=== PATIENT | female | born 1955 | race Caucasian/White ===

== ENCOUNTER 2016-03-24 21:27 | Emergency (ER) | payer MEDICAID ==
[2016-03-24] MEDS ORDERED: LORazepam 2 MG/ML INJ IVP ONE (21:30)
--- NOTE | 2016-03-24 21:32 | EDPHY ---
H & P Time Seen by Provider: 03/24/16 21:27 HPI/ROS: CHIEF COMPLAINT: Tremors, hypertension, alcohol withdrawal HISTORY OF PRESENT ILLNESS: The patient is a 60-year-old alcoholic female who is withdrawing from alcohol. She was seen at [facility] this morning and sent to the alcohol recovery Center with a Librium prescription. She states that they have not been giving it to her there. She has not had any for the last 12 hours. She has become tremulous and hypertensive. Paramedics state that the recovery Center told them her blood pressure was 200 systolic. There measurement is 174/108. She has no other complaints. She denies recent illness. REVIEW OF SYSTEMS: Constitutional: denies: chills, fever, recent illness, recent injury EENTM: denies: blurred vision, double vision, nose congestion Respiratory: denies: cough, shortness of breath Cardiac: denies: chest pain, irregular heart rate, lightheadedness, palpitations Gastrointestinal/Abdominal: denies: abdominal pain, diarrhea, nausea, vomiting, blood streaked stools Genitourinary: denies: dysuria, frequency, hematuria, pain Musculoskeletal: denies: joint pain, muscle pain Skin: denies: lesions, rash, jaundice, bruising Neurological: Tremulous, anxious Hematologic/Lymphatic: denies: blood clots, easy bleeding, easy bruising Immunologic/allergic: denies: HIV/AIDS, transplant EXAM: GENERAL: Tremulous HEAD: Atraumatic, normocephalic. EYES: Pupils equal round and reactive to light, extraocular movements intact, sclera anicteric, conjunctiva are normal. ENT: TMs normal, nares patent, oropharynx clear without exudates. Moist mucous membranes. NECK: Normal range of motion, supple without lymphadenopathy or JVD. LUNGS: Breath sounds clear to auscultation bilaterally and equal. No wheezes rales or rhonchi. HEART: Regular rate and rhythm without murmurs, rubs or gallops. ABDOMEN: Soft, nontender, normoactive bowel sounds. No guarding, no rebound. No masses appreciated. BACK: No CVA tenderness, no spinal tenderness, step-offs or deformities EXTREMITIES: Normal range of motion, no pitting or edema. No clubbing or cyanosis. NEUROLOGICAL: Cranial nerves II through XII grossly intact. Normal speech, normal gait. 5/5 strength, normal movement in all extremities, normal sensation PSYCH: Anxious SKIN: Warm, dry, normal turgor, no visible rashes or lesions. Source: Patient, EMS Exam Limitations: No limitations - Personal History Tetanus Vaccine Date: 2010 - Medical/Surgical History Hx Asthma: No Hx Chronic Respiratory Disease: No Hx Diabetes: No Hx Cardiac Disease: No Hx Renal Disease: No Hx Cirrhosis: No Hx Alcoholism: No Hx HIV/AIDS: No Hx Splenectomy or Spleen Trauma: No Other PMH: Insommia/depressiion, ETOH abouse - Family History Significant Family History: Hypertension - Social History Smoking Status: Never smoked Alcohol Use: Heavy Drug Use: None Constitutional: Initial Vital Signs Temperature (C) 37.1 C 03/24/16 21:34 Heart Rate 101 H 03/24/16 21:34 Respiratory Rate 20 03/24/16 21:34 Blood Pressure 142/102 H 03/24/16 21:34 O2 Sat (%) 95 03/24/16 21:34 O2 Delivery Mode Room Air Allergies/Adverse Reactions: No Known Allergies Allergy (Unverified 07/29/12 11:41) Home Medications: Medication Instructions Recorded Aspirin [Aspirin 81mg (OTC)] 162 mg PO DAILY 09/14/13 Cholecalciferol (Vitamin D3) 2,000 unit PO DAILY 09/14/13 [Vitamin D3] Gabapentin [Neurontin 300 MG (RX)] 1,200 mg PO HS 09/14/13 Gabapentin [Neurontin 300 MG (RX)] 600 mg PO DAILY 09/14/13 Herbals/Supplements -Info Only 1 ea PO DAILY 09/14/13 Losartan Potassium [Cozaar] 25 mg PO DAILY 09/14/13 Multivitamins [Tab-A-Brain] 1 each PO DAILY 09/14/13 Simvastatin [Zocor] 40 mg PO DAILY18 09/14/13 Tretinoin [Retin-A] 1 kendrick TP DAILY 09/14/13 buPROPion XL [Wellbutrin Xl] 300 mg PO DAILY 09/14/13 traZODone [traZODone 150MG (RX)] 300 mg PO HS 09/14/13 Medical Decision Making ED Course/Re-evaluation: 10:20 p.m. the patient is feeling completely better. She is dozing. Her blood pressure is 140/100. Heart rate is 75. We will have her return to the recovery Center with a Librium prepack. She is agreeable to this. We discussed indications for returning. Differential Diagnosis: Partial list of the Differential diagnosis considered include but were not limited to; alcohol withdrawal, hypertension, anxiety and although unlikely based on the history and physical exam, I also considered infection, acute coronary disease, arrhythmia. I discussed these differential diagnoses and the plan with the patient as well as the usual and expected course. The patient understands that the diagnosis is provisional and that in medicine we are not always correct and that further workup is often warranted. Usual and customary warnings were given. All of the patient's questions were answered. The patient was instructed to return to the emergency department should the symptoms at all worsen or return, otherwise to followup with the physician as we discussed. - Data Points Medications Given: Discontinued Medications Chlordiazepoxide (Librium 25 Mg Prepack#6) 1 btl TAKEHOME EDNOW ONE Stop: 03/24/16 22:29 Last Admin: 03/24/16 22:33 Dose: 1 btl Sodium Chloride (Ns) 1,000 mls @ 0 mls/hr IV ONCE ONE PRN Reason: Wide Open Stop: 03/24/16 22:38 Last Admin: 03/24/16 22:39 Dose: 1,000 mls Lorazepam (Ativan Injection) 2 mg IVP EDNOW ONE Stop: 03/24/16 21:31 Last Admin: 03/24/16 21:40 Dose: 2 mg Ondansetron HCl (Zofran) 4 mg IVP EDNOW ONE Stop: 03/24/16 22:38 Last Admin: 03/24/16 22:39 Dose: 4 mg Departure - Departure Disposition: Home, Routine, Self-Care Clinical Impression: Alcohol withdrawal Qualifiers: Complication of substance-induced condition: uncomplicated Qualifier Code: ( F10.230) Alcohol dependence with withdrawal, uncomplicated Hypertension Qualifiers: Hypertension type: other secondary hypertension Qualifier Code: (I15.8) Other secondary hypertension Condition: Good Instructions: Alcohol Withdrawal (ED), Antihistamine (By mouth), Chlordiazepoxide (By mouth) Referrals: NONE *PRIMARY CARE P,. [Primary Care Provider] - As per Instructions
[2016-03-24 21:35] VITALS: RESP 20; TEMP 98.8
[2016-03-24] MEDS ORDERED: LORazepam 2 MG/ML INJ ONE (21:37)
[2016-03-24 22:23] VITALS: BP 168/108; PULSE 125; O2SAT 100
[2016-03-24] MEDS ORDERED: CHLORDIAZEPOXIDE 25MG PREPK#6 BTL TAKEHOME ONE (22:28)
[2016-03-24] MEDS ORDERED: ONDANSETRON 4 MG/2 ML VIAL ONE (22:34)
[2016-03-24] MEDS ORDERED: ONDANSETRON 4 MG/2 ML VIAL IVP ONE (22:37)
[2016-03-24] MEDS ORDERED: NS 1,000 ML IV ONE (22:37)
== END 2016-03-24 22:50 | disposition home or self-care (01) ==
LOC: EDUNIT#
DX: I10 Essential (primary) hypertension (principal); F10.230 Alcohol dependence with withdrawal, uncomplicated; Z79.82 Long term (current) use of aspirin
CPT/HCPCS: 96374; J2405

== ENCOUNTER 2016-05-13 20:06 | Emergency (ER) | payer MEDICAID ==
[2016-05-13] MEDS ORDERED: ONDANSETRON 4 MG/2 ML VIAL ONE (20:17)
[2016-05-13] MEDS ORDERED: LORazepam 2 MG/ML INJ ONE (20:18)
[2016-05-13] MEDS ORDERED: NS 1,000 ML IV ONE (20:20)
[2016-05-13] MEDS ORDERED: LORazepam 2 MG/ML INJ IVP ONE (20:20)
[2016-05-13] MEDS ORDERED: ONDANSETRON 4 MG/2 ML VIAL IVP ONE ×2 (20:20→21:28)
--- NOTE | 2016-05-13 20:22 | EDPHY ---
H & P Time Seen by Provider: 05/13/16 20:15 HPI/ROS: CHIEF COMPLAINT: Alcohol withdrawal HISTORY OF PRESENT ILLNESS: The patient is a 60-year-old female who drove herself to the alcohol recovery Center earlier today. She has a history of alcoholism and drinks hard liquor. She had her last drink about 8 hours ago. She was not receiving Librium at the recovery Center. She comes here tachycardic with tremors and vomiting. She has a history of cardiovascular disease but no stents or surgeries. Also hypertension and hypercholesterolemia. She has never had withdrawal seizures. No recent illness or injuries. REVIEW OF SYSTEMS: Constitutional: See HPI EENTM: denies: blurred vision, double vision, nose congestion Respiratory: denies: cough, shortness of breath Cardiac: denies: chest pain, irregular heart rate, lightheadedness, palpitations Gastrointestinal/Abdominal: denies: abdominal pain, diarrhea, nausea, vomiting, blood streaked stools Genitourinary: denies: dysuria, frequency, hematuria, pain Musculoskeletal: denies: joint pain, muscle pain Skin: denies: lesions, rash, jaundice, bruising Neurological: denies: headache, numbness, paresthesia, tingling, dizziness, weakness Hematologic/Lymphatic: denies: blood clots, easy bleeding, easy bruising Immunologic/allergic: denies: HIV/AIDS, transplant EXAM: GENERAL: Vomiting, tremulous HEAD: Atraumatic, normocephalic. EYES: Pupils equal round and reactive to light, extraocular movements intact, sclera anicteric, conjunctiva are normal. ENT: TMs normal, nares patent, oropharynx clear without exudates. Moist mucous membranes. NECK: Normal range of motion, supple without lymphadenopathy or JVD. LUNGS: Breath sounds clear to auscultation bilaterally and equal. No wheezes rales or rhonchi. HEART: Tachycardic Regular rate and rhythm without murmurs, rubs or gallops. ABDOMEN: Soft, nontender, normoactive bowel sounds. No guarding, no rebound. No masses appreciated. BACK: No CVA tenderness, no spinal tenderness, step-offs or deformities EXTREMITIES: Normal range of motion, no pitting or edema. No clubbing or cyanosis. NEUROLOGICAL: Cranial nerves II through XII grossly intact. Normal speech, normal gait. 5/5 strength, normal movement in all extremities, normal sensation PSYCH: tearful SKIN: Warm, dry, normal turgor, no visible rashes or lesions. Source: Patient Exam Limitations: No limitations - Personal History Tetanus Vaccine Date: 2010 - Medical/Surgical History Hx Asthma: No Hx Chronic Respiratory Disease: No Hx Diabetes: No Hx Cardiac Disease: No Hx Renal Disease: No Hx Cirrhosis: No Hx Alcoholism: No Hx HIV/AIDS: No Hx Splenectomy or Spleen Trauma: No Other PMH: Insommia/depressiion, ETOH abouse - Family History Significant Family History: Hypertension - Social History Smoking Status: Never smoked Alcohol Use: Heavy Drug Use: None Constitutional: Initial Vital Signs Temperature (C) 37.1 C 05/13/16 20:10 Heart Rate 103 H 05/13/16 20:10 Respiratory Rate 22 H 05/13/16 20:10 Blood Pressure 149/113 H 05/13/16 20:10 O2 Sat (%) 95 05/13/16 20:10 O2 Delivery Mode Room Air Allergies/Adverse Reactions: No Known Allergies Allergy (Unverified 07/29/12 11:41) Home Medications: Medication Instructions Recorded Aspirin [Aspirin 81mg (OTC)] 162 mg PO DAILY 09/14/13 Cholecalciferol (Vitamin D3) 2,000 unit PO DAILY 09/14/13 [Vitamin D3] Gabapentin [Neurontin 300 MG (RX)] 1,200 mg PO HS 09/14/13 Gabapentin [Neurontin 300 MG (RX)] 600 mg PO DAILY 09/14/13 Herbals/Supplements -Info Only 1 ea PO DAILY 09/14/13 Losartan Potassium [Cozaar] 25 mg PO DAILY 09/14/13 Multivitamins [Tab-A-Brain] 1 each PO DAILY 09/14/13 Simvastatin [Zocor] 40 mg PO DAILY18 09/14/13 Tretinoin [Retin-A] 1 kendrick TP DAILY 09/14/13 buPROPion XL [Wellbutrin Xl] 300 mg PO DAILY 09/14/13 traZODone [traZODone 150MG (RX)] 300 mg PO HS 09/14/13 Medical Decision Making ED Course/Re-evaluation: 10:15 p.m. after Ativan and Zofran the patient is feeling much better. She is sleeping comfortably. No tremors. She is not tachycardic. Her heart rate is 87. We will transfer back to the alcohol recovery Center on a Librium protocol. She understands and agrees with this plan. Differential Diagnosis: Partial list of the Differential diagnosis considered include but were not limited to; alcohol withdrawal, intoxication, anxiety and although unlikely based on the history and physical exam, I also considered polysubstance abuse, infection. I discussed these differential diagnoses and the plan with the patient as well as the usual and expected course. The patient understands that the diagnosis is provisional and that in medicine we are not always correct and that further workup is often warranted. Usual and customary warnings were given. All of the patient's questions were answered. The patient was instructed to return to the emergency department should the symptoms at all worsen or return, otherwise to followup with the physician as we discussed. - Data Points Medications Given: Discontinued Medications Chlordiazepoxide (Librium 25 Mg Prepack#6) 1 btl TAKEHOME EDNOW ONE Stop: 05/13/16 22:17 Last Admin: 05/13/16 22:21 Dose: 1 btl Chlordiazepoxide HCl (Librium) 50 mg PO EDNOW ONE Stop: 05/13/16 21:31 Last Admin: 05/13/16 21:38 Dose: 50 mg Sodium Chloride (Ns) 1,000 mls @ 0 mls/hr IV ONCE ONE PRN Reason: Wide Open Stop: 05/13/16 20:21 Last Admin: 05/13/16 20:24 Dose: 1,000 mls Lorazepam (Ativan Injection) 2 mg IVP EDNOW ONE Stop: 05/13/16 20:21 Last Admin: 05/13/16 20:24 Dose: 2 mg Ondansetron HCl (Zofran) 4 mg IVP EDNOW ONE Stop: 05/13/16 20:21 Last Admin: 05/13/16 20:24 Dose: 4 mg Ondansetron HCl (Zofran) 4 mg IVP EDNOW ONE Stop: 05/13/16 21:29 Last Admin: 05/13/16 21:37 Dose: 4 mg Ondansetron HCl (Zofran Odt 4 Mg Prepack#2) 1 btl TAKEHOME EDNOW ONE Stop: 05/13/16 22:48 Last Admin: 05/13/16 22:50 Dose: 1 btl Departure - Departure Disposition: Home, Routine, Self-Care Clinical Impression: Alcohol withdrawal Qualifiers: Complication of substance-induced condition: uncomplicated Qualified Code(s): F10.230 - Alcohol dependence with withdrawal, uncomplicated Condition: Fair Instructions: Chlordiazepoxide (By mouth), Ondansetron (By mouth), Alcohol Withdrawal (ED) Referrals: Patient,NotPresent [Unknown] - As per Instructions
[2016-05-13] MEDS ORDERED: chlordiazePOXIDE 25 MG CAP PO ONE (21:30)
[2016-05-13 21:48] VITALS: RESP 16; TEMP 98.2
[2016-05-13] MEDS ORDERED: CHLORDIAZEPOXIDE 25MG PREPK#6 BTL TAKEHOME ONE (22:16)
[2016-05-13] MEDS ORDERED: ONDANSETRON 4MG PREPACK#2 BTL TAKEHOME ONE (22:47)
[2016-05-13 22:58] VITALS: BP 142/81; PULSE 93; O2SAT 95
== END 2016-05-13 22:58 | disposition home or self-care (01) ==
LOC: EDUNIT#
DX: F10.230 Alcohol dependence with withdrawal, uncomplicated (principal); Z79.82 Long term (current) use of aspirin
CPT/HCPCS: 96374; J2405

== ENCOUNTER 2016-06-22 09:45 | Emergency (ER) | payer MEDICAID ==
[2016-06-22 09:50] VITALS: TEMP 98.1
--- NOTE | 2016-06-22 10:02 | EDPHY ---
H & P Stated Complaint: WITHDRAWAL/INTRACABLE N/V Time Seen by Provider: 06/22/16 10:01 - Personal History Current Tetanus/Diphtheria Vaccine: Yes Tetanus Vaccine Date: 2010 - Medical/Surgical History Hx Asthma: No Hx Chronic Respiratory Disease: No Hx Diabetes: No Hx Cardiac Disease: No Hx Renal Disease: No Hx Cirrhosis: No Hx Alcoholism: Yes Hx HIV/AIDS: No Hx Splenectomy or Spleen Trauma: No Other PMH: Insommia/depressiion, ETOH abouse - Social History Smoking Status: Never smoked Constitutional: Initial Vital Signs Temperature (C) 36.7 C 06/22/16 09:47 Heart Rate 112 H 06/22/16 09:47 Respiratory Rate 20 06/22/16 09:47 Blood Pressure 191/120 H 06/22/16 09:47 O2 Sat (%) 97 06/22/16 09:47 O2 Delivery Mode Room Air O2 (L/minute) 2 Allergies/Adverse Reactions: No Known Allergies Allergy (Verified 06/22/16 09:46) Home Medications: Medication Instructions Recorded Aspirin [Aspirin 81mg (OTC)] 162 mg PO DAILY 09/14/13 Cholecalciferol (Vitamin D3) 2,000 unit PO DAILY 09/14/13 [Vitamin D3] Gabapentin [Neurontin 300 MG (RX)] 1,200 mg PO HS 09/14/13 Gabapentin [Neurontin 300 MG (RX)] 600 mg PO DAILY 09/14/13 Herbals/Supplements -Info Only 1 ea PO DAILY 09/14/13 Losartan Potassium [Cozaar] 25 mg PO DAILY 09/14/13 Multivitamins [Tab-A-Brain] 1 each PO DAILY 09/14/13 Simvastatin [Zocor] 40 mg PO DAILY18 09/14/13 Tretinoin [Retin-A] 1 kendrick TP DAILY 09/14/13 buPROPion XL [Wellbutrin Xl] 300 mg PO DAILY 09/14/13 traZODone [traZODone 150MG (RX)] 300 mg PO HS 09/14/13 Medical Decision Making ED Course/Re-evaluation: CHIEF COMPLAINT: "shakes" and vomiting HISTORY OF PRESENT ILLNESS: The patient is a 61 y/o female, with a history of alcoholism, complaining of alcohol withdrawal onset this morning. Her last drink was last night. She complains of tremors, nausea, and a "wobbly tongue." She denies hallucinations or other ingestions. She has been referred to an inpatient detox facility. REVIEW OF SYSTEMS: A 10 point review of systems was performed and is negative with the exception of the elements mentioned in the history of present illness. PHYSICAL EXAM: HR 112, BP 191/120, O2 Sat, RR. Temp noted General Appearance: Alert, well hydrated, appropriate, and tremulous and uncomfortable-appearing. Head: Atraumatic without scalp tenderness or obvious injury Eyes: Pupils equal, round, reactive to light and accommodation, EOMI, no trauma , no injection. Nose: Atraumatic, no rhinorrhea, clear. Throat: mucus membranes moist. Neck: Supple, nontender, no lymphadenopathy. Respiratory: No retractions, no distress, no wheezes, and no accessory muscle use. Lungs are clear to auscultation bilaterally. Cardiovascular: Tachycardic regular rate and rhythm, no murmurs, rubs, or gallops. Good capillary refill all extremities. Gastrointestinal: Abdomen is soft, nontender, non-distended, no masses, no rebound, no guarding, no peritoneal signs. Musculoskeletal: Normal active ROM of all extremities, atraumatic. Neurological: Alert, appropriate, and interactive. Diffuse tremors. Nonfocal. Tongue fasciculations. Skin: No rashes, good turgor, no nodules on palpation. Past medical history: Alcoholism Past surgical history: denies Family history: noncontributory Social history: alcohol abuse DIFFERENTIAL DIAGNOSIS: The differential diagnosis for the patient's tremors included but was not limited to alcohol withdrawal, delirium tremens, electrolyte abnormality, medication noncompliance, head injury, PHONE CIRCUIT OPERATOR structural abnormality. MEDICAL DECISION MAKING: This is a 61 y/o female with a history of alcoholism who presents in acute alcohol withdrawal with tremors. She does not have evidence of delirium tremens. - no cognitive or hallucinogenic symptoms. Plan for symptom management with 1L IV NS, 2mg IV Ativan, and 4mg IV Zofran. If patient remains stable she will be discharged to the [facility] with Librium for detox. Reassessed patient. She is feeling well and agrees to plan for discharge to the [facility]. Return precautions given. - Data Points Medications Given: Discontinued Medications Chlordiazepoxide (Librium 25 Mg Prepack#6) 1 btl TAKEHOME EDNOW ONE Stop: 06/22/16 11:10 Last Admin: 06/22/16 11:20 Dose: 1 btl Sodium Chloride (Ns) 1,000 mls @ 0 mls/hr IV ONCE ONE PRN Reason: Wide Open Stop: 06/22/16 10:27 Last Admin: 06/22/16 10:27 Dose: 1,000 mls Lorazepam (Ativan) 1 mg PO EDNOW ONE Stop: 06/22/16 10:08 Last Admin: 06/22/16 10:07 Dose: 1 mg Lorazepam (Ativan Injection) 2 mg IVP EDNOW ONE Stop: 06/22/16 10:21 Last Admin: 06/22/16 10:26 Dose: 2 mg Ondansetron HCl (Zofran) 4 mg IVP EDNOW ONE Stop: 06/22/16 10:21 Last Admin: 06/22/16 10:26 Dose: 4 mg Departure - Departure Disposition: Home, Routine, Self-Care Clinical Impression: Alcohol withdrawal Qualifiers: Complication of substance-induced condition: uncomplicated Qualified Code(s): F10.230 - Alcohol dependence with withdrawal, uncomplicated Condition: Good Instructions: Alcohol Withdrawal (ED) Additional Instructions: 1. Take Librium as prescribed for alcohol withdrawal. 2. Go directly to the [facility] for detox. 3. Return to the ED for seizure or other worsening of condition. Referrals: [facility] 24 Hours [Outside] - As per Instructions Report Scribed for: Dimitri Morse Report Scribed by: Divya Lemons Date of Report: 06/22/16 Time of Report: 11:12
[2016-06-22] MEDS ORDERED: LORazepam 1 MG TAB ONE (10:06)
[2016-06-22] MEDS ORDERED: LORazepam 1 MG TAB PO ONE (10:07)
[2016-06-22] MEDS ORDERED: ONDANSETRON 4 MG/2 ML VIAL ONE (10:18)
[2016-06-22] MEDS ORDERED: LORazepam 2 MG/ML INJ ONE (10:19)
[2016-06-22] MEDS ORDERED: ONDANSETRON 4 MG/2 ML VIAL IVP ONE (10:20)
[2016-06-22] MEDS ORDERED: LORazepam 2 MG/ML INJ IVP ONE (10:20)
[2016-06-22] MEDS ORDERED: NS 1,000 ML IV ONE (10:26)
[2016-06-22] MEDS ORDERED: CHLORDIAZEPOXIDE 25MG PREPK#6 BTL TAKEHOME ONE (11:09)
[2016-06-22 11:25] VITALS: BP 148/96; PULSE 89; RESP 16; O2SAT 97
== END 2016-06-22 11:26 | disposition home or self-care (01) ==
DX: F10.230 Alcohol dependence with withdrawal, uncomplicated (principal); Z79.82 Long term (current) use of aspirin
CPT/HCPCS: 96374; J2060; J2405

== ENCOUNTER 2016-06-26 12:40 | Emergency (ER) | payer MEDICAID ==
[2016-06-26 12:58] VITALS: RESP 18
[2016-06-26 13:11] VITALS: O2SAT 95
[2016-06-26] MEDS ORDERED: LORazepam 1 MG TAB PO ONE (13:26)
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
[2016-06-26 15:22] VITALS: BP 107/77; PULSE 80; TEMP 98.2
== END 2016-06-26 15:30 | disposition home or self-care (01) ==
LOC: EDUNIT#
DX: F41.9 Anxiety disorder, unspecified (principal); I10 Essential (primary) hypertension; Z79.82 Long term (current) use of aspirin; F10.120 Alcohol abuse with intoxication, uncomplicated

== ENCOUNTER 2016-06-26 18:03 | Emergency (ER) | payer MEDICAID ==
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
[2016-06-26 18:12] VITALS: TEMP 98.1
[2016-06-26] MEDS ORDERED: CHLORDIAZEPOXIDE 25MG PREPK#6 BTL TAKEHOME ONE (20:53)
[2016-06-26 21:09] VITALS: BP 129/85; PULSE 96; RESP 18; O2SAT 94
== END 2016-06-26 21:09 | disposition home or self-care (01) ==
LOC: EDUNIT#
DX: F10.120 Alcohol abuse with intoxication, uncomplicated (principal); I10 Essential (primary) hypertension; Z79.82 Long term (current) use of aspirin

== ENCOUNTER 2016-07-15 20:26 | Emergency (ER) | payer MEDICAID ==
[2016-07-15 20:44] VITALS: BP 113/71; PULSE 82; RESP 20; TEMP 98.6; O2SAT 95
--- NOTE | 2016-07-15 20:51 | EDPHY ---
H & P Stated Complaint: etoh, wants detox Time Seen by Provider: 07/15/16 20:51 - Personal History Tetanus Vaccine Date: 2010 - Medical/Surgical History Hx Asthma: No Hx Chronic Respiratory Disease: No Hx Diabetes: No Hx Cardiac Disease: Yes Hx Renal Disease: No Hx Cirrhosis: No Hx Alcoholism: Yes Hx HIV/AIDS: No Hx Splenectomy or Spleen Trauma: No Other PMH: HTN, Insommia/depressiion, ETOH abouse - Social History Smoking Status: Never smoked Constitutional: Initial Vital Signs Temperature (C) 37 C 07/15/16 20:42 Heart Rate 82 07/15/16 20:42 Respiratory Rate 20 07/15/16 20:42 Blood Pressure 113/71 07/15/16 20:42 O2 Sat (%) 95 07/15/16 20:42 O2 Delivery Mode Room Air Allergies/Adverse Reactions: No Known Allergies Allergy (Verified 07/15/16 20:41) Home Medications: Medication Instructions Recorded Aspirin [Aspirin 81mg (OTC)] 162 mg PO DAILY 09/14/13 Cholecalciferol (Vitamin D3) 2,000 unit PO DAILY 09/14/13 [Vitamin D3] Gabapentin [Neurontin 300 MG (RX)] 1,200 mg PO HS 09/14/13 Gabapentin [Neurontin 300 MG (RX)] 600 mg PO DAILY 09/14/13 Herbals/Supplements -Info Only 1 ea PO DAILY 09/14/13 Losartan Potassium [Cozaar] 25 mg PO DAILY 09/14/13 Multivitamins [Tab-A-Brain] 1 each PO DAILY 09/14/13 Simvastatin [Zocor] 40 mg PO DAILY18 09/14/13 Tretinoin [Retin-A] 1 kendrick TP DAILY 09/14/13 buPROPion XL [Wellbutrin Xl] 300 mg PO DAILY 09/14/13 traZODone [traZODone 150MG (RX)] 300 mg PO HS 09/14/13 Medical Decision Making ED Course/Re-evaluation: CHIEF COMPLAINT: Needs Librium. HISTORY OF PRESENT ILLNESS: The patient is a 61-year-old female who presents from the [facility] to get Librium. She took 3 shots just prior to arrival. She denies any medical complaints at this time. REVIEW OF SYSTEMS: A 10 point review of systems was performed and is negative with the exception of the elements mentioned in the history of present illness. PHYSICAL EXAM: HR, BP, O2 Sat, RR. Temp noted General Appearance: Alert, well hydrated, appropriate, and non-toxic appearing. Head: Atraumatic without scalp tenderness or obvious injury Eyes: Pupils equal, round, reactive to light and accommodation, EOMI, no trauma , no injection. Ears: Clear bilaterally, no perforation, normal landmarks Nose: Atraumatic, no rhinorrhea, clear. Throat: There is no erythema or exudates, no lesions, normal tonsils, mucus membranes moist. Neck: Supple, 2+ carotid upstroke, nontender, no lymphadenopathy. Respiratory: No retractions, no distress, no wheezes, and no accessory muscle use. Lungs are clear to auscultation bilaterally. Cardiovascular: Regular rate and rhythm, no murmurs, rubs, or gallops. Bilateral carotid, radial, dorsalis pedis, and posterior tibial pulses intact. Good capillary refill all extremities. Gastrointestinal: Abdomen is soft, nontender, non-distended, no masses, no rebound, no guarding, no peritoneal signs. Musculoskeletal: Normal active ROM of all extremities, atraumatic. Neurological: Alert, appropriate, and interactive. The patient has normal DTRs and non-focal cranial nerves, motor, sensory, and cerebellar exam. Skin: No rashes, good turgor, no nodules on palpation. Past medical history: Hypertension, insomnia, depression. Past surgical history: Denies. Family history: N/A. Social history: Alcohol abuse. MEDICAL DECISION MAKIN-year-old female presents from the [facility] for med clear and to obtain Librium. She has no medical complaints at this time. She has a normal exam. I will give her a take-home pack of Librium and she will be transferred back to the [facility]. She is comfortable with this plan. Departure - Departure Disposition: Home, Routine, Self-Care Clinical Impression: Alcohol abuse Condition: Good Instructions: Abuse of Alcohol (ED), Chlordiazepoxide/Clidinium (By mouth) Additional Instructions: Take Librium as instructed. Follow up at the [facility]. Return for any serious worsening of condition. Referrals: WINTER,UNKNOWN [Other] - As per Instructions [facility] Detox 24 Hours [Outside] - As per Instructions Report Scribed for: Dimitri Morse Report Scribed by: Leandro Peng Date of Report: 07/15/16 Time of Report: 20:53
[2016-07-15] MEDS ORDERED: CHLORDIAZEPOXIDE 25MG PREPK#6 BTL TAKEHOME ONE (20:53)
== END 2016-07-15 21:20 | disposition home or self-care (01) ==
DX: F10.10 Alcohol abuse, uncomplicated (principal); I10 Essential (primary) hypertension; Z79.82 Long term (current) use of aspirin

== ENCOUNTER 2016-08-09 09:49 | Emergency (ER) | payer MEDICAID ==
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
[2016-08-09 09:55] VITALS: TEMP 96.8
--- NOTE | 2016-08-09 09:56 | CPEKG ---
Heart Rate: 79 RR Interval: 759 P-R Interval: 124 QRSD Interval: 92 QT Interval: 392 QTC Interval: 450 P Sumner: 30 QRS Sumner: 57 T Wave Sumner: 58 EKG Severity - BORDERLINE ECG - EKG Impression: SINUS RHYTHM EKG Impression: TALL R WAVE IN V2, CONSIDER RVH OR PMI Electronically Signed By: Patrick Dang 09-Aug-2016 13:52:42
[2016-08-09] MEDS ORDERED: LORazepam 2 MG/ML INJ IVP ONE (10:08)
[2016-08-09 10:11] LABS: % IMMATURE GRANULYOCYTES 0.4 % (0.0-1.1); ABSOLUTE IMMATURE GRANULOCYTES 0.03 10^3/uL (0.00-0.10); ADD DIFF? NO; ADD MORPH? NO; ADD SCAN? NO; ATYPICAL LYMPHOCYTE FLAG 40 (0-99); FRAGMENT RBC FLAG 0 (0-99); HEMOGLOBIN 13.2 g/dL (12.6-16.3); LEFT SHIFT FLG 0 (0-99); LIPEMIA HEMOLYSIS FLAG 90 (0-99); MEAN CELL HEMOGLOBIN 32.3 pg (27.9-34.1); MEAN CELL HEMOGLOBIN CONCENTR. 34.7 g/dL (32.4-36.7); MEAN CELL VOLUME 92.9 fL (81.5-99.8); MEAN PLATELET VOLUME 9.7 fL (8.7-11.7); PLATELET CLUMPS FLAG 0 (0-99); PLATELET COUNT 330 10^3/uL (150-400); RED BLOOD CELL COUNT 4.09 10^6/uL (4.18-5.33); RED CELL DISTRIBUTION WIDTH 14.7 % (11.5-15.2)
[2016-08-09 10:28] LABS: ANION GAP 15 mEq/L (8-16); CALCIUM 8.9 mg/dL (8.5-10.4); CARBON DIOXIDE 25 mEq/l (22-31); CHLORIDE 104 mEq/L (97-110); CREATININE 0.5 mg/dL (0.6-1.0); GLOMERULAR FILTRATION RATE > 60; GLUCOSE 90 mg/dL (70-100); POTASSIUM 4.1 mEq/L (3.5-5.2); SODIUM 144 mEq/L (134-144)
[2016-08-09 10:39] LABS: TROPONIN I < 0.012 ng/mL (0-0.034)
[2016-08-09 11:16] VITALS: BP 107/74; PULSE 91; RESP 18; O2SAT 98
== END 2016-08-09 11:30 | disposition home or self-care (01) ==
DX: F41.9 Anxiety disorder, unspecified (principal); R07.89 Other chest pain; I10 Essential (primary) hypertension; I25.2 Old myocardial infarction
CPT/HCPCS: 96374; J2060

== ENCOUNTER 2016-08-14 09:40 | Emergency (ER) | payer MEDICAID ==
[2016-08-14] MEDS ORDERED: NS 1,000 ML IV ONE (10:22)
[2016-08-14] MEDS ORDERED: LORazepam 2 MG/ML INJ IVP ONE (10:22)
[2016-08-14] MEDS ORDERED: THIAMINE HCL 100 MG TAB PO ONE (10:22)
[2016-08-14] MEDS ORDERED: FOLIC ACID 1 MG TAB PO ONE (10:22)
[2016-08-14] MEDS ORDERED: MULTIVITAMINS 1 EACH TAB PO ONE (10:22)
[2016-08-14] MEDS ORDERED: ONDANSETRON 4 MG/2 ML VIAL IVP ONE (10:22)
--- NOTE | 2016-08-14 10:26 | EDPHY ---
H & P Time Seen by Provider: 08/14/16 10:19 HPI/ROS: CHIEF COMPLAINT: "I am withdrawing" HISTORY OF PRESENT ILLNESS: 61-year-old female self-described alcoholic arrives via taxi [facility] for complaints of acute alcohol withdrawal. Last drink follow-up Barr with last evening. She had a friend take her to the [facility] but is complaining now of acute anxiety, tremor, nausea. She denies: Suicidal or homicidal ideation, chest pain, dyspnea, back pain, headache, seizure, hallucination REVIEW OF SYSTEMS: A ten point review of systems was performed and is negative with the exception of the items mentioned in the HPI PAST MEDICAL & SURGICAL HISTORY: alcoholism SOCIAL HISTORY:last drink of alcohol last evening PHYSICAL EXAM (Prior to examination, patient consented to physical exam, hands were washed and my usual and customary physical exam procedures followed) 1) GENERAL: Well-developed, well-nourished, alert and oriented. Appears anxious , tremulous 2) HEAD: Normocephalic, atraumatic 3) HEENT: Pupils equal, round, reactive to light bilaterally. Sclera anicteric. 4) NECK: Full range of motion, no meningeal signs. 5) LUNGS: Clear auscultation bilaterally, no wheezes, no rhonchi, no retractions. 6) HEART: Regular rate and rhythm, no murmur, no heave, no gallop. 7) ABDOMEN: No guarding, no rebound, no focal tendernes, 8) MUSCULOSKELETAL: No peripheral edema or discoloration. 9) BACK: No CVA tenderness. 10) SKIN: No rash, no petechiae. 11) Psychiatric: Patient is oriented X 3, there is no agitation. DIFFERENTIAL DIAGNOSIS: in no particular order including but not limited to delirium tremens, acute alcohol withdrawal, alcohol withdrawal seizure Smoking Status: Never smoked Constitutional: Initial Vital Signs Temperature (C) 36.7 C 08/14/16 09:45 Heart Rate 95 08/14/16 09:45 Respiratory Rate 20 08/14/16 09:45 Blood Pressure 150/107 H 08/14/16 09:45 O2 Sat (%) 95 08/14/16 09:45 O2 Delivery Mode Room Air Allergies/Adverse Reactions: No Known Allergies Allergy (Verified 08/14/16 09:47) Home Medications: Medication Instructions Recorded Cymbalta 08/09/16 GABAPENTIN 08/09/16 Lipitor 08/09/16 Losartan Potassium 08/09/16 traZODone 08/09/16 MDM/Departure - MDM Medications Given: Discontinued Medications Chlordiazepoxide (Librium 25 Mg Prepack#6) 1 btl TAKEHOME EDNOW ONE Stop: 08/14/16 11:13 Last Admin: 08/14/16 11:28 Dose: 1 btl Folic Acid (Folic Acid) 1 mg PO EDNOW ONE Stop: 08/14/16 10:23 Last Admin: 08/14/16 11:15 Dose: 1 mg Sodium Chloride (Ns) 1,000 mls @ 0 mls/hr IV ONCE ONE PRN Reason: Wide Open Stop: 08/14/16 10:23 Last Admin: 08/14/16 10:35 Dose: 1,000 mls Lorazepam (Ativan Injection) 2 mg IVP EDNOW ONE Stop: 08/14/16 10:23 Last Admin: 08/14/16 10:35 Dose: 2 mg Multivitamins (Tab-A-Brain) 1 each PO EDNOW ONE Stop: 08/14/16 10:23 Last Admin: 08/14/16 11:16 Dose: 1 each Ondansetron HCl (Zofran) 4 mg IVP EDNOW ONE Stop: 08/14/16 10:23 Last Admin: 08/14/16 10:35 Dose: 4 mg Ondansetron HCl (Zofran Odt 4 Mg Prepack#2) 1 btl TAKEHOME EDNOW ONE Stop: 08/14/16 11:13 Last Admin: 08/14/16 11:29 Dose: 1 btl Thiamine HCl (Vitamin B-1) 100 mg PO EDNOW ONE Stop: 08/14/16 10:23 Last Admin: 08/14/16 11:16 Dose: 100 mg ED Course/Re-evaluation: 11:11 a.m.: Re-evaluation after IV Ativan 2 mg and IV Zofran IV fluids. Her tremors have resolved, she is smiling, states that she is feeling significantly improved. Objectively she it appears significantly improved. Doubt delirium tremens. Doubt withdrawal seizure. She would like to return [facility]. She will return to the [facility] with prepack of Cl and Genie. Care and management in consultation with secondary supervising physician Dr Dang . - Depart Disposition: Home, Routine, Self-Care Clinical Impression: Alcohol withdrawal Qualifiers: Complication of substance-induced condition: uncomplicated Qualified Code(s): F10.230 - Alcohol dependence with withdrawal, uncomplicated Condition: Good Instructions: Chlordiazepoxide (By mouth), Ondansetron (By mouth), Alcohol Withdrawal (ED) Referrals: [facility] 24 Hours [Outside] - 08/14/16 12:00 pm
[2016-08-14] MEDS ORDERED: CHLORDIAZEPOXIDE 25MG PREPK#6 BTL TAKEHOME ONE (11:12)
[2016-08-14] MEDS ORDERED: ONDANSETRON 4MG PREPACK#2 BTL TAKEHOME ONE (11:12)
[2016-08-14 11:36] VITALS: BP 137/98; PULSE 87; RESP 14; TEMP 97.5; O2SAT 90
== END 2016-08-14 11:49 | disposition home or self-care (01) ==
DX: F10.230 Alcohol dependence with withdrawal, uncomplicated (principal)
CPT/HCPCS: 96374; J2060; J2405

== ENCOUNTER 2016-08-15 20:53 | Emergency (ER) | payer MEDICAID ==
[2016-08-15 21:01] VITALS: RESP 16
--- NOTE | 2016-08-15 22:02 | EDPHY ---
H & P Time Seen by Provider: 08/15/16 21:57 HPI/ROS: CHIEF COMPLAINT: "Oh my god" HISTORY OF PRESENT ILLNESS: 61-year-old female history of alcoholism arrives via who over after her friend, who is also a cooker meal pickup driver, took her to the [facility] however they want her to come to the ER 1st to get Librium and then she may come back. She has no complaints of pain or discomfort. She denies suicidal or homicidal ideation. She denies self- injury. Denies hallucination. Denies seizure. She would like to go to the [facility] [place] REVIEW OF SYSTEMS: A ten point review of systems was performed and is negative with the exception of the items mentioned in the HPI PAST MEDICAL & SURGICAL HISTORY: alcoholism SOCIAL HISTORY:positive alcohol use today PHYSICAL EXAM (Prior to examination, patient consented to physical exam, hands were washed and my usual and customary physical exam procedures followed) 1) GENERAL: Well-developed, well-nourished, alert and oriented. Appears to be in no acute distress. 2) HEAD: Normocephalic, atraumatic 3) HEENT: Pupils equal, round, reactive to light bilaterally. Sclera anicteric. No raccoon eyes no Mccray sign 4) NECK: Full range of motion, no meningeal signs. 5) LUNGS: Clear auscultation bilaterally, no wheezes, no rhonchi, no retractions. 6) HEART: Regular rate and rhythm, no murmur, no heave, no gallop. 7) ABDOMEN: No guarding, no rebound, no focal tenderness, 8) MUSCULOSKELETAL: No peripheral edema or discoloration. 9) BACK: no visual or palpable abnormality. 10) SKIN: No rash, no petechiae. 11) Psychiatric: Patient is oriented X 3, there is no agitation. DIFFERENTIAL DIAGNOSIS: In no particular include but limited to alcohol abuse, alcohol withdrawal, polysubstance abuse Smoking Status: Never smoked Constitutional: Initial Vital Signs Temperature (C) 37 C 08/15/16 20:58 Heart Rate 115 H 08/15/16 20:58 Respiratory Rate 16 08/15/16 20:58 Blood Pressure 134/84 H 08/15/16 20:58 O2 Sat (%) 97 08/15/16 20:58 O2 Delivery Mode Room Air Allergies/Adverse Reactions: No Known Allergies Allergy (Verified 08/14/16 09:47) Home Medications: Medication Instructions Recorded Cymbalta 08/09/16 GABAPENTIN 08/09/16 Lipitor 08/09/16 Losartan Potassium 08/09/16 traZODone 08/09/16 MDM/Departure - MDM ED Course/Re-evaluation: Patient would like to go to the [facility]. Doubt delirium tremens. Doubt alcohol withdrawal seizure. - Depart Disposition: Home, Routine, Self-Care Clinical Impression: Alcohol intoxication Qualifiers: Complication of substance-induced condition: uncomplicated Qualified Code(s): F10.120 - Alcohol abuse with intoxication, uncomplicated Condition: Good Instructions: Alcohol Intoxication (ED), Chlordiazepoxide (By mouth) Referrals: [facility] 24 Hours [Outside] - As per Instructions
[2016-08-15] MEDS ORDERED: LORazepam 1 MG TAB PO ONE (22:03)
[2016-08-15] MEDS ORDERED: CHLORDIAZEPOXIDE 25MG PREPK#6 BTL TAKEHOME ONE (22:06)
[2016-08-15] MEDS ORDERED: ONDANSETRON DISINTEGRATING 4 MG TAB PO ONE (23:06)
[2016-08-15 23:25] VITALS: BP 139/88; PULSE 89; TEMP 97.9; O2SAT 96
== END 2016-08-15 23:24 | disposition home or self-care (01) ==
DX: F10.120 Alcohol abuse with intoxication, uncomplicated (principal)

== ENCOUNTER 2016-08-16 16:57 | Emergency (ER) | payer MEDICAID ==
--- NOTE | 2016-08-16 17:15 | EDPHY ---
H & P Smoking Status: Never smoked Time Seen by Provider: 08/16/16 17:09 HPI/ROS: CHIEF COMPLAINT: Alcohol intoxication HISTORY OF PRESENT ILLNESS: 61-year-old female presents to the emergency department by ambulance after she was found down and unable to ambulate. The patient admits to drinking alcohol. No reported trauma. The patient was seen in the emergency department yesterday for same complaint. She denies any other recreational drug abuse. She denies any headache, chest pain or difficulty breathing. Denies abdominal pain. She does admit to drinking a large amount of alcohol today. She is a known alcoholic. REVIEW OF SYSTEMS: Constitutional: No fever, no chills. Eyes: No double or blurry vision. ENT: No sore throat. Respiratory: No cough, no shortness of breath. Cardiac: No chest pain. Gastrointestinal: No abdominal pain, vomiting or diarrhea. Genitourinary: No dysuria. Musculoskeletal: No neck or back pain. Skin: No rashes. Neurological: No headache. (Gabriella Saenz) Past Medical/Surgical History: Alcoholism, Hypertension (Gabriella Saenz) Social History: (Gabriella Saenz) Physical Exam: General Appearance: Alert, no distress. Smells strongly of alcohol. No visible signs of trauma to her head. Eyes: Pupils equal and round. Extraocular motions are all intact. ENT: Mouth: Mucous membranes moist. Gag reflex present. Respiratory: No wheezing, rhonchi, or rales, lungs are clear to auscultation. Cardiovascular: Regular rate and rhythm. Gastrointestinal: Abdomen is soft and nontender, no masses, no rebound or guarding, bowel sounds normal. Neurological: Uncooperative, cannot determine. Skin: Warm and dry, no rashes. Musculoskeletal: Nontender to palpate along the cervical, thoracic or lumbar spine. Neck is supple. Extremities: Full range of motion and no peripheral edema. Psychiatric: No agitation (Gabriella Saenz) Constitutional: Initial Vital Signs Heart Rate 96 08/16/16 16:57 Respiratory Rate 18 08/16/16 16:57 Blood Pressure 102/70 08/16/16 16:57 O2 Sat (%) 98 08/16/16 16:57 O2 Delivery Mode Nasal Cannula O2 (L/minute) 2 Allergies/Adverse Reactions: No Known Allergies Allergy (Verified 08/14/16 09:47) Home Medications: Medication Instructions Recorded Cymbalta 08/09/16 GABAPENTIN 08/09/16 Lipitor 08/09/16 Losartan Potassium 08/09/16 traZODone 08/09/16 Medical Decision Making ED Course/Re-evaluation: The patient was evaluated and managed by the physician's him assistant. My cosignature indicates that I reviewed the chart and I agree with the findings and plan of care as documented. I am the secondary supervising physician. ( Aidee Nick) 61-year-old female presents to the emergency department by ambulance with acute alcohol intoxication. There was no reported trauma. The patient was seen in the emergency department with similar complaints of alcohol intoxication yesterday. Patient is a known alcoholic. The patient had an alcohol of over 430. She was observed in the emergency department for several hours. 11:15 p.m.: Patient was able to ambulate unassisted. She had no real complaints. [facility]. (Gabriella Saenz) Differential Diagnosis: Altered mental status including but not limited to hypoglycemia, infectious process, electrolyte abnormality, head injury and intoxicants. (Gabriella Saenz) - Data Points Laboratory Results: Laboratory Results 08/16/16 17:25 08/16/16 17:25 08/16/16 08/16/16 17:25 17:25 WBC 6.44 10^3/uL 10^3/uL (3.80-9.50) RBC 4.35 10^6/uL 10^6/uL (4.18-5.33) Hgb 14.0 g/dL g/dL (12.6-16.3) Hct 41.1 % % (38.0-47.0) MCV 94.5 fL fL (81.5-99.8) MCH 32.2 pg pg (27.9-34.1) MCHC 34.1 g/dL g/dL (32.4-36.7) RDW 15.6 % H % (11.5-15.2) Plt Count 275 10^3/uL 10^3/uL (150-400) MPV 10.2 fL fL (8.7-11.7) Neut % (Auto) 61.4 % % (39.3-74.2) Lymph % (Auto) 20.7 % % (15.0-45.0) [place] % (Auto) 11.5 % % (4.5-13.0) Eos % (Auto) 4.3 % % (0.6-7.6) Baso % (Auto) 1.6 % % (0.3-1.7) Nucleat RBC Rel Count 0.8 % H % (0.0-0.2) Absolute Neuts (auto) 3.96 10^3/uL 10^3/uL (1.70-6.50) Absolute Lymphs (auto) 1.33 10^3/uL 10^3/uL (1.00-3.00) Absolute Monos (auto) 0.74 10^3/uL 10^3/uL (0.30-0.80) Absolute Eos (auto) 0.28 10^3/uL 10^3/uL (0.03-0.40) Absolute Basos (auto) 0.10 10^3/uL 10^3/uL (0.02-0.10) Absolute Nucleated RBC 0.05 10^3/uL H 10^3/uL (0-0.01) Immature Gran % 0.5 % % (0.0-1.1) Immature Gran # 0.03 10^3/uL 10^3/uL (0.00-0.10) Sodium 142 mEq/L mEq/L (134-144) Potassium 4.6 mEq/L mEq/L (3.5-5.2) Chloride 106 mEq/L mEq/L (97-110) Carbon Dioxide 25 mEq/l mEq/l (22-31) Anion Gap 11 mEq/L mEq/L (8-16) BUN 9 mg/dL mg/dL (7-23) Creatinine 0.5 mg/dL L mg/dL (0.6-1.0) Estimated GFR > 60 Glucose 103 mg/dL H mg/dL (70-100) Calcium 8.9 mg/dL mg/dL (8.5-10.4) Ethyl Alcohol 423 mg/dL H* mg/dL (0-10) Departure - Departure Disposition: Home, Routine, Self-Care Clinical Impression: Alcohol intoxication Qualifiers: Complication of substance-induced condition: uncomplicated Qualified Code(s): F10.120 - Alcohol abuse with intoxication, uncomplicated Condition: Good Instructions: Alcohol Intoxication (ED), Abuse of Alcohol (ED) Additional Instructions: You should not drink alcohol in excess. Return if you develop any complaints. Referrals: [facility] [Outside] - As per Instructions
[2016-08-16 17:40] LABS: % IMMATURE GRANULYOCYTES 0.5 % (0.0-1.1); ABSOLUTE IMMATURE GRANULOCYTES 0.03 10^3/uL (0.00-0.10); ABSOLUTE NRBC COUNT 0.05 10^3/uL (0-0.01); ADD DIFF? NO; ADD MORPH? NO; ADD SCAN? YES; ATYPICAL LYMPHOCYTE FLAG 0 (0-99); FRAGMENT RBC FLAG 0 (0-99); HEMATOCRIT 41.1 % (38.0-47.0); LEFT SHIFT FLG 0 (0-99); LIPEMIA HEMOLYSIS FLAG 90 (0-99); MEAN CELL HEMOGLOBIN 32.2 pg (27.9-34.1); MEAN CELL HEMOGLOBIN CONCENTR. 34.1 g/dL (32.4-36.7); MEAN CELL VOLUME 94.5 fL (81.5-99.8); MEAN PLATELET VOLUME 10.2 fL (8.7-11.7); NRBC-AUTO% 0.8 % (0.0-0.2); PLATELET COUNT 275 10^3/uL (150-400); RED BLOOD CELL COUNT 4.35 10^6/uL (4.18-5.33); RED CELL DISTRIBUTION WIDTH 15.6 % (11.5-15.2)
[2016-08-16 17:44] LABS: PLATELET CLUMPS FLAG 300 (0-99)
[2016-08-16 18:00] LABS: ANION GAP 11 mEq/L (8-16); CALCIUM 8.9 mg/dL (8.5-10.4); CARBON DIOXIDE 25 mEq/l (22-31); CHLORIDE 106 mEq/L (97-110); CREATININE 0.5 mg/dL (0.6-1.0); GLOMERULAR FILTRATION RATE > 60; GLUCOSE 103 mg/dL (70-100); POTASSIUM 4.6 mEq/L (3.5-5.2); SODIUM 142 mEq/L (134-144)
[2016-08-16 18:07] LABS: SCAN NEGATIVE
[2016-08-16 18:08] LABS: ETHANOL SERUM 423 mg/dL (0-10)
[2016-08-16 18:51] VITALS: TEMP 97.5
[2016-08-16] MEDS ORDERED: CHLORDIAZEPOXIDE 25MG PREPK#6 BTL TAKEHOME ONE ×2 (23:31→23:32)
[2016-08-16] MEDS ORDERED: ONDANSETRON DISINTEGRATING 4 MG TAB ONE (23:37)
[2016-08-17 01:02] VITALS: BP 128/87; PULSE 86; RESP 18; O2SAT 96
== END 2016-08-17 01:28 | disposition home or self-care (01) ==
LOC: EDUNIT#
PROC: 0RSWXZZ Reposition Right Finger Phalangeal Joint, External Approach (ICD-10-PCS; principal; 2016-08-16)
DX: F10.120 Alcohol abuse with intoxication, uncomplicated (principal); S63.114A Dislocation of metacarpophalangeal joint of right thumb, initial encounter; X58.XXXA Exposure to other specified factors, initial encounter
CPT/HCPCS: G0480

== ENCOUNTER 2016-08-30 09:21 | Emergency (ER) | payer MEDICAID ==
[2016-08-30 09:35] VITALS: PULSE 92; TEMP 97.3
[2016-08-30] MEDS ORDERED: NS 500 ML IV ONE (09:47)
[2016-08-30] MEDS ORDERED: CHLORDIAZEPOXIDE 25MG PREPK#6 BTL TAKEHOME ONE (09:47)
[2016-08-30] MEDS ORDERED: ONDANSETRON 4 MG/2 ML VIAL IVP ONE (09:47)
--- NOTE | 2016-08-30 09:49 | EDPHY ---
H & P Stated Complaint: ETOH abuse, wants to go to rehab HPI/ROS: CHIEF COMPLAINT: Alcohol abuse, asking for rehabilitation HISTORY OF PRESENT ILLNESS: Patient reports a long history of alcohol abuse. She reports that she drank heavily this morning as she felt that she was going through withdrawals from trying to stop cold turkey. She also reports some nausea and vomiting this morning. She has no chest pain or shortness of breath. No fever chills. She denies any intent to harm herself or others. She is here because she wants help to get off alcohol. She has no other associated complaints. No modifying factors. REVIEW OF SYSTEMS: Ten systems reviewed and are negative unless otherwise noted in the HPI PERTINENT MEDICAL HISTORY: Chronic alcohol abuse SOCIAL HISTORY: Homeless, chronic alcohol abuse of 1-2 pt of various liquids per day EXAMINATION General Appearance: Alert, no distress, unkempt Head: normocephalic, atraumatic Eyes: Pupils equal and round, no conjunctival pallor or injection ENT, Mouth: Mucous membranes moist. Uvula midline. Neck: Normal inspection, supple, non-tender Respiratory: Lungs are clear to auscultation. No wheezing, rhonchi or crackles. Cardiovascular: Regular rate and rhythm. No murmur. Gastrointestinal: Abdomen is soft and nontender Back: non-tender, no bony abnormalities Neurological: A&O, nonfocal, normal gait Skin: Warm and dry, no rash Extremities: Nontender, no pedal edema Psychiatric: Mood and affect normal. No suicidal ideation or homicidal ideation. DIFFERENTIAL DIAGNOSES: Including but not limited to acute alcohol intoxication, chronic alcohol abuse, alcoholism, dehydration, nausea, vomiting MDM: 9:46 a.m. Acute alcohol intoxication in a patient with known alcoholism. She is not suicidal. She is not homicidal. She is hemodynamically stable. She is clinically sober with no signs of delirium tremens or acute withdrawals. She is asking to be [facility]. She will be sent there by cab with Librium taper. She is to follow up with primary care physician to discuss inpatient alcoholic detox program. She is comfortable with this plan and will be taken there by cab. SUPERVISION: This patient was independently evaluated without direct examination by the attending physician. Case was discussed with attending physician. Source: Patient, EMS notes reviewed Exam Limitations: No limitations - Personal History Tetanus Vaccine Date: 2010 - Medical/Surgical History Hx Asthma: No Hx Chronic Respiratory Disease: No Hx Diabetes: No Hx Cardiac Disease: Yes Hx Renal Disease: No Hx Cirrhosis: No Hx Alcoholism: Yes Hx HIV/AIDS: No Hx Splenectomy or Spleen Trauma: No Other PMH: HTN, Insommia/depressiion, ETOH abuse, herpes - Social History Smoking Status: Never smoked Constitutional: Initial Vital Signs Temperature (C) 97.3 F 08/30/16 09:33 Heart Rate 92 08/30/16 09:33 Respiratory Rate 18 08/30/16 09:33 Blood Pressure 133/89 H 08/30/16 09:33 O2 Sat (%) 95 08/30/16 09:33 O2 Delivery Mode Room Air Allergies/Adverse Reactions: No Known Allergies Allergy (Verified 08/30/16 09:32) Home Medications: Medication Instructions Recorded NK [No Known Home Meds] 08/30/16 Medical Decision Making - Data Points Medications Given: Discontinued Medications Chlordiazepoxide (Librium 25 Mg Prepack#6) 1 btl TAKEHOME EDNOW ONE Stop: 08/30/16 09:48 Last Admin: 08/30/16 10:11 Dose: 1 btl Sodium Chloride (Ns) 500 mls @ 1,000 mls/hr IV ONCE ONE PRN Reason: Protocol Stop: 08/30/16 10:16 Last Admin: 08/30/16 09:56 Dose: 500 mls Ondansetron HCl (Zofran) 4 mg IVP EDNOW ONE Stop: 08/30/16 09:48 Last Admin: 08/30/16 09:56 Dose: 4 mg Ondansetron HCl (Zofran Odt 4 Mg Prepack#2) 1 btl TAKEHOME EDNOW ONE Stop: 08/30/16 10:24 Last Admin: 08/30/16 10:24 Dose: 1 btl Departure - Departure Disposition: Home, Routine, Self-Care Clinical Impression: Acute alcohol intoxication Qualifiers: Complication of substance-induced condition: uncomplicated Qualified Code(s): F10.920 - Alcohol use, unspecified with intoxication, uncomplicated Alcohol dependence Qualifiers: Substance use status: with intoxication Complication of substance-induced condition: uncomplicated Qualified Code(s): F10.220 - Alcohol dependence with intoxication, uncomplicated Condition: Good Instructions: Chlordiazepoxide (By mouth), Ondansetron (By mouth), Alcohol Dependence (ED), Alcohol Use Disorder (ED) Additional Instructions: Follow-up with primary care physician for inpatient treatment. Referrals: NONE *PRIMARY CARE P,. [Primary Care Provider] - As per Instructions [facility],. [Clinic] - As per Instructions Amelie Mauro MD [Medical Doctor] - As per Instructions
[2016-08-30 10:16] VITALS: BP 121/80; RESP 16; O2SAT 94
[2016-08-30] MEDS ORDERED: ONDANSETRON 4MG PREPACK#2 BTL TAKEHOME ONE ×2 (10:21→10:23)
== END 2016-08-30 10:32 | disposition home or self-care (01) ==
LOC: EDUNIT#
DX: F10.220 Alcohol dependence with intoxication, uncomplicated (principal); I10 Essential (primary) hypertension
CPT/HCPCS: 96374; J2405

== ENCOUNTER 2016-09-03 17:19 | Emergency (ER) | payer MEDICAID ==
[2016-09-03 17:23] VITALS: BP 122/91; PULSE 90; RESP 18; TEMP 98.1; O2SAT 97
[2016-09-03] MEDS ORDERED: CHLORDIAZEPOXIDE 25MG PREPK#6 BTL TAKEHOME ONE (17:49)
--- NOTE | 2016-09-03 17:49 | EDPHY ---
H & P Stated Complaint: Told to come here for med clear and Librium and then [facility] Time Seen by Provider: 09/03/16 17:38 HPI/ROS: CHIEF COMPLAINT: Alcohol withdrawal HISTORY OF PRESENT ILLNESS: The patient presents to the ED with symptoms consistent with alcohol withdrawal with nausea and mild tremor. She is a chronic alcoholic and currently homeless. The patient denies any vomiting. She denies hallucinations. The patient denies abdominal pain. The patient denies fever, cough or congestion. The patient does have a history of hypertension. She does not have regular follow-up with a primary care provider. REVIEW OF SYSTEMS: A comprehensive 10 point review of systems is otherwise negative aside from elements mentioned in the history of present illness. Source: Patient Exam Limitations: No limitations - Personal History Current Tetanus Diphtheria and Acellular Pertussis (TDAP): Yes Tetanus Vaccine Date: 2010 - Medical/Surgical History Hx Asthma: No Hx Chronic Respiratory Disease: No Hx Diabetes: No Hx Cardiac Disease: Yes Hx Renal Disease: No Hx Cirrhosis: No Hx Alcoholism: Yes Hx HIV/AIDS: No Hx Splenectomy or Spleen Trauma: No Other PMH: HTN, Insommia/depressiion, ETOH abuse, herpes - Social History Smoking Status: Never smoked - Physical Exam Exam: General Appearance: Alert, no distress Eyes: Pupils equal and round no pallor or injection ENT, Mouth: Mucous membranes moist Respiratory: There are no retractions, lungs are clear to auscultation Cardiovascular: Regular rate and rhythm Gastrointestinal: Abdomen is soft and nontender, no masses, bowel sounds normal Neurological: A&O, normal motor function, normal sensory exam, normal cranial nerves, slight resting tremor Skin: Warm and dry, no rashes Musculoskeletal: Neck is supple nontender Extremities: symmetrical, full range of motion Constitutional: Initial Vital Signs Temperature (C) 36.7 C 09/03/16 17:21 Heart Rate 90 09/03/16 17:21 Respiratory Rate 18 09/03/16 17:21 Blood Pressure 122/91 H 09/03/16 17:21 O2 Sat (%) 97 09/03/16 17:21 O2 Delivery Mode Room Air Allergies/Adverse Reactions: No Known Allergies Allergy (Verified 09/03/16 17:20) Home Medications: Medication Instructions Recorded NK [No Known Home Meds] 08/30/16 Medical Decision Making ED Course/Re-evaluation: The patient presents to the ED with mild symptoms of alcohol withdrawal. She has stable vital signs. She has a normal neurologic examination. The patient would like to go to the [facility]. She will be given a prepack of Librium. She will be transferred to the [facility] via taxi cab for further treatment of her alcohol withdrawal/dependence. Departure - Departure Disposition: Home, Routine, Self-Care Clinical Impression: Alcohol withdrawal Condition: Good Instructions: Alcohol Withdrawal (ED) Referrals: [facility] [Outside] - As per Instructions
== END 2016-09-03 19:00 | disposition home or self-care (01) ==
DX: F10.239 Alcohol dependence with withdrawal, unspecified (principal); I10 Essential (primary) hypertension

== ENCOUNTER 2016-09-04 18:29 | Emergency (ER) | payer MEDICAID ==
--- NOTE | 2016-09-04 18:33 | EDPHY ---
H & P HPI/ROS: HPI CHIEF COMPLAINT: Alcohol intoxication HISTORY OF PRESENT ILLNESS: This patient is 61-year-old female, homeless, alcoholic, daily drinker, presents emergency room by EMS for acute alcohol intoxication. Unable to ambulate. Upon arrival here in emergency room she is intoxicated, slurring her speech, unable to ambulate. She is tearful. Past Medical History: Hypertension, hyperlipidemia, major depressive disorder, daily alcohol use, cardiac ablation Past Surgical History: Cardiac ablation Social History: Daily alcohol use, homeless Family History: Noncontributory ROS REVIEW OF SYSTEMS: A comprehensive 10 point review of systems is otherwise negative aside from elements mentioned in the history of present illness. Exam Constitutional appears intoxicated, slurring her speech, smells of alcohol triage nursing summary reviewed, vital signs reviewed, awake/alert. Eyes normal conjunctivae and sclera, EOMI, PERRLA. HENT normal inspection, atraumatic, moist mucus membranes, no epistaxis, neck supple/ no meningismus, no raccoon eyes. Respiratory clear to auscultation bilaterally, normal breath sounds, no respiratory distress, no wheezing. Cardiovascular rate normal, regular rhythm, no murmur, no edema, distal pulses normal. Gastrointestinal soft, non-tender, no rebound, no guarding, normal bowel sounds, no distension, no pulsatile mass. Genitourinary no CVA tenderness. Musculoskeletal no midline vertebral tenderness, full range of motion, no calf swelling, no tenderness of extremities, no meningismus, good pulses, neurovascularly intact. Skin pink, warm, & dry, no rash, skin atraumatic. Neurologic awake, alert and oriented x 3, AAOx3, moves all 4 extremities equally, motor intact, sensory intact, CN II-XII intact, normal cerebellar, normal vision, slurring her speech Psychiatric normal mood/affect. Heme/Lymph/Immune no lymphadenopathy. Differential Diagnosis: Includes but is not limited to in a particular order acute alcohol intoxication, homelessness, dehydration Medical Decision Making: Plan for this patient she is intoxicated will breath alcohol. Monitor for sobriety. Re-evaluation: 1935: Breath alcohol 0.270. 2118: Patient is resting comfortably. She ambulated well to the bathroom without ataxia. She is clinically sober. Has no complaints would like to be discharged. Source: Patient, EMS - Personal History Tetanus Vaccine Date: 2010 - Medical/Surgical History Hx Asthma: No Hx Chronic Respiratory Disease: No Hx Diabetes: No Hx Cardiac Disease: Yes Hx Renal Disease: No Hx Cirrhosis: No Hx Alcoholism: Yes Hx HIV/AIDS: No Hx Splenectomy or Spleen Trauma: No Other PMH: HTN, Insommia/depressiion, ETOH abuse, herpes - Social History Smoking Status: Never smoked Constitutional: Initial Vital Signs Temperature (C) 36.9 C 09/04/16 18:32 Heart Rate 106 H 09/04/16 18:32 Respiratory Rate 18 09/04/16 18:32 Blood Pressure 109/77 09/04/16 18:32 O2 Sat (%) 94 09/04/16 18:32 O2 Delivery Mode Room Air Allergies/Adverse Reactions: No Known Allergies Allergy (Verified 09/04/16 18:34) Home Medications: Medication Instructions Recorded NK [No Known Home Meds] 08/30/16 Departure - Departure Disposition: Home, Routine, Self-Care Clinical Impression: Alcohol intoxication Qualifiers: Complication of substance-induced condition: uncomplicated Qualified Code(s): F10.920 - Alcohol use, unspecified with intoxication, uncomplicated Condition: Good Instructions: Alcohol Intoxication (ED) Referrals: Patient,NotPresent [Unknown] - As per Instructions
[2016-09-04 20:44] VITALS: TEMP 97.9
[2016-09-04 22:58] VITALS: BP 107/76; PULSE 89; RESP 20; O2SAT 95
== END 2016-09-04 22:57 | disposition home or self-care (01) ==
LOC: EDUNIT#
DX: F10.129 Alcohol abuse with intoxication, unspecified (principal); I10 Essential (primary) hypertension

== ENCOUNTER → 2016-11-04 | Outpatient (CLI) | payer MEDICAID | LOC: FIMAGING 12:47 | PROVIDERS: ATTEND Internal Medicine | DX: Z12.39 Encounter for other screening for malignant neoplasm of breast (principal); N63 Unspecified lump in breast | CPT/HCPCS: G0204 ==

== ENCOUNTER 2016-11-10 13:08 | Emergency (ER) | payer MEDICAID ==
--- NOTE | 2016-11-10 13:24 | EDPHY ---
H & P Stated Complaint: Last ETOH yesterday;n/v; shakey Time Seen by Provider: 11/10/16 13:23 - Personal History Tetanus Vaccine Date: 2010 - Medical/Surgical History Hx Asthma: No Hx Chronic Respiratory Disease: No Hx Diabetes: No Hx Cardiac Disease: Yes Hx Renal Disease: No Hx Cirrhosis: No Hx Alcoholism: Yes Hx HIV/AIDS: No Hx Splenectomy or Spleen Trauma: No Other PMH: HTN, Insommia/depressiion, ETOH abuse, herpes - Social History Smoking Status: Never smoked Constitutional: Initial Vital Signs Temperature (C) 36.7 C 11/10/16 13:13 Heart Rate 117 H 11/10/16 13:13 Respiratory Rate 20 11/10/16 13:13 Blood Pressure 139/96 H 11/10/16 13:13 O2 Sat (%) 97 11/10/16 13:13 O2 Delivery Mode Room Air Allergies/Adverse Reactions: No Known Allergies Allergy (Verified 11/10/16 13:12) Home Medications: Medication Instructions Recorded DULoxetine [Cymbalta 30 MG (*)] 30 mg PO 11/10/16 Losartan Potassium [Cozaar 25 mg 25 mg PO 11/10/16 (*)] Simvastatin [Zocor] 40 mg PO 11/10/16 Medical Decision Making ED Course/Re-evaluation: CHIEF COMPLAINT: Alcohol intoxication. HISTORY OF PRESENT ILLNESS: The patient is a 61 y/o female who is a chronic alcoholic living on [address] Patient drinks on a daily basis and obtains whatever alcohol is available. Patient has had multiple ER visits over the last several years for the same complaint. Patient denies any injuries denies loss of consciousness denies any recent trauma. Patient denies co-ingestion. Patient denies suicidal or homicidal behavior. She is complaining of nausea and shakiness. Her symptoms generally improve with IV Zofran and Ativan. She denies abdominal pain. REVIEW OF SYSTEMS: A 10 point review of systems was performed and is negative with the exception of the elements mentioned in the history of present illness. PHYSICAL EXAM: General Appearance: Alert, well hydrated, appropriate, and non-toxic appearing. Head: Atraumatic without scalp tenderness or obvious injury Eyes: Pupils equal, round, reactive to light and accommodation, EOMI, no trauma , no injection. Ears: Clear bilaterally, no perforation, normal landmarks Nose: Atraumatic, no rhinorrhea, clear. Throat: Mucus membranes moist. Neck: Supple, nontender, no lymphadenopathy. Respiratory: No retractions, no distress, no wheezes, and no accessory muscle use. Lungs are clear to auscultation bilaterally. Cardiovascular: Regular rate and rhythm, no murmurs, rubs, or gallops. Good capillary refill all extremities. Gastrointestinal: Abdomen is soft, nontender, non-distended, no masses, no rebound, no guarding, no peritoneal signs. Musculoskeletal: Normal active ROM of all extremities, atraumatic. Neurological: Alert, appropriate, and interactive. Non-focal neuro. Tremulous. Skin: No rashes, good turgor, no nodules on palpation. PAST MEDICAL HISTORY: Hypertension, hyperlipidemia, depression, alcoholism PAST SURGICAL HISTORY: Cardiac ablation SOCIAL HISTORY: Daily alcohol use, homeless Prior medical records reviewed, including ED visit with Dr. Courtney on 09/04/16. DIFFERENTIAL DIAGNOSIS: The differential diagnosis for the patient's symptoms included but was not limited to hypoglycemia, infectious process, head injury, neurologic process, anemia, cardiac process, alcohol withdrawal, substance abuse , alcohol abuse, electrolyte abnormality. MEDICAL DECISION MAKING: The patient is a 61 y/o female who is a chronic alcoholic and currently in withdrawal. Plan on IV, Zofran, and labs. I serially examined this patient since the patient's arrival here in the emergency department. The patient continues to become more and more sober with each examination. I serially questioned the patient and the patient's story given initially has not changed. The patient still denies any trauma, any head injury, and any illicit drug use. At this point, the patient is walking the department freely and is clinically sober. We're discharging the patient to the [facility] in stable condition. - Data Points Laboratory Results: Laboratory Results 11/10/16 13:29 11/10/16 13:29 11/10/16 11/10/16 11/10/16 13:29 13: 13: WBC 11.64 10^3/uL H 10^3/uL (3.80-9.50) RBC 5.03 10^6/uL 10^6/uL (4.18-5.33) Hgb 16.4 g/dL H g/dL (12.6-16.3) Hct 46.5 % % (38.0-47.0) MCV 92.4 fL fL (81.5-99.8) MCH 32.6 pg pg (27.9-34.1) MCHC 35.3 g/dL g/dL (32.4-36.7) RDW 15.9 % H % (11.5-15.2) Plt Count 462 10^3/uL H 10^3/uL (150-400) MPV 9.8 fL fL (8.7-11.7) Neut % (Auto) 82.4 % H % (39.3-74.2) Lymph % (Auto) 12.3 % L % (15.0-45.0) [place] % (Auto) 3.8 % L % (4.5-13.0) Eos % (Auto) 0.0 % L % (0.6-7.6) Baso % (Auto) 1.2 % % (0.3-1.7) Nucleat RBC Rel Count 0.2 % % (0.0-0.2) Absolute Neuts (auto) 9.59 10^3/uL H 10^3/uL (1.70-6.50) Absolute Lymphs (auto) 1.43 10^3/uL 10^3/uL (1.00-3.00) Absolute Monos (auto) 0.44 10^3/uL 10^3/uL (0.30-0.80) Absolute Eos (auto) 0.00 10^3/uL L 10^3/uL (0.03-0.40) Absolute Basos (auto) 0.14 10^3/uL H 10^3/uL (0.02-0.10) Absolute Nucleated RBC 0.02 10^3/uL H 10^3/uL (0-0.01) Immature Gran % 0.3 % % (0.0-1.1) Immature Gran # 0.04 10^3/uL 10^3/uL (0.00-0.10) PT 13.4 SEC SEC (12.0-15.0) INR 1.03 (0.83-1.16) APTT 23.2 SEC SEC (23.0-38.0) Sodium 135 mEq/L mEq/L (134-144) Potassium 4.7 mEq/L mEq/L (3.5-5.2) Chloride 98 mEq/L mEq/L (97-110) Carbon Dioxide 13 mEq/l L mEq/l (22-31) Anion Gap 24 mEq/L H mEq/L (8-16) BUN 14 mg/dL mg/dL (7-23) Creatinine 0.8 mg/dL mg/dL (0.6-1.0) Estimated GFR > 60 Glucose 122 mg/dL H mg/dL (70-100) Calcium 9.0 mg/dL mg/dL (8.5-10.4) Total Bilirubin 0.6 mg/dL mg/dL (0.1-1.4) Conjugated Bilirubin 0.2 mg/dL mg/dL (0.0-0.5) Unconjugated Bilirubin 0.4 mg/dL mg/dL (0.0-1.1) AST 52 IU/L H IU/L (14-46) ALT 45 IU/L IU/L (9-52) Alkaline Phosphatase 111 IU/L IU/L (38-126) Total Protein 7.7 g/dL g/dL (6.3-8.2) Albumin 4.5 g/dL g/dL (3.5-5.0) Lipase 524 IU/L H IU/L (23-300) Medications Given: Discontinued Medications Sodium Chloride (Ns) 1,000 mls @ 0 mls/hr IV ONCE ONE PRN Reason: Wide Open Stop: 11/10/16 13:54 Last Admin: 11/10/16 13:56 Dose: 1,000 mls Lorazepam (Ativan Injection) 1 mg IVP EDNOW ONE Stop: 11/10/16 13:27 Last Admin: 11/10/16 13:31 Dose: 1 mg Ondansetron HCl (Zofran) 4 mg IVP EDNOW ONE Stop: 11/10/16 13:27 Last Admin: 11/10/16 13:31 Dose: 4 mg Departure - Departure Disposition: Home, Routine, Self-Care Clinical Impression: Alcohol withdrawal Qualifiers: Complication of substance-induced condition: uncomplicated Qualified Code(s): F10.230 - Alcohol dependence with withdrawal, uncomplicated Condition: Good Instructions: Alcohol Withdrawal (ED) Additional Instructions: 1. You are medically cleared for detox. Go directly to the [facility]. Referrals: Kristy Caicedo, DO [Primary Care Provider] - As per Instructions [facility] [Outside] - As per Instructions Report Scribed for: Dimitri Morse Report Scribed by: Reanna Benites Date of Report: 11/10/16 Time of Report: 14:37
[2016-11-10] MEDS ORDERED: LORazepam 2 MG/ML INJ IVP ONE (13:26)
[2016-11-10] MEDS ORDERED: ONDANSETRON 4 MG/2 ML VIAL IVP ONE (13:26)
[2016-11-10 13:46] LABS: % IMMATURE GRANULYOCYTES 0.3 % (0.0-1.1); ABSOLUTE IMMATURE GRANULOCYTES 0.04 10^3/uL (0.00-0.10); ABSOLUTE NRBC COUNT 0.02 10^3/uL (0-0.01); ADD DIFF? NO; ADD MORPH? NO; ADD SCAN? NO; ATYPICAL LYMPHOCYTE FLAG 0 (0-99); FRAGMENT RBC FLAG 0 (0-99); HEMATOCRIT 46.5 % (38.0-47.0); HEMOGLOBIN 16.4 g/dL (12.6-16.3); LEFT SHIFT FLG 0 (0-99); LIPEMIA HEMOLYSIS FLAG 90 (0-99); MEAN CELL HEMOGLOBIN 32.6 pg (27.9-34.1); MEAN CELL HEMOGLOBIN CONCENTR. 35.3 g/dL (32.4-36.7); MEAN CELL VOLUME 92.4 fL (81.5-99.8); MEAN PLATELET VOLUME 9.8 fL (8.7-11.7); NRBC-AUTO% 0.2 % (0.0-0.2); PLATELET CLUMPS FLAG 0 (0-99); PLATELET COUNT 462 10^3/uL (150-400); RED BLOOD CELL COUNT 5.03 10^6/uL (4.18-5.33); RED CELL DISTRIBUTION WIDTH 15.9 % (11.5-15.2)
[2016-11-10] MEDS ORDERED: NS 1,000 ML IV ONE (13:53)
[2016-11-10 13:57] LABS: APTT 23.2 SEC (23.0-38.0)
[2016-11-10 14:07] LABS: ALANINE AMINOTRANSFERASE 45 IU/L (9-52); ALBUMIN 4.5 g/dL (3.5-5.0); ALKALINE PHOSPHATASE 111 IU/L (38-126); ANION GAP 24 mEq/L (8-16); ASPARTATE AMINOTRANSFERASE 52 IU/L (14-46); BILIRUBIN,TOTAL 0.6 mg/dL (0.1-1.4); BILIRUBIN-CONJUGATED 0.2 mg/dL (0.0-0.5); BILIRUBIN-UNCONJUGATED 0.4 mg/dL (0.0-1.1); CARBON DIOXIDE 13 mEq/l (22-31); CHLORIDE 98 mEq/L (97-110); CREATININE 0.8 mg/dL (0.6-1.0); GLOMERULAR FILTRATION RATE > 60; GLUCOSE 122 mg/dL (70-100); POTASSIUM 4.7 mEq/L (3.5-5.2); SODIUM 135 mEq/L (134-144); TOTAL PROTEIN 7.7 g/dL (6.3-8.2)
[2016-11-10 14:16] LABS: INR 1.03 (0.83-1.16); PROTIME(PATIENT) 13.4 SEC (12.0-15.0)
[2016-11-10] MEDS ORDERED: CHLORDIAZEPOXIDE 25MG PREPK#6 BTL TAKEHOME ONE (14:26)
[2016-11-10 15:14] VITALS: BP 142/93; PULSE 99; RESP 18; TEMP 98.6; O2SAT 98
== END 2016-11-10 15:22 | disposition home or self-care (01) ==
DX: F10.230 Alcohol dependence with withdrawal, uncomplicated (principal); I10 Essential (primary) hypertension
CPT/HCPCS: 96374; J2060; J2405

== ENCOUNTER 2016-11-10 16:53 | Inpatient (IN) | payer MEDICAID ==
[2016-11-10] MEDS ORDERED: ONDANSETRON DISINTEGRATING 4 MG TAB ONE (17:21)
[2016-11-10] MEDS ORDERED: ONDANSETRON DISINTEGRATING 4 MG TAB PO ONE (17:22)
[2016-11-10] MEDS ORDERED: LORazepam 2 MG/ML INJ IVP ONE ×2 (17:26→19:22)
[2016-11-10] MEDS ORDERED: ONDANSETRON 4 MG/2 ML VIAL IVP ONE (17:26)
[2016-11-10] MEDS ORDERED: NS 1,000 ML IV ONE ×2 (17:26)
--- NOTE | 2016-11-10 17:26 | EDPHY ---
H & P Time Seen by Provider: 11/10/16 17:19 HPI/ROS: CHIEF COMPLAINT: Alcohol withdrawal HISTORY OF PRESENT ILLNESS: The patient is a 61-year-old female, with history of alcoholism who returns to the ED with alcohol withdrawal. The patient was seen here earlier today with alcohol withdrawal. She received IV Zofran and Ativan and was discharged to the [facility]. Patient was unable to keep down the Librium at the [facility]. She complains of vomiting and tremors. The patient's last drink was this morning.. She states IV Zofran and Ativan improve her symptoms. REVIEW OF SYSTEMS: A comprehensive 10 point review of systems is otherwise negative aside from elements mentioned in the history of present illness. Past Medical/Surgical History: Alcohol abuse, Hypertension, High cholesterol Social History: Heavy alcohol use. Single. Lives in [place]. Smoking Status: Never smoked Physical Exam: General Appearance: Alert, anxious appearing Eyes: Pupils equal and round, no conjunctival pallor or injection ENT, Mouth: Mucous membranes moist Neck: Normal inspection Respiratory: Lungs are clear to auscultation Cardiovascular: Regular tachycardia Gastrointestinal: Abdomen is soft and non-tender Neurological: A&O, nonfocal, normal gait, tremulous Skin: Warm and dry, no rash Extremities: Nontender, no pedal edema Psychiatric: Anxious and tremulousl Constitutional: Initial Vital Signs Temperature (C) 36.4 C 11/10/16 17:02 Heart Rate 112 H 11/10/16 17:02 Respiratory Rate 20 11/10/16 17:02 Blood Pressure 161/103 H 11/10/16 17:02 O2 Sat (%) 97 11/10/16 17:02 O2 Delivery Mode Room Air O2 (L/minute) 2 Allergies/Adverse Reactions: No Known Allergies Allergy (Verified 11/10/16 17:01) Home Medications: Medication Instructions Recorded DULoxetine [Cymbalta 30 MG (*)] 30 mg PO DAILY 11/10/16 Gabapentin [Neurontin] 1,200 mg PO TID 11/10/16 Hydrochlorothiazide [HCTZ (*)] 25 mg PO DAILY 11/10/16 Ibuprofen [Motrin (*)] 200 - 400 mg PO DAILY PRN 11/10/16 Losartan Potassium [Cozaar 50 mg 50 mg PO DAILY 11/10/16 (*)] QUEtiapine FUMARATE [Seroquel 25 25 mg PO HS 11/10/16 mg (*)] Simvastatin [Zocor] 40 mg PO HS 11/10/16 Medical Decision Making ED Course/Re-evaluation: Patient returns to the ED from the [facility] with alcohol withdrawal. Patient is tachycardic and tremulous. Plan for IV Zofran and Ativan. Labs d/w dehydration. Patient has received 2L of normal saline. Calcium is low at 7.3, this is lower than earlier today, I treated this with Calcium gluconate IV. Potassium and Sodium are normal. 7:20 p.m.: I reevaluated the patient. She is still vomiting. Plan for another 1mg Ativan and 12.5mg Phenergan. 9:15 p.m.: Patient continues to vomit despite fluids, Zofran, and Phenergan. Plan to admit. 9:35 p.m.: I consulted the hospitalist, Dr. Calix, who accepts the patient for admission. Differential Diagnosis: includes though not limited to severe dehydration, AKA, SBO, pancreatitis - Data Points Laboratory Results: Laboratory Results 11/11/16 04:38 11/11/16 04:38 Medications Given: Atorvastatin Calcium (Lipitor) 20 mg PO HS [facility] Stop: 05/09/17 23:29 Last Admin: 11/11/16 21:11 Dose: 20 mg Chlordiazepoxide HCl (Librium) 25 mg PO TID PRN PRN Reason: Anxiety, Able to Take PO Stop: 05/10/17 12:57 Last Admin: 11/11/16 21:11 Dose: 25 mg Duloxetine HCl (Cymbalta) 30 mg PO DAILY [facility] Stop: 05/10/17 08:59 Last Admin: 11/11/16 07:54 Dose: 30 mg Enoxaparin Sodium (Lovenox) 40 mg SC DAILY [facility]UM Stop: 05/10/17 08:59 Last Admin: 11/11/16 07:54 Dose: 40 mg Folic Acid (Folic Acid) 1 mg PO DAILY [facility] Stop: 05/10/17 08:59 Last Admin: 11/11/16 07:55 Dose: 1 mg Gabapentin (Neurontin) 1,200 mg PO TID [facility]UM Stop: 05/10/17 08:59 Last Admin: 11/11/16 21:11 Dose: 1,200 mg Famotidine/Sodium Chloride (Pepcid 20 Mg (Premix)) 50 mls @ 200 mls/hr IV Q12HRS ERUM Stop: 05/10/17 08:59 Last Admin: 11/11/16 21:10 Dose: 50 mls Multivitamins (Tab-A-Brain) 1 each PO DAILY ERUM Stop: 05/10/17 08:59 Last Admin: 11/11/16 07:54 Dose: 1 each Ondansetron HCl (Zofran Odt) 4 mg PO Q4HRS PRN PRN Reason: Nausea/Vomiting, Use 1st Stop: 05/09/17 22:22 Last Admin: 11/11/16 21:11 Dose: 4 mg Promethazine HCl (Phenergan) 12.5 - 25 mg PO Q6HRS PRN PRN Reason: Nausea/Vomiting, Use 2nd Stop: 05/09/17 22:22 Last Admin: 11/11/16 17:47 Dose: 12.5 mg Quetiapine Fumarate (Seroquel) 25 mg PO HS ERUM Stop: 05/09/17 23:03 Last Admin: 11/11/16 21:11 Dose: 25 mg Discontinued Medications Sodium Chloride (Ns) 1,000 mls @ 0 mls/hr IV EDNOW ONE; Wide Open PRN Reason: Protocol Stop: 11/10/16 17:27 Last Admin: 11/10/16 17:37 Dose: 1,000 mls Sodium Chloride (Ns) 1,000 mls @ 0 mls/hr IV EDNOW ONE; Wide Open PRN Reason: Protocol Stop: 11/10/16 17:27 Last Admin: 11/10/16 17:38 Dose: 1,000 mls Calcium Gluconate (Calcium Gluconate 1 Gm (Premix)) 50 mls @ 100 mls/hr IV EDNOW ONE Stop: 11/10/16 19:35 Last Admin: 11/10/16 20:21 Dose: 50 mls Sodium Chloride (Ns) 1,000 mls @ 150 mls/hr IV CONT ERUM Stop: 05/09/17 22:29 Last Admin: 11/11/16 12:27 Dose: 1,000 mls Lorazepam (Ativan Injection) 1 mg IVP EDNOW ONE Stop: 11/10/16 17:27 Last Admin: 11/10/16 17:40 Dose: 1 mg Lorazepam (Ativan Injection) 1 mg IVP EDNOW ONE Stop: 11/10/16 19:23 Last Admin: 11/10/16 19:26 Dose: 1 mg Lorazepam (Ativan) 1 mg PO Q4HRS PRN PRN Reason: Agitation if able to take PO Stop: 05/09/17 22:34 Last Admin: 11/11/16 12:39 Dose: 1 mg Ondansetron HCl (Zofran Odt) 4 mg PO EDNOW ONE Stop: 11/10/16 17:23 Last Admin: 11/10/16 17:24 Dose: 4 mg Ondansetron HCl (Zofran) 4 mg IVP EDNOW ONE Stop: 11/10/16 17:27 Last Admin: 11/10/16 17:39 Dose: 4 mg Promethazine HCl (Phenergan) 12.5 mg IVP EDNOW ONE Stop: 11/10/16 20:51 Last Admin: 11/10/16 20:54 Dose: 12.5 mg Departure - Departure Disposition: [facility] Inpatient Acute Clinical Impression: Alcohol withdrawal Qualifiers: Complication of substance-induced condition: uncomplicated Qualified Code(s): F10.230 - Alcohol dependence with withdrawal, uncomplicated Vomiting Qualifiers: Vomiting type: unspecified Vomiting Intractability: intractable Nausea presence : unspecified Qualified Code(s): R11.10 - Vomiting, unspecified Condition: Fair Report Scribed for: Milla Roberson Report Scribed by: Gaby Juarez Date of Report: 11/10/16 Time of Report: 17:22 Physician Review and Approval Statement: 11/10/16 17:33 Portions of this note were transcribed by a vice president medical affairs. I personally performed the history, physical exam, and medical decision-making; and confirmed the accuracy of the information in the transcribed note.
[2016-11-10 18:43] LABS: % IMMATURE GRANULYOCYTES 0.4 % (0.0-1.1); ABSOLUTE IMMATURE GRANULOCYTES 0.04 10^3/uL (0.00-0.10); ADD DIFF? NO; ADD MORPH? NO; ADD SCAN? NO; ATYPICAL LYMPHOCYTE FLAG 0 (0-99); FRAGMENT RBC FLAG 0 (0-99); HEMATOCRIT 37.4 % (38.0-47.0); HEMOGLOBIN 13.1 g/dL (12.6-16.3); LEFT SHIFT FLG 0 (0-99); LIPEMIA HEMOLYSIS FLAG 90 (0-99); MEAN CELL HEMOGLOBIN 32.8 pg (27.9-34.1); MEAN CELL VOLUME 93.7 fL (81.5-99.8); MEAN PLATELET VOLUME 9.7 fL (8.7-11.7); PLATELET CLUMPS FLAG 10 (0-99); PLATELET COUNT 337 10^3/uL (150-400); RED BLOOD CELL COUNT 3.99 10^6/uL (4.18-5.33); RED CELL DISTRIBUTION WIDTH 15.9 % (11.5-15.2)
[2016-11-10 18:55] LABS: ALANINE AMINOTRANSFERASE 36 IU/L (9-52); ALBUMIN 3.4 g/dL (3.5-5.0); ALKALINE PHOSPHATASE 80 IU/L (38-126); ANION GAP 10 mEq/L (8-16); ASPARTATE AMINOTRANSFERASE 39 IU/L (14-46); BILIRUBIN,TOTAL 0.8 mg/dL (0.1-1.4); BILIRUBIN-CONJUGATED 0.4 mg/dL (0.0-0.5); BILIRUBIN-UNCONJUGATED 0.4 mg/dL (0.0-1.1); CALCIUM 7.3 mg/dL (8.5-10.4); CARBON DIOXIDE 20 mEq/l (22-31); CHLORIDE 104 mEq/L (97-110); CREATININE 0.6 mg/dL (0.6-1.0); GLOMERULAR FILTRATION RATE > 60; GLUCOSE 89 mg/dL (70-100); POTASSIUM 4.2 mEq/L (3.5-5.2); SODIUM 134 mEq/L (134-144)
[2016-11-10] MEDS ORDERED: CALCIUM GLUCONATE 50 ML IV ONE (19:06)
[2016-11-10] MEDS ORDERED: PROMETHAZINE HCL 25 MG/ML INJ IVP ONE (20:50)
[2016-11-10] MEDS ORDERED: ONDANSETRON 4 MG/2 ML VIAL IVP PRN (22:23)
[2016-11-10] MEDS ORDERED: ACETAMINOPHEN 325 MG TAB PO PRN (22:23)
[2016-11-10] MEDS ORDERED: PROMETHAZINE HCL 25 MG/ML INJ IVP PRN (22:23)
[2016-11-10] MEDS ORDERED: ONDANSETRON DISINTEGRATING 4 MG TAB PO PRN (22:23)
[2016-11-10] MEDS ORDERED: NS 1,000 ML IV SCH (22:30)
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
[2016-11-10] MEDS ORDERED: LORazepam 2 MG/ML INJ IVP PRN (22:35)
[2016-11-10] MEDS ORDERED: MAG HYDROX/AL HYDROX/SIMETH 30 ML UDCUP PO PRN (22:35)
[2016-11-11] MEDS: ATORVASTATIN CALCIUM 20 MG TAB PO SCH ×2 (00:01→21:11)
[2016-11-11] MEDS: PROMETHAZINE HCL 25 MG TAB PO PRN ×4 (00:01→23:39)
[2016-11-11] MEDS: QUEtiapine FUMARATE 25 MG TAB PO SCH ×2 (00:01→21:11)
[2016-11-11] MEDS: LORazepam 1 MG TAB PO PRN ×3 (00:45→12:39)
[2016-11-11 04:50] LABS: % IMMATURE GRANULYOCYTES 0.4 % (0.0-1.1); ABSOLUTE IMMATURE GRANULOCYTES 0.03 10^3/uL (0.00-0.10); ADD DIFF? NO; ADD MORPH? NO; ADD SCAN? NO; ATYPICAL LYMPHOCYTE FLAG 10 (0-99); FRAGMENT RBC FLAG 0 (0-99); HEMATOCRIT 37.1 % (38.0-47.0); HEMOGLOBIN 12.5 g/dL (12.6-16.3); LEFT SHIFT FLG 0 (0-99); LIPEMIA HEMOLYSIS FLAG 80 (0-99); MEAN CELL HEMOGLOBIN 31.9 pg (27.9-34.1); MEAN CELL HEMOGLOBIN CONCENTR. 33.7 g/dL (32.4-36.7); MEAN CELL VOLUME 94.6 fL (81.5-99.8); PLATELET CLUMPS FLAG 20 (0-99); PLATELET COUNT 318 10^3/uL (150-400); RED BLOOD CELL COUNT 3.92 10^6/uL (4.18-5.33); RED CELL DISTRIBUTION WIDTH 16.5 % (11.5-15.2)
[2016-11-11 05:12] LABS: ANION GAP 7 mEq/L (8-16); CARBON DIOXIDE 22 mEq/l (22-31); CHLORIDE 104 mEq/L (97-110); CREATININE 0.6 mg/dL (0.6-1.0); GLOMERULAR FILTRATION RATE > 60; GLUCOSE 97 mg/dL (70-100); MAGNESIUM 1.6 mg/dL (1.6-2.3); POTASSIUM 3.9 mEq/L (3.5-5.2); SODIUM 133 mEq/L (134-144)
[2016-11-11] MEDS: FAMOTIDINE 20 MG/NACL 50 ML IV SCH ×2 (07:53→21:10)
[2016-11-11] MEDS: DULoxetine 30 MG CAP PO SCH (07:54)
[2016-11-11] MEDS: GABAPENTIN 400 MG CAP PO SCH ×3 (07:54→21:11)
[2016-11-11] MEDS: MULTIVITAMINS 1 EACH TAB PO SCH (07:54)
[2016-11-11] MEDS: ENOXAPARIN 40 MG/0.4 ML SYR SC SCH (07:54)
[2016-11-11] MEDS: FOLIC ACID 1 MG TAB PO SCH (07:55)
--- NOTE | 2016-11-11 08:57 | HOSPPROG ---
Hospitalist Progress Note Assessment/Plan: Patient is a 61 y/o female who was recently at the [facility] to get treatment. She was in acute alcohol withdrawal and having persistent vomiting. Today is my 1st encounter with the patient. Chart reviewed. She has been to the emergency room more than 12 times this year due to alcohol withdrawal. *Intractable vomiting Resolved Likely due to alcohol withdrawal Lipase is minimally elevated may have a component of underlying pancreatitis She is eating and drinking well now * metabolic acidosis Secondary to dehydration * alcohol withdrawal On CIWA protocol * likely underlying major depressive disorder with associated panic attacks * hypertension Resolved * plan. Will discuss with case management. She will likely need to go to the [facility] for detox. She is interested in [address] and living there to see if she can get off alcohol completely. I am very concerned that she most likely will start drinking again to deal with her depression and panic disorder. Her family lives in the [facility]. She may try to contact them. Subjective: Janette has no complaints/ very anxious about her car, getting help. Says she drinks to help deal with life, it suppresses the memories. Objective: Vital Signs Temp Pulse Resp BP Pulse Ox 36.8 C 86 16 125/89 H 93 11/11/16 07:22 11/11/16 07:22 11/11/16 07:22 11/11/16 07:22 11/11/16 07:22 Laboratory Results 11/11/16 04:38 11/11/16 04:38 11/10/16 11/11/16 11/12/16 05:59 05:59 05:59 Intake Total 2951 Balance 2951 - Physical Exam Constitutional: not in pain, unkempt Eyes: PERRL Ears, Nose, Mouth, Throat: hearing normal Respiratory: no respiratory distress Skin: warm Musculoskeletal: full muscle strength Neurologic: AAOx3 Psychiatric: interacting appropriately, anxious ICD10 Worksheet Patient Problems: Problems Problem Status Onset Alcohol withdrawal Acute Vomiting Acute Alcohol withdrawal Acute Medication overdose Acute
[2016-11-11] MEDS: chlordiazePOXIDE 25 MG CAP PO PRN ×3 (16:24→23:39)
--- NOTE | 2016-11-11 16:26 | ASMTCMCOM ---
CM Note CM Note Notes: Spoke w/hospitalist, pt was detoxing at the [facility] Concerns for relapse and chronic use of ER. Chapl in gave pt resources on [facility] and another program in [place], where family lives. mop worker to f/u in am. Date Signed: 11/11/2016 04:26 PM Electronically Signed By:Ernestina Geller
[2016-11-12] MEDS: chlordiazePOXIDE 25 MG CAP PO PRN ×3 (04:14→15:25)
[2016-11-12] MEDS: PROMETHAZINE HCL 25 MG TAB PO PRN (07:35)
[2016-11-12 07:55] VITALS: O2SAT 95
--- NOTE | 2016-11-12 08:43 | HOSPPROG ---
Hospitalist Progress Note Assessment/Plan: Patient is a 61 y/o female who was recently at the [facility] to get treatment. She was in acute alcohol withdrawal and having persistent vomiting. She has been to the emergency room more than 12 times this year due to alcohol withdrawal. *Intractable vomiting Resolved Likely due to alcohol withdrawal She is eating and drinking well now * metabolic acidosis Secondary to dehydration * alcohol withdrawal On CIWA protocol doing well w PRN Librium * likely underlying major depressive disorder with associated panic attacks * hypertension Resolved * plan. CM to talk with the patient and help plan out transition to [facility]. Will likely dc later today. Subjective: Janette has no complaints/ eating and drinking well. Objective: Vital Signs Temp Pulse Resp BP Pulse Ox 36.6 C 94 20 142/94 H 95 11/12/16 07:53 11/12/16 07:53 11/12/16 07:53 11/12/16 07:53 11/12/16 07:53 11/11/16 11/12/16 11/13/16 05:59 05:59 05:59 Intake Total 3680 Balance 3680 - Physical Exam Constitutional: no apparent distress, appears nourished, not in pain Eyes: PERRL Ears, Nose, Mouth, Throat: hearing normal Cardiovascular: regular rate and rhythym, tachycardia (slight) Respiratory: no respiratory distress Gastrointestinal: normoactive bowel sounds Skin: warm Musculoskeletal: full muscle strength Neurologic: AAOx3 Psychiatric: anxious ICD10 Worksheet Patient Problems: Problems Problem Status Onset Alcohol withdrawal Acute Vomiting Acute Alcohol withdrawal Acute Medication overdose Acute
[2016-11-12] MEDS: FAMOTIDINE 20 MG/NACL 50 ML IV SCH (09:33)
[2016-11-12] MEDS: FOLIC ACID 1 MG TAB PO SCH (09:33)
[2016-11-12] MEDS: GABAPENTIN 400 MG CAP PO SCH ×2 (09:33→15:25)
[2016-11-12] MEDS: ENOXAPARIN 40 MG/0.4 ML SYR SC SCH (09:33)
[2016-11-12] MEDS: DULoxetine 30 MG CAP PO SCH (09:33)
[2016-11-12] MEDS: MULTIVITAMINS 1 EACH TAB PO SCH (09:33)
[2016-11-12 11:29] VITALS: BP 116/81; PULSE 90; RESP 17; TEMP 97.8
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
[2016-11-13] MEDS ORDERED: THIAMINE HCL 100 MG TAB PO SCH (09:00)
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
--- NOTE | 2016-11-13 12:10 | GDS ---
[f rep st] DISCHARGE SUMMARY DISCHARGE DIAGNOSES: 1. Intractable vomiting. 2. Metabolic acidosis. 3. Alcohol withdrawal. 4. Likely underlying major depressive disorder, with associated panic attacks. 5. Hypertension. HISTORY OF PRESENT ILLNESS: Briefly, the patient is a 61-year-old female who is frequently seen at our emergency room for alcohol withdrawal. On this admission, she presented with acute vomiting. She was at the [facility] and was unable to tolerate taking any oral intake and was unable to take Librium. Eden hugo was transferred to [facility] for care. During her stay, she was treated with IV flu ids. Her vomiting resolved. She was able to eat and drink well. Case management has been actively in volved in trying to find her placement today. She has had multiple visits to the ER. At this time. S he does not want to go to the [facility]. She is interested in the [facility]. She has a friend eden hugo is going to stay with [facility] and feels that she can follow up. HOSPITAL COURSE: 1. Intractable vomiting, resolved. 2. Metabolic acidosis, improved. This is secondary to dehydration. 3. Alcohol withdrawal. She is doing well with p.r.n. Librium. 4. Likely underlying major depressive disorder, with associated panic attacks. Home medications hav e been resumed. 5. Hypertension, stable. CONDITION ON DISCHARGE: Stable. Blood pressure is 142/94, pulse is 94, temperature is 36.6 Celsius, respiratory rate is 20, O2 sats on room air 95%. MEDICATIONS AT DISCHARGE: Please see the EMR. DISCHARGE INSTRUCTIONS: 1. Do not drink while on Librium. She will get a prescription for these filled prior to discharge. 2. Encouraged her to follow up with [facility] and get help. Very concerned about her jacqueline donohue and needing more support with this. Greater than 30 minutes discharging and coordinating her care today. /[id number]/MODL
== END 2016-11-12 16:30 | disposition home or self-care (01) | DRG 897 ==
LOC: F3E 22:24 → OBSVTOIN 11-11 12:56
PROVIDERS: ADMIT Internal Medicine; ATTEND Internal Medicine
DX: F10.239 Alcohol dependence with withdrawal, unspecified (principal); E87.2 Acidosis; F33.1 Major depressive disorder, recurrent, moderate; E86.0 Dehydration; F41.0 Panic disorder [episodic paroxysmal anxiety]; I10 Essential (primary) hypertension; I25.10 Atherosclerotic heart disease of native coronary artery without angina pectoris; E78.5 Hyperlipidemia, unspecified; K21.9 Gastro-esophageal reflux disease without esophagitis; Z96.659 Presence of unspecified artificial knee joint
CPT/HCPCS: 96365; 96374; 97166-GO; G0378; J0610; J1650; J2060; J2405; J2550

== ENCOUNTER 2016-11-12 22:33 | Emergency (ER) | payer OTHER, MEDICAID ==
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
[2016-11-12] MEDS ORDERED: IBUPROFEN 200 MG TAB PO ONE (22:40)
[2016-11-12 22:48] VITALS: TEMP 98.6
[2016-11-12 23:57] VITALS: BP 108/78; PULSE 97; RESP 16; O2SAT 94
== END 2016-11-12 23:57 | disposition home or self-care (01) ==
LOC: EDUNIT#
DX: S80.12XA Contusion of left lower leg, initial encounter (principal); I10 Essential (primary) hypertension; V49.40XA Driver injured in collision with unspecified motor vehicles in traffic accident, initial encounter; Y92.410 Unspecified street and highway as the place of occurrence of the external cause; Y99.8 Other external cause status; Y93.89 Activity, other specified

== ENCOUNTER 2016-11-19 10:24 | Emergency (ER) | payer MEDICAID, OTHER ==
[2016-11-19] MEDS ORDERED: FOLIC ACID 1 MG TAB PO ONE (11:19)
[2016-11-19] MEDS ORDERED: THIAMINE HCL 500 MG in NS 100 ML IV ONE (11:19)
[2016-11-19] MEDS ORDERED: MULTIVITAMINS 1 EACH TAB PO ONE (11:19)
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
[2016-11-19] MEDS ORDERED: THIAMINE HCL 100 MG TAB PO ONE ×2 (12:37→12:44)
[2016-11-19 12:56] VITALS: TEMP 98.4
[2016-11-19] MEDS ORDERED: CHLORDIAZEPOXIDE 25MG PREPK#6 BTL TAKEHOME ONE (13:51)
[2016-11-19 14:16] VITALS: BP 109/86; PULSE 96; RESP 18; O2SAT 97
== END 2016-11-19 14:07 | disposition home or self-care (01) ==
LOC: EDUNIT#
DX: F10.929 Alcohol use, unspecified with intoxication, unspecified (principal); I10 Essential (primary) hypertension
CPT/HCPCS: J3411

== ENCOUNTER 2016-11-24 15:05 | Emergency (ER) | payer MEDICAID ==
[2016-11-24 15:14] VITALS: TEMP 98.8
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
[2016-11-24 16:19] VITALS: BP 91/69; PULSE 90; RESP 16; O2SAT 94
== END 2016-11-24 16:40 | disposition home or self-care (01) ==
LOC: EDUNIT#
DX: F10.920 Alcohol use, unspecified with intoxication, uncomplicated (principal); I10 Essential (primary) hypertension

== ENCOUNTER 2016-12-14 20:01 | Emergency (ER) | payer MEDICAID ==
[2016-12-14 20:16] VITALS: RESP 16; TEMP 97.5
--- NOTE | 2016-12-14 21:02 | EDPHY ---
H & P Stated Complaint: ETOH ABUSE ON [facility] HOLD Source: Patient Exam Limitations: Intoxication - Personal History Current Tetanus/Diphtheria Vaccine: Yes Current Tetanus Diphtheria and Acellular Pertussis (TDAP): Yes Tetanus Vaccine Date: 2010 - Medical/Surgical History Hx Asthma: No Hx Chronic Respiratory Disease: No Hx Diabetes: No Hx Cardiac Disease: Yes Hx Renal Disease: No Hx Cirrhosis: No Hx Alcoholism: Yes Hx HIV/AIDS: No Hx Splenectomy or Spleen Trauma: No Other PMH: HTN, Insommia/depression, ETOH abuse, herpes, Hyperlipidemia - Social History Smoking Status: Never smoked Time Seen by Provider: 12/14/16 20:59 HPI/ROS: HPI: This is a 61-year-old female who presents with Chief Complaint: alcohol intoxication Location: Body Quality: Alcohol intoxication Duration: Today Signs and Symptoms: + tangential thought pattern, no flight of ideas, no psychosis, no homicidal ideation, no hallucinations Timing: Chronic Severity: Dwaf-nh-aximijea Context: Patient is brought in this evening by [facility] Police for public and alcohol intoxication. She was found sleeping in a sitting position with her head down. When police woke her up, she became irritable and yelling loudly. She told him that she did not want to live anymore and that is why she drank so much. She cannot tell me what or how much she drank today. She reports that she does not have a plan to kill herself. She she denies being admitted into the hospital or visiting the ER for suicidal ideation. She admits that she drinks too much. Has lost the majority of her family because of this. She is homeless. She denies any medical problems. Denies any injury/ chest pain/shortness of breath/abdominal pain/headache/dizziness. She will not answer if she has had any surgeries. Chart review shows that she has had multiple visits to this ER for alcohol intoxication. She has expressed to me that she does not want to be discharged to THE [facility] which tells me that she has very familiar with our process. Modifying Factors: None Comment: ROS: See HPI Constitutional: No fever, no chills, no weight loss Eyes: No blurred vision Respiratory: No shortness of breath, no cough Cardiovascular: No chest pain Gastrointestinal: No nausea, no vomiting no diarrhea Genitourinary: No dysuria Extremities: No myalgias Neurologic: No weakness, no numbness Skin: No rashes Hematologic: No bruising, no bleeding CONSTITUTIONAL: Intoxicated, untidy, chronically ill-appearing adult white female, awake and alert, no obvious distress HEENT: Atraumatic and normocephalic, PERRL, EOMI. Tympanic membranes clear. Oropharynx clear, no exudate and moist pink mucosa. Airway patent. No lymphadenopathy. No meningismus. Cardiovascular: Normal S1/S2, regular rate, regular rhythm, without murmur rub or gallop. PULMONARY/CHEST: Symmetrical and nontender. Clear to auscultation bilaterally. Good air movement. No accessory muscle usage. ABDOMEN: Soft, nondistended, nontender, no rebound, no guarding, no peritoneal signs, no masses or organomegaly. No CVAT. EXTREMITIES: 2/2 pulses, no deformities, no clubbing, no cyanosis or edema. NEUROLOGICAL: no focal neuro deficits. GCS 15. Slurring of words. Follow losing one-step commands. PSYCH: + tangential thought pattern, no flight of ideas, no psychosis, no homicidal ideation, no hallucinations SKIN: Warm and dry, no erythema. no rash. Good capillary refill. (Jazmin Edwards) Constitutional: Initial Vital Signs Temperature (C) 36.4 C 12/14/16 20:13 Heart Rate 72 12/14/16 20:13 Respiratory Rate 16 12/14/16 20:13 Blood Pressure 132/93 H 12/14/16 20:13 O2 Sat (%) 93 12/14/16 20:13 O2 Delivery Mode Room Air Allergies/Adverse Reactions: No Known Allergies Allergy (Verified 12/14/16 20:16) Home Medications: Medication Instructions Recorded DULoxetine [Cymbalta 30 MG (*)] 30 mg PO DAILY 11/10/16 Gabapentin [Neurontin] 1,200 mg PO TID 11/10/16 Hydrochlorothiazide [HCTZ (*)] 25 mg PO DAILY 11/10/16 Ibuprofen [Motrin (*)] 200 - 400 mg PO DAILY PRN 11/10/16 Losartan Potassium [Cozaar 50 mg 50 mg PO DAILY 11/10/16 (*)] QUEtiapine FUMARATE [Seroquel 25 25 mg PO HS 11/10/16 mg (*)] Simvastatin [Zocor] 40 mg PO HS 11/10/16 Hydroxyzine Pamoate [Vistaril] 50 mg PO 12/14/16 Naltrexone HCl 50 mg PO 12/14/16 Medical Decision Making ED Course/Re-evaluation: The patient was evaluated and managed by the physician front office medical assistant. I have reviewed this chart and I agree with the findings and plan of care as documented , as indicated by my signature. I am the secondary supervising physician. ( Delia Hernandez) 182: Patient does not meet criteria for a Detainer or M1. I do not believe that she is suicidal at this time. She is clearly intoxicated with alcohol. She is unable to walk without assistance at this time. We will continue to monitor her for safety over the next several hours and re-evaluate as necessary. Plan is to eventually discharged her to [facility] when she is able to walk without ataxia/assistance. She currently does not need any interventions at this time. 2139: Patient ambulatory without assistance to the restroom. Eating crackers and drinking water. Nursing bedside Breathalyzer reads 293. Patient is alert and oriented x3. GCS 15. Following simple one-step commands. Denies suicidal ideation/homicidal ideation. Patient is reluctant to go to the [facility] but does not want to sleep on the street. 0: Patient discharged to the [facility] with police escort and a prepack of Librium. She is high risk for bounce-back due to continued alcohol abuse and reluctancy to seek treatment and stop drinking alcohol. (Jazmin Edwards) Differential Diagnosis: Altered mental status including but not limited to hypoglycemia, infectious process, electrolyte abnormality, head injury and intoxicants. (Jazmin Edwards) - Data Points Medications Given: Discontinued Medications Acetaminophen (Tylenol) 1,000 mg PO EDNOW ONE Stop: 12/14/16 22:59 Last Admin: 12/14/16 23:00 Dose: 1,000 mg Chlordiazepoxide (Librium 25 Mg Prepack#6) 1 btl TAKEHOME EDNOW ONE Stop: 12/14/16 21:50 Last Admin: 12/14/16 22:20 Dose: 1 btl Departure - Departure Disposition: Other Psych, Not [place] Clinical Impression: Alcohol intoxication Qualifiers: Complication of substance-induced condition: uncomplicated Qualified Code(s): F10.920 - Alcohol use, unspecified with intoxication, uncomplicated Condition: Good Instructions: Chlordiazepoxide/Clidinium (By mouth), Abuse of Alcohol (ED) Referrals: [facility] [Outside] - As per Instructions
[2016-12-14] MEDS ORDERED: CHLORDIAZEPOXIDE 25MG PREPK#6 BTL TAKEHOME ONE (21:49)
[2016-12-14] MEDS ORDERED: ACETAMINOPHEN 500 MG TAB ONE (22:57)
[2016-12-14] MEDS ORDERED: ACETAMINOPHEN 500 MG TAB PO ONE (22:58)
[2016-12-14 23:02] VITALS: BP 129/88; PULSE 74; O2SAT 95
== END 2016-12-14 23:01 ==
LOC: EDUNIT#
DX: F10.920 Alcohol use, unspecified with intoxication, uncomplicated (principal); I10 Essential (primary) hypertension

== ENCOUNTER 2016-12-21 12:36 | Emergency (ER) | payer MEDICAID ==
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
[2016-12-21 14:32] VITALS: BP 122/81; PULSE 86; RESP 18; TEMP 98.1; O2SAT 91
== END 2016-12-21 14:30 | disposition home or self-care (01) ==
LOC: EDUNIT#
DX: S43.52XA Sprain of left acromioclavicular joint, initial encounter (principal); S40.022A Contusion of left upper arm, initial encounter; F10.920 Alcohol use, unspecified with intoxication, uncomplicated; I10 Essential (primary) hypertension; Y09 Assault by unspecified means; Y92.009 Unspecified place in unspecified non-institutional (private) residence as the place of occurrence of the external cause

== ENCOUNTER 2017-01-09 16:43 | Emergency (ER) | payer MEDICAID ==
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
[2017-01-09 16:52] VITALS: RESP 16; TEMP 98.2
--- NOTE | 2017-01-09 16:54 | CPEKG ---
Heart Rate: 95 RR Interval: 632 P-R Interval: 136 QRSD Interval: 86 QT Interval: 372 QTC Interval: 468 P [place]: 11 QRS [place]: -6 T Wave [place]: -2 EKG Severity - NORMAL ECG - EKG Impression: SINUS RHYTHM Electronically Signed By: Milla Roberson 12-Jan-2017 20:46:04
[2017-01-09 17:17] LABS: % IMMATURE GRANULYOCYTES 0.5 % (0.0-1.1); ABSOLUTE IMMATURE GRANULOCYTES 0.03 10^3/uL (0.00-0.10); ADD DIFF? NO; ADD MORPH? NO; ADD SCAN? NO; ATYPICAL LYMPHOCYTE FLAG 30 (0-99); FRAGMENT RBC FLAG 0 (0-99); HEMATOCRIT 37.4 % (38.0-47.0); HEMOGLOBIN 12.4 g/dL (12.6-16.3); LEFT SHIFT FLG 0 (0-99); LIPEMIA HEMOLYSIS FLAG 80 (0-99); MEAN CELL HEMOGLOBIN 32.2 pg (27.9-34.1); MEAN CELL HEMOGLOBIN CONCENTR. 33.2 g/dL (32.4-36.7); MEAN CELL VOLUME 97.1 fL (81.5-99.8); PLATELET CLUMPS FLAG 0 (0-99); PLATELET COUNT 440 10^3/uL (150-400); RED BLOOD CELL COUNT 3.85 10^6/uL (4.18-5.33); RED CELL DISTRIBUTION WIDTH 13.9 % (11.5-15.2)
[2017-01-09 17:23] LABS: ANION GAP 18 mEq/L (8-16); CALCIUM 8.7 mg/dL (8.5-10.4); CARBON DIOXIDE 19 mEq/l (22-31); CHLORIDE 102 mEq/L (97-110); CREATININE 0.6 mg/dL (0.6-1.0); GLOMERULAR FILTRATION RATE > 60; GLUCOSE 100 mg/dL (70-100); POTASSIUM 4.9 mEq/L (3.5-5.2); SODIUM 139 mEq/L (134-144); SPECIMEN HEMOLYSIS 109
[2017-01-09 17:30] LABS: ETHANOL SERUM 299 mg/dL (0-10)
[2017-01-09 17:33] LABS: TROPONIN I < 0.012 ng/mL (0.000-0.034)
[2017-01-09 18:48] VITALS: BP 132/78; PULSE 89; O2SAT 94
== END 2017-01-09 18:47 | disposition home or self-care (01) ==
LOC: EDUNIT#
DX: R07.89 Other chest pain (principal); F10.20 Alcohol dependence, uncomplicated; I10 Essential (primary) hypertension
CPT/HCPCS: G0480

== ENCOUNTER 2017-01-12 08:17 | Inpatient (IN) | payer MEDICAID ==
--- NOTE | 2017-01-12 08:21 | EDPHY ---
H & P Time Seen by Provider: 01/12/17 08:19 HPI/ROS: CHIEF COMPLAINT: Feeling cold HISTORY OF PRESENT ILLNESS: The patient was found by police behind [employer] at baseline and . Wet and cold, brought in by EMS, no other complaints. Alcohol last night, sleeping outside. No trauma, no SI or HI. REVIEW OF SYSTEMS: Eye: no change in vision ENT: no sore throat Cardiac: no chest pain or syncope Pulmonary: Not short of breath Abdomen: no vomiting, diarrhea, abdominal pain Musculoskeletal: no back pain Skin: Abrasion to the left hung Neuro: no headache Constitutional: no fever : no urinary symptoms A comprehensive 10 point review of systems is otherwise negative aside from elements mentioned in the history of present illness. PAST MEDICAL HISTORY: Past history and physical by Dr. green reviewed includes alcoholism, depression, hypertension, , ventral hernia repair , knee arthroplasty, breast augmentation Social history: Homeless, heavy alcohol use General Appearance: Alert and conversant, cooperative. Eyes: No scleral icterus. ENT, Mouth: Normal mucous membranes. Respiratory: Normal respiratory effort, breath sounds equal, lungs are clear to auscultation. Cardiovascular: Regular rate and rhythm. Heart rate 100. Gastrointestinal: Abdomen is soft and non tender. Neurological: Alert and oriented x3. Normally conversant. Face symmetric, normal movement and sensation in all extremities. Shivering. Skin: Abrasion to the left hung without evidence of cellulitis. Musculoskeletal: No peripheral edema and no joint swelling. Psychiatric: Not agitated. Emergency Department course/MDM: Environmental hypothermia with initial temperature 33.7degrees. Jared Hugger applied. 1215: Normothermic, but now tremulous and nausea vomiting, likely alcohol withdrawal. 2 mg IV Ativan and labs IV fluids. 1305: Continued tremor, has nausea. Zofran 4 mg IV and additional 2 mg Ativan IV. 1403: Still tremulous, 2 mg IV additional Ativan. Labs reviewed including normal sodium potassium and glucose of 62. At this point almost 6 hours after her arrival to the emergency department, plan to admit to the hospital for alcohol withdrawal. Admit Garas, remains tachycardic and tremulous. Not hallucinating. Constitutional: Initial Vital Signs Temperature (C) 33.7 C L 01/12/17 08:28 Heart Rate 92 01/12/17 08:28 Respiratory Rate 18 01/12/17 08:28 Blood Pressure 134/103 H 01/12/17 08:28 O2 Sat (%) 96 01/12/17 08:28 O2 Delivery Mode Room Air Allergies/Adverse Reactions: No Known Allergies Allergy (Verified 01/09/17 16:52) Home Medications: Medication Instructions Recorded DULoxetine [Cymbalta 30 MG (*)] 30 mg PO DAILY 11/10/16 Gabapentin [Neurontin] 1,200 mg PO TID 11/10/16 Hydrochlorothiazide [HCTZ (*)] 25 mg PO DAILY 11/10/16 Ibuprofen [Motrin (*)] 200 - 400 mg PO DAILY PRN 11/10/16 Losartan Potassium [Cozaar 50 mg 50 mg PO DAILY 11/10/16 (*)] QUEtiapine FUMARATE [Seroquel 25 25 mg PO HS 11/10/16 mg (*)] Simvastatin [Zocor] 40 mg PO HS 11/10/16 Hydroxyzine Pamoate [Vistaril] 50 mg PO DAILY 12/14/16 Naltrexone HCl 50 mg PO DAILY 12/14/16 Medical Decision Making - Diagnostics EKG Interpretation: 12-lead EKG interpreted by me; official reading is in trace master. My interpretation is sinus tachycardia rate 118 no ischemic changes. Differential Diagnosis: Differential for feeling cold considered including but not limited to environmental hypothermia, systemic infection, alcohol withdrawal, thyroid or other metabolic. Critical Care Time: Critical care time spent by me, Dr. Patel, exclusively with the care of this patient was 40 minutes, exclusive of PA or DISC PAD PLATE FILLER time and exclusive of separate procedures. The organ system at risk was neurologic and environmental and I ordered multiple doses of IV Ativan, IV fluids, rewarming actively and externally, to stabilize the patient and prevent worsening of the patient's condition. - Data Points Laboratory Results: Laboratory Results 01/12/17 14:06 01/12/17 14:06 01/12/17 01/12/17 01/12/17 14:06 14:06 13:03 WBC 13.20 10^3/uL H 10^3/uL (3.80-9.50) RBC 3.54 10^6/uL L 10^6/uL (4.18-5.33) Hgb 11.3 g/dL L g/dL (12.6-16.3) POC Hgb 12.2 gm/dL L gm/dL (12.6-16.3) Hct 34.4 % L % (38.0-47.0) POC Hct 36 % L % (38-47) MCV 97.2 fL fL (81.5-99.8) MCH 31.9 pg pg (27.9-34.1) MCHC 32.8 g/dL g/dL (32.4-36.7) RDW 13.9 % % (11.5-15.2) Plt Count 473 10^3/uL H 10^3/uL (150-400) MPV 9.9 fL fL (8.7-11.7) Neut % (Auto) 83.6 % H % (39.3-74.2) Lymph % (Auto) 6.4 % L % (15.0-45.0) [place] % (Auto) 7.5 % % (4.5-13.0) Eos % (Auto) 0.4 % L % (0.6-7.6) Baso % (Auto) 1.1 % % (0.3-1.7) Nucleat RBC Rel Count 0.0 % % (0.0-0.2) Absolute Neuts (auto) 11.04 10^3/uL H 10^3/uL (1.70-6.50) Absolute Lymphs (auto) 0.85 10^3/uL L 10^3/uL (1.00-3.00) Absolute Monos (auto) 0.99 10^3/uL H 10^3/uL (0.30-0.80) Absolute Eos (auto) 0.05 10^3/uL 10^3/uL (0.03-0.40) Absolute Basos (auto) 0.14 10^3/uL H 10^3/uL (0.02-0.10) Absolute Nucleated RBC 0.00 10^3/uL 10^3/uL (0-0.01) Immature Gran % 1.0 % % (0.0-1.1) Immature Gran # 0.13 10^3/uL H 10^3/uL (0.00-0.10) POC Sodium 140 mEq/L mEq/L (134-144) Sodium 138 mEq/L mEq/L (134-144) POC Potassium 3.8 mEq/L mEq/L (3.3-5.0) Potassium 4.3 mEq/L mEq/L (3.5-5.2) POC Chloride 105 mEq/L mEq/L (97-110) Chloride 105 mEq/L mEq/L (97-110) Carbon Dioxide 19 mEq/l L mEq/l (22-31) Anion Gap 14 mEq/L mEq/L (8-16) POC BUN 8 mg/dL mg/dL (7-23) BUN 10 mg/dL mg/dL (7-23) Creatinine 0.6 mg/dL mg/dL (0.6-1.0) POC Creatinine 0.5 mg/dL L mg/dL (0.6-1.0) Estimated GFR > 60 Glucose 77 mg/dL mg/dL (70-100) POC Glucose 62 mg/dL L mg/dL (70-100) Calcium 7.3 mg/dL L D mg/dL (8.5-10.4) Magnesium 1.2 mg/dL L mg/dL (1.6-2.3) Total Bilirubin 0.3 mg/dL mg/dL (0.1-1.4) AST 27 IU/L IU/L (14-46) ALT 31 IU/L IU/L (9-52) Alkaline Phosphatase 118 IU/L IU/L (38-126) Total Protein 5.5 g/dL L g/dL (6.3-8.2) Albumin 2.6 g/dL L g/dL (3.5-5.0) Medications Given: Acetaminophen (Tylenol) 650 mg PO Q4HRS PRN PRN Reason: Pain, Mild/Fever, Can Take PO Stop: 07/11/17 15:50 Last Admin: 01/12/17 16:26 Dose: 650 mg Potassium Chloride/Dextrose/Sod Cl (D5w 1/2 Ns W/ 20 Kcl/L) 1,000 mls @ 100 mls /hr IV CONT ERUM Stop: 07/11/17 15:59 Last Admin: 01/12/17 16:25 Dose: 1,000 mls Lorazepam (Ativan Injection) 0.5 - 3 mg IVP Q30M PRN PRN Reason: CIWA-Ar score greater than 15 Stop: 04/28/18 15:53 Last Admin: 01/12/17 16:25 Dose: 2 mg Discontinued Medications Chlordiazepoxide HCl (Librium) 50 mg PO ONCE ONE Stop: 01/12/17 15:55 Last Admin: 01/12/17 16:25 Dose: 50 mg Sodium Chloride (Ns) 1,000 mls @ 0 mls/hr IV EDNOW ONE; Wide Open PRN Reason: Protocol Stop: 01/12/17 12:22 Last Admin: 01/12/17 13:48 Dose: 1,000 mls Sodium Chloride (Ns) 1,000 mls @ 0 mls/hr IV EDNOW ONE; Wide Open PRN Reason: Protocol Stop: 01/12/17 12:22 Last Admin: 01/12/17 13:49 Dose: 1,000 mls Lorazepam (Ativan Injection) 2 mg IVP EDNOW ONE Stop: 01/12/17 12:21 Last Admin: 01/12/17 12:25 Dose: 2 mg Lorazepam (Ativan Injection) 2 mg IVP EDNOW ONE Stop: 01/12/17 13:06 Last Admin: 01/12/17 13:48 Dose: 2 mg Lorazepam (Ativan Injection) 2 mg IVP EDNOW ONE Stop: 01/12/17 14:05 Last Admin: 01/12/17 15:05 Dose: 2 mg Ondansetron HCl (Zofran) 4 mg IVP EDNOW ONE Stop: 01/12/17 13:06 Last Admin: 01/12/17 13:49 Dose: 4 mg Point of Care Test Results: 01/12/17 13:03 POC Sodium 140 POC Potassium 3.8 POC Chloride 105 POC BUN 8 POC Creatinine 0.5 L POC Glucose 62 L Departure - Departure Disposition: [facility] Inpatient Acute Clinical Impression: Hypothermia Qualifiers: Encounter type: initial encounter Qualified Code(s): T68.XXXA - Hypothermia, initial encounter Alcohol withdrawal Qualifiers: Complication of substance-induced condition: uncomplicated Qualified Code(s): F10.230 - Alcohol dependence with withdrawal, uncomplicated Condition: Fair
[2017-01-12] MEDS ORDERED: ONDANSETRON 4 MG/2 ML VIAL ONE (12:19)
[2017-01-12] MEDS ORDERED: LORazepam 2 MG/ML INJ IVP ONE ×3 (12:20→14:04)
[2017-01-12] MEDS ORDERED: LORazepam 2 MG/ML INJ ONE (12:20)
[2017-01-12] MEDS ORDERED: NS 1,000 ML IV ONE ×2 (12:21)
--- NOTE | 2017-01-12 12:34 | CPEKG ---
Heart Rate: 118 RR Interval: 508 P-R Interval: 112 QRSD Interval: 78 QT Interval: 328 QTC Interval: 460 P [place]: 56 QRS [place]: 64 T Wave [place]: 59 EKG Severity - OTHERWISE NORMAL ECG - EKG Impression: SINUS TACHYCARDIA Electronically Signed By: Keith Patel 12-Jan-2017 14:26:56
--- NOTE | 2017-01-12 12:34 | CPEKG ---
Heart Rate: 118 RR Interval: 508 P-R Interval: 112 QRSD Interval: 78 QT Interval: 328 QTC Interval: 460 P [place]: 56 QRS [place]: 64 T Wave [place]: 59 EKG Severity - OTHERWISE NORMAL ECG - EKG Impression: SINUS TACHYCARDIA Electronically Signed By: Keith Patel 12-Jan-2017 14:26:56
[2017-01-12] MEDS ORDERED: ONDANSETRON 4 MG/2 ML VIAL IVP ONE (13:05)
[2017-01-12 14:26] LABS: PLATELET COUNT 473 10^3/uL (150-400)
[2017-01-12] MEDS ORDERED: ONDANSETRON 4 MG/2 ML VIAL IVP PRN (15:51)
[2017-01-12] MEDS ORDERED: ONDANSETRON DISINTEGRATING 4 MG TAB PO PRN (15:51)
[2017-01-12] MEDS ORDERED: chlordiazePOXIDE 25 MG CAP PO ONE (15:54)
[2017-01-12] MEDS ORDERED: LORazepam 2 MG/ML INJ IVP PRN (15:54)
[2017-01-12] MEDS ORDERED: AZITHROMYCIN 250 MG TAB PO ONE (15:55)
--- NOTE | 2017-01-12 16:21 | GHP ---
[f rep st] HISTORY AND PHYSICAL DATE OF ADMISSION: 01/12/2017 CHIEF COMPLAINT: Found passed out at [employer]. HISTORY OF PRESENT ILLNESS: A 61-year-old female with a history of alcoholism. She apparently was f ound cold and passed out at [facility] this morning and brought in by EMS. She currently complains of a productive cough. It has been going on for 2 weeks. She says she has foul-smelling green to yellow sputum. No shortness of breath. No fevers or chills. She does drink daily and [facility], and has been admitted a few times to the hospital. She says she does not usually take her m edications when she is drinking. REVIEW OF SYSTEMS: A 10-point review of systems was obtained and negative. PAST MEDICAL HISTORY: 1. Hypertension. 2. Coronary artery disease by calcium score only. 3. Alcoholism. 4. Depression. 5. Anxiety. 6. History of supraventricular tachycardia. 7. GERD. PAST SURGICAL HISTORY: times 4, ventral hernia repair, total knee replacement, breast augm entation. FAMILY HISTORY: Father with alcoholism. SOCIAL HISTORY: Drinks significant amount daily. No smoking. Thinking about moving back to [place] an d doing a long-term inpatient rehab. She has children in [place] but she does not communicate with them regularly when she is drinking. PHYSICAL EXAM: VITAL SIGNS: Afebrile, blood pressure is 119/78, heart rate 134, oxygen saturation 9 2% on room air. GENERAL: The patient is well developed, in no apparent distress. HEENT: Nonicteri c sclerae. Extraocular movements intact. Dry mucous membranes. NECK: Supple. No thyromegaly. HANNAH NGS: Good effort. Clear to auscultation bilaterally. CARDIOVASCULAR: Tachycardic. No murmurs or gallops. ABDOMEN: Positive bowel sounds. Soft, nontender, nondistended. No hepatosplenomegaly. E XTREMITIES: No clubbing, cyanosis, or edema. SKIN: Without rash, dry, intact. NEUROLOGIC: Alert and oriented x3. Is tremulous. PSYCH: Normal mood and affect. LABS: White count slightly elevated at 13, hemoglobin 11, platelets are 433. Magnesium low 1.2. Cr eatinine is normal. Potassium is normal. ASSESSMENT: This is a 61-year-old female presenting with alcohol withdrawal. PLAN: 1. Alcohol withdrawal. Patient will be admitted to step-down. We will treat with both Librium and Ativan. Monitor CIWA score. Give vitamins. 2. Bronchitis versus pneumonia. Her lung sounds fairly clear although she has had 2 weeks of purule nt type sputum symptoms. We will at least start off with azithromycin to treat bronchitis. We will get a chest x-ray. If this shows pneumonia could increase the dose of Zithromax or change antibiotic regimen. 3. History of hypertension. We are going to start her losartan, hold her hydrochlorothiazide. 4. History of depression and anxiety. I am going to hold some of her medications. She says she burch s not take them when she is drinking. I am not actually sure when the last time she actually did ruslan e those medications. I do not want to start off with 1200 mg of gabapentin 3 times a day. We can st art the Cymbalta and low-dose Seroquel, but otherwise we will hold some of her other medications. /[id number]/MODL
--- NOTE | 2017-01-12 16:21 | GHP ---
[f rep st] HISTORY AND PHYSICAL DATE OF ADMISSION: 01/12/2017 CHIEF COMPLAINT: Found passed out at [employer] [employer]. HISTORY OF PRESENT ILLNESS: A 61-year-old female with a history of alcoholism. She apparently was f ound cold and passed out at [facility] this morning and brought in by EMS. She currently complains of a productive cough. It has been going on for 2 weeks. She says she has foul-smelling green to yellow sputum. No shortness of breath. No fevers or chills. She does drink daily and [facility], and has been admitted a few times to the hospital. She says she does not usually take her m edications when she is drinking. REVIEW OF SYSTEMS: A 10-point review of systems was obtained and negative. PAST MEDICAL HISTORY: 1. Hypertension. 2. Coronary artery disease by calcium score only. 3. Alcoholism. 4. Depression. 5. Anxiety. 6. History of supraventricular tachycardia. 7. GERD. PAST SURGICAL HISTORY: times 4, ventral hernia repair, total knee replacement, breast augm entation. FAMILY HISTORY: Father with alcoholism. SOCIAL HISTORY: Drinks significant amount daily. No smoking. Thinking about moving back to [place] an d doing a long-term inpatient rehab. She has children in [place] but she does not communicate with them regularly when she is drinking. PHYSICAL EXAM: VITAL SIGNS: Afebrile, blood pressure is 119/78, heart rate 134, oxygen saturation 9 2% on room air. GENERAL: The patient is well developed, in no apparent distress. HEENT: Nonicteri c sclerae. Extraocular movements intact. Dry mucous membranes. NECK: Supple. No thyromegaly. HANNAH NGS: Good effort. Clear to auscultation bilaterally. CARDIOVASCULAR: Tachycardic. No murmurs or gallops. ABDOMEN: Positive bowel sounds. Soft, nontender, nondistended. No hepatosplenomegaly. E XTREMITIES: No clubbing, cyanosis, or edema. SKIN: Without rash, dry, intact. NEUROLOGIC: Alert and oriented x3. Is tremulous. PSYCH: Normal mood and affect. LABS: White count slightly elevated at 13, hemoglobin 11, platelets are 433. Magnesium low 1.2. Cr eatinine is normal. Potassium is normal. ASSESSMENT: This is a 61-year-old female presenting with alcohol withdrawal. PLAN: 1. Alcohol withdrawal. Patient will be admitted to step-down. We will treat with both Librium and Ativan. Monitor CIWA score. Give vitamins. 2. Bronchitis versus pneumonia. Her lung sounds fairly clear although she has had 2 weeks of purule nt type sputum symptoms. We will at least start off with azithromycin to treat bronchitis. We will get a chest x-ray. If this shows pneumonia could increase the dose of Zithromax or change antibiotic regimen. 3. History of hypertension. We are going to start her losartan, hold her hydrochlorothiazide. 4. History of depression and anxiety. I am going to hold some of her medications. She says she burch s not take them when she is drinking. I am not actually sure when the last time she actually did ruslan e those medications. I do not want to start off with 1200 mg of gabapentin 3 times a day. We can st art the Cymbalta and low-dose Seroquel, but otherwise we will hold some of her other medications. /[id number]/MODL
[2017-01-12] MEDS: D5W 1/2 NS W/ 20 KCl/L 1,000 ML IV SCH (16:25)
[2017-01-12] MEDS: ACETAMINOPHEN 325 MG TAB PO PRN (16:26)
--- NOTE | 2017-01-12 17:14 | PDMN ---
Medical Necessity Medical necessity: Pt meets IP criteria per MD; est los >2 mn for eval/tx of alcohol withdrawal, bronchitis vs pneumonia; hx htn, SVT, CAD, depression & anxiety; per H&P 01/12/17
[2017-01-12] MEDS: THIAMINE HCL 100 MG TAB PO SCH (18:26)
[2017-01-12] MEDS ORDERED: PROTOCOL MAGNESIUM 1 DOSE IV PRN (19:07)
[2017-01-12] MEDS ORDERED: MAGNESIUM SULF 2 GM/WATER 50 ML IV ONE (19:09)
[2017-01-12] MEDS: QUEtiapine FUMARATE 25 MG TAB PO SCH (20:54)
[2017-01-12] MEDS: chlordiazePOXIDE 25 MG CAP PO PRN (23:56)
[2017-01-12] MEDS: MAG HYDROX/AL HYDROX/SIMETH 30 ML UDCUP PO PRN (23:57)
[2017-01-13] MEDS: D5W 1/2 NS W/ 20 KCl/L 1,000 ML IV SCH ×2 (03:03→12:07)
[2017-01-13 05:17] LABS: PLATELET COUNT 408 10^3/uL (150-400)
--- NOTE | 2017-01-13 09:07 | HOSPPROG ---
Hospitalist Progress Note Assessment/Plan: 61 yo F w cad, alcoholism admitted w hypothermia and alcohol withdrawal hypothermia: mild resolved no aguirre waves on ekg (interp by me) alcohol withdrawal: better but still significant continue librium, prn ativan ? pneumonia: not cxr w no infiltrate (interp by me) agree w azithromycin proph: lmwh dispo: to floor Subjective: feels better today. cxr w no infiltrate (interp by me) Objective: Vital Signs Temp Pulse Resp BP Pulse Ox 36.9 C 78 23 H 103/70 96 01/13/17 07:41 01/13/17 07:41 01/13/17 07:41 01/13/17 07:41 01/13/17 07:41 Laboratory Results 01/13/17 04:50 01/13/17 04:36 01/12/17 01/13/17 01/14/17 05:59 05:59 05:59 Intake Total 2048 Output Total 1475 600 Balance 573 -600 - Physical Exam Constitutional: no apparent distress, appears nourished Eyes: PERRL, anicteric sclera Ears, Nose, Mouth, Throat: moist mucous membranes, hearing normal, ears appear normal Cardiovascular: regular rate and rhythym, no murmur, rub, or gallop, systolic murmur Respiratory: no respiratory distress, no rales or rhonchi Gastrointestinal: normoactive bowel sounds, soft, non-tender abdomen Genitourinary: no bladder fullness, No jones in urethra Skin: warm, normal color Musculoskeletal: full muscle strength Neurologic: AAOx3 Psychiatric: interacting appropriately ICD10 Worksheet Patient Problems: Problems Problem Status Onset Alcohol withdrawal Acute Hypothermia Acute Alcohol withdrawal Acute Alcoholism Acute Chest pain Acute Medication overdose Acute Vomiting Acute
[2017-01-13] MEDS: FOLIC ACID 1 MG TAB PO SCH (09:11)
[2017-01-13] MEDS: DULoxetine 30 MG CAP PO SCH (09:11)
[2017-01-13] MEDS: MAG HYDROX/AL HYDROX/SIMETH 30 ML UDCUP PO PRN ×2 (09:11→20:56)
[2017-01-13] MEDS: AZITHROMYCIN 250 MG TAB PO SCH (09:11)
[2017-01-13] MEDS: ACETAMINOPHEN 325 MG TAB PO PRN ×2 (09:11→20:56)
[2017-01-13] MEDS: chlordiazePOXIDE 25 MG CAP PO PRN ×3 (09:11→20:00)
[2017-01-13] MEDS: MULTIVITAMINS 1 EACH TAB PO SCH (09:11)
[2017-01-13] MEDS: THIAMINE HCL 100 MG TAB PO SCH (09:11)
[2017-01-13] MEDS: ENOXAPARIN 40 MG/0.4 ML SYR SC SCH (09:12)
[2017-01-13] MEDS ORDERED: FLU VACC QS 2017-18 (3YR+)/PF 0.5 ML SYR (FLUARIX QUAD) IM ONE (09:27)
[2017-01-13] MEDS: LOSARTAN POTASSIUM 50 MG TAB PO SCH (09:56)
--- NOTE | 2017-01-13 12:21 | ASMTCMCOM ---
CM Note CM Note Notes: Patient has been transferred to . Aide reports that she will need clothes-sz medium. Date Signed: 01/13/2017 12:20 PM Electronically Signed By:Libby Nunez LCSW
[2017-01-13] MEDS: QUEtiapine FUMARATE 25 MG TAB PO SCH (20:00)
[2017-01-13] MEDS: LORazepam 1 MG TAB PO PRN (20:56)
[2017-01-14 05:14] LABS: PLATELET COUNT 401 10^3/uL (150-400)
--- NOTE | 2017-01-14 08:45 | HOSPPROG ---
Hospitalist Progress Note Assessment/Plan: 61 yo F w cad, alcoholism admitted w hypothermia and alcohol withdrawal. Patient was found passed out at [employer]. Today is my 1st encounter with the patient. Chart reviewed. hypothermia: mild resolved alcohol withdrawal: better but still significant continue librium, prn ativan ? pneumonia versus bronchitis cxr w no infiltrate On azithromycin history depression & anxiety proph: lmw dispo: Pending. The patient is very anxious and wants to leave as soon as possible. She states that she is moving to the [facility] for treatment program. I told her at this time I am not comfortable discharging her because she is withdrawing and quite tremulous. Subjective: Janette has no complaints of pain. Objective: Vital Signs Temp Pulse Resp BP Pulse Ox 36.9 C 96 18 121/83 H 94 01/14/17 08:00 01/14/17 08:00 01/14/17 08:00 01/14/17 08:00 01/14/17 08:00 Laboratory Results 01/14/17 04:31 01/14/17 04:31 01/13/17 01/14/17 01/15/17 05:59 05:59 05:59 Intake Total 2048 690 Output Total 1475 600 Balance 573 90 - Physical Exam Constitutional: not in pain, chronically ill appearing Eyes: PERRL Ears, Nose, Mouth, Throat: hard of hearing Cardiovascular: regular rate and rhythym, tachycardia Respiratory: no respiratory distress, clear to auscultation Skin: warm Musculoskeletal: full muscle strength Neurologic: AAOx3 Psychiatric: anxious ICD10 Worksheet Patient Problems: Problems Problem Status Onset Alcohol withdrawal Acute Hypothermia Acute Alcohol withdrawal Acute Alcoholism Acute Chest pain Acute Medication overdose Acute Vomiting Acute
--- NOTE | 2017-01-14 08:45 | HOSPPROG ---
Hospitalist Progress Note Assessment/Plan: 61 yo F w cad, alcoholism admitted w hypothermia and alcohol withdrawal. Patient was found passed out at [employer]. Today is my 1st encounter with the patient. Chart reviewed. hypothermia: mild resolved alcohol withdrawal: better but still significant continue librium, prn ativan ? pneumonia versus bronchitis cxr w no infiltrate On azithromycin history depression & anxiety proph: lmw dispo: Pending. The patient is very anxious and wants to leave as soon as possible. She states that she is moving to the [facility] for treatment program. I told her at this time I am not comfortable discharging her because she is withdrawing and quite tremulous. Subjective: Janette has no complaints of pain. Objective: Vital Signs Temp Pulse Resp BP Pulse Ox 36.9 C 96 18 121/83 H 94 01/14/17 08:00 01/14/17 08:00 01/14/17 08:00 01/14/17 08:00 01/14/17 08:00 Laboratory Results 01/14/17 04:31 01/14/17 04:31 01/13/17 01/14/17 01/15/17 05:59 05:59 05:59 Intake Total 2048 690 Output Total 1475 600 Balance 573 90 - Physical Exam Constitutional: not in pain, chronically ill appearing Eyes: PERRL Ears, Nose, Mouth, Throat: hard of hearing Cardiovascular: regular rate and rhythym, tachycardia Respiratory: no respiratory distress, clear to auscultation Skin: warm Musculoskeletal: full muscle strength Neurologic: AAOx3 Psychiatric: anxious ICD10 Worksheet Patient Problems: Problems Problem Status Onset Alcohol withdrawal Acute Hypothermia Acute Alcohol withdrawal Acute Alcoholism Acute Chest pain Acute Medication overdose Acute Vomiting Acute
[2017-01-14] MEDS: AZITHROMYCIN 250 MG TAB PO SCH (09:01)
[2017-01-14] MEDS: MULTIVITAMINS 1 EACH TAB PO SCH (09:01)
[2017-01-14] MEDS: DULoxetine 30 MG CAP PO SCH (09:02)
[2017-01-14] MEDS: FOLIC ACID 1 MG TAB PO SCH (09:02)
[2017-01-14] MEDS: ENOXAPARIN 40 MG/0.4 ML SYR SC SCH (09:03)
[2017-01-14] MEDS: LOSARTAN POTASSIUM 50 MG TAB PO SCH (09:03)
[2017-01-14] MEDS: THIAMINE HCL 100 MG TAB PO SCH (09:03)
[2017-01-14] MEDS: chlordiazePOXIDE 25 MG CAP PO PRN ×3 (11:43→20:57)
[2017-01-14] MEDS: ACETAMINOPHEN 325 MG TAB PO PRN ×2 (11:43→20:47)
--- NOTE | 2017-01-14 12:42 | ASMTCMCOM ---
CM Note CM Note Notes: Today met w/ Pt. in room alone to find out her plans at d/c. Pt. hopes to be d/c'ed tomorrow in the morning (around 7 or 8 am). Plans to leave with her friend, Elle who reportedly is a nurse. Plans to orange picker machine operator her car that is being serviced at the [facility], plans to have Elle drive her car to get some things done before leaving the area. Plans to try to get a new ID and deposit some checks in her [employer]lo account. Plans to drive back to [place] with Elle (who will be coming to [place] on a one way plane ticket) and enter a program in [place], [place] in the [facility]. Program is called [facility]. Medicaid will pay for detox and then an inpatient program. Pt. then hopes to get a "studio apartment". Plans for Elle to the be the food service driver. Pt. reports an income of social security from her spouse in the amount of $855/mo. Of note, Pt. reports that unlike the account in the H&P, she was not "passed out in [employer]", but asked an officer on the curb (not particularly near the [facility]) for a ride to the hospital due to her cough and illness. aHnnah contacted hospitalist to let her know Pt's request to leave tomorrow am. Pt. still having some ETOH withdrawal symptoms today. Hannah also consulted w/ bedside RN. Current plan: Pt. to d/c independently. Will meet up with friend, Elle and drive to [place] for alcohol treatment. Date Signed: 01/14/2017 12:41 PM Electronically Signed By:Cintia Rodriguez LCSW
--- NOTE | 2017-01-14 12:42 | ASMTCMCOM ---
CM Note CM Note Notes: Today met w/ Pt. in room alone to find out her plans at d/c. Pt. hopes to be d/c'ed tomorrow in the morning (around 7 or 8 am). Plans to leave with her friend, Elle who reportedly is a nurse. Plans to fiber picker her car that is being [facility], plans to have Elle drive her car to get some things done before leaving the area. Plans to try to get a new ID and deposit some checks in her [employer] account. Plans to drive back to [place] with Elle (who will be coming to [place] on a one way plane ticket) and enter a program in [place], [place] in the [facility]. Program is called [facility]. Medicaid will pay for detox and then an inpatient program. Pt. then hopes to get a "studio apartment". Plans for Elle to the be the dairy truck driver. Pt. reports an income of social security from her spouse in the amount of $855/mo. Of note, Pt. reports that unlike the account in the H&P, she was not "passed out in [place]", but asked an officer on the curb (not particularly near the [facility]) for a ride to the hospital due to her cough and illness. Hannah contacted hospitalist to let her know Pt's request to leave tomorrow am. Pt. still having some ETOH withdrawal symptoms today. Hannah also consulted w/ bedside RN. Current plan: Pt. to d/c independently. Will meet up with friend, Elle and drive to [place] for alcohol treatment. Date Signed: 01/14/2017 12:41 PM Electronically Signed By:Cintia Rodriguez LCSW
--- NOTE | 2017-01-14 12:42 | ASMTCMCOM ---
CM Note CM Note Notes: Today met w/ Pt. in room alone to find out her plans at d/c. Pt. hopes to be d/c'ed tomorrow in the morning (around 7 or 8 am). Plans to leave with her friend, Elle who reportedly is a nurse. Plans to cytology supervisor her car that is [facility], plans to have Elle drive her car to get some things done before leaving the area. Plans to try to get a new ID and deposit some checks in her [employer] account. Plans to drive back to [place] with Elle (who will be coming to [place] on a one way plane ticket) and enter a program in [place], [place] in the [facility]. Program is called [facility]. Medicaid will pay for detox and then an inpatient program. Pt. then hopes to get a "studio apartment". Plans for Elle to the be the explosives truck driver. Pt. reports an income of social security from her spouse in the amount of $855/mo. Of note, Pt. reports that unlike the account in the H&P, she was not "passed out in [employer]", but asked an officer on the curb (not particularly near the Ana[place]) for a ride to the hospital due to her cough and illness. Hannah contacted hospitalist to let her know Pt's request to leave tomorrow am. Pt. still having some ETOH withdrawal symptoms today. Hannah also consulted w/ bedside RN. Current plan: Pt. to d/c independently. Will meet up with friend, Elle and drive to [place] for alcohol treatment. Date Signed: 01/14/2017 12:41 PM Electronically Signed By:Cintia Rodriguez LCSW
[2017-01-14] MEDS: LORazepam 1 MG TAB PO PRN (17:37)
[2017-01-14] MEDS: QUEtiapine FUMARATE 25 MG TAB PO SCH (20:47)
[2017-01-15 05:07] LABS: PLATELET COUNT 418 10^3/uL (150-400)
[2017-01-15] MEDS: ACETAMINOPHEN 325 MG TAB PO PRN (06:26)
[2017-01-15 08:19] VITALS: BP 104/84; PULSE 95; RESP 20; TEMP 98.1; O2SAT 93
--- NOTE | 2017-01-15 08:51 | HOSPPROG ---
Hospitalist Progress Note Assessment/Plan: 61 yo F w cad, alcoholism admitted w hypothermia and alcohol withdrawal. Patient was found passed out at [employer]. hypothermia: mild resolved alcohol withdrawal: much improved since yesterday no Librium has been given today ? pneumonia versus bronchitis cxr w no infiltrate On azithromycin history depression & anxiety proph: lmwh dispo: dc today/ she is feeling well/ has a friend who is a nurse coming to stay with her and travel to [place] for long term care administrator care Subjective: Janette has no complaints. Wants to leave as soon as possible Objective: Vital Signs Temp Pulse Resp BP Pulse Ox 36.7 C 95 20 104/84 H 93 01/15/17 08:00 01/15/17 08:00 01/15/17 08:00 01/15/17 08:00 01/15/17 08:00 Laboratory Results 01/15/17 04:42 01/15/17 04:42 01/14/17 01/15/17 01/16/17 05:59 05:59 05:59 Intake Total 690 350 Output Total 600 Balance 90 350 - Physical Exam Constitutional: no apparent distress, appears nourished, not in pain Eyes: PERRL Ears, Nose, Mouth, Throat: hearing normal Respiratory: no respiratory distress Skin: warm Musculoskeletal: full muscle strength Neurologic: AAOx3 Psychiatric: interacting appropriately, anxious (slightly/ better than yesterday ) ICD10 Worksheet Patient Problems: Problems Problem Status Onset Alcohol withdrawal Acute Hypothermia Acute Alcohol withdrawal Acute Alcoholism Acute Chest pain Acute Medication overdose Acute Vomiting Acute
--- NOTE | 2017-01-15 08:51 | HOSPPROG ---
Hospitalist Progress Note Assessment/Plan: 61 yo F w cad, alcoholism admitted w hypothermia and alcohol withdrawal. Patient was found passed out at [employer]. hypothermia: mild resolved alcohol withdrawal: much improved since yesterday no Librium has been given today ? pneumonia versus bronchitis cxr w no infiltrate On azithromycin history depression & anxiety proph: lmwh dispo: dc today/ she is feeling well/ has a friend who is a nurse coming to stay with her and travel to [place] for computer service technician care Subjective: Janette has no complaints. Wants to leave as soon as possible Objective: Vital Signs Temp Pulse Resp BP Pulse Ox 36.7 C 95 20 104/84 H 93 01/15/17 08:00 01/15/17 08:00 01/15/17 08:00 01/15/17 08:00 01/15/17 08:00 Laboratory Results 01/15/17 04:42 01/15/17 04:42 01/14/17 01/15/17 01/16/17 05:59 05:59 05:59 Intake Total 690 350 Output Total 600 Balance 90 350 - Physical Exam Constitutional: no apparent distress, appears nourished, not in pain Eyes: PERRL Ears, Nose, Mouth, Throat: hearing normal Respiratory: no respiratory distress Skin: warm Musculoskeletal: full muscle strength Neurologic: AAOx3 Psychiatric: interacting appropriately, anxious (slightly/ better than yesterday ) ICD10 Worksheet Patient Problems: Problems Problem Status Onset Alcohol withdrawal Acute Hypothermia Acute Alcohol withdrawal Acute Alcoholism Acute Chest pain Acute Medication overdose Acute Vomiting Acute
--- NOTE | 2017-01-15 08:51 | HOSPPROG ---
Hospitalist Progress Note Assessment/Plan: 61 yo F w cad, alcoholism admitted w hypothermia and alcohol withdrawal. Patient was found passed out at [employer]. hypothermia: mild resolved alcohol withdrawal: much improved since yesterday no Librium has been given today ? pneumonia versus bronchitis cxr w no infiltrate On azithromycin history depression & anxiety proph: lmwh dispo: dc today/ she is feeling well/ has a friend who is a nurse coming to stay with her and travel to [place] for long term acute care registered nurse care Subjective: Janette has no complaints. Wants to leave as soon as possible Objective: Vital Signs Temp Pulse Resp BP Pulse Ox 36.7 C 95 20 104/84 H 93 01/15/17 08:00 01/15/17 08:00 01/15/17 08:00 01/15/17 08:00 01/15/17 08:00 Laboratory Results 01/15/17 04:42 01/15/17 04:42 01/14/17 01/15/17 01/16/17 05:59 05:59 05:59 Intake Total 690 350 Output Total 600 Balance 90 350 - Physical Exam Constitutional: no apparent distress, appears nourished, not in pain Eyes: PERRL Ears, Nose, Mouth, Throat: hearing normal Respiratory: no respiratory distress Skin: warm Musculoskeletal: full muscle strength Neurologic: AAOx3 Psychiatric: interacting appropriately, anxious (slightly/ better than yesterday ) ICD10 Worksheet Patient Problems: Problems Problem Status Onset Alcohol withdrawal Acute Hypothermia Acute Alcohol withdrawal Acute Alcoholism Acute Chest pain Acute Medication overdose Acute Vomiting Acute
--- NOTE | 2017-01-15 09:18 | GDS ---
[f rep st] DISCHARGE SUMMARY DISCHARGE DIAGNOSES: 1. Hypothermia. 2. Alcohol abuse and withdrawal. 3. Bronchitis. 4. History of depression, anxiety. HISTORY OF PRESENT ILLNESS: Briefly, the patient is a 61-year-old female with a history of alcoholis m. She was apparently found cold and passed out at [employer] in the morning, and was brought in by EMS . She complains of productive cough that has been going on for 2 weeks. She has no shortness of cherri ath. She was admitted for further care. HOSPITAL COURSE: 1. Hypothermia. This resolved quickly with admission to the hospital. 2. Alcohol abuse and withdrawal. She is much improved since being admitted. She knows that this is an issue. She has had multiple admissions to the hospital for this. She is going to a treatment ce nter in [place]. A friend, who is a registered nurse is coming this afternoon and the plan is for them to drive to [place]. 3. Bronchitis. Her chest x-ray does not have an infiltrate. We will continue azithromycin for 2 mo re days. 4. History of depression, anxiety. This is likely driving her need for alcohol use. Hopefully, she will get more care when she goes to [place]. CONDITION AT DISCHARGE: Stable. Blood pressure is 104/84, heart rate is 95, respiratory rate is 20, O2 saturation on room air are 92%, temperature is 36.7 Celsius. MEDICATIONS AT DISCHARGE: Please see the EMR. DISCHARGE INSTRUCTIONS: 1. Stop all alcohol use. 2. Take the azithromycin for 2 more days. Greater than 30 minutes discharging and coordinating her care. /[id number]/MODL
--- NOTE | 2017-01-15 09:18 | GDS ---
[f rep st] DISCHARGE SUMMARY DISCHARGE DIAGNOSES: 1. Hypothermia. 2. Alcohol abuse and withdrawal. 3. Bronchitis. 4. History of depression, anxiety. HISTORY OF PRESENT ILLNESS: Briefly, the patient is a 61-year-old female with a history of alcoholis m. She was apparently found cold and passed out at [employer] in the morning, and was brought in by EMS . She complains of productive cough that has been going on for 2 weeks. She has no shortness of cherri ath. She was admitted for further care. HOSPITAL COURSE: 1. Hypothermia. This resolved quickly with admission to the hospital. 2. Alcohol abuse and withdrawal. She is much improved since being admitted. She knows that this is an issue. She has had multiple admissions to the hospital for this. She is going to a treatment ce nter in [place]. A friend, who is a registered nurse is coming this afternoon and the plan is for them to drive to [place]. 3. Bronchitis. Her chest x-ray does not have an infiltrate. We will continue azithromycin for 2 mo re days. 4. History of depression, anxiety. This is likely driving her need for alcohol use. Hopefully, she will get more care when she goes to [place]. CONDITION AT DISCHARGE: Stable. Blood pressure is 104/84, heart rate is 95, respiratory rate is 20, O2 saturation on room air are 92%, temperature is 36.7 Celsius. MEDICATIONS AT DISCHARGE: Please see the EMR. DISCHARGE INSTRUCTIONS: 1. Stop all alcohol use. 2. Take the azithromycin for 2 more days. Greater than 30 minutes discharging and coordinating her care. /[id number]/MODL
[2017-01-15] MEDS: LOSARTAN POTASSIUM 50 MG TAB PO SCH (09:30)
[2017-01-15] MEDS: FOLIC ACID 1 MG TAB PO SCH (09:30)
[2017-01-15] MEDS: DULoxetine 30 MG CAP PO SCH (09:30)
[2017-01-15] MEDS: MULTIVITAMINS 1 EACH TAB PO SCH (09:31)
[2017-01-15] MEDS: AZITHROMYCIN 250 MG TAB PO SCH (09:31)
[2017-01-15] MEDS: THIAMINE HCL 100 MG TAB PO SCH (09:31)
[2017-01-15] MEDS: ENOXAPARIN 40 MG/0.4 ML SYR SC SCH (09:32)
--- NOTE | 2017-01-15 10:07 | ASDISCHSUM ---
Discharge Information Plan Status:Home with No Needs Medically Cleared to Leave: Discharge Date:01/15/2017 09:46 AM CM D/C Disposition:Home, Routine, Self-Care ADT D/C Disposition:Home, Routine, Self-Care Projected Discharge Date:01/15/2017 09:46 AM Transportation at D/C:Taxicab Discharge Delay Reason: Follow-Up Date:01/15/2017 09:46 AM Discharge Slot: Final Diagnosis: Placement Information Patient Contact Information Contact Name:PAULA Relationship:Friend Address: Work Phone: City: [facility] Phone: State/Zip Code: Email: Financial Information Financial Class: Primary Plan Desc:MEDICAID [facility] FIRST [facility] Primary Plan Number:[id number] Secondary Plan Desc: Secondary Plan Number: Assessment Information [facility] CM Progress Note CM Note CM Note Notes: Patient has been transferred to [address] [place] [address] reports that she will need clothes-sz medium. Date Signed: 01/13/2017 12:20 PM Electronically Signed By:Libby Nunez LCSW [facility] CM Progress Note CM Note CM Note Notes: Today met w/ Pt. in room alone to find out her plans at d/c. Pt. hopes to be d/c'ed tomorrow in the morning (around 7 or 8 am). Plans to leave with her friend, Elle who reportedly is a nurse. Plans to mixing picker tender her car that is [facility], plans to have Elle drive her car to get some things done before leaving the area. Plans to try to get a new ID and deposit some checks in her [employer] account. Plans to drive back to [place] with Elle (who will be coming to [place] on a one way plane ticket) and enter a program in [place], [place] in the [place] area. Program is called [facility]. Medicaid will pay for detox and then an inpatient program. Pt. then hopes to get a "studio apartment". Plans for Elle to the be the commercial relief driver. Pt. reports an income of social security from her spouse in the amount of $855/mo. Of note, Pt. reports that unlike the account in the H&P, she was not "passed out in [employer]", but asked an officer on the curb (not particularly near the Ana[place]) for a ride to the hospital due to her cough and illness. Hannah contacted hospitalist to let her know Pt's request to leave tomorrow am. Pt. still having some ETOH withdrawal symptoms today. Hannah also consulted w/ bedside RN. Current plan: Pt. to d/c independently. Will meet up with friend, Elle and drive to [place] for alcohol treatment. Date Signed: 01/14/2017 12:41 PM Electronically Signed By:Cintia Rodriguez LCSW Intervention Information
--- NOTE | 2017-01-15 10:07 | ASDISCHSUM ---
Discharge Information Plan Status:Home with No Needs Medically Cleared to Leave: Discharge Date:01/15/2017 09:46 AM CM D/C Disposition:Home, Routine, Self-Care ADT D/C Disposition:Home, Routine, Self-Care Projected Discharge Date:01/15/2017 09:46 AM Transportation at D/C:Taxicab Discharge Delay Reason: Follow-Up Date:01/15/2017 09:46 AM Discharge Slot: Final Diagnosis: Placement Information Patient Contact Information Contact Name:PAULA Relationship:Friend Address: Work Phone: City: [facility] Phone: State/Zip Code: Email: Financial Information Financial Class: Primary Plan Desc:MEDICAID [facility] Primary Plan Number:[id number] Secondary Plan Desc: Secondary Plan Number: Assessment Information [facility] CM Progress Note CM Note CM Note Notes: Patient has been transferred to [address] [place] [address] reports that she will need clothes-sz medium. Date Signed: 01/13/2017 12:20 PM Electronically Signed By:Libby Nunez LCSW [facility] CM Progress Note CM Note CM Note Notes: Today met w/ Pt. in room alone to find out her plans at d/c. Pt. hopes to be d/c'ed tomorrow in the morning (around 7 or 8 am). Plans to leave with her friend, Elle who reportedly is a nurse. Plans to pick pack worker her car that [facility], plans to have Elle drive her car to get some things done before leaving the area. Plans to try to get a new ID and deposit some checks in her [facility] account. Plans to drive back to [place] with Elle (who will be coming to [place] on a one way plane ticket) and enter a program in [place], [place] in the [place] area. Program is called [facility]. Medicaid will pay for detox and then an inpatient program. Pt. then hopes to get a "studio apartment". Plans for Elle to the be the catering driver. Pt. reports an income of social security from her spouse in the amount of $855/mo. Of note, Pt. reports that unlike the account in the H&P, she was not "passed out in [employer]", but asked an officer on the curb (not particularly near the Ana[place]) for a ride to the hospital due to her cough and illness. Hannah contacted hospitalist to let her know Pt's request to leave tomorrow am. Pt. still having some ETOH withdrawal symptoms today. Hannah also consulted w/ bedside RN. Current plan: Pt. to d/c independently. Will meet up with friend, Elle and drive to [place] for alcohol treatment. Date Signed: 01/14/2017 12:41 PM Electronically Signed By:Cintia Rodriguez LCSW Intervention Information
--- NOTE | 2017-01-15 10:07 | ASDISCHSUM ---
Discharge Information Plan Status:Home with No Needs Medically Cleared to Leave: Discharge Date:01/15/2017 09:46 AM CM D/C Disposition:Home, Routine, Self-Care ADT D/C Disposition:Home, Routine, Self-Care Projected Discharge Date:01/15/2017 09:46 AM Transportation at D/C:Taxicab Discharge Delay Reason: Follow-Up Date:01/15/2017 09:46 AM Discharge Slot: Final Diagnosis: Placement Information Patient Contact Information Contact Name:PAULA Relationship:Friend Address: Work Phone: City: [facility] Phone: State/Zip Code: Email: Financial Information Financial Class: Primary Plan Desc:MEDICAID [facility] FIRST [facility] Primary Plan Number:[id number] Secondary Plan Desc: Secondary Plan Number: Assessment Information [facility] CM Progress Note CM Note CM Note Notes: Patient has been transferred to [address] [place] [address] reports that she will need clothes-sz medium. Date Signed: 01/13/2017 12:20 PM Electronically Signed By:Libby Nunez LCSW [facility] CM Progress Note CM Note CM Note Notes: Today met w/ Pt. in room alone to find out her plans at d/c. Pt. hopes to be d/c'ed tomorrow in the morning (around 7 or 8 am). Plans to leave with her friend, Elle who reportedly is a nurse. Plans to excelsior picker her car that [facility], plans to have Elle drive her car to get some things done before leaving the area. Plans to try to get a new ID and deposit some checks in her [employer] account. Plans to drive back to [place] with Elle (who will be coming to [place] on a one way plane ticket) and enter a program in [place], [place] in the [place] area. Program is called [facility]. Medicaid will pay for detox and then an inpatient program. Pt. then hopes to get a "studio apartment". Plans for Elle to the be the charter coach driver. Pt. reports an income of social security from her spouse in the amount of $855/mo. Of note, Pt. reports that unlike the account in the H&P, she was not "passed out in [employer]", but asked an officer on the curb (not particularly near the [place]) for a ride to the hospital due to her cough and illness. Hannah contacted hospitalist to let her know Pt's request to leave tomorrow am. Pt. still having some ETOH withdrawal symptoms today. Hannah also consulted w/ bedside RN. Current plan: Pt. to d/c independently. Will meet up with friend, Elle and drive to [place] for alcohol treatment. Date Signed: 01/14/2017 12:41 PM Electronically Signed By:Cintia Rodriguez LCSW Intervention Information
--- NOTE | 2017-01-15 10:14 | ASMTCMCOM ---
CM Note CM Note Notes: Today Pt. d/c'ed independently w/ cab voucher to [place] [address] where her car is. Prior to d/c, Hannah gave Pt. information on how to best access substance abuse treatment services in [place], [place]. First Pt. should first call the [facility] Addiction Helpline . Pt. should ask to schedule an assessment and state "I'm looking to get treatment at [facility] ([facility]). Then Pt. can call detox in [place], [place] . Pts usually go through mandatory detox before entering programs. Pt. anxious to leave this am. Was medically cleared and d/c'ed. Hannah escorted Pt. to main lobby of [facility] so that she could wait for her cab. Pt. very grateful. Expects to have friend Elle arrive at airport today and then they will make their way to [place] in Pt's car after Pt. completes some chores in [place]. Date Signed: 01/15/2017 10:13 AM Electronically Signed By:Cintia Rodriguez LCSW
--- NOTE | 2017-01-15 10:14 | ASMTCMCOM ---
CM Note CM Note Notes: Today Pt. d/c'ed independently w/ cab voucher to [place] [facility] on [address] where her car is. Prior to d/c, Hannah gave Pt. information on how to best access substance abuse treatment services in [place], [place]. First Pt. should first call the [facility] Addiction Helpline . Pt. should ask to schedule an assessment and state "I'm looking to get treatment at [facility] ([facility]). Then Pt. can call detox in [place], [place] . Pts usually go through mandatory detox before entering programs. Pt. anxious to leave this am. Was medically cleared and d/c'ed. Hannah escorted Pt. to main lobby of [facility] so that she could wait for her cab. Pt. very grateful. Expects to have friend Elle arrive at airport today and then they will make their way to [place] in Pt's car after Pt. completes some chores in [place]. Date Signed: 01/15/2017 10:13 AM Electronically Signed By:Cintia Rodriguez LCSW
--- NOTE | 2017-01-15 10:14 | ASMTCMCOM ---
CM Note CM Note Notes: Today Pt. d/c'ed independently w/ cab voucher to [place] on [address] where her car is. Prior to d/c, Hannah gave Pt. information on how to best access substance abuse treatment services in [place], [place]. First Pt. should first call the [facility] Addiction Helpline . Pt. should ask to schedule an assessment and state "I'm looking to get treatment at [facility] ([facility]). Then Pt. can call detox in [place], [place] . Pts usually go through mandatory detox before entering programs. Pt. anxious to leave this am. Was medically cleared and d/c'ed. Hannah escorted Pt. to main lobby of [facility] so that she could wait for her cab. Pt. very grateful. Expects to have friend Elle arrive at airport today and then they will make their way to [place] in Pt's car after Pt. completes some chores in [place]. Date Signed: 01/15/2017 10:13 AM Electronically Signed By:Cintia Rodriguez LCSW
[2017-01-15] MEDS ORDERED: THIAMINE HCL 100 MG TAB PO SCH (15:54)
== END 2017-01-15 09:46 | disposition home or self-care (01) | DRG 923 ==
LOC: EDUNIT# → F2N 16:06 → F3E 01-13 11:44
PROVIDERS: ADMIT Internal Medicine; ATTEND Internal Medicine
DX: T68.XXXA Hypothermia, initial encounter (principal); F10.239 Alcohol dependence with withdrawal, unspecified; J40 Bronchitis, not specified as acute or chronic; F41.8 Other specified anxiety disorders; I10 Essential (primary) hypertension; Z59.0 Homelessness; Z23 Encounter for immunization
CPT/HCPCS: 82947-QW; 96374; 97116-GP; 97161-GP; 97165-GO; 97535-GO; G0008; J1650; J2060; J2405

== ENCOUNTER 2017-06-08 19:25 | Emergency (ER) | payer MEDICAID ==
[2017-06-08] MEDS ORDERED: NS 1,000 ML IV ONE (19:29)
--- NOTE | 2017-06-08 19:33 | CPEKG ---
Heart Rate: 72 RR Interval: 833 P-R Interval: 148 QRSD Interval: 86 QT Interval: 400 QTC Interval: 438 P [place]: 17 QRS [place]: 55 T Wave [place]: 46 EKG Severity - NORMAL ECG - EKG Impression: SINUS RHYTHM Electronically Signed By: Thomas Wright 08-Jun-2017 19:33:46
--- NOTE | 2017-06-08 19:33 | EDPHY ---
H & P Time Seen by Provider: 06/08/17 19:25 HPI/ROS: CHIEF COMPLAINT: "I want to get the fucrachelle out of [place]". HISTORY OF PRESENT ILLNESS: The patient is a 62-year-old homeless alcoholic female well known to our department. Police were trying to take her to the alcohol recovery Center when she began complaining of chest pain that she thinks is anxiety. She is intoxicated. She states that she has a history of SVT that is been ablated as well as frequent chest pain which is usually thought to be caused by anxiety. She denies new complaints today. No recent fevers or infections. No cough. No shortness of breath. No lightheadedness or palpitations. REVIEW OF SYSTEMS: Constitutional: denies: chills, fever, recent illness, recent injury EENTM: denies: blurred vision, double vision, nose congestion Respiratory: denies: cough, shortness of breath Cardiac: See HPI Gastrointestinal/Abdominal: denies: abdominal pain, diarrhea, nausea, vomiting, blood streaked stools Genitourinary: denies: dysuria, frequency, hematuria, pain Musculoskeletal: denies: joint pain, muscle pain Skin: denies: lesions, rash, jaundice, bruising Neurological: denies: headache, numbness, paresthesia, tingling, dizziness, weakness Hematologic/Lymphatic: denies Immunologic/allergic EXAM: GENERAL: Intoxicated, difficult to obtain history from HEAD: Atraumatic, normocephalic. EYES: Pupils equal round and reactive to light, extraocular movements intact, sclera anicteric, conjunctiva are normal. ENT: TMs normal, nares patent, oropharynx clear without exudates. Moist mucous membranes. NECK: Normal range of motion, supple without lymphadenopathy or JVD. LUNGS: Breath sounds clear to auscultation bilaterally and equal. No wheezes rales or rhonchi. HEART: Regular rate and rhythm without murmurs, rubs or gallops. ABDOMEN: Soft, nontender, normoactive bowel sounds. No guarding, no rebound. No masses appreciated. BACK: No CVA tenderness, no spinal tenderness, step-offs or deformities EXTREMITIES: Normal range of motion, no pitting or edema. No clubbing or cyanosis. NEUROLOGICAL: Cranial nerves II through XII grossly intact. Normal speech, normal gait. 5/5 strength, normal movement in all extremities, normal sensation PSYCH: Normal mood, normal affect. SKIN: Warm, dry, normal turgor, no visible rashes or lesions. Source: Patient, EMS, Old records Exam Limitations: Intoxication - Personal History Tetanus Vaccine Date: 2010 - Medical/Surgical History Hx Asthma: No Hx Chronic Respiratory Disease: No Hx Diabetes: No Hx Cardiac Disease: Yes Hx Renal Disease: No Hx Cirrhosis: No Hx Alcoholism: Yes Hx HIV/AIDS: No Hx Splenectomy or Spleen Trauma: No Other PMH: HTN, Insommia/depression, ETOH abuse, herpes, Hyperlipidemia, Anxiety - Family History Significant Family History: No pertinent family hx - Social History Smoking Status: Never smoked Alcohol Use: Heavy Drug Use: Marijuana Constitutional: Initial Vital Signs Temperature (C) 36.4 C 06/08/17 19:29 Heart Rate 76 06/08/17 19:29 Respiratory Rate 20 06/08/17 19:29 Blood Pressure 109/79 06/08/17 19:29 O2 Sat (%) 97 06/08/17 19:29 O2 Delivery Mode Room Air O2 (L/minute) 2 Allergies/Adverse Reactions: No Known Allergies Allergy (Verified 06/08/17 19:34) Home Medications: Medication Instructions Recorded DULoxetine [Cymbalta 30 MG (*)] 30 mg PO DAILY 11/10/16 Gabapentin [Neurontin] 1,200 mg PO TID 11/10/16 Hydrochlorothiazide [HCTZ (*)] 25 mg PO DAILY 11/10/16 Ibuprofen [Motrin (*)] 200 - 400 mg PO DAILY PRN 11/10/16 Losartan Potassium [Cozaar 50 mg 50 mg PO DAILY 11/10/16 (*)] QUEtiapine FUMARATE [Seroquel 25 25 mg PO HS 11/10/16 mg (*)] Simvastatin [Zocor] 40 mg PO HS 11/10/16 Hydroxyzine Pamoate [Vistaril] 50 mg PO DAILY 12/14/16 Naltrexone HCl 50 mg PO DAILY 12/14/16 Azithromycin [Zithromax] 250 mg PO DAILY #2 tab 01/15/17 Aspirin 06/08/17 Medical Decision Making - Diagnostics EKG Interpretation: An EKG obtained and was read and documented in trace view. Please see trace view for full reading and report. Sinus rhythm, no acute ischemic changes ED Course/Re-evaluation: 8:35 p.m. the patient's lab work is reassuring. She is feeling much better and is reassured. She does not think that this is her heart. She thinks that she was having anxiety. Will transfer her to the alcohol recovery Center. Differential Diagnosis: Partial list of the Differential diagnosis considered include but were not limited to; alcohol intoxication, anxiety and although unlikely based on the history and physical exam, I also considered acute coronary disease, PE, pneumonia. - Data Points Laboratory Results: Laboratory Results 06/08/17 19:36 06/08/17 19:36 06/08/17 06/08/17 19:36 19:36 WBC 5.78 10^3/uL 10^3/uL (3.80-9.50) RBC 3.92 10^6/uL L 10^6/uL (4.18-5.33) Hgb 12.1 g/dL L g/dL (12.6-16.3) Hct 37.1 % L % (38.0-47.0) MCV 94.6 fL fL (81.5-99.8) MCH 30.9 pg pg (27.9-34.1) MCHC 32.6 g/dL g/dL (32.4-36.7) RDW 15.2 % % (11.5-15.2) Plt Count 378 10^3/uL 10^3/uL (150-400) MPV 10.4 fL fL (8.7-11.7) Neut % (Auto) 51.7 % % (39.3-74.2) Lymph % (Auto) 33.0 % % (15.0-45.0) [place] % (Auto) 7.3 % % (4.5-13.0) Eos % (Auto) 5.7 % % (0.6-7.6) Baso % (Auto) 1.6 % % (0.3-1.7) Nucleat RBC Rel Count 0.0 % % (0.0-0.2) Absolute Neuts (auto) 2.99 10^3/uL 10^3/uL (1.70-6.50) Absolute Lymphs (auto) 1.91 10^3/uL 10^3/uL (1.00-3.00) Absolute Monos (auto) 0.42 10^3/uL 10^3/uL (0.30-0.80) Absolute Eos (auto) 0.33 10^3/uL 10^3/uL (0.03-0.40) Absolute Basos (auto) 0.09 10^3/uL 10^3/uL (0.02-0.10) Absolute Nucleated RBC 0.00 10^3/uL 10^3/uL (0-0.01) Immature Gran % 0.7 % % (0.0-1.1) Immature Gran # 0.04 10^3/uL 10^3/uL (0.00-0.10) Sodium 146 mEq/L H mEq/L (135-145) Potassium 4.3 mEq/L mEq/L (3.5-5.2) Chloride 110 mEq/L mEq/L (97-110) Carbon Dioxide 24 mEq/l mEq/l (22-31) Anion Gap 12 mEq/L mEq/L (8-16) BUN 13 mg/dL mg/dL (7-23) Creatinine 0.6 mg/dL mg/dL (0.6-1.0) Estimated GFR > 60 Glucose 83 mg/dL mg/dL (70-100) Calcium 8.0 mg/dL L mg/dL (8.5-10.4) Troponin I < 0.012 ng/mL ng/mL (0.000-0.034) Ethyl Alcohol 318 mg/dL H mg/dL (0-10) Medications Given: Discontinued Medications Chlordiazepoxide (Librium 25 Mg Prepack#6) 1 btl TAKEHOME EDNOW ONE Stop: 06/08/17 20:41 Last Admin: 06/08/17 20:45 Dose: 1 btl Sodium Chloride (Ns) 1,000 mls @ 0 mls/hr IV EDNOW ONE; Wide Open PRN Reason: Protocol Stop: 06/08/17 19:30 Last Admin: 06/08/17 19:43 Dose: 1,000 mls Departure - Departure Disposition: Home, Routine, Self-Care Clinical Impression: Alcohol intoxication Qualifiers: Complication of substance-induced condition: uncomplicated Qualified Code(s): F10.920 - Alcohol use, unspecified with intoxication, uncomplicated Condition: Fair Instructions: Chlordiazepoxide/Clidinium (By mouth), Chlordiazepoxide (By mouth ), Alcohol Intoxication (ED) Referrals: NONE *PRIMARY CARE P,. [Primary Care Provider] - As per Instructions [facility] [Clinic] - As per Instructions
[2017-06-08 20:03] LABS: PLATELET COUNT 378 10^3/uL (150-400)
[2017-06-08] MEDS ORDERED: CHLORDIAZEPOXIDE 25MG PREPK#6 BTL TAKEHOME ONE (20:40)
[2017-06-08 20:42] VITALS: BP 122/80
== END 2017-06-08 20:49 | disposition home or self-care (01) ==
LOC: EDUNIT#
DX: F10.920 Alcohol use, unspecified with intoxication, uncomplicated (principal); I10 Essential (primary) hypertension; E86.9 Volume depletion, unspecified; Z79.82 Long term (current) use of aspirin
CPT/HCPCS: G0480

== ENCOUNTER 2017-11-08 11:08 | Emergency (ER) | payer MEDICAID ==
--- NOTE | 2017-11-08 12:46 | EDPHY ---
H & P Smoking Status: Never smoked Time Seen by Provider: 11/08/17 12:42 HPI/ROS: Chief complaint. Blacked out and fell HPI. 62-year-old female presents emergency department with complaint of alcohol withdrawal. She says she blacked out and she fell injuring her knees. She denies any other injuries. She tells me last drink was yesterday. Denies other medications. No fever chest discomfort. No trouble breathing. Denies injury to neck back chest abdomen. She has been ambulatory since her fall. ROS Constitutional. Generalized weakness Eyes. no problems with vision ENT. no sore throat, no nasal drainage Cardiovascular. no chest pain Respiratory. no shortness of breath, no cough Abdominal. no abdominal pain, no nausea/vomiting, no diarrhea . no problems urinating MS. no calf pain/swelling, no neck/back pain, no joint pain Skin. Abrasions both knees Lymph. no swollen glands Neuro. no headache, no dizziness, no difficulty walking or with speech (Ryan Richards) Past Medical/Surgical History: Alcoholism, hypertension, insomnia/depression, dyslipidemia, anxiety (Ryan Richards) Social History: Divorce, nonsmoker. Denies alcohol since yesterday (Ryan Richrads) Physical Exam: General Appearance: Alert well-developed female mild distress vital signs significant for heart rate of 120. Eyes: Pupils equal and round no pallor or injection. ENT, Mouth: Mucous membranes are moist. Respiratory: There are no retractions, lungs are clear to auscultation. Cardiovascular: Regular rate and rhythm. Gastrointestinal: Abdomen is soft and nontender, no masses, bowel sounds normal. Neurological: Awake and alert, sensory and motor exams grossly normal. Skin: Warm and dry, no rashes. Musculoskeletal: Neck is supple nontender. Extremities symmetrical, full range of motion. Psychiatric: Patient is oriented X 3, there is no agitation. Somewhat slow to respond (Ryan Richards) Constitutional: Initial Vital Signs Temperature (C) 36.8 C 11/08/17 11:08 Heart Rate 120 H 11/08/17 11:08 Respiratory Rate 18 11/08/17 11:08 Blood Pressure 131/91 H 11/08/17 11:08 O2 Sat (%) 90 L 11/08/17 11:08 O2 Delivery Mode Room Air O2 (L/minute) 2 Allergies/Adverse Reactions: No Known Allergies Allergy (Verified 11/08/17 11:25) Home Medications: Medication Instructions Recorded DULoxetine [Cymbalta 30 MG (*)] 30 mg PO DAILY 11/10/16 Gabapentin [Neurontin] 1,200 mg PO TID 11/10/16 Hydrochlorothiazide [HCTZ (*)] 25 mg PO DAILY 11/10/16 Ibuprofen [Motrin (*)] 200 - 400 mg PO DAILY PRN 11/10/16 Losartan Potassium [Cozaar 50 mg 50 mg PO DAILY 11/10/16 (*)] QUEtiapine FUMARATE [Seroquel 25 25 mg PO HS 11/10/16 mg (*)] Simvastatin [Zocor] 40 mg PO HS 11/10/16 Hydroxyzine Pamoate [Vistaril] 50 mg PO DAILY 12/14/16 Naltrexone HCl 50 mg PO DAILY 12/14/16 Azithromycin [Zithromax] 250 mg PO DAILY #2 tab 01/15/17 Aspirin 06/08/17 Medical Decision Making - Diagnostics EKG Interpretation: EKG interpreted by me shows sinus tachycardia normal interval and axis. QRS is otherwise unremarkable there is no significant ST elevation or depression. There is no arrhythmia. The rate is 121 (Ryan Richards) Imaging Results: Imaging Impressions Chest X-Ray 11/08/17 14:41 Impression: Given the technique, nothing acute radiographically. Procedures: IV normal saline, monitor (Ryan Richards) ED Course/Re-evaluation: This patient was turned over to me at change of shift. I just reassessed this patient. She is back to her baseline. I have met this patient in the past and the nurses know her well. She was scheduled to receive a head CT and an ammonia level because of some concern for her sleepiness and decreased arousability however she is completely alert awake ambulating well and feels perfectly normal and I do not think warrants any additional testing at this time. We will offer [facility]. (Dimitri Morse) Re-evaluation at 2:30 p.m.. Patient is sleepy but arousable. Heart rate 90 ( Ryan Richards) Differential Diagnosis: I considered causes of syncope, alcohol intoxication and alcohol withdrawal. ( Ryan Richards) Care Turn Over: Care to Dr. Morse at 3:00 p.m. (Ryan Richards) - Data Points Laboratory Results: Laboratory Results 11/08/17 11:25 11/08/17 11:25 Medications Given: Discontinued Medications Sodium Chloride (Ns) 1,000 mls @ 0 mls/hr IV EDNOW ONE; Wide Open PRN Reason: Protocol Stop: 11/08/17 14:43 Last Admin: 11/08/17 14:53 Dose: 1,000 mls Point of Care Test Results: Chemistry 11/08/17 14:50 POC Troponin I 0.01 ng/mL ng/mL (0.00-0.08) Departure - Departure Disposition: Home, Routine, Self-Care Clinical Impression: Alcoholic intoxication, Alcohol dependence Condition: Good Instructions: Abuse of Alcohol (ED) Referrals: NONE *PRIMARY CARE P,. [Primary Care Provider] - As per Instructions
[2017-11-08 12:59] LABS: PLATELET COUNT 319 10^3/uL (150-400)
[2017-11-08] MEDS ORDERED: NS 1,000 ML IV ONE (14:42)
[2017-11-08 15:39] VITALS: BP 144/99
--- NOTE | 2017-11-08 15:58 | ASMTCMCOM ---
CM Note CM Note Notes: Patient is very pleasant and is well known to this ER. She has a long history of alcoholism and homelessness. She tells me that was recently back in [place] for a 3 month treatment program but "relapsed". She is currently staying at the [facility]. Patient was sober when I met with her. I strongly recommended that she consider calling or going to the crisis center at [facility] to see about getting help with entering a longer term program. I provided her with a list of no cost/Medicaid/low cost options that will provide her longer term treatment, assisted, and behavioral change. I also stressed the success of her completing a 90 day program and encouraged her to get back on track [facility]. Patient is appreciative of resources and support. She requested a bus pass to get to the assisted which I provided Date Signed: 11/08/2017 03:58 PM Electronically Signed By:Iza Delgado RN
--- NOTE | 2017-11-08 16:01 | CPEKG ---
Test Reason : OPEN Blood Pressure : / mmHG Vent. Rate : 121 BPM Atrial Rate : 121 BPM P-R Int : 136 ms QRS Dur : 084 ms QT Int : 336 ms P-R-T Axes : 021 032 037 degrees QTc Int : 477 ms Sinus tachycardia Probable left atrial enlargement Abnormal R-wave progression, early transition Confirmed by Ryan Richards ([id number]) on 11/08/2017 4:00:29 PM Referred By: Confirmed By:Ryan Richards
== END 2017-11-08 15:39 | disposition home or self-care (01) ==
LOC: EDUNIT#
DX: F10.229 Alcohol dependence with intoxication, unspecified (principal); E86.9 Volume depletion, unspecified
CPT/HCPCS: 84484-PO; G0480

== ENCOUNTER 2017-12-01 11:20 | Emergency (ER) | payer MEDICAID, OTHER ==
[2017-12-01] MEDS ORDERED: HYOSCYAMINE SULFATE 0.125 MG TAB PO ONE (12:05)
[2017-12-01] MEDS ORDERED: MAG HYDROX/AL HYDROX/SIMETH 30 ML UDCUP PO ONE (12:05)
[2017-12-01] MEDS ORDERED: LIDOCAINE 2% VISCOUS 15 ML UDCUP PO ONE (12:05)
[2017-12-01] MEDS ORDERED: PANTOPRAZOLE SODIUM 40 MG TAB PO ONE (12:05)
--- NOTE | 2017-12-01 12:13 | EDPHY ---
H & P Stated Complaint: CP and SI c ETOH abuse admitted Time Seen by Provider: 12/01/17 12:06 HPI/ROS: HPI: This is a 62-year-old female who presents with Chief Complaint: Epigastric pain, alcohol intoxication Location: Epigastric area Quality: Burning pain Duration: Prior to arrival Signs and Symptoms: no shortness of breath at rest, no shortness of breath on exertion, no cough, no chest pain, no palpitations, no lower extremity edema, no wheezing, no orthopnea, no paroxysmal nocturnal dyspnea, no fever, no injury/ trauma, no hemoptysis, no carpal pedal spasms Timing: Acute on chronic Severity: [id number] Context: Patient has a history of alcoholism, homeless for 1 month, presents via EMS as she called complaining of epigastric burning pain that was nonradiating in nature. She reports that she has been drinking vodka approximately a handle daily for the last 3 days. She has a history reflux disease. Patient has no prior cardiac history. Denies any shortness of breath , nausea, vomiting, hematemesis, diaphoresis. Patient reports that she was to a physician and her son is a physician. She reports that her life is terrible but denies any suicidal thoughts or plans of suicide. She denies hallucinations, homicidal ideation. She does admit to a history of depression. She is followed by [facility] Modifying Factors: None Comment: ROS: A comprehensive 10 system review of systems is otherwise negative aside from elements mentioned in the history of present illness. MEDICAL/SURGICAL/SOCIAL HISTORY: Medical history: HTN, Insomnia/depression, ETOH abuse, herpes, Hyperlipidemia, Anxiety Surgical history: Denies Social history: Homeless CONSTITUTIONAL: Intoxicated but polite and cooperative elderly white female, awake and alert, no obvious distress HEENT: Atraumatic and normocephalic, PERRL, EOMI. Nares patent; no rhinorrhea; no nasal mucosal edema. Tympanic membranes clear. Oropharynx clear, no exudate and moist pink mucosa. Airway patent. No lymphadenopathy. No meningismus. Cardiovascular: Normal S1/S2, regular rate, regular rhythm, without murmur rub or gallop. PULMONARY/CHEST: Symmetrical and nontender. Clear to auscultation bilaterally. Good air movement. No accessory muscle usage. ABDOMEN: Soft, nondistended, mild epigastric tenderness, no rebound, no guarding, no peritoneal signs, no masses or organomegaly. No CVAT. Bowel sounds heard x4 quadrants EXTREMITIES: 2/2 pulses, strength 5/5, no deformities, no clubbing, no cyanosis or edema. NEUROLOGICAL: no focal neuro deficits. GCS 15. SKIN: Warm and dry, no erythema. no rash. Good capillary refill. Source: Patient Exam Limitations: No limitations - Personal History Current Tetanus/Diphtheria Vaccine: Yes Tetanus Vaccine Date: 2010 - Medical/Surgical History Hx Asthma: No Hx Chronic Respiratory Disease: No Hx Diabetes: No Hx Cardiac Disease: Yes Hx Renal Disease: No Hx Cirrhosis: No Hx Alcoholism: Yes Hx HIV/AIDS: No Hx Splenectomy or Spleen Trauma: No Other PMH: HTN, Insommia/depression, ETOH abuse, herpes, Hyperlipidemia, Anxiety - Social History Smoking Status: Never smoked Constitutional: Initial Vital Signs Temperature (C) 36.9 C 12/01/17 11:29 Heart Rate 84 12/01/17 11:29 Respiratory Rate 16 12/01/17 11:29 Blood Pressure 101/88 H 12/01/17 11:29 O2 Sat (%) 94 12/01/17 11:29 O2 Delivery Mode Room Air Allergies/Adverse Reactions: No Known Allergies Allergy (Verified 12/01/17 11:29) Home Medications: Medication Instructions Recorded RX: DULoxetine [Cymbalta 30 MG (*)] 30 mg PO DAILY 11/10/16 RX: Gabapentin [Neurontin] 1,200 mg PO TID 11/10/16 RX: Hydrochlorothiazide [HCTZ (*)] 25 mg PO DAILY 11/10/16 RX: Ibuprofen [Motrin (*)] 200 - 400 mg PO DAILY PRN 11/10/16 RX: Losartan Potassium [Cozaar 50 50 mg PO DAILY 11/10/16 mg (*)] RX: QUEtiapine FUMARATE [Seroquel 25 mg PO HS 11/10/16 25 mg (*)] RX: Simvastatin [Zocor] 40 mg PO HS 11/10/16 RX: Hydroxyzine Pamoate [Vistaril] 50 mg PO DAILY 12/14/16 RX: Naltrexone HCl 50 mg PO DAILY 12/14/16 RX: Azithromycin [Zithromax] 250 mg PO DAILY #2 tab 01/15/17 Aspirin 06/08/17 Pantoprazole Sodium [Protonix 40mg 40 mg PO HS #30 tab 12/01/17 (*)] Medical Decision Making - Diagnostics EKG Interpretation: 12 lead EKG: Indication: Epigastric pain Rhythm: Normal sinus rhythm, rate of 69 beats per minute Braggadocio: Normal Intervals: Normal QRS: Normal ST segments: Nonspecific INTERPRETATION: No acute ischemic changes The 12 lead EKG was interpreted by myself and with attending. ED Course/Re-evaluation: EKG and oral medications ordered. Given GI cocktail and p.o. Protonix 40 mg. Patient does not meet M1 hold or Detainer criteria. Patient politely refuses to be discharged to the [facility]. EKG my read shows no acute ischemic changes. 1300: Reassessed patient who reports complete relief of symptoms. Denies suicidal ideation/homicidal ideation. Suspect alcoholic gastritis with no signs of bleeding. Patient politely declined x-ray to rule out free air. Abdomen is soft and nontender at this time. Doubt surgical process. Patient will be discharged with prescription for Protonix and [facility]. This patient was seen under the supervision of my secondary supervising physician. I evaluated care for this patient independently. Discussed this patient with Dr. Mishra. Differential Diagnosis: Chest pain including but not limited to myocardial ischemia, pulmonary embolus, chest wall pain, pleural inflammation and pulmonary infectious causes. - Data Points Medications Given: Discontinued Medications Al Hydroxide/Mg Hydroxide (Maalox Susp) 30 ml PO ONCE ONE Stop: 12/01/17 12:06 Last Admin: 12/01/17 12:23 Dose: 30 ml Hyoscyamine Sulfate (Levsin, Hyomax-Sl) 0.25 mg PO ONCE ONE Stop: 12/01/17 12:06 Last Admin: 12/01/17 12:23 Dose: 0.25 mg Lidocaine (Lidocaine 2% Viscous) 15 ml PO ONCE ONE Stop: 12/01/17 12:06 Last Admin: 12/01/17 12:23 Dose: 15 ml Pantoprazole Sodium (Protonix) 40 mg PO EDNOW ONE Stop: 12/01/17 12:06 Last Admin: 12/01/17 12:23 Dose: 40 mg Departure - Departure Disposition: Home, Routine, Self-Care Clinical Impression: Alcoholism /alcohol abuse 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 Take Protonix every day. Please refrain from drinking alcohol excessively. Follow-up with the [facility]. Call 911 if you have thoughts of hurting or killing yourself or anyone else, or have any new or worsening symptoms that concern you. Referrals: [facility],. [Clinic] - As per Instructions [facility] [Cl[facility] - As per Instructions Prescriptions: Pantoprazole Sodium [Protonix 40mg (*)] 40 mg PO HS #30 tab
--- NOTE | 2017-12-01 13:45 | CPEKG ---
Test Reason : OPEN Blood Pressure : / mmHG Vent. Rate : 069 BPM Atrial Rate : 069 BPM P-R Int : 177 ms QRS Dur : 068 ms QT Int : 421 ms P-R-T Axes : 059 059 055 degrees QTc Int : 451 ms Sinus rhythm Abnormal R-wave progression, early transition Minimal ST elevation, inferior leads Confirmed by Daryl Mishra ([id number]) on 12/01/2017 1:45:10 PM Referred By: Confirmed By:Daryl Mishra
[2017-12-01 14:00] VITALS: BP 109/77
== END 2017-12-01 14:01 | disposition home or self-care (01) ==
LOC: EDUNIT#
DX: K29.20 Alcoholic gastritis without bleeding (principal)

== ENCOUNTER 2017-12-13 18:09 | Emergency (ER) | payer MEDICAID ==
--- NOTE | 2017-12-13 18:20 | EDPHY ---
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 While at the skilled nursing prior to arrival, patient started to yell, complaining of epigastric burning pain that went up into her throat and was nonradiating in nature accompanied by shortness of breath at rest. She denies nausea, vomiting, diaphoresis, palpitations. Patient reports that she has not had her Cymbalta in over 1 month. She is very upset that her girlfriend has not been taking her psychiatric medicines as well. She is well-known to me and refuses to go to the [facility]. Chart review shows that I saw her 12/01/2017 as she was placed on M1 hold on that time for major depression and suicidal ideation. Patient confirms to me that she [facility] at 11:30 a.m. She denies suicidal ideation and homicidal ideation to me. Modifying Factors: None Comment: ROS: A comprehensive 10 system review of systems is otherwise negative aside from elements mentioned in the history of present illness. MEDICAL/SURGICAL/SOCIAL HISTORY: Medical history: HTN, Insomnia/depression, ETOH abuse, herpes, Hyperlipidemia, Anxiety Surgical history: Denies Social history: Nonsmoker, homeless. CONSTITUTIONAL: Tearful, yelling, intoxicated elderly white female, awake and alert, no obvious distress HEENT: Atraumatic and normocephalic, PERRL, EOMI. Nares patent; no rhinorrhea; no nasal mucosal edema. Tympanic membranes clear. Oropharynx clear, no exudate and moist pink mucosa. Airway patent. No lymphadenopathy. No meningismus. Cardiovascular: Normal S1/S2, regular rate, regular rhythm, without murmur rub or gallop. PULMONARY/CHEST: Symmetrical and nontender. Clear to auscultation bilaterally. Good air movement. No accessory muscle usage. ABDOMEN: Soft, nondistended, nontender, no rebound, no guarding, no peritoneal signs, no masses or organomegaly. No CVAT. EXTREMITIES: 2/2 pulses, strength 5/5, no deformities, no clubbing, no cyanosis or edema. NEUROLOGICAL: no focal neuro deficits. GCS 15. SKIN: Warm and dry, no erythema. no rash. Good capillary refill. Source: Patient Exam Limitations: Intoxication - Personal History Tetanus Vaccine Date: 2010 - Medical/Surgical History Hx Asthma: No Hx Chronic Respiratory Disease: No Hx Diabetes: No Hx Cardiac Disease: Yes Hx Renal Disease: No Hx Cirrhosis: No Hx Alcoholism: Yes Hx HIV/AIDS: No Hx Splenectomy or Spleen Trauma: No Other PMH: HTN, Insommia/depression, ETOH abuse, herpes, Hyperlipidemia, Anxiety - Social History Smoking Status: Never smoked Constitutional: Initial Vital Signs Temperature (C) 36.9 C 12/13/17 18:13 Heart Rate 97 12/13/17 18:13 Respiratory Rate 24 H 12/13/17 18:13 Blood Pressure 110/72 12/13/17 18:13 O2 Sat (%) 91 L 12/13/17 18:13 O2 Delivery Mode Room Air O2 (L/minute) 2 Allergies/Adverse Reactions: No Known Allergies Allergy (Verified 12/13/17 18:13) Home Medications: Medication Instructions Recorded DULoxetine [Cymbalta 30 MG (*)] 30 mg PO DAILY 11/10/16 Gabapentin [Neurontin] 1,200 mg PO TID 11/10/16 Hydrochlorothiazide [HCTZ (*)] 25 mg PO DAILY 11/10/16 Ibuprofen [Motrin (*)] 200 - 400 mg PO DAILY PRN 11/10/16 Losartan Potassium [Cozaar 50 mg 50 mg PO DAILY 11/10/16 (*)] QUEtiapine FUMARATE [Seroquel 25 25 mg PO HS 11/10/16 mg (*)] Simvastatin [Zocor] 40 mg PO HS 11/10/16 Hydroxyzine Pamoate [Vistaril] 50 mg PO DAILY 12/14/16 Naltrexone HCl 50 mg PO DAILY 12/14/16 Azithromycin [Zithromax] 250 mg PO DAILY #2 tab 01/15/17 Aspirin 06/08/17 Pantoprazole Sodium [Protonix 40mg 40 mg PO HS #30 tab 12/01/17 (*)] Medical Decision Making - Diagnostics EKG Interpretation: 12 lead EKG: Indication: Chest pain Rhythm: Normal sinus rhythm, rate of 90 beats per minute Carlin: Normal Intervals: Normal QRS: Normal ST segments: Nonspecific changes INTERPRETATION: No acute ischemic changes The 12 lead EKG was interpreted by myself and with attending. ED Course/Re-evaluation: Vital signs reviewed and stable upon arrival. Laboratory studies including troponin ordered Given GI cocktail and Cymbalta Patient does not meet M1 hold criteria. She is well-known to me in has close follow-up with [facility] tomorrow. She is clearly intoxicated will wait until she becomes more sober to be reassessed. 1835: EKG my read shows normal sinus rhythm with a rate of 90 beats per minute. No acute ischemic changes. 1841: Notified by [employer] that TROP 0.00 1806: Labs reviewed. No signs of leukocytosis/anemia/platelet dysfunction/AHMET/ elevated LFTs/electrolyte imbalance/pancreatitis. 1825: ETOH 401 0100: End of shift. Signed over to Dr. Courtney pending road test and discharged to the [facility]. This patient was seen under the supervision of my secondary supervising physician. I evaluated care for this patient independently. Discussed this patient with Dr. Roberson. Differential Diagnosis: Chest pain including but not limited to myocardial ischemia, pulmonary embolus, chest wall pain, pleural inflammation and pulmonary infectious causes. - Data Points Laboratory Results: Laboratory Results 12/13/17 18:25 12/13/17 18:25 12/13/17 12/13/17 12/13/17 18:27 18:25 18:25 WBC RBC Hgb Hct MCV MCH MCHC RDW Plt Count MPV Neut % (Auto) Lymph % (Auto) [place] % (Auto) Eos % (Auto) Baso % (Auto) Nucleat RBC Rel Count Absolute Neuts (auto) Absolute Lymphs (auto) Absolute Monos (auto) Absolute Eos (auto) Absolute Basos (auto) Absolute Nucleated RBC Immature Gran % Immature Gran # Sodium 144 mEq/L mEq/L (135-145) Potassium 4.5 mEq/L mEq/L (3.3-5.0) Chloride 108 mEq/L mEq/L (97-110) Carbon Dioxide 20 mEq/l L mEq/l (22-31) Anion Gap 16 mEq/L mEq/L (8-16) BUN 12 mg/dL mg/dL (7-23) Creatinine 0.7 mg/dL mg/dL (0.6-1.0) Estimated GFR > 60 Glucose 100 mg/dL mg/dL (70-100) Calcium 9.2 mg/dL mg/dL (8.5-10.4) Total Bilirubin 0.2 mg/dL mg/dL (0.1-1.4) Conjugated Bilirubin 0.1 mg/dL mg/dL (0.0-0.5) Unconjugated Bilirubin 0.1 mg/dL mg/dL (0.0-1.1) AST 21 IU/L IU/L (14-46) ALT 20 IU/L IU/L (9-52) Alkaline Phosphatase 138 IU/L H IU/L (38-126) POC Troponin I 0.00 ng/mL ng/mL (0.00-0.08) Total Protein 7.4 g/dL g/dL (6.3-8.2) Albumin 4.2 g/dL g/dL (3.5-5.0) Ethyl Alcohol 401 mg/dL H* mg/dL (0-10) 12/13/17 18:25 WBC 7.03 10^3/uL 10^3/uL (3.80-9.50) RBC 4.59 10^6/uL 10^6/uL (4.18-5.33) Hgb 13.8 g/dL g/dL (12.6-16.3) Hct 41.8 % % (38.0-47.0) MCV 91.1 fL fL (81.5-99.8) MCH 30.1 pg pg (27.9-34.1) MCHC 33.0 g/dL g/dL (32.4-36.7) RDW 16.6 % H % (11.5-15.2) Plt Count 462 10^3/uL H 10^3/uL (150-400) MPV 10.6 fL fL (8.7-11.7) Neut % (Auto) 51.4 % % (39.3-74.2) Lymph % (Auto) 32.6 % % (15.0-45.0) [place] % (Auto) 7.8 % % (4.5-13.0) Eos % (Auto) 6.0 % % (0.6-7.6) Baso % (Auto) 1.6 % % (0.3-1.7) Nucleat RBC Rel Count 0.0 % % (0.0-0.2) Absolute Neuts (auto) 3.62 10^3/uL 10^3/uL (1.70-6.50) Absolute Lymphs (auto) 2.29 10^3/uL 10^3/uL (1.00-3.00) Absolute Monos (auto) 0.55 10^3/uL 10^3/uL (0.30-0.80) Absolute Eos (auto) 0.42 10^3/uL H 10^3/uL (0.03-0.40) Absolute Basos (auto) 0.11 10^3/uL H 10^3/uL (0.02-0.10) Absolute Nucleated RBC 0.00 10^3/uL 10^3/uL (0-0.01) Immature Gran % 0.6 % % (0.0-1.1) Immature Gran # 0.04 10^3/uL 10^3/uL (0.00-0.10) Sodium Potassium Chloride Carbon Dioxide Anion Gap BUN Creatinine Estimated GFR Glucose Calcium Total Bilirubin Conjugated Bilirubin Unconjugated Bilirubin AST ALT Alkaline Phosphatase POC Troponin I Total Protein Albumin Ethyl Alcohol Medications Given: Discontinued Medications Al Hydroxide/Mg Hydroxide (Maalox Susp) 30 ml PO ONCE ONE Stop: 12/13/17 18:24 Last Admin: 12/13/17 18:42 Dose: 30 ml Duloxetine HCl (Cymbalta) 30 mg PO DAILY ONE Stop: 12/13/17 18:50 Last Admin: 12/13/17 18:50 Dose: 30 mg Hyoscyamine Sulfate (Levsin, Hyomax-Sl) 0.25 mg PO ONCE ONE Stop: 12/13/17 18:24 Last Admin: 12/13/17 18:39 Dose: 0.25 mg Lidocaine (Lidocaine 2% Viscous) 15 ml PO ONCE ONE Stop: 12/13/17 18:24 Last Admin: 12/13/17 18:41 Dose: 15 ml Point of Care Test Results: Chemistry 12/13/17 18:27 POC Troponin I 0.00 ng/mL ng/mL (0.00-0.08) Departure - Departure Disposition: Home, Routine, Self-Care Clinical Impression: Alcohol intoxication Qualifiers: Complication of substance-induced condition: uncomplicated Qualified Code(s): F10.920 - Alcohol use, unspecified with intoxication, uncomplicated Alcoholic gastritis without bleeding Qualifiers: Chronicity: chronic Qualified Code(s): K29.20 - Alcoholic gastritis without bleeding Condition: Good Instructions: Abuse of Alcohol (ED) Additional Instructions: Please refrain from using alcohol excessively. Go to your appointment at [facility] tomorrow. Last week you were given a prescription for Protonix, please take this medication daily. Call 911 if you have thoughts of hurting or killing yourself or anyone else, or have any new or worsening symptoms that concern you. Referrals: [facility] [Outside] - As per Instructions [facility] [Clinic] - 12/14/17
[2017-12-13] MEDS ORDERED: HYOSCYAMINE SULFATE 0.125 MG TAB PO ONE (18:23)
[2017-12-13] MEDS ORDERED: MAG HYDROX/AL HYDROX/SIMETH 30 ML UDCUP PO ONE (18:23)
[2017-12-13] MEDS ORDERED: LIDOCAINE 2% VISCOUS 15 ML UDCUP PO ONE (18:23)
[2017-12-13 18:43] LABS: PLATELET COUNT 462 10^3/uL (150-400)
[2017-12-13] MEDS ORDERED: DULoxetine 30 MG CAP PO ONE (18:49)
--- NOTE | 2017-12-13 18:49 | CPEKG ---
Test Reason : OPEN Blood Pressure : / mmHG Vent. Rate : 090 BPM Atrial Rate : 090 BPM P-R Int : 129 ms QRS Dur : 093 ms QT Int : 380 ms P-R-T Axes : 007 058 038 degrees QTc Int : 465 ms Sinus rhythm Abnormal R-wave progression, early transition Confirmed by Milla Roberson ([id number]) on 12/13/2017 6:49:11 PM Referred By: Confirmed By:Milla Roberson
[2017-12-14] MEDS ORDERED: ACETAMINOPHEN 500 MG TAB PO ONE (00:35)
[2017-12-14] MEDS ORDERED: ONDANSETRON 4 MG/2 ML VIAL ONE (01:24)
[2017-12-14] MEDS ORDERED: LORazepam 2 MG/ML INJ ONE (01:25)
[2017-12-14] MEDS ORDERED: ONDANSETRON 4 MG/2 ML VIAL IVP ONE (01:26)
[2017-12-14] MEDS ORDERED: LORazepam 2 MG/ML INJ IVP ONE (01:26)
[2017-12-14 05:35] VITALS: BP 150/90
[2017-12-14] MEDS ORDERED: DULoxetine 30 MG CAP PO ONE (18:24)
== END 2017-12-14 05:38 | disposition home or self-care (01) ==
LOC: EDUNIT#
DX: F10.229 Alcohol dependence with intoxication, unspecified (principal); K29.20 Alcoholic gastritis without bleeding
CPT/HCPCS: 84484-PO; 96374; G0480; J2060; J2405

== ENCOUNTER 2017-12-15 20:56 | Observation (INO) | payer SELFPAY ==
--- NOTE | 2017-12-15 21:02 | EDPHY ---
H & P Source: Patient, EMS - Personal History Tetanus Vaccine Date: 2010 - Medical/Surgical History Hx Asthma: No Hx Chronic Respiratory Disease: No Hx Diabetes: No Hx Cardiac Disease: Yes Hx Renal Disease: No Hx Cirrhosis: No Hx Alcoholism: Yes Hx HIV/AIDS: No Hx Splenectomy or Spleen Trauma: No Other PMH: HTN, Insommia/depression, ETOH abuse, herpes, Hyperlipidemia, Anxiety - Social History Smoking Status: Never smoked Time Seen by Provider: 12/15/17 21:00 HPI/ROS: CHIEF COMPLAINT: Questionable seizure HISTORY OF PRESENT ILLNESS: Patient has a history of chronic alcoholism and was at the homeless custodial this evening. There was a reported history of a questionable seizure. The patient arrives by paramedics. She is somnolent but arousable. She has a strong smell of alcohol on her breath. The patient is unable to provide significant history secondary to her presumed intoxication. Paramedics did note that she was hypoxic in route. REVIEW OF SYSTEMS: A comprehensive 10 point review of systems is otherwise negative aside from elements mentioned in the history of present illness. (Daryl Mishra) - Physical Exam Exam: General Appearance: Disheveled female, somnolent but arousable, alcohol on breath Eyes: Pupils equal and round no pallor or injection ENT, Mouth: Mucous membranes moist Respiratory: There are no retractions, lungs are clear to auscultation Cardiovascular: Regular rate and rhythm Gastrointestinal: Abdomen is soft and nontender, no masses, bowel sounds normal Neurological: Withdrawals to pain all 4 extremities Skin: Warm and dry, no rashes Musculoskeletal: Neck is supple nontender Extremities: symmetrical, full range of motion (Daryl Mishra) Constitutional: Initial Vital Signs O2 Sat (%) 91 L 12/15/17 21:05 O2 Delivery Mode Oxymizer O2 (L/minute) 4 Allergies/Adverse Reactions: No Known Allergies Allergy (Verified 12/13/17 18:13) Home Medications: Medication Instructions Recorded DULoxetine [Cymbalta 30 MG (*)] 30 mg PO DAILY 11/10/16 Gabapentin [Neurontin] 1,200 mg PO TID 11/10/16 Hydrochlorothiazide [HCTZ (*)] 25 mg PO DAILY 11/10/16 Ibuprofen [Motrin (*)] 200 - 400 mg PO DAILY PRN 11/10/16 Losartan Potassium [Cozaar 50 mg 50 mg PO DAILY 11/10/16 (*)] QUEtiapine FUMARATE [Seroquel 25 25 mg PO HS 11/10/16 mg (*)] Simvastatin [Zocor] 40 mg PO HS 11/10/16 Hydroxyzine Pamoate [Vistaril] 50 mg PO DAILY 12/14/16 Naltrexone HCl 50 mg PO DAILY 12/14/16 Azithromycin [Zithromax] 250 mg PO DAILY #2 tab 01/15/17 Aspirin 06/08/17 Pantoprazole Sodium [Protonix 40mg 40 mg PO HS #30 tab 12/01/17 (*)] Medical Decision Making - Diagnostics Imaging Results: Imaging Impressions Chest X-Ray 12/15/17 21:01 Impression: Findings suggest pulmonary edema. E:WINSTON/john ED Course/Re-evaluation: The patient presents to the ED after a questionable seizure at the homeless custodial. The patient arrives and is quite somnolent and appears to be significantly intoxicated. I see no evidence of obvious head trauma. The patient is moving all 4 extremities with equal strength. The patient was slightly hypoxemic from presumed hyperventilation. The patient' s chest x-ray demonstrates no evidence of an obvious infiltrate by my interpretation. Patient had an IV established. She received 2 L of normal saline. The patient' s blood alcohol level was noted to be markedly elevated at 0.487 Plan will be for ED observation for further sobriety. The patient will be turned over to Dr. Marcelino Courtney at shift change. (Daryl Mishra) [id number]: Patient is now much more sober however it is noted that she is still hypoxic down to 82% on room air. She requires 4 L nasal cannula to keep her oxygen appropriate. Her chest x-ray been reviewed and shows pulmonary edema. Given this will add a BNP. She has no chest pain. It is possible she has alcohol-induced cardiomyopathy. Plan will be for hospital admission for hypoxia supplemental oxygen, watch for alcohol withdrawal. Recheck of her oxygen saturation 1:45 a.m., 82% room air. IV Lasix 20 mg has been ordered. Chest x-ray reviewed shows pulmonary edema. Spoke with the hospitalist service agrees to admit for hypoxia. Patient is homeless. Not oxygen dependent. Severe alcoholic. She will need to be watch for alcohol withdrawal. Dr. Kirkland agrees to admit. no evidence of w/d at this time. ( Marcelino Courtney) Differential Diagnosis: Differential diagnosis considered includes alcohol intoxication, dehydration, metabolic abnormality, occult trauma, pneumonia (Daryl Mishra) - Data Points Laboratory Results: Laboratory Results 12/15/17 21:08 12/15/17 21:00 12/15/17 12/15/17 12/15/17 21:08 21:08 21:00 WBC 5.63 10^3/uL 10^3/uL (3.80-9.50) RBC 4.27 10^6/uL 10^6/uL (4.18-5.33) Hgb 13.1 g/dL g/dL (12.6-16.3) Hct 39.5 % % (38.0-47.0) MCV 92.5 fL fL (81.5-99.8) MCH 30.7 pg pg (27.9-34.1) MCHC 33.2 g/dL g/dL (32.4-36.7) RDW 16.6 % H % (11.5-15.2) Plt Count 424 10^3/uL H 10^3/uL (150-400) MPV 10.1 fL fL (8.7-11.7) Neut % (Auto) 48.4 % % (39.3-74.2) Lymph % (Auto) 32.0 % % (15.0-45.0) [place] % (Auto) 10.5 % % (4.5-13.0) Eos % (Auto) 6.0 % % (0.6-7.6) Baso % (Auto) 2.0 % H % (0.3-1.7) Nucleat RBC Rel Count 0.0 % % (0.0-0.2) Absolute Neuts (auto) 2.73 10^3/uL 10^3/uL (1.70-6.50) Absolute Lymphs (auto) 1.80 10^3/uL 10^3/uL (1.00-3.00) Absolute Monos (auto) 0.59 10^3/uL 10^3/uL (0.30-0.80) Absolute Eos (auto) 0.34 10^3/uL 10^3/uL (0.03-0.40) Absolute Basos (auto) 0.11 10^3/uL H 10^3/uL (0.02-0.10) Absolute Nucleated RBC 0.00 10^3/uL 10^3/uL (0-0.01) Immature Gran % 1.1 % % (0.0-1.1) Immature Gran # 0.06 10^3/uL 10^3/uL (0.00-0.10) Sodium 138 mEq/L mEq/L (135-145) Potassium 4.6 mEq/L mEq/L (3.3-5.0) Chloride 106 mEq/L mEq/L (97-110) Carbon Dioxide 18 mEq/l L mEq/l (22-31) Anion Gap 14 mEq/L mEq/L (8-16) BUN 14 mg/dL mg/dL (7-23) Creatinine 0.7 mg/dL mg/dL (0.6-1.0) Estimated GFR > 60 Glucose 106 mg/dL H mg/dL (70-100) Calcium 9.1 mg/dL mg/dL (8.5-10.4) NT-Pro-B Natriuret Pep Pending Ethyl Alcohol 487 mg/dL H* mg/dL (0-10) Medications Given: Discontinued Medications Sodium Chloride (Ns) 1,000 mls @ 3,000 mls/hr IV ONCE ONE Stop: 12/15/17 21:32 Last Admin: 12/15/17 21:16 Dose: 1,000 mls Sodium Chloride (Ns) 1,000 mls @ 0 mls/hr IV ONCE ONE PRN Reason: Wide Open Stop: 12/15/17 21:35 Last Admin: 12/15/17 21:35 Dose: 1,000 mls Departure - Departure Disposition: [facility] Inpatient Acute Clinical Impression: Alcoholic intoxication, Hypoxic, Pulmonary edema Referrals: NONE *PRIMARY CARE P,. [Primary Care Provider] - As per Instructions
[2017-12-15] MEDS ORDERED: NS 1,000 ML IV ONE ×2 (21:13→21:34)
[2017-12-15 21:18] LABS: PLATELET COUNT 424 10^3/uL (150-400)
[2017-12-16] MEDS ORDERED: ACETAMINOPHEN 325 MG TAB PO PRN (01:44)
[2017-12-16] MEDS ORDERED: ALBUTEROL 3 ML DEYVIAL IH PRN (01:44)
[2017-12-16] MEDS ORDERED: ONDANSETRON 4 MG/2 ML VIAL IVP PRN (01:44)
[2017-12-16] MEDS ORDERED: ONDANSETRON DISINTEGRATING 4 MG TAB PO PRN (01:44)
[2017-12-16] MEDS ORDERED: FUROSEMIDE 20 MG/2 ML VIAL IVP ONE (01:45)
[2017-12-16] MEDS ORDERED: FLUMAZENIL 0.5 MG/5 ML MDV IVP PRN (01:47)
[2017-12-16] MEDS ORDERED: LORazepam 1 MG TAB PO PRN (01:47)
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
[2017-12-16 04:49] LABS: PLATELET COUNT 382 10^3/uL (150-400)
[2017-12-16] MEDS: LORazepam 2 MG/ML INJ IVP PRN ×2 (07:52→11:42)
[2017-12-16] MEDS ORDERED: ENOXAPARIN 40 MG/0.4 ML SYR SC SCH (09:00)
[2017-12-16] MEDS ORDERED: THIAMINE HCL 100 MG TAB PO SCH (09:00)
[2017-12-16] MEDS ORDERED: FOLIC ACID 1 MG TAB PO SCH (09:00)
[2017-12-16] MEDS ORDERED: MULTIVITAMINS 1 EACH TAB PO SCH (09:00)
--- NOTE | 2017-12-16 10:52 | ECHO ---
[email or web address] [address] [address] Main: [phone] Fax: Transthoracic Echocardiogram Name: MUMTAZ ELY MR#: [id number] Study Date: 12/16/2017 Study Time: 09:48 AM Date of : 1955 Age: 62 year(s) Height: 154.9 cm (61 in.) Weight: 66.68 kg (147 lb.) BSA: 1.66 m2 Gender: Female Examination: Echo Indication: hypoxia, pulmonary edema Image Quality: Adequate Contrast: Requested by: Nilay Daley BP: 121 mmHg/82 mmHg Heart Rate: Rhythm: Indication: hypoxia, pulmonary edema Procedure Staff Broker In Charge: Corrie Pagan RDCS Reading Physician: Cruz Sampson MD Requesting Provider: Conclusions: Normal size left ventricle. Concentric LV hypertrophy. Normal global systolic LV function. The ejection fraction is visually estimated to be 55 %. No regional wall motion abnormality. Normal diastolic LV function. Mild mitral valve leaflet calcification is present. Mild mitral valve regurgitation is present. Mild tricuspid regurgitation is present. The pulmonary artery pressure is normal. Right ventricular systolic pressure measures 26mmHg. Measurements: Chambers Valvular Assessment AV/MV Valvular Assessment TV/PV Normal Normal Normal Name Value Range Name Value Range Name Value Range Ao Sammie (2D): 3.4 cm (1.4 cm-2.6 AV Vmax: 1.26 m/s (1 m/s-1.7 TR Vmax: 2.28 mm/s ( - ) cm) m/s) TR PGmax: 21 mmHg ( - ) IVSd (2D): 1.5 cm (0.6 cm-1.1 AV maxP mmHg ( - ) syst. PAP: 26 mmHg ( - ) cm) AV meanP mmHg ( - ) PV Vmax: 0.72 m/s (0.6 m/s-0.9 LVDd (2D): 3.4 cm (3.9 cm-5.3 GISSELLE (VTI): 3.6 cm ( - ) m/s) cm) MV E Vmax: 0.47 m/s ( - ) PV PGmax: 2 mmHg ( - ) LVDs (2D): 2.5 cm (2.1 cm-4 MV A Vmax: 0.90 m/s ( - ) cm) MV E/A: 0.52 ( - ) LVPWd (2D): 1.2 cm ( - ) MV PHT: 0.062 s ( - ) LVOTd 2.3 cm 2.3 cm mm MVA (PHT): 3.5 s ( - ) LVEF (BP): 59 % (>=55 %) Visual EF: 55 % RVDd(2D): 3.2 cm (1.9 cm-3.8 cmmm) Patient: MUMTAZ ELY Study Date: 12/16/2017 Page 1 of 2 09:48 AM Continued Measurements: Chambers Valvular Assessment AV/MV Valvular Assessment TV/PV Name Value Name Value Name Value LADs: 3.5 cm MV DecTime: 211 m/s CVP (est.): 5 mmHg LADs Lon.1 cm MV E' Septal: 0.06 m/s LA Area: 19.2 cm2 MV E/E' Septal: 8.20 LA Volume: 49 ml MV E/E' Lateral: 4.60 LA Volume Index: 29.5 ml/m2 RA Area: 15.6 cm2 Additional Vessels Name Value Ao Ascendin.8 cm Inferior Vena Cava: 1.7 cm Findings: Left Ventricle: Normal size left ventricle. Concentric LV hypertrophy. Normal global systolic LV function. The ejection fraction is visually estimated to be 55 %. No regional wall motion abnormality. Normal diastolic LV function. Right Ventricle: Normal size right ventricle. Normal RV function. Left Atrium: The left atrium is normal in size. Right Atrium: The right atrium is normal in size. Mitral Valve: Mild mitral valve leaflet calcification is present. Mild mitral valve regurgitation is present. No mitral stenosis is present. Aortic Valve: The aortic valve is tri-leaflet. There is no significant aortic valve regurgitation. No aortic valve stenosis is present. Tricuspid Valve: The tricuspid valve is normal in appearance and function. Mild tricuspid regurgitation is present. The pulmonary artery pressure is normal. Right ventricular systolic pressure measures 26mmHg. Pulmonic Valve: The pulmonic valve is normal in appearance and function. There is no pulmonic regurgitation seen. Aorta: The aorta is normal. Normal size aortic root measuring 3.4 cm. Normal size ascending aorta measuring 2.8 cm. IVC: The IVC is normal sized. Pericardium: No pericardial effusion. No pleural effusion. Exam Comments: Limited windows, patient has breast implants. (No Signature Object) Patient: MUMTAZ ELY Study Date: 12/16/2017 Page 2 of 2 09:48 AM [id number]
--- NOTE | 2017-12-16 12:19 | ASMTCMCOM ---
CM Note CM Note Notes: CM reviewed pt's chart for d/c planning. Pt is a 62y/o female w/hx of ETOH disorder, depression and HTN presented severely intoxicated at the ED with a BAL of 487. She reports drinking 2 pints of vodka daily. She was unable to saturate normally on room air and was admitted for evaluation of this. She seemed quite depressed and just kept saying, "I'm just a drunk". She also appears to have a hx of CAD, hyperlipidemia and panic attacks. She has a hx of severe w/d and DT's. CIWA was ordered. Pt lives at the [facility]. She is unclear whether she is able to return given her need to have an ambulance called. She has been homeless for 3-4 years. She expressed interest in the residential treatment program at [facility] and was given papers for it by P. CM will look into it and will call [facility] to see if she can return. CM to follow. D/C Plan: TBD Date Signed: 12/16/2017 12:18 PM Electronically Signed By:Digna Mcgarry
[2017-12-16 15:38] VITALS: BP 145/98
--- NOTE | 2017-12-16 15:47 | GDS ---
DISCHARGE DIAGNOSES: 1. Alcohol intoxication. 2. Acute hypoxic respiratory failure with respiratory rate greater 28 and O2 saturation 82% on room per emergency department note. 3. Mild pulmonary edema. 4. Alcohol dependence. 5. Coronary artery disease by calcium score. 6. Hypertension. 7. Hyperlipidemia. 8. Major depression disorder with panic attacks. 9. Gastroesophageal reflux disease. 10. Supraventricular tachycardia. HISTORY OF PRESENT ILLNESS: A 62-year-old female with history of alcohol dependence, depression, and hypertension presenting severely intoxicated. She was sent over from a correction with questionable seizure. BAL was 487. She was observed in the emergency room for several hours, but was persistently hypoxic to 82% on room air. She denies any fevers, chills, or sweats. No cough. Said she is just drunk. HOSPITAL COURSE: 1. Acute hypoxic respiratory failure: evidenced by O2 saturation of 82, respiratory rate 28 and CXR with mild pulmonary edema. BNP was 150. Echo was reassuring with normal ejection fraction. This is likely secondary to acute intoxication. There was no evidence of pneumonia. She did get 1 dose of Lasix. She is now stable on room air, 93%. 2. Alcohol dependence: She was counseled on cessation. Required minimal benzodiazepine. Case management helped providing information for rehab facility in [facility]. 3. Hypertension. Resume home medications. 4. Coronary artery disease per calcium score. Continue home aspirin and statin. DISPOSITION: Patient is stable for discharge home. FOLLOW-UP: 1. [facility] for rehab assistance. 2. Refrain from alcohol. MEDICATIONS: No medication changes. PHYSICAL EXAMINATION: VITAL SIGNS: Temperature 37.2, blood pressure 138/95, heart rate in the 80s, respirations 20, 93% on room air. GENERAL: She is well appearing in no acute distress. HEENT: PERRLA. Moist mucous membranes. CV: Regular rhythm. LUNGS: Clear. Diminished breath, but no crackles or wheezing. ABDOMEN: Soft, nontender, nondistended. Positive bowel sounds. : No Perales. MUSCULOSKELETAL: 5/5 upper lower extremity strength. NEUROLOGIC : 2 through 12 intact. PSYCH: Alert and oriented x3. /[id number]/MODL MTDD
--- NOTE | 2017-12-16 16:24 | ASMTCMCOM ---
CM Note CM Note Notes: Pt completed application for [facility] Residential Substance Abuse Treatment Plan. Application was faxed to [facility], a copy was placed in the chart and a copy was left at 3[facility] nursing station with Case Management for pt to slate picker tomorrow. Pt left before CM could check with fdc for info re whether she can return. D/C Plan: Anticipate [facility]. Date Signed: 12/16/2017 04:23 PM Electronically Signed By:Digan Mcgarry
--- NOTE | 2017-12-16 16:26 | ASDISCHSUM ---
Discharge Information Plan Status:Homeless/Correction Medically Cleared to Leave: Discharge Date: CM D/C Disposition:Streets (Homeless) ADT D/C Disposition: Projected Discharge Date: Transportation at D/C:Self Discharge Delay Reason: Follow-Up Date: Discharge Slot: Final Diagnosis: Placement Information Patient Contact Information Contact Name:PAULA Relationship:Friend Address: Work Phone: City: [facility] Phone: State/Zip Code: Email: Financial Information Financial Class:Self-Pay Primary Plan Desc:SELF PAY Primary Plan Number: Secondary Plan Desc: Secondary Plan Number: Assessment Information [facility] Progress Note CM Note CM Note Notes: CM reviewed pt's chart for d/c planning. Pt is a 62y/o female w/hx of ETOH disorder, depression and HTN presented severely intoxicated at the ED with a BAL of 487. She reports drinking 2 pints of vodka daily. She was unable to saturate normally on room air and was admitted for evaluation of this. She seemed quite depressed and just kept saying, "I'm just a drunk". She also appears to have a hx of CAD, hyperlipidemia and panic attacks. She has a hx of severe w/d and DT's. CIWA was ordered. Pt lives at the [facility]. She is unclear whether she is able to return given her need to have an ambulance called. She has been homeless for 3-4 years. She expressed interest in the residential treatment program at [facility] and was given papers for it by [facility]. CM will look into it and will call [facility] to see if she can return. CM to follow. D/C Plan: TBD Date Signed: 12/16/2017 12:18 PM Electronically Signed By:Digna Mcgarry [facility] Progress Note CM Note CM Note Notes: Pt completed application for [facility]. Application was faxed to [facility], a copy was placed in the chart and a copy was left at 3 nursing station with Case Management for pt to shrimp picker tomorrow. Pt left before could check with longterm for info re whether she can return. D/C Plan: Anticipate [facility]. Date Signed: 12/16/2017 04:23 PM Electronically Signed By:Digna Mcgarry Intervention Information
== END 2017-12-16 16:37 | disposition home or self-care (01) ==
LOC: EDUNIT# → F3N 12-16 03:17
PROVIDERS: ADMIT Student in an Organized Health Care Education/Training Program; ATTEND Internal Medicine
DX: J96.01 Acute respiratory failure with hypoxia (principal); F10.229 Alcohol dependence with intoxication, unspecified; T51.0X1A Toxic effect of ethanol, accidental (unintentional), initial encounter; Y90.8 Blood alcohol level of 240 mg/100 ml or more; J81.1 Chronic pulmonary edema; I25.10 Atherosclerotic heart disease of native coronary artery without angina pectoris; I10 Essential (primary) hypertension; E78.5 Hyperlipidemia, unspecified; F32.9 Major depressive disorder, single episode, unspecified; F41.0 Panic disorder [episodic paroxysmal anxiety]; K21.9 Gastro-esophageal reflux disease without esophagitis; I47.1 Supraventricular tachycardia; Z59.0 Homelessness; Z96.659 Presence of unspecified artificial knee joint
CPT/HCPCS: G0378; G0480; J1650; J1940; J2060

== ENCOUNTER → 2017-12-17 | Outpatient (CLI) | payer MEDICAID | LOC: FIMAGING 09:54 | PROVIDERS: ATTEND Physician Assistant | DX: Z12.31 Encounter for screening mammogram for malignant neoplasm of breast (principal); Z80.3 Family history of malignant neoplasm of breast; Z13.820 Encounter for screening for osteoporosis; M81.0 Age-related osteoporosis without current pathological fracture; Z78.0 Asymptomatic menopausal state ==

== ENCOUNTER 2017-12-18 11:21 | Emergency (ER) | payer MEDICAID ==
--- NOTE | 2017-12-18 11:30 | EDPHY ---
H & P Stated Complaint: ETOH, Time Seen by Provider: 12/18/17 11:30 - Personal History Current Tetanus/Diphtheria Vaccine: Yes Current Tetanus Diphtheria and Acellular Pertussis (TDAP): Yes Tetanus Vaccine Date: 2010 - Medical/Surgical History Hx Asthma: No Hx Chronic Respiratory Disease: No Hx Diabetes: No Hx Cardiac Disease: Yes Hx Renal Disease: No Hx Cirrhosis: No Hx Alcoholism: Yes Hx HIV/AIDS: No Hx Splenectomy or Spleen Trauma: No Other PMH: HTN, Insommia/depression, ETOH abuse, herpes, Hyperlipidemia, Anxiety - Social History Smoking Status: Never smoked Constitutional: Initial Vital Signs Temperature (C) 36.4 C 12/18/17 11:24 Heart Rate 89 12/18/17 11:24 Respiratory Rate 18 12/18/17 11:24 Blood Pressure 109/84 H 12/18/17 11:24 O2 Sat (%) 95 12/18/17 11:24 O2 Delivery Mode Room Air Allergies/Adverse Reactions: No Known Allergies Allergy (Verified 12/13/17 18:13) Home Medications: Medication Instructions Recorded Gabapentin [Neurontin] 1,200 mg PO TID 11/10/16 Naltrexone HCl 50 mg PO DAILY 12/14/16 Aspirin EC [Aspirin EC 81 mg (*)] 162 mg PO DAILY 06/08/17 DULoxetine [Cymbalta 60 MG (*)] 60 mg PO DAILY #30 cap 12/16/17 Losartan Potassium [Cozaar 50 mg 50 mg PO DAILY #30 tab 12/16/17 (*)] Quetiapine Fumarate [Seroquel Xr] 200 mg PO HS #30 tab.er.24h 12/16/17 B-Complex Tablet 12/18/17 Cymbalta 12/18/17 Hydrocortisone 12/18/17 Valacyclovir HCl 12/18/17 Medical Decision Making ED Course/Re-evaluation: CHIEF COMPLAINT: Alcohol intoxication, "Dr. Morse I'm a drunk. I'm an alcoholic. They want me to get on meds." HISTORY OF PRESENT ILLNESS: The patient is homeless 62 y/o female with a long history of alcoholism who arrives via EMS requesting detox help. Patient drinks on a daily basis and obtains whatever alcohol is available. Patient was found by bystanders who called EMS system. Patient has had multiple ER visits over the last several years for the same complaint. Patient denies any injuries denies loss of consciousness denies any recent trauma. Patient denies co- ingestion. Patient denies suicidal or homicidal behavior. REVIEW OF SYSTEMS: A comprehensive 10 system review of systems is otherwise negative aside from elements mentioned in the history of present illness and medical decision making. PHYSICAL EXAM: General Appearance: Alert, well hydrated, appropriate, and non-toxic appearing. Head: Atraumatic without scalp tenderness or obvious injury Eyes: Pupils equal, round, reactive to light and accommodation, EOMI, no trauma , no injection. Nose: Atraumatic, no rhinorrhea, clear. Throat: Mucus membranes moist. Neck: Supple. Respiratory: No retractions, no distress, no wheezes, and no accessory muscle use. Lungs are clear to auscultation bilaterally. Cardiovascular: Regular rate and rhythm, no murmurs, rubs, or gallops. Good capillary refill all extremities. Gastrointestinal: Abdomen is soft, nontender, non-distended, no masses, no rebound, no guarding, no peritoneal signs. Musculoskeletal: Normal active ROM of all extremities, atraumatic. Neurological: Alert, appropriate, and interactive. Nonfocal. Skin: No rashes, good turgor, no nodules on palpation. PAST MEDICAL HISTORY: HTN, Insomnia/depression, ETOH abuse, herpes, Hyperlipidemia, Anxiety PAST SURGICAL HISTORY: Noncontributory SOCIAL HISTORY: Homeless, alcohol abuse. Living at the skilled nursing. DIFFERENTIAL DIAGNOSIS: The differential diagnosis for the patient's symptoms included but was not limited to alcohol intoxication, social factors, other intoxicants. MEDICAL DECISION MAKING: I serially examined this patient since the patient's arrival here in the emergency department. The patient continues to become more and more sober with each examination. I serially questioned the patient and the patient's story given initially has not changed. The patient still denies any trauma, any head injury, and any illicit drug use. At this point, the patient is walking the department freely and is clinically sober. We're discharging the [facility] to the [facility] in stable condition. Departure - Departure Disposition: Home, Routine, Self-Care Clinical Impression: Alcoholic intoxication Qualifiers: Complication of substance-induced condition: uncomplicated Qualified Code(s): F10.920 - Alcohol use, unspecified with intoxication, uncomplicated Condition: Good Instructions: Abuse of Alcohol (ED) Additional Instructions: Follow up with detox facility as discussed. Avoid abuse of alcohol. Referrals: [facility] Hours [Outside] - As per Instructions Report Scribed for: Dimitri Morse Report Scribed by: Divya Lemons Date of Report: 12/18/17 Time of Report: 12:07
[2017-12-18] MEDS ORDERED: CHLORDIAZEPOXIDE 25MG PREPK#6 BTL TAKEHOME ONE (13:56)
[2017-12-18 14:11] VITALS: BP 120/78
== END 2017-12-18 14:10 | disposition home or self-care (01) ==
LOC: EDUNIT#
DX: F10.920 Alcohol use, unspecified with intoxication, uncomplicated (principal); Z59.0 Homelessness

== ENCOUNTER 2017-12-22 15:43 | Emergency (ER) | payer MEDICAID ==
[2017-12-22] MEDS ORDERED: CHLORDIAZEPOXIDE 25MG PREPK#6 BTL TAKEHOME ONE (15:58)
--- NOTE | 2017-12-22 15:58 | EDPHY ---
H & P - Personal History Tetanus Vaccine Date: 2010 - Medical/Surgical History Hx Asthma: No Hx Chronic Respiratory Disease: No Hx Diabetes: No Hx Cardiac Disease: Yes Hx Renal Disease: No Hx Cirrhosis: No Hx Alcoholism: Yes Hx HIV/AIDS: No Hx Splenectomy or Spleen Trauma: No Other PMH: HTN, Insommia/depression, ETOH abuse, herpes, Hyperlipidemia, Anxiety - Social History Smoking Status: Never smoked Time Seen by Provider: 12/22/17 15:46 HPI/ROS: CHIEF COMPLAINT: Suspected alcohol abuse HISTORY OF PRESENT ILLNESS: 62 year old homeless female arrives via ambulance for suspected alcohol abuse. Patient unable to ambulate without assistance. No reports of trauma or assault. No fall from height. No structures of height near patient. Denies suicidal or homicidal ideation. Admits to vodka use today. 911 was called after the patient was agitated on a city bus. REVIEW OF SYSTEMS: 10 systems reviewed and negative with the exception of the elements mentioned in the history of present illness PAST MEDICAL/SURGICAL HISTORY: History of alcoholism. no anticoagulant use, no relevant medical/surgical history SOCIAL HISTORY: Positive for witnessed and self disclosed alcohol use PHYSICAL EXAM 1) GENERAL: Well-developed, well-nourished, alert and oriented. Agitated, yelling Answering questions appropriately.Smells of alcohol. 2) HEAD: Normocephalic, atraumatic 3) HEENT: Pupils equal, round, reactive to light bilaterally. Negative Horners. Nasopharynx, oropharynx, clear. No deformity or angulation of nose. No septal hematoma. No rhinorrhea. No oral trauma. Ears bilaterally with normal tympanic membranes. No hemotympanum. No fluid or blood in the external auditory canal. No raccoon eyes. No Mccray sign. Teeth are normally aligned with no gross malocclusion, TMJ bilaterally nontender, facial bones nontender including the zygomatic arch, maxilla mandible. 4) NECK: No cervical collar is on. Posterior cervical spine is nontender, no stepoff, no effusion. Full range of motion which does not elicit any midline cervical spine pain, no posterior midline tenderness, no step-off. 5) LUNGS: Clear to auscultation bilaterally, no wheezes, no rhonchi, no retractions. No obvious signs of trauma. No chest wall pain. No flaring, no grunting. Moving symmetrically. No crepitus. 6) HEART: [Regular rate and rhythm, 7) ABDOMEN: No guarding, no rebound, no focal tenderness, no peritoneal signs, no signs of trauma, no ecchymosis 8) MUSCULOSKELETAL: Moving all extremities, no focal areas of tenderness, no obvious trauma. 9) BACK: No midline vertebral tenderness, no fluctuance, no step-off, no obvious trauma, no visual or palpable abnormality. 10) SKIN: No laceration. No abrasion DIFFERENTIAL DIAGNOSIS: In no particular orderincluding but not limited to hypoglycemia, infectious process, electrolyte abnormality, head injury and intoxicants. (Symone Chopra) Constitutional: Initial Vital Signs Temperature (C) 36.8 C 12/22/17 15:55 Heart Rate 88 12/22/17 15:55 Respiratory Rate 18 12/22/17 15:55 Blood Pressure 101/65 12/22/17 15:55 O2 Sat (%) 94 12/22/17 15:55 O2 Delivery Mode Room Air Allergies/Adverse Reactions: No Known Allergies Allergy (Verified 12/13/17 18:13) Home Medications: Medication Instructions Recorded Gabapentin [Neurontin] 1,200 mg PO TID 11/10/16 Naltrexone HCl 50 mg PO DAILY 12/14/16 Aspirin EC [Aspirin EC 81 mg (*)] 162 mg PO DAILY 06/08/17 DULoxetine [Cymbalta 60 MG (*)] 60 mg PO DAILY #30 cap 12/16/17 Losartan Potassium [Cozaar 50 mg 50 mg PO DAILY #30 tab 12/16/17 (*)] Quetiapine Fumarate [Seroquel Xr] 200 mg PO HS #30 tab.er.24h 12/16/17 B-Complex Tablet 12/18/17 Cymbalta 12/18/17 Hydrocortisone 12/18/17 Valacyclovir HCl 12/18/17 Medical Decision Making ED Course/Re-evaluation: 3:56 p.m.: Patient has successfully ambulated without assistance, witnessed by myself at this time. She denies suicidal or homicidal ideation. Admits to alcohol use. I do not think she meets criteria for an M1 hold. I do think she would [facility]. Law enforcement will be contacted to transport patient to the [facility] .I saw this patient independently based on established practice protocols. Care of patient under supervision of secondary supervising physician Dr Delia Hernandez . (Keysha,Symone Caity) The patient was evaluated and managed by the physician assistant vice president. I have reviewed this chart and I agree with the findings and plan of care as documented , as indicated by my signature. I am the secondary supervising physician. ( Delia Hernandez) - Data Points Medications Given: Discontinued Medications Chlordiazepoxide (Librium 25 Mg Prepack#6) 1 btl TAKEHOME EDNOW ONE Stop: 12/22/17 15:59 Last Admin: 12/22/17 16:09 Dose: 1 btl Departure - Departure Disposition: Home, Routine, Self-Care Clinical Impression: Alcohol use Condition: Good Instructions: Chlordiazepoxide (By mouth), Abuse of Alcohol (ED) Referrals: [facility] [Outside] - 1-2 days without fail
[2017-12-22 17:06] VITALS: BP 110/87
== END 2017-12-22 17:09 | disposition home or self-care (01) ==
LOC: EDUNIT#
DX: F10.929 Alcohol use, unspecified with intoxication, unspecified (principal)

== ENCOUNTER 2017-12-26 19:11 | Emergency (ER) | payer SELFPAY ==
--- NOTE | 2017-12-26 19:31 | EDPHY ---
H & P Stated Complaint: ETOH Source: Patient - Personal History Tetanus Vaccine Date: 2010 - Medical/Surgical History Hx Asthma: No Hx Chronic Respiratory Disease: No Hx Diabetes: No Hx Cardiac Disease: Yes Hx Renal Disease: No Hx Cirrhosis: No Hx Alcoholism: Yes Hx HIV/AIDS: No Hx Splenectomy or Spleen Trauma: No Other PMH: HTN, Insommia/depression, ETOH abuse, herpes, Hyperlipidemia, Anxiety - Social History Smoking Status: Never smoked Time Seen by Provider: 12/26/17 19:29 HPI/ROS: CHIEF COMPLAINT: Alcohol intoxication HISTORY OF PRESENT ILLNESS: 62-year-old female with alcoholism presents with alcohol intoxication. She was found at a bus stop with obvious alcohol intoxication. She drank 1 pint of vodka today. She did not fall or hurt herself, no vomiting. No recent illness. She is currently living at the senior living. REVIEW OF SYSTEMS: complete 10 point ROS reviewed and is negative except for the noted elements in the HPI (Milla Roberson) - Physical Exam Exam: General Appearance: Alert, cooperative, speech is slurred Eyes: Pupils equal and round, no conjunctival pallor or injection ENT, Mouth: Mucous membranes moist Neck: Normal inspection Respiratory: Lungs are clear to auscultation Cardiovascular: Regular rate and rhythm Gastrointestinal: Abdomen is soft and nontender Neurological: A&O, nonfocal exam Skin: Warm and dry, no rash Extremities: Normal inspection Psychiatric: Mood and affect normal (Milla Roberson) Constitutional: Initial Vital Signs Temperature (C) 36.8 C 12/26/17 19:18 Heart Rate 81 12/26/17 19:18 Respiratory Rate 20 12/26/17 19:18 Blood Pressure 105/83 H 12/26/17 19:18 O2 Sat (%) 88 L 12/26/17 19:18 O2 Delivery Mode Nasal Cannula O2 (L/minute) 2 Allergies/Adverse Reactions: No Known Allergies Allergy (Verified 12/26/17 19:18) Home Medications: Medication Instructions Recorded Gabapentin [Neurontin] 1,200 mg PO TID 11/10/16 Naltrexone HCl 50 mg PO DAILY 12/14/16 Aspirin EC [Aspirin EC 81 mg (*)] 162 mg PO DAILY 06/08/17 DULoxetine [Cymbalta 60 MG (*)] 60 mg PO DAILY #30 cap 12/16/17 Losartan Potassium [Cozaar 50 mg 50 mg PO DAILY #30 tab 12/16/17 (*)] Quetiapine Fumarate [Seroquel Xr] 200 mg PO HS #30 tab.er.24h 12/16/17 B-Complex Tablet 12/18/17 Cymbalta 12/18/17 Hydrocortisone 12/18/17 Valacyclovir HCl 12/18/17 Medical Decision Making ED Course/Re-evaluation: 2044: signed over to Dr. Patel at shift change. (Milla Roberson) 2317: Patient ambulatory. No acute distress. Clinically sober. Will try to get to the [facility]. (Marcelino Courtney) Other Provider: Care assumed from Dr. Roberson at 8:00 p.m. And patient personally examined. She admits to drinking vodka today and is slurring her speech. Denies trauma or suicidal intent. Glucose 107. Signed out to Dr. Courtney with plan for serial exams until no longer intoxicated. (Keith Patel) - Data Points Laboratory Results: 12/26/17 20:20 POC Glucose 107 mg/dL H mg/dL (70-100) Point of Care Test Results: Chemistry 12/26/17 20:20 POC Glucose 107 mg/dL H mg/dL (70-100) Departure - Departure Disposition: Home, Routine, Self-Care Clinical Impression: Alcohol intoxication Qualifiers: Complication of substance-induced condition: uncomplicated Qualified Code(s): F10.920 - Alcohol use, unspecified with intoxication, uncomplicated Condition: Good Instructions: Alcohol Intoxication (ED) Additional Instructions: [facility] has walk-in appointments for the homeless at the following days/locations. No appointment is needed. Thursday 8-10 am @ [facility] 11 AM-1 PM @ [facility] Thursday 8-10:30 AM @ [facility] Thursday 8-10 AM @ [facility] 2-4 PM @ [facility] Thursday 8-10 AM @ [facility] Referrals: Marcelino Uriarte MD [Medical Doctor] - As per Instructions
[2017-12-26] MEDS ORDERED: chlordiazePOXIDE 25 MG CAP PO ONE (23:21)
[2017-12-26] MEDS ORDERED: CHLORDIAZEPOXIDE 25MG PREPK#6 BTL TAKEHOME ONE (23:21)
[2017-12-26] MEDS ORDERED: ONDANSETRON DISINTEGRATING 4 MG TAB PO ONE (23:25)
[2017-12-26] MEDS ORDERED: ONDANSETRON DISINTEGRATING 4 MG TAB ONE (23:26)
[2017-12-27 00:02] VITALS: BP 105/72
== END 2017-12-27 00:02 | disposition home or self-care (01) ==
LOC: EDUNIT#
DX: F10.920 Alcohol use, unspecified with intoxication, uncomplicated (principal)

== ENCOUNTER 2017-12-28 16:19 | Emergency (ER) | payer MEDICAID ==
--- NOTE | 2017-12-28 16:26 | EDPHY ---
H & P Time Seen by Provider: 12/28/17 16:26 HPI/ROS: HPI: This is a 62-year-old female who presents with Chief Complaint: Alcohol, fall Location: Body Quality: Fall Duration: Unknown Signs and Symptoms: No bleeding, no radiation, no numbness, no weakness, no tingling, no incontinence, no decreased range of motion, no swelling, no pain, no fever Timing: On Severity: Mild Context: Patient is well-known to this emergency room and to myself presents via EMS when they found her prone on the sidewalk. Patient admits to drinking alcohol today and does not remember where she was or how she got there today. She does not remember EMS picking her up and bring her in her to the emergency room. She denies any pain, shortness of breath, nausea, vomiting, tremors, anxiety. Modifying Factors: None Comment: ROS: A comprehensive 10 system review of systems is otherwise negative aside from elements mentioned in the history of present illness. MEDICAL/SURGICAL/SOCIAL HISTORY: Medical history: HTN, Insommia/depression, ETOH abuse, herpes, Hyperlipidemia, Anxiety Surgical history: Denies Social history: Homeless. Never smoked. CONSTITUTIONAL: Intoxicated, smells like alcohol, polite, elderly white female , awake and alert, no obvious distress HEENT: Abrasion noted to left forehead near scalp line no break in skin and no active bleeding. normocephalic, PERRL, EOMI. no globe entrapment, no raccoon eyes. no Mccray signs.Tympanic membranes clear. No tympanic membrane rupture. Nares patent; no septal hematoma. Oropharynx clear, no exudate and moist pink mucosa. No malocclusion. no dental trauma. Airway patent. No lymphadenopathy. NECK: supple, no midline tenderness, flexion 45 degrees, extension 45 degrees, right and left lateral flexion 45 degrees. No meningismus. Cardiovascular: Normal S1/S2, regular rate, regular rhythm, without murmur rub or gallop. PULMONARY/CHEST: Symmetrical and nontender. no crepitus. Clear to auscultation bilaterally. Good air movement. No accessory muscle usage. ABDOMEN: Soft, nondistended, nontender, no ecchymosis, no rebound, no guarding , no peritoneal signs, no masses or organomegaly. No CVAT. PELVIC: no pain with rocking; bilateral hips flexion 125 degrees, extension 30 degrees, with no pain internal rotation and no pain external rotation. BACK: No midline tenderness, no paraspinous spasm, deep tendon reflexes 2/2, no pain with straight leg raise EXTREMITIES: 2/2 pulses, no deformities, no clubbing, no cyanosis or edema. NEUROLOGICAL: no focal neuro deficits. GCS 15. SKIN: Warm and dry, no erythema. no rash. Good capillary refill. Source: Patient, EMS, Old records Exam Limitations: Intoxication - Personal History Tetanus Vaccine Date: 2010 - Medical/Surgical History Hx Asthma: No Hx Chronic Respiratory Disease: No Hx Diabetes: No Hx Cardiac Disease: Yes Hx Renal Disease: No Hx Cirrhosis: No Hx Alcoholism: Yes Hx HIV/AIDS: No Hx Splenectomy or Spleen Trauma: No Other PMH: HTN, Insommia/depression, ETOH abuse, herpes, Hyperlipidemia, Anxiety - Social History Smoking Status: Never smoked Constitutional: Initial Vital Signs Temperature (C) 36.9 C 12/28/17 16:25 Heart Rate 99 12/28/17 16:25 Respiratory Rate 14 12/28/17 16:25 Blood Pressure 113/73 12/28/17 16:25 O2 Sat (%) 83 L 12/28/17 16:25 O2 Delivery Mode Nasal Cannula O2 (L/minute) 3 Allergies/Adverse Reactions: No Known Allergies Allergy (Verified 12/26/17 19:18) Home Medications: Medication Instructions Recorded Gabapentin [Neurontin] 1,200 mg PO TID 11/10/16 Naltrexone HCl 50 mg PO DAILY 12/14/16 Aspirin EC [Aspirin EC 81 mg (*)] 162 mg PO DAILY 06/08/17 DULoxetine [Cymbalta 60 MG (*)] 60 mg PO DAILY #30 cap 12/16/17 Losartan Potassium [Cozaar 50 mg 50 mg PO DAILY #30 tab 12/16/17 (*)] Quetiapine Fumarate [Seroquel Xr] 200 mg PO HS #30 tab.er.24h 12/16/17 B-Complex Tablet 12/18/17 Cymbalta 12/18/17 Hydrocortisone 12/18/17 Valacyclovir HCl 12/18/17 levOFLOXACIN [levAQUIN (*)] 500 mg PO DAILY 6 Days tab 12/28/17 Medical Decision Making - Diagnostics Imaging Results: Imaging Impressions Chest X-Ray 12/28/17 16:29 Impression: Hypoventilatory chest with patchy basilar opacities that could be related to bronchitis/atelectasis and/or pneumonia. Head CT 12/28/17 16:29 Impression: 1. Negative. No subdural hematoma or acute intracranial process. 2. No acute fracture. Findings discussed with Emergency Department physician, Jazmni Edwards PA-C, on December 28, 2017 at 1704. ED Course/Re-evaluation: Vital signs reviewed upon arrival in show 83% on room air. Patient placed on 2 L nasal cannula will of with 94% on 2 L continuous. Chest x-ray to evaluate for rib fracture versus pneumothorax and head CT scan due to fall, intoxication and abrasion on forehead. Breathalyzer shows alcohol [id number]: Called by radiologist, Dr. Quinonez, who reports that head CT scan shows no acute intracranial process. Case management consult as patient refuses to [facility]. [facility] for follow-up. Case management also reports that they have filed in application with Judy Huizar for long-term alcohol treatment program. Chest x-ray shows Hypoventilatory chest with patchy basilar opacities that could be related to bronchitis/atelectasis and/or pneumonia. Given IV Levaquin 750 mg in the ER as high risk patient and a prescription for the same. 2024: Patient reassessed. Speaking more clearly and alert and oriented x 3. Walked to and from the bathroom without any difficulty. No ataxia noted. Patient will be discharged to the longterm. This patient was seen under the supervision of my secondary supervising physician. I evaluated care for this patient independently. Discussed this patient with Dr. Roberson. Differential Diagnosis: Altered mental status including but not limited to hypoglycemia, infectious process, electrolyte abnormality, head injury and intoxicants. - Data Points Medications Given: Discontinued Medications Levofloxacin/Dextrose (Levaquin 750 Mg (Premix)) 150 mls @ 100 mls/hr IV EDNOW ONE PRN Reason: Protocol Stop: 12/28/17 19:37 Last Admin: 12/28/17 18:33 Dose: 150 mls Levofloxacin (Levaquin) 750 mg PO EDNOW ONE PRN Reason: Protocol Stop: 12/28/17 17:40 Last Admin: 12/28/17 18:43 Dose: Not Given Departure - Departure Disposition: Home, Routine, Self-Care Clinical Impression: Lower respiratory infection (e.g., bronchitis, pneumonia, pneumonitis, pulmonitis) Alcohol intoxication Qualifiers: Complication of substance-induced condition: uncomplicated Qualified Code(s): F10.920 - Alcohol use, unspecified with intoxication, uncomplicated Forehead abrasion Qualifiers: Encounter type: initial encounter Qualified Code(s): S00.81XA - Abrasion of other part of head, initial encounter Condition: Fair Instructions: Abuse of Alcohol (ED), Community Acquired Pneumonia (ED) Additional Instructions: Please go directly to the longterm to stay overnight this evening. Take Levaquin as directed for early pneumonia. Please refrain from drinking alcohol excessively. Follow-up with the [facility]. Referrals: [facility],. [Clinic] - As per Instructions [facility],. [Clinic] - As per Instructions Prescriptions: levOFLOXACIN [levAQUIN (*)] 500 mg PO DAILY 6 Days tab
--- NOTE | 2017-12-28 17:19 | ASMTCMCOM ---
CM Note CM Note Notes: Patient is well known to this ED and CM. Today is her 10th EMS visit this year. Chart reviewed, including CM notes from an IP stay and discharge on 12/16/17. Patient did fill out an application for [facility]idential program prior to leaving [place] on 12/16/17. I have attempted to call Judy Chahal regarding the status of her application but was unable to get through as it is after 5 PM Patient is currently over 350 on brethalyzer but is able to tell me that she does still want to go to [facility]. I told her that if she is not admitted to the hospital, likely disposition will be to the [facility]. I told patient I would contact the [facility] and let them know an application to [facility] was sent on 12/16 and that they could/would follow up and help her get there if she STAYS at the [facility] to detox and seek further treatment. Patient is too intoxicated at this tirme to "discuss" this further but agrees to this plan. I have contacted Nadege at The [facility] . Patient is well known to her and is welcome to come for detox. I informed Nadege of patient's pending application to [facility] and encouraged her to discuss with patient if/when patient is there and able to follow through. This CM will attempt to contact Judy Chahal tomorrow morning when I return to the ED Date Signed: 12/28/2017 05:18 PM Electronically Signed By:Iza Delgado RN
[2017-12-28 20:09] VITALS: BP 105/72
[2017-12-28] MEDS ORDERED: chlordiazePOXIDE 25 MG CAP ONE (20:38)
[2017-12-28] MEDS ORDERED: chlordiazePOXIDE 25 MG CAP PO ONE (20:38)
[2017-12-28] MEDS ORDERED: ONDANSETRON DISINTEGRATING 4 MG TAB ONE (20:38)
--- NOTE | 2017-12-29 11:32 | ASMTCMCOM ---
CM Note CM Note Notes: Message left with "Mayra" at [facility] regarding status of patient's application. CM will continue to attempt helping patient seek shelter rehabilitation Date Signed: 12/29/2017 11:32 AM Electronically Signed By:Iza Delgado RN
== END 2017-12-28 20:41 | disposition home or self-care (01) ==
LOC: EDUNIT#
DX: J22 Unspecified acute lower respiratory infection (principal); F10.920 Alcohol use, unspecified with intoxication, uncomplicated; S00.81XA Abrasion of other part of head, initial encounter; W19.XXXA Unspecified fall, initial encounter; Y90.8 Blood alcohol level of 240 mg/100 ml or more; R40.2411 Glasgow coma scale score 13-15, in the field [EMT or ambulance]; Z59.0 Homelessness
CPT/HCPCS: 96365; J1956

== ENCOUNTER 2017-12-29 15:17 | Emergency (ER) | payer MEDICAID ==
--- NOTE | 2017-12-29 15:25 | EDPHY ---
HPI/HX/ROS/PE/MDM Narrative: CHIEF COMPLAINT: Alcohol intoxication, suicidal ideation HPI: The patient is a 62-year-old female with a history of alcoholism. She has been seen in the ED 5 of the last 7 nights, including last night, for alcohol related complaints. Today she was brought to the ED by EMS after she requested transport, saying she needs help and is suicidal. She has no specific plan. She admits to continued alcohol use. REVIEW OF SYSTEMS: Aside from elements discussed in the HPI, a comprehensive 10-point review of systems was reviewed and is negative. PMH:Alcoholism, CAD, PNA. SOCIAL HISTORY:Homeless, history of alcoholism. PHYSICAL EXAM: General:Patient is alert, in no acute distress. Smells of alcohol. ENT:Eyes are normal to inspection. ENT inspection normal. Neck: Normal inspection. Full range of motion. Respiratory:No respiratory distress. Breath sounds normal bilaterally. Cardiovascular: Regular rate and rhythm. Strong peripheral pulses. Normal cap refill. Abdomen:The abdomen is nontender to palpation. There are no peritoneal signs. There are normal bowel sounds. Back: Normal to inspection. No tenderness to palpation. Skin: Normal color. No rash. Warm and dry. Extremities: Normal appearance. Full range of motion. Neuro: Oriented x3. Normal motor function. Normal sensory function. Psych: Admits to SI. No plan. No HI. (Patrick Dang) ED Course: Patient evaluated by [facility] and placed on an M1 hold, signed by myself. They are attempting to place the patient at [facility]. Patient signed out to Dr. Courtney at 11pm. (Patrick Dang) MDM: 2328: Patient has been accepted by [facility]. Dr. Lentz has accepted. ( Marcelino Courtney) - Data Points Laboratory Results: Laboratory Results 12/29/17 16:25 12/29/17 16:25 12/29/17 12/29/17 12/29/17 16:25 16:25 15:35 WBC 5.82 10^3/uL 10^3/uL (3.80-9.50) RBC 4.26 10^6/uL 10^6/uL (4.18-5.33) Hgb 12.8 g/dL g/dL (12.6-16.3) Hct 39.1 % % (38.0-47.0) MCV 91.8 fL fL (81.5-99.8) MCH 30.0 pg pg (27.9-34.1) MCHC 32.7 g/dL g/dL (32.4-36.7) RDW 15.8 % H % (11.5-15.2) Plt Count 320 10^3/uL 10^3/uL (150-400) MPV 10.0 fL fL (8.7-11.7) Neut % (Auto) 53.2 % % (39.3-74.2) Lymph % (Auto) 28.5 % % (15.0-45.0) Bartholomew % (Auto) 11.0 % % (4.5-13.0) Eos % (Auto) 5.2 % % (0.6-7.6) Baso % (Auto) 1.9 % H % (0.3-1.7) Nucleat RBC Rel Count 0.0 % % (0.0-0.2) Absolute Neuts (auto) 3.10 10^3/uL 10^3/uL (1.70-6.50) Absolute Lymphs (auto) 1.66 10^3/uL 10^3/uL (1.00-3.00) Absolute Monos (auto) 0.64 10^3/uL 10^3/uL (0.30-0.80) Absolute Eos (auto) 0.30 10^3/uL 10^3/uL (0.03-0.40) Absolute Basos (auto) 0.11 10^3/uL H 10^3/uL (0.02-0.10) Absolute Nucleated RBC 0.00 10^3/uL 10^3/uL (0-0.01) Immature Gran % 0.2 % % (0.0-1.1) Immature Gran # 0.01 10^3/uL 10^3/uL (0.00-0.10) Sodium 138 mEq/L mEq/L (135-145) Potassium 4.1 mEq/L mEq/L (3.3-5.0) Chloride 104 mEq/L mEq/L (97-110) Carbon Dioxide 24 mEq/l mEq/l (22-31) Anion Gap 10 mEq/L mEq/L (6-14) BUN 10 mg/dL mg/dL (7-23) Creatinine 0.6 mg/dL mg/dL (0.6-1.0) Estimated GFR > 60 Glucose 85 mg/dL mg/dL (70-100) Calcium 8.6 mg/dL mg/dL (8.5-10.4) Urine Opiates Screen NEGATIVE (NEGATIVE) Urine Barbiturates NEGATIVE (NEGATIVE) Ur Phencyclidine Scrn NEGATIVE (NEGATIVE) Ur Amphetamine Screen NEGATIVE (NEGATIVE) U Benzodiazepines Scrn NON-NEGATIVE H (NEGATIVE) Urine Cocaine Screen NEGATIVE (NEGATIVE) U Marijuana (THC) Screen NEGATIVE (NEGATIVE) Ethyl Alcohol 294 mg/dL H mg/dL (0-10) General Initial Vital Signs: Initial Vital Signs Temperature (C) 36.6 C 12/29/17 15:32 Heart Rate 89 12/29/17 15:32 Respiratory Rate 16 12/29/17 15:32 Blood Pressure 145/93 H 12/29/17 15:32 O2 Sat (%) 92 12/29/17 15:32 O2 Delivery Mode Room Air Allergies/Adverse Reactions: No Known Allergies Allergy (Verified 12/26/17 19:18) Home Medications: Medication Instructions Recorded Gabapentin [Neurontin] 1,200 mg PO TID 11/10/16 Naltrexone HCl 50 mg PO DAILY 12/14/16 Aspirin EC [Aspirin EC 81 mg (*)] 162 mg PO DAILY 06/08/17 DULoxetine [Cymbalta 60 MG (*)] 60 mg PO DAILY #30 cap 12/16/17 Losartan Potassium [Cozaar 50 mg 50 mg PO DAILY #30 tab 12/16/17 (*)] Quetiapine Fumarate [Seroquel Xr] 200 mg PO HS #30 tab.er.24h 12/16/17 B-Complex Tablet 12/18/17 Cymbalta 12/18/17 Hydrocortisone 12/18/17 Valacyclovir HCl 12/18/17 levOFLOXACIN [levAQUIN (*)] 500 mg PO DAILY 6 Days tab 12/28/17 Departure - Departure Disposition: Other Psych, Not [facility] Clinical Impression: Alcohol dependence, Suicidal ideation, Depression Condition: Fair Referrals: Patient,NotPresent [Unknown] - As per Instructions
[2017-12-29 16:41] LABS: PLATELET COUNT 320 10^3/uL (150-400)
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
--- NOTE | 2017-12-29 23:33 | ASMTTCLDSP ---
TLC Discharge Disposition Disposition: Answers: Transfer Discharge Concerns/Recommendations: Notes: In consultation with [facility] ED physician, Patrick Dang MD concurred that pt appears to meet 27-65 criteria requiring psychiatric hospitalization as pt appears to be at risk of harm to self disabled due to a mental illness condition. For Transfers, Accepting [facility] Facility: For Transfers, Accepting Dr Lentz Psychiatrist: For Transfers, Reason Dual dx-med detox needed Patient is Being Transferred: Date Signed: 12/29/2017 11:32 PM Electronically Signed By:Angelica Guevara
[2017-12-29] MEDS ORDERED: ONDANSETRON DISINTEGRATING 4 MG TAB PO ONE (23:38)
[2017-12-29] MEDS ORDERED: chlordiazePOXIDE 25 MG CAP ONE (23:48)
[2017-12-29] MEDS ORDERED: LORazepam 1 MG TAB ONE (23:48)
[2017-12-29] MEDS ORDERED: LORazepam 1 MG TAB PO ONE (23:51)
[2017-12-29] MEDS ORDERED: chlordiazePOXIDE 25 MG CAP PO ONE (23:51)
[2017-12-30 00:01] VITALS: BP 150/96
== END 2017-12-30 02:29 ==
LOC: EDUNIT#
DX: F10.259 Alcohol dependence with alcohol-induced psychotic disorder, unspecified (principal); Y90.8 Blood alcohol level of 240 mg/100 ml or more
CPT/HCPCS: 80305; G0480

== ENCOUNTER 2018-01-04 18:38 | Emergency (ER) | payer MEDICAID ==
[2018-01-04] MEDS ORDERED: NS 1,000 ML IV ONE (19:03)
--- NOTE | 2018-01-04 19:03 | EDPHY ---
HPI/HX/ROS/PE/MDM Narrative: CHIEF COMPLAINT: EtOH HISTORY OF PRESENT ILLNESS: This patient is a homeless 62 year old female with history of hypertension, hyperlipidemia, arriving via EMS for evaluation of alcohol intoxication. She [facility] regarding her alcoholism in the past. Per nurse summary of EMS report, she was too intoxicated to check into the homeless [facility]pc this evening. Police came to take her to the [facility], but the patient complained of chest pain and 911 was called. The patient denies any co- ingestion or history of prescription drug abuse. She was recently admitted to [facility] for one night, but she does not feel she had adequate time to detox. No fever, chills, chest pain, shortness of breath, palpitations, vomiting , diarrhea, urinary complaints, headache, lightheadedness. REVIEW OF SYSTEMS: A comprehensive 10 system review of systems is otherwise negative aside from elements mentioned in the history of present illness and medical decision making. PAST MEDICAL HISTORY: Alcoholism. She is currently taking levofloxacin for pneumonia. Hypertension. Hyperlipidemia. SOCIAL HISTORY: Nonsmoker. Daily alcohol use. Currently homeless. VITAL SIGNS: Reviewed by me GENERAL: Appears intoxicated. Well-developed, well-nourished, resting comfortably in no respiratory distress. HEENT: Atraumatic. Eyes: No icterus, no injection. Mouth: moist mucous membranes. No erythema or lesions. Neck: supple with no adenopathy. LUNGS: Clear to auscultation bilaterally, no wheezes, rhonchi or rales. CHEST: No trauma seen, no crepitus or tenderness. CARDIAC: Regular rate and rhythm, no rubs, murmurs or gallops. ABDOMEN: Soft, nontender, nondistended, bowel sounds normal. BACK: No CVA tenderness. EXTREMITIES: No trauma. No edema. Range of motion is normal throughout. NEURO: Alert and oriented, grossly nonfocal. SKIN: Warm and dry, no rash. PSYCHIATRIC: Normal mentation, no agitation. Portions of this note were transcribed by a medical care manager. I personally performed a history, physical exam, medical decision making, and confirmed accuracy of information the transcribed note. ED Course: 62 y/o female presents with acute alcohol intoxication. She is well known to this ED with 13 prior visits in the past year. She states she does not want to go to the [facility] today. Per EMS report, the patient complained of chest pain. Plan for EKG. IV established by EMS. Plan to administer 1L IV NS. EKG: NSR with no ischemic changes. 19:50 Reassessed. Ambulatory. No complaints of chest pain at this time. Discussed options for discharge and alcohol recovery. Plan to discharge home in good condition to the [facility] with prescription for Librium. Follow up and return precautions discussed. She is comfortable with this plan. MDM: Diff dx considered included alcohol intoxication, alcohol withdrawl, ACS, substance abuse, alcoholism. - Data Points Medications Given: Discontinued Medications Chlordiazepoxide (Librium 25 Mg Prepack#6) 1 btl TAKEHOME EDNOW ONE Stop: 01/04/18 20:02 Last Admin: 01/04/18 20:08 Dose: 1 btl Sodium Chloride (Ns) 1,000 mls @ 0 mls/hr IV EDNOW ONE; Wide Open PRN Reason: Protocol Stop: 01/04/18 19:04 Last Admin: 01/04/18 19:08 Dose: 1,000 mls General Time Seen by Provider: 01/04/18 18:49 Initial Vital Signs: Initial Vital Signs Temperature (C) 36.8 C 01/04/18 18:41 Heart Rate 78 01/04/18 18:41 Respiratory Rate 16 01/04/18 18:41 Blood Pressure 96/43 L 01/04/18 18:41 O2 Sat (%) 91 L 01/04/18 18:41 O2 Delivery Mode Room Air Allergies/Adverse Reactions: No Known Allergies Allergy (Verified 01/05/18 20:46) Home Medications: Medication Instructions Recorded Gabapentin [Neurontin] 1,200 mg PO TID 11/10/16 Naltrexone HCl 50 mg PO DAILY 12/14/16 Aspirin EC [Aspirin EC 81 mg (*)] 162 mg PO DAILY 06/08/17 DULoxetine [Cymbalta 60 MG (*)] 60 mg PO DAILY #30 cap 12/16/17 Losartan Potassium [Cozaar 50 mg 50 mg PO DAILY #30 tab 12/16/17 (*)] Quetiapine Fumarate [Seroquel Xr] 200 mg PO HS #30 tab.er.24h 12/16/17 B-Complex Tablet 12/18/17 Cymbalta 12/18/17 Hydrocortisone 12/18/17 Valacyclovir HCl 12/18/17 levOFLOXACIN [levAQUIN (*)] 500 mg PO DAILY 6 Days tab 12/28/17 Departure - Departure Disposition: Home, Routine, Self-Care Clinical Impression: Alcoholic intoxication Qualifiers: Complication of substance-induced condition: uncomplicated Qualified Code(s): F10.920 - Alcohol use, unspecified with intoxication, uncomplicated Condition: Good Instructions: Chlordiazepoxide/Clidinium (By mouth), Alcohol Intoxication (ED) , Abuse of Alcohol (ED) Additional Instructions: Please refrain from abusing alcohol. Return to the emergency department for fever, vomiting, confusion, headache, abdominal pain or other worsening of condition. Please proceed to the [facility] for assistance in alcohol recovery. You have been given Librium to take as directed as needed for alcohol withdrawal. Follow-up with your primary care provider. Referrals: [facility] Detox 24 Hours [Outside] - As per Instructions [facility] [Outside] - As per Instructions Report Scribed for: Symone Woods Report Scribed by: Deysi Gonzalez Date of Report: 01/04/18 Time of Report: 19:57
[2018-01-04] MEDS ORDERED: CHLORDIAZEPOXIDE 25MG PREPK#6 BTL TAKEHOME ONE (20:01)
[2018-01-04 20:03] VITALS: BP 118/83
== END 2018-01-04 20:20 | disposition home or self-care (01) ==
LOC: EDUNIT#
DX: F10.920 Alcohol use, unspecified with intoxication, uncomplicated (principal); E86.9 Volume depletion, unspecified; I10 Essential (primary) hypertension; E78.5 Hyperlipidemia, unspecified; Z59.0 Homelessness

== ENCOUNTER 2018-01-05 00:41 | Emergency (ER) | payer MEDICAID ==
--- NOTE | 2018-01-05 00:45 | EDPHY ---
H & P Time Seen by Provider: 01/05/18 00:45 HPI/ROS: HPI CHIEF COMPLAINT: Alcohol Intoxication HISTORY OF PRESENT ILLNESS: 62-year-old female very familiar to myself history of alcoholism daily alcohol use, homelessness, was recently here in the emergency room last night for alcohol intoxication. Patient presents back to the emergency room by EMS for acute alcohol intoxication. She was found in the street crawling across the street intoxicated. Apparently she never made it to the [facility]. Upon arrival here vital signs stable. However breath alcohol 204. Past Medical History: Alcoholism daily alcohol use, hypertension, hyperlipidemia currently on Levaquin for pneumonia Past Surgical History: No recent surgical history Social History: Daily alcohol use. Homeless. Family History: Noncontributory. ROS REVIEW OF SYSTEMS: 10 Systems were reviewed and negative with the exception of the elements mentioned in the history of present illness. Exam Constitutional Intoxicated, triage nursing summary reviewed, vital signs reviewed, Sleepy, smells of alcohol Eyes normal conjunctivae and sclera, horizontal beating nystagmus consistent acute alcohol intoxication, otherwise pupils equal and react to light HENT normal inspection, atraumatic, moist mucus membranes, no epistaxis, neck supple/ no meningismus, no raccoon eyes. Respiratory clear to auscultation bilaterally, normal breath sounds, no respiratory distress, no wheezing. Cardiovascular rate normal, regular rhythm, no murmur, no edema, distal pulses normal. Gastrointestinal soft, non-tender, no rebound, no guarding, normal bowel sounds, no distension, no pulsatile mass. Genitourinary no CVA tenderness. Musculoskeletal no midline vertebral tenderness, full range of motion, no calf swelling, no tenderness of extremities, no meningismus, good pulses, neurovascularly intact. Skin pink, warm, & dry, no rash, skin atraumatic. Neurologic sleepy, intoxicated with alcohol,, alert and oriented x 3, AAOx3, moves all 4 extremities equally, motor intact, sensory intact, CN II-XII intact , , normal vision, normal speech. Psychiatric normal mood/affect. Heme/Lymph/Immune no lymphadenopathy. Differential Diagnosis: Includes but is not limited to in a particular order acute alcohol intoxication, alcohol abuse, dehydration, electrolyte abnormality , nausea vomiting from acute alcohol intoxication Medical Decision Making: Plan for this patient will allow her to rest here in sober. Once more appropriately sober with a stable gait answers questions appropriately she can be safely discharged Re-evaluation: 0330: Patient ambulated well throughout the emergency room. No acute distress. Clinically sober. Answers questions appropriately. 0711: Patient up ambulatory sober. Safe for discharge to the [facility]. Source: Patient, EMS - Personal History Tetanus Vaccine Date: 2010 - Medical/Surgical History Hx Asthma: No Hx Chronic Respiratory Disease: No Hx Diabetes: No Hx Cardiac Disease: Yes Hx Renal Disease: No Hx Cirrhosis: No Hx Alcoholism: Yes Hx HIV/AIDS: No Hx Splenectomy or Spleen Trauma: No Other PMH: HTN, Insommia/depression, ETOH abuse, herpes, Hyperlipidemia, Anxiety - Social History Smoking Status: Never smoked Constitutional: Initial Vital Signs Temperature (C) 36.7 C 01/05/18 00:45 Heart Rate 84 01/05/18 00:45 Respiratory Rate 18 01/05/18 00:45 Blood Pressure 114/78 01/05/18 00:45 O2 Sat (%) 94 01/05/18 00:45 O2 Delivery Mode Room Air O2 (L/minute) 2 Allergies/Adverse Reactions: No Known Allergies Allergy (Verified 01/05/18 00:45) Home Medications: Medication Instructions Recorded Gabapentin [Neurontin] 1,200 mg PO TID 11/10/16 Naltrexone HCl 50 mg PO DAILY 12/14/16 Aspirin EC [Aspirin EC 81 mg (*)] 162 mg PO DAILY 06/08/17 DULoxetine [Cymbalta 60 MG (*)] 60 mg PO DAILY #30 cap 12/16/17 Losartan Potassium [Cozaar 50 mg 50 mg PO DAILY #30 tab 12/16/17 (*)] Quetiapine Fumarate [Seroquel Xr] 200 mg PO HS #30 tab.er.24h 12/16/17 B-Complex Tablet 12/18/17 Cymbalta 12/18/17 Hydrocortisone 12/18/17 Valacyclovir HCl 12/18/17 levOFLOXACIN [levAQUIN (*)] 500 mg PO DAILY 6 Days tab 12/28/17 Departure - Departure Disposition: Home, Routine, Self-Care Clinical Impression: Alcohol intoxication Condition: Good Instructions: Alcohol Intoxication (ED), Abuse of Alcohol (ED) Additional Instructions: cleared for the [facility] Referrals: NONE *PRIMARY CARE P,. [Primary Care Provider] - As per Instructions
[2018-01-05 06:03] VITALS: BP 102/56
--- NOTE | 2018-01-05 17:16 | ASMTCMCOM ---
CM Note CM Note Notes: Received a call from Christina Shahbaz ([phone]) w/ [facility] regarding pt's application to [facility] in [place]. Christina was calling back returning ED CM Iza's call last week. Reviewed past CM Reports. Spoke w/Christina and she states pt's application has been received and is complete but there is a 4 month waitlist at this time. Christina was wondering if pt follows up outpatient with any clinics so that she may reach out to them if a position opens sooner. Pt has been followed by [facility] in the past; main # provided. Pt has been seen at [facility] in the past; main # provided and their Homeless Outreach RN Lula's # and ext provided as well. Also provided [facility] # since they are very familiar w/pt and pt is there quite often. Also encouraged Christina to call ED CM just in case we have any updated information or can assist w/reaching pt (i.e. contacting [employer] Homeless Outreach Team Officers, shelters, etc.). Next time pt presents to the ED consider contacting Christina to see if a bed has opened up CM available for further assistance if needed. Date Signed: 01/05/2018 05:15 PM Electronically Signed By:Cintia Hair RN
== END 2018-01-05 07:15 | disposition home or self-care (01) ==
LOC: EDUNIT#
DX: F10.129 Alcohol abuse with intoxication, unspecified (principal); J18.9 Pneumonia, unspecified organism; I10 Essential (primary) hypertension; Z59.0 Homelessness

== ENCOUNTER 2018-01-05 20:38 | Emergency (ER) | payer MEDICAID ==
--- NOTE | 2018-01-05 21:38 | EDPHY ---
H & P Stated Complaint: ETOH, found responsive to pain in park with O2 @88%RA. Arrives alert, NAD. Time Seen by Provider: 01/05/18 21:38 HPI/ROS: HPI CHIEF COMPLAINT: Alcohol Intoxication HISTORY OF PRESENT ILLNESS: 62-year-old female very familiar to myself, ice homeless, chronic alcohol use, presents emergency room for acute alcohol intoxication. She has no complaints however is intoxicated. Past Medical History: Daily alcohol use, alcoholism. Past Surgical History: No recent surgical history Social History: Homeless. Daily alcohol use. Family History: Noncontributory ROS REVIEW OF SYSTEMS: 10 Systems were reviewed and negative with the exception of the elements mentioned in the history of present illness. Exam Constitutional Intoxicated, triage nursing summary reviewed, vital signs reviewed, Sleepy, smells of alcohol Eyes normal conjunctivae and sclera, horizontal beating nystagmus consistent acute alcohol intoxication, otherwise pupils equal and react to light HENT normal inspection, atraumatic, moist mucus membranes, no epistaxis, neck supple/ no meningismus, no raccoon eyes. Respiratory clear to auscultation bilaterally, normal breath sounds, no respiratory distress, no wheezing. Cardiovascular rate normal, regular rhythm, no murmur, no edema, distal pulses normal. Gastrointestinal soft, non-tender, no rebound, no guarding, normal bowel sounds, no distension, no pulsatile mass. Genitourinary no CVA tenderness. Musculoskeletal no midline vertebral tenderness, full range of motion, no calf swelling, no tenderness of extremities, no meningismus, good pulses, neurovascularly intact. Skin pink, warm, & dry, no rash, skin atraumatic. Neurologic sleepy, intoxicated with alcohol,, alert and oriented x 3, AAOx3, moves all 4 extremities equally, motor intact, sensory intact, CN II-XII intact , , normal vision, normal speech. Psychiatric normal mood/affect. Heme/Lymph/Immune no lymphadenopathy. Differential Diagnosis: Includes but is not limited to in a particular order acute alcohol intoxication, alcohol abuse, dehydration, electrolyte abnormality , nausea vomiting from acute alcohol intoxication Medical Decision Making: Plan for this patient breath alcohol. Re-evaluate. Monitor for sobriety monitor for worsening condition Re-evaluation: Patient breath alcohol 219. 2200: Patient ambulated well to the bathroom without any difficulty. Steady gait. Source: Patient, EMS - Personal History Current Tetanus/Diphtheria Vaccine: Unsure Current Tetanus Diphtheria and Acellular Pertussis (TDAP): Unsure Tetanus Vaccine Date: 2010 - Medical/Surgical History Hx Asthma: No Hx Chronic Respiratory Disease: No Hx Diabetes: No Hx Cardiac Disease: Yes Hx Renal Disease: No Hx Cirrhosis: No Hx Alcoholism: Yes Hx HIV/AIDS: No Hx Splenectomy or Spleen Trauma: No Other PMH: HTN, Insommia/depression, ETOH abuse, herpes, Hyperlipidemia, Anxiety - Social History Smoking Status: Never smoked Constitutional: Initial Vital Signs Temperature (C) 36.6 C 01/05/18 20:49 Heart Rate 90 01/05/18 20:49 Respiratory Rate 20 01/05/18 20:49 Blood Pressure 130/87 H 01/05/18 20:49 O2 Sat (%) 94 01/05/18 20:49 O2 Delivery Mode Room Air Allergies/Adverse Reactions: No Known Allergies Allergy (Verified 01/05/18 20:46) Home Medications: Medication Instructions Recorded Gabapentin [Neurontin] 1,200 mg PO TID 11/10/16 Naltrexone HCl 50 mg PO DAILY 12/14/16 Aspirin EC [Aspirin EC 81 mg (*)] 162 mg PO DAILY 06/08/17 DULoxetine [Cymbalta 60 MG (*)] 60 mg PO DAILY #30 cap 12/16/17 Losartan Potassium [Cozaar 50 mg 50 mg PO DAILY #30 tab 12/16/17 (*)] Quetiapine Fumarate [Seroquel Xr] 200 mg PO HS #30 tab.er.24h 12/16/17 B-Complex Tablet 12/18/17 Cymbalta 12/18/17 Hydrocortisone 12/18/17 Valacyclovir HCl 12/18/17 levOFLOXACIN [levAQUIN (*)] 500 mg PO DAILY 6 Days tab 12/28/17 Departure - Departure Disposition: Home, Routine, Self-Care Clinical Impression: Alcohol intoxication Qualifiers: Complication of substance-induced condition: uncomplicated Qualified Code(s): F10.920 - Alcohol use, unspecified with intoxication, uncomplicated Condition: Good Instructions: Alcohol Intoxication (ED), Abuse of Alcohol (ED) Referrals: NONE *PRIMARY CARE P,. [Primary Care Provider] - As per Instructions
[2018-01-05] MEDS ORDERED: CHLORDIAZEPOXIDE 25MG PREPK#6 BTL TAKEHOME ONE (22:29)
[2018-01-06] VITALS: BP 120/76
== END 2018-01-06 00:32 | disposition home or self-care (01) ==
LOC: EDUNIT#
DX: F10.220 Alcohol dependence with intoxication, uncomplicated (principal); I10 Essential (primary) hypertension

== ENCOUNTER 2018-01-15 10:23 | Emergency (ER) | payer MEDICAID ==
--- NOTE | 2018-01-15 10:32 | EDPHY ---
General Time Seen by Provider: 01/15/18 10:25 Narrative: CHIEF COMPLAINT: Alcohol intoxication HISTORY OF PRESENT ILLNESS: Patient presents by EMS and is seen at time arrival. Her complaint is toxication. EMS reports that please for contacted by a bystander is she was reportedly found to be intoxicated in public. She was initially complaining of pain to EMS but is no longer complaining of pain. She will not provide any modifying factors from me. She denies any trauma. She states that she is sleeping at the custodial and not sleeping outside at night. She does report heavy alcohol ingestion daily. He denies any chest pain or shortness of breath. No abdominal pain. REVIEW OF SYSTEMS: 10 systems were reviewed and negative with the exception of the elements mentioned in the history of present illness. PCP: [facility] SPECIALISTS: [facility] PAST MEDICAL HISTORY: Alcoholism PAST SURGICAL HISTORY: No recent surgical history SOCIAL HISTORY: Daily alcohol ingestion. Currently homeless and living at the local custodial. FAMILY HISTORY: Noncontributory EXAMINATION: General Appearance: Alert, no distress. Ambulatory in complete sentences. odor of alcohol about her person Head: normocephalic, atraumatic. No outward signs of trauma. no depression. Eyes: Pupils equal and round, no conjunctival pallor or injection ENT, Mouth: Mucous membranes moist. Airway patent Neck: Normal inspection, supple, non-tender Respiratory: Lungs are clear to auscultation Cardiovascular: Regular rate and rhythm. No murmur Gastrointestinal: Abdomen is soft and nontender Back: non-tender, no bony abnormalities Neurological: A&O, strength is symmetric in all 4 limbs. Skin: Warm and dry, no rash Extremities: Nontender, no pedal edema DIFFERENTIAL DIAGNOSES: Including but not limited to alcohol dependency, acute alcohol intoxication, dehydration, alcoholic ketoacidosis, DTs MDM: 10:25 a.m. Acute alcohol intoxication in patient with established history of alcohol dependency. She is awake alert. She is conversing in full sentences. She does have a very strong odor of alcohol about her. She has no complaints of pain. Assigned within normal limits for this patient. She does not exhibit any evidence of delirium tremens or alcohol withdrawal. Do feel she will be stable for transportation to the [facility] for supervised detoxification when she is ambulatory 12:55 p.m. Patient re-evaluated. She is conversing in full sentences with no mumbling or incoherent speech. She is ambulatory emergency depart without assistance with a normal, steady gait. She does not list. She does not fall. I do feel she is stable for discharge. She is declining the [facility], and she is not on an arc hold. I do feel it is reasonable for her to be discharged and her to travel by bus to [facility] as she is planning to do so. Discharged in stable condition with no clinical evidence of intoxication. SUPERVISION: This patient was independently evaluated without direct involvement of or examination by the attending physician. CONSULTATION: None - History Smoking Status: Never smoked - Objective Vital Signs: Initial Vital Signs Temperature (C) 98.1 F 01/15/18 10:27 Heart Rate 98 01/15/18 10:27 Respiratory Rate 18 01/15/18 10:27 Blood Pressure 110/68 01/15/18 10:27 O2 Sat (%) 91 L 01/15/18 10:27 O2 Delivery Mode Room Air Allergies/Adverse Reactions: No Known Allergies Allergy (Verified 01/05/18 20:46) Home Medications: Medication Instructions Recorded Gabapentin [Neurontin] 1,200 mg PO TID 11/10/16 Naltrexone HCl 50 mg PO DAILY 12/14/16 Aspirin EC [Aspirin EC 81 mg (*)] 162 mg PO DAILY 06/08/17 DULoxetine [Cymbalta 60 MG (*)] 60 mg PO DAILY #30 cap 12/16/17 Losartan Potassium [Cozaar 50 mg 50 mg PO DAILY #30 tab 12/16/17 (*)] Quetiapine Fumarate [Seroquel Xr] 200 mg PO HS #30 tab.er.24h 12/16/17 B-Complex Tablet 12/18/17 Cymbalta 12/18/17 Hydrocortisone 12/18/17 Valacyclovir HCl 12/18/17 levOFLOXACIN [levAQUIN (*)] 500 mg PO DAILY 6 Days tab 12/28/17 Departure - Departure Disposition: Home, Routine, Self-Care Clinical Impression: Alcohol dependence Qualifiers: Substance use status: uncomplicated Qualified Code(s): F10.20 - Alcohol dependence, uncomplicated Alcohol intoxication Qualifiers: Complication of substance-induced condition: uncomplicated Qualified Code(s): F10.920 - Alcohol use, unspecified with intoxication, uncomplicated Condition: Good Instructions: Alcohol Intoxication (ED), Abuse of Alcohol (ED) Additional Instructions: You have a follow up appointment at [facility] on January 18 at 9:00 AM for "your knees" as well as a therapy appointment at 10:00 AM. You will see your Prevocational/Rehabilitation Counselor, Jackelin Griffin after your therapy You are still on the waiting list at [facility] for rehabilitation. It is important that you stay in contact with your Prevocational/Rehabilitation Counselor at [facility] (Jackelin) and check in for messages at [facility]. This is where [facility] will contact you when a rehab bed becomes available Referrals: [facility],. [Clinic] - As per Instructions [facility],. [Clinic] - As per Instructions
[2018-01-15 13:13] VITALS: BP 103/80
--- NOTE | 2018-01-15 13:15 | ASMTCMCOM ---
CM Note CM Note Notes: CM continues to follow up on status of patient's pending application to [facility]. I have spoken with Christina [facility] and updated her with requested documentation: current TB testing, recent behavioral health evaluation (T[facility] report from 12/29/17), and completed ADRIANA. Patient remains on waiting list for [facility] and is aware that she will need to check in frequently at [facility] for messages, and follow up as scheduled with her provides at [facility]. These are the first 2 places [facility] will attempt to contact patient regarding bed availability I have contacted patients Christmas Tree Contractor at [facility], Jackelin Griffin and confirmed patient's upcoming appointments on Thursday, January 18 for both therapy and medical (knees) issues. Patient is aware of these appointments and I have added the date and time to her discharge instructions. Patient is still interested in getting to [facility] and is frustrated with the delay. She denies seeking services at [facility] or going to AA meetings. I reminded her that these are things she can do proactively while she is waiting for a bed at [facility]. She continues to reside at [facility] Date Signed: 01/15/2018 01:15 PM Electronically Signed By:Iza Delgado RN
== END 2018-01-15 13:13 | disposition home or self-care (01) ==
LOC: EDUNIT#
DX: F10.920 Alcohol use, unspecified with intoxication, uncomplicated (principal); Z59.0 Homelessness

== ENCOUNTER 2018-01-15 15:20 | Emergency (ER) | payer MEDICAID ==
--- NOTE | 2018-01-15 15:52 | EDPHY ---
General - History Smoking Status: Never smoked Time Seen by Provider: 01/15/18 15:46 Narrative: CHIEF COMPLAINT: Fall, chipped my tooth HISTORY OF PRESENT ILLNESS: Patient presents by EMS with reports of fall, and "I chipped my tooth." I evaluated the patient this morning emergency department. She states that she left began to drink again. She says that "I got drunk and I fell." She states that she thinks she struck her tooth on the curb. She does not think she lost consciousness. She has minimal headache but she has severe dental pain where she chipped her upper tooth. She denies any neck pain. She has no chest, back or abdominal pain aside from chronic back pain. No numbness or tingling. No visual disturbance. No vomiting. Dental pain is worse with exposure to air and opening her mouth. Improved at rest. No radiating complaints. No other associated complaints or modifying factors. REVIEW OF SYSTEMS: 10 systems were reviewed and negative with the exception of the elements mentioned in the history of present illness. PCP: [facility] SPECIALISTS: None PAST MEDICAL HISTORY: Hypertension, alcohol dependency, insomnia, depression, dyslipidemia, herpes simplex, anxiety PAST SURGICAL HISTORY: No recent surgeries SOCIAL HISTORY: Daily alcohol ingestion. Currently homeless FAMILY HISTORY: Noncontributory EXAMINATION: General Appearance: Alert, no distress. Strong odor of alcohol Head: normocephalic, atraumatic. No Mccray sign. No raccoon eyes. No depression deformity. Eyes: Pupils equal and round, no conjunctival pallor or injection ENT, Mouth: Mucous membranes moist. Partially fractured left lateral incisor 8. Airway widely patent. No trismus. Neck: C-collar in place. Midline trachea. No crepitus. I did not remove the C-collar. Respiratory: Lungs are clear to auscultation Cardiovascular: Regular rate and rhythm. No murmur Gastrointestinal: Abdomen is soft and nontender Back: non-tender, no bony abnormalities Neurological: GCS 15. A&O, nonfocal, strength is symmetric and elbows, kindergartner, knees. I did not test gait. Skin: Warm and dry, no rash. Superficial abrasion of the upper lip. No laceration or puncture of the face, arms or Extremities: Nontender, no pedal edema Psychiatric: Mood and affect normal DIFFERENTIAL DIAGNOSES: Including but not limited to closed head injury, concussion, contusion, intracranial hemorrhage, fracture, dental fracture, alveolar fracture MDM: 3:45 p.m. Mechanical fall with closed head injury and partial tooth fracture. She is conversing appropriately but does appear to be intoxicated. She admits to drinking after discharge from here earlier. She has no focal findings. Given her intoxication I have ordered CT scan of the head cervical spine as we cannot clear by Nexus, NOC or [place] criteria. She is in no acute distress. 4:35 p.m. Case management has obtained an appointment for the patient 1 week from Thursday for her dental injury. CT scans are pending. 4:55 p.m. Notified by radiologist Dr. Campuzano. No acute findings on the CT scan of the head cervical spine. I have discussed the case with Dr. Hernandez and she will evaluate the patient for C-collar clearance. 5:[address] Hernandez has evaluated the patient and cleared her cervical collar. At this point I do feel she is stable for discharge to the arc for supervised detoxification. She is on an arc hold by [place] [facility] and they will transport her. She has an appoint with dental aid on the . We discussed follow up primary care physician. We discussed ED precautions. Discharged in stable condition. SUPERVISION: Patient was evaluated and examined in conjunction with my secondary supervising physician as documented. We have both examined the patient. CONSULTATION: None (Hardik Kidd) This patient was evaluated and managed by IVELISSE Kidd. I agree with the plan of care. I removed the patient's cervical collar after interviewing and examining her--she has no midline cervical pain and no pain with AROM. I am the secondary supervising physician. (Delia Hernandez) - Objective Vital Signs: Initial Vital Signs Temperature (C) 36.8 C 01/15/18 15:20 Heart Rate 89 01/15/18 15:20 Respiratory Rate 16 01/15/18 15:20 Blood Pressure 99/76 L 01/15/18 15:20 O2 Sat (%) 92 01/15/18 15:20 O2 Delivery Mode Room Air Allergies/Adverse Reactions: No Known Allergies Allergy (Verified 01/17/18 03:00) Home Medications: Medication Instructions Recorded Gabapentin [Neurontin] 1,200 mg PO TID 11/10/16 Naltrexone HCl 50 mg PO DAILY 12/14/16 Aspirin EC [Aspirin EC 81 mg (*)] 162 mg PO DAILY 06/08/17 DULoxetine [Cymbalta 60 MG (*)] 60 mg PO DAILY #30 cap 12/16/17 Losartan Potassium [Cozaar 50 mg 50 mg PO DAILY #30 tab 12/16/17 (*)] Quetiapine Fumarate [Seroquel Xr] 200 mg PO HS #30 tab.er.24h 12/16/17 B-Complex Tablet 12/18/17 Cymbalta 12/18/17 Hydrocortisone 12/18/17 Valacyclovir HCl 12/18/17 levOFLOXACIN [levAQUIN (*)] 500 mg PO DAILY 6 Days tab 12/28/17 Medications Given: Discontinued Medications Benzocaine (Hurricaine [place]) 1 each MM EDNOW ONE Stop: 01/15/18 15:55 Last Admin: 01/15/18 16:13 Dose: 1 each Chlordiazepoxide (Librium 25 Mg Prepack#6) 1 btl TAKEHOME EDNOW ONE Stop: 01/15/18 17:16 Last Admin: 01/15/18 17:23 Dose: 1 btl Chlordiazepoxide HCl (Librium) 25 mg PO EDNOW ONE Stop: 01/15/18 17:34 Last Admin: 01/15/18 17:37 Dose: 25 mg Departure - Departure Disposition: Law Enforcement/Court/Fdc Clinical Impression: Closed head injury, Tooth fracture Condition: Good Instructions: Chlordiazepoxide (By mouth), Concussion (ED), Head Injury (ED), Alcohol Intoxication (ED), Abuse of Alcohol (ED), Acute Dental Trauma (ED) Additional Instructions: You have an appointment scheduled with [facility] in [place] on January 24 at 10:00 AM. I have informed your Lacquer Coater, Jackelin at [facility] of this appointment as well. [facility] [address] [place] [address] PLEASE also remember your appointments at The [facility] on January 18 @ 9: 00 AM and 10:00 AM The [facility] [address] [place] [address] Referrals: [facility],. [Clinic] - As per Instructions Liseth Melendez MD [Medical Doctor] - As per Instructions [facility],. [Clinic] - As per Instructions Devendra Gill DDS [Doctor of Dental Surgery] - As per Instructions
[2018-01-15] MEDS ORDERED: BENZOCAINE UNIT DOSE SPRAY HURRICAINE MM ONE (15:54)
--- NOTE | 2018-01-15 16:51 | ASMTCMCOM ---
CM Note CM Note Notes: Patient returns to the ER via EMS status post fall/chipped tooth. She admits to drinking alcohol upon leaving ER several hours ago. At this time patient is intoxicated and on an ARC hold. I have contacted her Bobbin Winder, Jackelin Griffin at [facility] to inform her of patient's ER return, as well as the need for follow up Dental Care at [facility] (appointment scheduled for January 24 at 10:00). Jackelin will follow up with patient on Thursday, January 18 (scheduled appointment(s) at The [facility]), and do her best to have patient follow through with her dental appointment on 01/24. I spoke with Roxane at [facility] ([facility]) to confirm that patient is on an [facility]C hold and patient will be transported there via [facility] once she is medically cleared. Roxane is familiar with patient and aware of her status of waiting for a bed at [facility]. They will do their best to keep patient (at The [facility]) as long as possible Date Signed: 01/15/2018 04:51 PM Electronically Signed By:Iza Delgado RN
[2018-01-15] MEDS ORDERED: CHLORDIAZEPOXIDE 25MG PREPK#6 BTL TAKEHOME ONE (17:15)
[2018-01-15] MEDS ORDERED: chlordiazePOXIDE 25 MG CAP PO ONE (17:33)
[2018-01-15 17:39] VITALS: BP 102/70
== END 2018-01-15 17:37 ==
LOC: EDUNIT#
DX: S02.5XXA Fracture of tooth (traumatic), initial encounter for closed fracture (principal); S09.90XA Unspecified injury of head, initial encounter; W19.XXXA Unspecified fall, initial encounter; F10.920 Alcohol use, unspecified with intoxication, uncomplicated; R40.2412 Glasgow coma scale score 13-15, at arrival to emergency department; I10 Essential (primary) hypertension; G47.00 Insomnia, unspecified; F32.9 Major depressive disorder, single episode, unspecified; E78.5 Hyperlipidemia, unspecified; Z59.0 Homelessness

== ENCOUNTER 2018-01-17 02:53 | Emergency (ER) | payer MEDICAID ==
--- NOTE | 2018-01-17 03:03 | EDPHY ---
H & P Time Seen by Provider: 01/17/18 03:03 HPI/ROS: HPI CHIEF COMPLAINT: Alcohol Intoxication, cold HISTORY OF PRESENT ILLNESS: 62-year-old female, very familiar to myself, history of alcoholism daily alcohol use, additionally homeless, presents emergency room by EMS for acute alcohol intoxication and cold exposure. She arrives to the emergency room highly intoxicated. It is noted however unable to get an oral temperature. Will obtain core temperature. Her extremities are cool to touch better core appears warm. she denies any medical complaints. Intoxicated with alcohol. Past Medical History: Longstanding history of alcoholism and alcohol use. Past Surgical History: No recent surgery Social History: Pre homeless, daily alcoholism. Daily alcohol use. Family History: Noncontributory ROS REVIEW OF SYSTEMS: 10 Systems were reviewed and negative with the exception of the elements mentioned in the history of present illness. Exam Constitutional smells of alcohol, Intoxicated, triage nursing summary reviewed , vital signs reviewed, Sleepy, smells of alcohol vital signs noted. Unable to obtain oral temp at this time. Will check core temp. Eyes normal conjunctivae and sclera, horizontal beating nystagmus consistent acute alcohol intoxication, otherwise pupils equal and react to light HENT normal inspection, atraumatic, moist mucus membranes, no epistaxis, neck supple/ no meningismus, no raccoon eyes. Respiratory clear to auscultation bilaterally, normal breath sounds, no respiratory distress, no wheezing. Cardiovascular rate normal, regular rhythm, no murmur, no edema, distal pulses normal. Gastrointestinal soft, non-tender, no rebound, no guarding, normal bowel sounds, no distension, no pulsatile mass. Genitourinary no CVA tenderness. Musculoskeletal no midline vertebral tenderness, full range of motion, no calf swelling, no tenderness of extremities, no meningismus, good pulses, neurovascularly intact. Skin pink, warm, & dry, no rash, skin atraumatic. Neurologic sleepy, intoxicated with alcohol,, alert and oriented x 3, AAOx3, moves all 4 extremities equally, motor intact, sensory intact, CN II-XII intact , , normal vision, normal speech. Psychiatric normal mood/affect. Heme/Lymph/Immune no lymphadenopathy. Differential Diagnosis: Includes but is not limited to in a particular order acute alcohol intoxication, alcohol abuse, dehydration, electrolyte abnormality , nausea vomiting from acute alcohol intoxication Medical Decision Making: Plan for this patient IV establishment blood draw, serum alcohol level, electrolytes, gentle IV fluids, warm fluids, warm blankets , he warmer, obtain core temperature. Re-evaluation: Serum alcohol level 287 at 4:30 a.m.. Patient's hypothermic 34 degrees rectally. Actively being warmed. 0702: Patient re-evaluated this time. Patient is sober. She is not hypothermic anymore. She is safe for discharge mentating in acting appropriately. Highly recommend she refrain from drinking alcohol. Source: Patient, EMS - Personal History Tetanus Vaccine Date: 2010 - Medical/Surgical History Hx Asthma: No Hx Chronic Respiratory Disease: No Hx Diabetes: No Hx Cardiac Disease: Yes Hx Renal Disease: No Hx Cirrhosis: No Hx Alcoholism: Yes Hx HIV/AIDS: No Hx Splenectomy or Spleen Trauma: No Other PMH: HTN, Insommia/depression, ETOH abuse, herpes, Hyperlipidemia, Anxiety - Social History Smoking Status: Never smoked Constitutional: Initial Vital Signs Temperature (C) 34.4 C L 01/17/18 02:55 Heart Rate 73 01/17/18 02:55 Respiratory Rate 16 01/17/18 02:55 Blood Pressure 146/97 H 01/17/18 02:55 O2 Sat (%) 90 L 01/17/18 02:55 O2 Delivery Mode Nasal Cannula O2 (L/minute) 2 Allergies/Adverse Reactions: No Known Allergies Allergy (Verified 01/17/18 03:00) Home Medications: Medication Instructions Recorded Gabapentin [Neurontin] 1,200 mg PO TID 11/10/16 Naltrexone HCl 50 mg PO DAILY 12/14/16 Aspirin EC [Aspirin EC 81 mg (*)] 162 mg PO DAILY 06/08/17 DULoxetine [Cymbalta 60 MG (*)] 60 mg PO DAILY #30 cap 12/16/17 Losartan Potassium [Cozaar 50 mg 50 mg PO DAILY #30 tab 12/16/17 (*)] Quetiapine Fumarate [Seroquel Xr] 200 mg PO HS #30 tab.er.24h 12/16/17 B-Complex Tablet 12/18/17 Cymbalta 12/18/17 Hydrocortisone 12/18/17 Valacyclovir HCl 12/18/17 levOFLOXACIN [levAQUIN (*)] 500 mg PO DAILY 6 Days tab 12/28/17 Medical Decision Making - Data Points Laboratory Results: Laboratory Results 01/17/18 03:30 01/17/18 03:30 01/17/18 01/17/18 03:30 03:30 WBC 5.85 10^3/uL 10^3/uL (3.80-9.50) RBC 4.51 10^6/uL 10^6/uL (4.18-5.33) Hgb 13.6 g/dL g/dL (12.6-16.3) Hct 40.5 % % (38.0-47.0) MCV 89.8 fL fL (81.5-99.8) MCH 30.2 pg pg (27.9-34.1) MCHC 33.6 g/dL g/dL (32.4-36.7) RDW 14.8 % % (11.5-15.2) Plt Count 447 10^3/uL H 10^3/uL (150-400) MPV 10.7 fL fL (8.7-11.7) Neut % (Auto) 48.1 % % (39.3-74.2) Lymph % (Auto) 30.9 % % (15.0-45.0) [place] % (Auto) 7.7 % % (4.5-13.0) Eos % (Auto) 11.1 % H % (0.6-7.6) Baso % (Auto) 1.5 % % (0.3-1.7) Nucleat RBC Rel Count 0.0 % % (0.0-0.2) Absolute Neuts (auto) 2.81 10^3/uL 10^3/uL (1.70-6.50) Absolute Lymphs (auto) 1.81 10^3/uL 10^3/uL (1.00-3.00) Absolute Monos (auto) 0.45 10^3/uL 10^3/uL (0.30-0.80) Absolute Eos (auto) 0.65 10^3/uL H 10^3/uL (0.03-0.40) Absolute Basos (auto) 0.09 10^3/uL 10^3/uL (0.02-0.10) Absolute Nucleated RBC 0.00 10^3/uL 10^3/uL (0-0.01) Immature Gran % 0.7 % % (0.0-1.1) Immature Gran # 0.04 10^3/uL 10^3/uL (0.00-0.10) Sodium 146 mEq/L H mEq/L (135-145) Potassium 4.4 mEq/L mEq/L (3.3-5.0) Chloride 109 mEq/L mEq/L (97-110) Carbon Dioxide 24 mEq/l mEq/l (22-31) Anion Gap 13 mEq/L mEq/L (6-14) BUN 12 mg/dL mg/dL (7-23) Creatinine 0.6 mg/dL mg/dL (0.6-1.0) Estimated GFR > 60 Glucose 89 mg/dL mg/dL (70-100) Calcium 8.8 mg/dL mg/dL (8.5-10.4) Ethyl Alcohol 287 mg/dL H mg/dL (0-10) Medications Given: Discontinued Medications Sodium Chloride (Ns) 1,000 mls @ 0 mls/hr IV EDNOW ONE; Wide Open PRN Reason: Protocol Stop: 01/17/18 03:06 Last Admin: 01/17/18 03:30 Dose: 1,000 mls Departure - Departure Disposition: Home, Routine, Self-Care Clinical Impression: Alcohol intoxication Qualifiers: Complication of substance-induced condition: uncomplicated Qualified Code(s): F10.920 - Alcohol use, unspecified with intoxication, uncomplicated Hypothermia Qualifiers: Encounter type: initial encounter Qualified Code(s): T68.XXXA - Hypothermia, initial encounter Condition: Fair Instructions: Alcohol Intoxication (ED), Abuse of Alcohol (ED), Acute Hypothermia (ED) Referrals: NONE *PRIMARY CARE P,. [Primary Care Provider] - As per Instructions
[2018-01-17] MEDS ORDERED: NS 1,000 ML IV ONE (03:05)
[2018-01-17 03:47] LABS: PLATELET COUNT 447 10^3/uL (150-400)
[2018-01-17 04:26] VITALS: BP 99/58
== END 2018-01-17 07:17 | disposition home or self-care (01) ==
LOC: EDUNIT#
DX: T68.XXXA Hypothermia, initial encounter (principal); F10.129 Alcohol abuse with intoxication, unspecified; Y90.8 Blood alcohol level of 240 mg/100 ml or more; I10 Essential (primary) hypertension; E78.5 Hyperlipidemia, unspecified; E86.9 Volume depletion, unspecified; Z59.0 Homelessness
CPT/HCPCS: G0480

== ENCOUNTER 2018-01-17 17:25 | Emergency (ER) | payer MEDICAID ==
--- NOTE | 2018-01-17 17:40 | EDPHY ---
H & P Time Seen by Provider: 01/17/18 17:26 HPI/ROS: CHIEF COMPLAINT: Suicidal ideation and inability to hear HISTORY OF PRESENT ILLNESS: Patient is 62-year-old female well known to this emergency room history of alcoholism. She is homeless. She was seen earlier today for cold exposure and alcohol intoxication. Complete labs were drawn and ultimately she was discharged. According to EMS she was [place] the bus [place] complaining of wanting to end her life and thus was brought to the emergency room for further evaluation on M1 hold. Patient complains of inability to hear out of either here starting today. She denies any trauma to the head. She denies any plan to hurt herself but states "I dont not want to go on." Patient has a egg caser who is currently working on getting her placed for long-term alcohol abuse treatment. REVIEW OF SYSTEMS: Constitutional: No fever, no chills. Eyes: No discharge. ENT: No sore throat. Cardiovascular: No chest pain, no palpitations. Respiratory: No cough, no shortness of breath. Gastrointestinal: No abdominal pain, no vomiting. Genitourinary: No hematuria. Musculoskeletal: No back pain. Skin: No rashes. Neurological: No headache. Smoking Status: Never smoked Physical Exam: General Appearance: Alert and no distress. ENT: normal dentition. No tonsillar exudate or swelling. Bilateral purulent middle ear effusion. The patient is able to hear and communicate effectively. Eyes: Pupils equal and round no injection. Respiratory: Chest is nontender, lungs are clear to auscultation. Cardiac: regular rate and rhythm. No lower extremity edema Gastrointestinal: Abdomen is soft and nontender, no masses, bowel sounds normal. Musculoskeletal: Neck is supple and nontender. Extremities have full range of motion and are nontender without deformity Skin: No rashes or lesions. Neuro: Cranial nerves grossly intact. Constitutional: Initial Vital Signs Temperature (C) 36.1 C 01/17/18 17:39 Heart Rate 80 01/17/18 17:39 Respiratory Rate 18 01/17/18 17:39 Blood Pressure 114/94 H 01/17/18 17:39 O2 Sat (%) 95 01/17/18 17:39 O2 Delivery Mode Nasal Cannula O2 (L/minute) 3 Allergies/Adverse Reactions: No Known Allergies Allergy (Verified 01/17/18 03:00) Home Medications: Medication Instructions Recorded Gabapentin [Neurontin] 1,200 mg PO TID 11/10/16 Naltrexone HCl 50 mg PO DAILY 12/14/16 Aspirin EC [Aspirin EC 81 mg (*)] 162 mg PO DAILY 06/08/17 DULoxetine [Cymbalta 60 MG (*)] 60 mg PO DAILY #30 cap 12/16/17 Losartan Potassium [Cozaar 50 mg 50 mg PO DAILY #30 tab 12/16/17 (*)] Quetiapine Fumarate [Seroquel Xr] 200 mg PO HS #30 tab.er.24h 12/16/17 B-Complex Tablet 12/18/17 Cymbalta 12/18/17 Hydrocortisone 12/18/17 Valacyclovir HCl 12/18/17 levOFLOXACIN [levAQUIN (*)] 500 mg PO DAILY 6 Days tab 12/28/17 Medical Decision Making ED Course/Re-evaluation: Patient medically cleared other than acute alcohol intoxication. Awaiting sobriety for psychiatric evaluation at time of the end of my shift 1:00 a.m.. Patient signed out to Dr. Courtney awaiting psychiatric evaluation. - Data Points Laboratory Results: 01/17/18 20:35 Urine Opiates Screen NEGATIVE ng/mL ng/mL (NEGATIVE) Urine Barbiturates NEGATIVE ng/mL ng/mL (NEGATIVE) Ur Phencyclidine Scrn NEGATIVE ng/mL ng/mL (NEGATIVE) Ur Amphetamines Screen NEGATIVE ng/mL ng/mL (NEGATIVE) U Benzodiazepines Scrn 1434 ng/mL ng/mL (NEGATIVE) Urine Cocaine Screen NEGATIVE ng/mL ng/mL (NEGATIVE) U Marijuana (THC) Screen NEGATIVE ng/mL ng/mL (NEGATIVE) Medications Given: Discontinued Medications Amoxicillin/Clavulanate Potassium (Augmentin 875mg) 875 mg PO EDNOW ONE PRN Reason: Protocol Stop: 01/17/18 17:50 Last Admin: 01/17/18 17:59 Dose: 875 mg Departure - Departure Condition: Fair Referrals: Patient,NotPresent [Unknown] - As per Instructions
[2018-01-17] MEDS ORDERED: AMOXICILLIN/CLAVULANATE POT 875/125 MG TAB PO ONE (17:49)
[2018-01-18] MEDS ORDERED: LORazepam 2 MG/ML INJ IVP PRN (02:26)
[2018-01-18] MEDS ORDERED: LORazepam 1 MG TAB PO ONE ×2 (02:26→03:14)
[2018-01-18] MEDS ORDERED: LORazepam 1 MG TAB PO PRN (02:26)
[2018-01-18 06:23] VITALS: BP 112/73
[2018-01-18] MEDS ORDERED: chlordiazePOXIDE 25 MG CAP PO ONE (06:29)
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
--- NOTE | 2018-01-18 06:45 | ASMTTCLDSP ---
TLC Discharge Disposition Disposition: Answers: Discharge If Answers: Yes DISCHARGED: Patient/family given suicide hotline info & [facility] brochure? Disposition Notes: Notes: Pt stated commitment or ability to keep self safe, denied thoughts of self harm or harm to others. Pt expressed a desire to f/u with her appointment today with [facility] provider. Pt was given local hotline information and [facility] brochure After an Attempt and encouraged to follow up with [facility] today. Discharge Concerns/Recommendations: Notes: In consultation with [facility] physician, Marcelino Courtney MD, Dr. Courtney concurred that pt does not appear to meet 27-65 criteria requiring psychiatric hospitalization as pt does not appear to be an imminent risk of harm to self/others/gravely disabled due to a mental illness condition. Dr. Courtney provided verbal order read back vacating M1 hold at 0615 hrs. Was patient given the Answers: Not applicable Inpatient Behavioral Health Prohibited Belongings List while in the ED? Psychiatrist vacating M1 Marcelino Courtney MD Hold: Date and time M1 hold 01/18/2018 06:15 AM vacated (time format is hh:mm): Type of Hold: Answers: M1/72-hour Hold Hold initiated by: Answers: Police Date Signed: 01/18/2018 06:44 AM Electronically Signed By:Mike Alarcon
== END 2018-01-18 06:45 | disposition home or self-care (01) ==
LOC: EDUNIT#
DX: F32.9 Major depressive disorder, single episode, unspecified (principal); H66.90 Otitis media, unspecified, unspecified ear; Z59.0 Homelessness
CPT/HCPCS: 80307; G0480

== ENCOUNTER 2018-01-19 18:59 | Emergency (ER) | payer MEDICAID ==
[2018-01-19] MEDS ORDERED: LORazepam 2 MG/ML INJ IVP ONE (19:13)
[2018-01-19] MEDS ORDERED: chlordiazePOXIDE 25 MG CAP PO ONE (19:13)
[2018-01-19] MEDS ORDERED: NS 1,000 ML IV ONE (19:13)
[2018-01-19] MEDS ORDERED: LORazepam 1 MG TAB PO PRN (19:13)
--- NOTE | 2018-01-19 19:14 | EDPHY ---
H & P Stated Complaint: ETOH W/D Source: Patient, RN/MD, Old records Exam Limitations: No limitations - Personal History Current Tetanus Diphtheria and Acellular Pertussis (TDAP): Yes Tetanus Vaccine Date: 2010 - Medical/Surgical History Hx Asthma: No Hx Chronic Respiratory Disease: No Hx Diabetes: No Hx Cardiac Disease: Yes Hx Renal Disease: No Hx Cirrhosis: No Hx Alcoholism: Yes Hx HIV/AIDS: No Hx Splenectomy or Spleen Trauma: No Other PMH: HTN, Insommia/depression, ETOH abuse, herpes, Hyperlipidemia, Anxiety , HYPOTHYROID, OSTEOPEROSIS - Social History Smoking Status: Never smoked Time Seen by Provider: 01/19/18 19:10 HPI/ROS: HPI: This is a 62-year-old female who presents with Chief Complaint: Alcohol withdrawal Location: Body Quality: Alcohol withdrawal Duration: 24 hr Signs and Symptoms: no shortness of breath at rest, no shortness of breath on exertion, no cough, no chest pain, no palpitations, no lower extremity edema, no wheezing, no orthopnea, no paroxysmal nocturnal dyspnea, no fever, no injury/ trauma, no hemoptysis, no carpal pedal spasms, no abdominal pain Timing: Acute on chronic Severity: Moderate to severe Context: Patient is well-known to me as well as this emergency room [facility] with complaints of alcohol withdrawal. She reports that she feels nauseous and has tremors since yesterday afternoon. She reports that her last drink was sometime yesterday. Patient normally drinks a 5th of vodka daily. She refuses to go back to the [facility] and the [facility] refuses to take the patient back. Denies any suicidal ideation, homicidal ideation, hallucinations. Patient has no chest pain, abdominal pain, vomiting, diarrhea, fever, urinary symptoms. Modifying Factors: none Comment: ROS: A comprehensive 10 system review of systems is otherwise negative aside from elements mentioned in the history of present illness. MEDICAL/SURGICAL/SOCIAL HISTORY: Medical history: HTN, Insomnia/depression, ETOH abuse, herpes, Hyperlipidemia, Anxiety, HYPOTHYROID, OSTEOPOROSIS Surgical history: Denies Social history: Transient. Never smoked. Denies drug use. CONSTITUTIONAL: Pleasant, cooperative, tremulous elderly white female, awake and alert, no obvious distress HEENT: Atraumatic and normocephalic, PERRL, EOMI. Nares patent; no rhinorrhea; no nasal mucosal edema. Tympanic membranes clear. Oropharynx clear, no exudate and moist pink mucosa. Airway patent. No lymphadenopathy. No meningismus. Cardiovascular: Normal S1/S2, tachycardia, regular rhythm, without murmur rub or gallop. PULMONARY/CHEST: Symmetrical and nontender. Clear to auscultation bilaterally. Good air movement. No accessory muscle usage. ABDOMEN: Soft, nondistended, nontender, no rebound, no guarding, no peritoneal signs, no masses or organomegaly. No CVAT. EXTREMITIES: 2/2 pulses, strength 5/5, no deformities, no clubbing, no cyanosis or edema. NEUROLOGICAL: no focal neuro deficits. GCS 15. Hand tremors noted. SKIN: Warm and dry, no erythema. no rash. Good capillary refill. (Jazmin Edwards) Constitutional: Initial Vital Signs Temperature (C) 36.7 C 01/19/18 19:04 Heart Rate 112 H 01/19/18 19:04 Respiratory Rate 16 01/19/18 19:04 Blood Pressure 161/125 H 01/19/18 19:04 O2 Sat (%) 95 01/19/18 19:04 O2 Delivery Mode Room Air O2 (L/minute) 2 Allergies/Adverse Reactions: No Known Allergies Allergy (Verified 01/17/18 03:00) Home Medications: Medication Instructions Recorded Gabapentin [Neurontin] 1,200 mg PO TID 11/10/16 Aspirin EC [Aspirin EC 81 mg (*)] 162 mg PO DAILY 06/08/17 DULoxetine [Cymbalta 60 MG (*)] 60 mg PO DAILY #30 cap 12/16/17 Losartan Potassium [Cozaar 50 mg 50 mg PO DAILY #30 tab 12/16/17 (*)] Quetiapine Fumarate [Seroquel Xr] 200 mg PO HS #30 tab.er.24h 12/16/17 Medical Decision Making ED Course/Re-evaluation: Vital signs reviewed and show mild tachycardia upon arrival. IV access and laboratory studies obtain. Alcohol withdrawal protocol initiated. Given 1 L normal saline, IV Zofran 4 mg, IV Ativan 2 mg, p.o. Librium 50 mg 1923: Initial CIWA=14 2004: Labs reviewed and grossly unremarkable. EtOH=0 2044: CIWA=8; IV Ativan 2 mg given. Reassessed patient who is sleeping soundly. Reports that anxiety and tremors have improved. No episodes of vomiting. Drinking water at bedside without difficulty. 2345: Reassessed patient who is sleeping soundly. End of shift. Signed over to Dr. Courtney. Patient will be discharged in the morning. Refuses to go to the [facility]. This patient was seen under the supervision of my secondary supervising physician. I evaluated care for this patient independently. Discussed this patient with Dr. Georges. (Jazmin Edwards) 0616: Patient safe for discharge. Feels comfortable for discharge. No active withdrawal at this time. Feels comfortable discharge (Marcelino Courtney) Differential Diagnosis: Differential diagnosis includes but is not limited to alcohol withdrawal, delirium tremens, alcohol withdrawal seizures, electrolyte imbalance. (Jazmin Edwards) - Data Points Laboratory Results: Laboratory Results 01/19/18 19:16 01/19/18 19:16 01/19/18 01/19/18 19:16 19:16 WBC 9.56 10^3/uL H 10^3/uL (3.80-9.50) RBC 4.97 10^6/uL 10^6/uL (4.18-5.33) Hgb 14.8 g/dL g/dL (12.6-16.3) Hct 43.3 % % (38.0-47.0) MCV 87.1 fL fL (81.5-99.8) MCH 29.8 pg pg (27.9-34.1) MCHC 34.2 g/dL g/dL (32.4-36.7) RDW 14.7 % % (11.5-15.2) Plt Count 539 10^3/uL H 10^3/uL (150-400) MPV 10.4 fL fL (8.7-11.7) Neut % (Auto) 60.9 % % (39.3-74.2) Lymph % (Auto) 20.5 % % (15.0-45.0) [place] % (Auto) 10.7 % % (4.5-13.0) Eos % (Auto) 6.0 % % (0.6-7.6) Baso % (Auto) 1.7 % % (0.3-1.7) Nucleat RBC Rel Count 0.0 % % (0.0-0.2) Absolute Neuts (auto) 5.83 10^3/uL 10^3/uL (1.70-6.50) Absolute Lymphs (auto) 1.96 10^3/uL 10^3/uL (1.00-3.00) Absolute Monos (auto) 1.02 10^3/uL H 10^3/uL (0.30-0.80) Absolute Eos (auto) 0.57 10^3/uL H 10^3/uL (0.03-0.40) Absolute Basos (auto) 0.16 10^3/uL H 10^3/uL (0.02-0.10) Absolute Nucleated RBC 0.00 10^3/uL 10^3/uL (0-0.01) Immature Gran % 0.2 % % (0.0-1.1) Immature Gran # 0.02 10^3/uL 10^3/uL (0.00-0.10) Sodium 134 mEq/L L mEq/L (135-145) Potassium 4.7 mEq/L mEq/L (3.3-5.0) Chloride 102 mEq/L mEq/L (97-110) Carbon Dioxide 19 mEq/l L mEq/l (22-31) Anion Gap 13 mEq/L mEq/L (6-14) BUN 10 mg/dL mg/dL (7-23) Creatinine 0.7 mg/dL mg/dL (0.6-1.0) Estimated GFR > 60 Glucose 121 mg/dL H mg/dL (70-100) Calcium 10.2 mg/dL mg/dL (8.5-10.4) Total Bilirubin 1.0 mg/dL mg/dL (0.1-1.4) AST 31 IU/L IU/L (14-46) ALT 21 IU/L IU/L (9-52) Alkaline Phosphatase 135 IU/L H IU/L (38-126) Total Protein 7.9 g/dL g/dL (6.3-8.2) Albumin 4.5 g/dL g/dL (3.5-5.0) Ethyl Alcohol < 10 mg/dL mg/dL (0-10) Medications Given: Lorazepam (Ativan Injection) 0 mg IVP Q1H PRN; Protocol PRN Reason: Alcohol Withdrawal w/IV access Stop: 01/20/18 07:13 Last Admin: 01/20/18 04:26 Dose: 2 mg Discontinued Medications Chlordiazepoxide HCl (Librium) 50 mg PO EDNOW ONE Stop: 01/19/18 19:14 Last Admin: 01/19/18 19:31 Dose: 50 mg Sodium Chloride (Ns) 1,000 mls @ 0 mls/hr IV EDNOW ONE; Wide Open PRN Reason: Protocol Stop: 01/19/18 19:14 Last Admin: 01/19/18 19:30 Dose: 1,000 mls Lorazepam (Ativan Injection) 2 mg IVP EDNOW ONE Stop: 01/19/18 19:14 Last Admin: 01/19/18 19:31 Dose: 2 mg Departure - Departure Disposition: Home, Routine, Self-Care Clinical Impression: Alcohol withdrawal syndrome without complication Condition: Fair Instructions: Abuse of Alcohol (ED), Alcohol Withdrawal (ED) Additional Instructions: Please refrain from drinking alcohol excessively. Go to the [facility] for help with alcohol detox and rehab. Referrals: [facility],. [Clinic] - As per Instructions
[2018-01-19 19:24] LABS: PLATELET COUNT 539 10^3/uL (150-400)
[2018-01-19] MEDS: LORazepam 2 MG/ML INJ IVP PRN (20:29)
[2018-01-20] MEDS: LORazepam 2 MG/ML INJ IVP PRN (04:26)
[2018-01-20 06:10] VITALS: BP 116/82
[2018-01-20] MEDS ORDERED: chlordiazePOXIDE 25 MG CAP PO ONE (06:15)
[2018-01-20] MEDS ORDERED: chlordiazePOXIDE 25 MG CAP ONE (06:15)
== END 2018-01-20 06:24 | disposition home or self-care (01) ==
DX: F10.121 Alcohol abuse with intoxication delirium (principal); I10 Essential (primary) hypertension
CPT/HCPCS: 96374; G0480; J2060

== ENCOUNTER 2018-01-20 17:39 | Emergency (ER) | payer MEDICAID ==
--- NOTE | 2018-01-20 17:42 | EDPHY ---
H & P Time Seen by Provider: 01/20/18 17:41 HPI/ROS: HPI: This is a 62-year-old female who presents with Chief Complaint: M1 hold Location: psych Quality: M1 SI Duration: Today Signs and Symptoms: no auditory hallucinations, no visual hallucinations, + suicidal ideation with a plan, no homicidal ideation, no paranoia Timing: Acute on chronic Severity: Moderate Context: Patient presents via EMS on M1 hold after [facility] reporting that she was severely sad and depressed and misses her children in that she was going to kill herself. While on the cot car patient kept repeating for over 10 minutes that she was going to commit suicide as her life was not worth living. Patient was seen in the emergency room yesterday and treated by myself for alcohol withdrawal. She was kept over 12 hr and discharged this morning around 6:30 a.m. Patient reports that she did drink vodka again today. Modifying Factors: Comment: ROS: A comprehensive 10 system review of systems is otherwise negative aside from elements mentioned in the history of present illness. MEDICAL/SURGICAL/SOCIAL HISTORY: Medical history: HTN, Insomnia/depression, ETOH abuse, herpes, Hyperlipidemia, Anxiety, HYPOTHYROID, OSTEOPOROSIS Surgical history: Denies Social history: Transient. Every day smoker. Alcohol abuse. Denies drug use. Family history noncontributory. CONSTITUTIONAL: Intoxicated, tearful, elderly white female, awake and alert, no obvious distress HEENT: Atraumatic and normocephalic, PERRL, EOMI. Nares patent; no rhinorrhea; no nasal mucosal edema. Tympanic membranes clear. Oropharynx clear, no exudate and moist pink mucosa. Airway patent. No lymphadenopathy. No meningismus. Cardiovascular: Normal S1/S2, regular rate, regular rhythm, without murmur rub or gallop. PULMONARY/CHEST: Symmetrical and nontender. Clear to auscultation bilaterally. Good air movement. No accessory muscle usage. ABDOMEN: Soft, nondistended, nontender, no rebound, no guarding, no peritoneal signs, no masses or organomegaly. No CVAT. EXTREMITIES: 2/2 pulses, strength 5/5, no deformities, no clubbing, no cyanosis or edema. NEUROLOGICAL: no focal neuro deficits. GCS 15. SKIN: Warm and dry, no erythema. no rash. Good capillary refill. PSYCH: Poor eye contact, + flight of ideas, + disorganized thought process, poor insight and judgment, no auditory hallucinations, no visual hallucinations , + suicidal ideation with a plan, no homicidal ideation, no paranoia Source: Patient, RN/MD, Old records Exam Limitations: Clinical condition - Personal History Tetanus Vaccine Date: 2010 - Medical/Surgical History Hx Asthma: No Hx Chronic Respiratory Disease: No Hx Diabetes: No Hx Cardiac Disease: Yes Hx Renal Disease: No Hx Cirrhosis: No Hx Alcoholism: Yes Hx HIV/AIDS: No Hx Splenectomy or Spleen Trauma: No Other PMH: HTN, Insommia/depression, ETOH abuse, herpes, Hyperlipidemia, Anxiety , HYPOTHYROID, OSTEOPEROSIS - Social History Smoking Status: Never smoked Constitutional: Initial Vital Signs Temperature (C) 36.7 C 01/20/18 18:01 Heart Rate 88 01/20/18 18:01 Respiratory Rate 18 01/20/18 18:01 Blood Pressure 113/85 H 01/20/18 18:01 O2 Sat (%) 97 01/20/18 18:01 O2 Delivery Mode Room Air Allergies/Adverse Reactions: No Known Allergies Allergy (Verified 01/17/18 03:00) Home Medications: Medication Instructions Recorded Gabapentin [Neurontin] 1,200 mg PO TID 11/10/16 Aspirin EC [Aspirin EC 81 mg (*)] 162 mg PO DAILY 06/08/17 DULoxetine [Cymbalta 60 MG (*)] 60 mg PO DAILY #30 cap 12/16/17 Losartan Potassium [Cozaar 50 mg 50 mg PO DAILY #30 tab 12/16/17 (*)] Quetiapine Fumarate [Seroquel Xr] 200 mg PO HS #30 tab.er.24h 12/16/17 Medical Decision Making ED Course/Re-evaluation: Agree with M1 hold upon arrival as patient is intoxicated and eminent danger to herself. Labs and UDS ordered. 1839: Urine drug screen positive for benzodiazepines. 1899: Labs reviewed and grossly unremarkable. DLTD=701. 0000: End of shift. reassessed patient who no longer verbalizes suicidal ideation now that she is more sober. She refuses to go to the [facility] and is not allowed back to the [facility] until February 05. A cab was called and a space was reserved at the [facility]. This patient was seen under the supervision of my secondary supervising physician. I evaluated care for this patient independently. Discussed this patient with Dr. Roberson. Differential Diagnosis: Differential diagnosis includes but is not limited to severe major depression, suicidal ideation, alcohol intoxication. - Data Points Laboratory Results: Laboratory Results 01/20/18 19:10 01/20/18 19:10 01/20/18 01/20/18 01/20/18 19:10 19:10 17:59 WBC 6.19 10^3/uL 10^3/uL (3.80-9.50) RBC 4.54 10^6/uL 10^6/uL (4.18-5.33) Hgb 13.3 g/dL g/dL (12.6-16.3) Hct 41.4 % % (38.0-47.0) MCV 91.2 fL fL (81.5-99.8) MCH 29.3 pg pg (27.9-34.1) MCHC 32.1 g/dL L g/dL (32.4-36.7) RDW 14.8 % % (11.5-15.2) Plt Count 436 10^3/uL H 10^3/uL (150-400) MPV 10.3 fL fL (8.7-11.7) Neut % (Auto) 55.7 % % (39.3-74.2) Lymph % (Auto) 28.3 % % (15.0-45.0) [place] % (Auto) 8.2 % % (4.5-13.0) Eos % (Auto) 6.0 % % (0.6-7.6) Baso % (Auto) 1.3 % % (0.3-1.7) Nucleat RBC Rel Count 0.0 % % (0.0-0.2) Absolute Neuts (auto) 3.45 10^3/uL 10^3/uL (1.70-6.50) Absolute Lymphs (auto) 1.75 10^3/uL 10^3/uL (1.00-3.00) Absolute Monos (auto) 0.51 10^3/uL 10^3/uL (0.30-0.80) Absolute Eos (auto) 0.37 10^3/uL 10^3/uL (0.03-0.40) Absolute Basos (auto) 0.08 10^3/uL 10^3/uL (0.02-0.10) Absolute Nucleated RBC 0.00 10^3/uL 10^3/uL (0-0.01) Immature Gran % 0.5 % % (0.0-1.1) Immature Gran # 0.03 10^3/uL 10^3/uL (0.00-0.10) Sodium 141 mEq/L mEq/L (135-145) Potassium 4.4 mEq/L mEq/L (3.3-5.0) Chloride 107 mEq/L mEq/L (97-110) Carbon Dioxide 22 mEq/l mEq/l (22-31) Anion Gap 12 mEq/L mEq/L (6-14) BUN 8 mg/dL mg/dL (7-23) Creatinine 0.7 mg/dL mg/dL (0.6-1.0) Estimated GFR > 60 Glucose 92 mg/dL mg/dL (70-100) Calcium 9.7 mg/dL mg/dL (8.5-10.4) Urine Opiates Screen NEGATIVE (NEGATIVE) Urine Barbiturates NEGATIVE (NEGATIVE) Ur Phencyclidine Scrn NEGATIVE (NEGATIVE) Ur Amphetamine Screen NEGATIVE (NEGATIVE) U Benzodiazepines Scrn NON-NEGATIVE H (NEGATIVE) Urine Cocaine Screen NEGATIVE (NEGATIVE) U Marijuana (THC) Screen NEGATIVE (NEGATIVE) Ethyl Alcohol 285 mg/dL H mg/dL (0-10) Departure - Departure Disposition: Home, Routine, Self-Care Clinical Impression: Alcohol intoxication Qualifiers: Complication of substance-induced condition: uncomplicated Qualified Code(s): F10.920 - Alcohol use, unspecified with intoxication, uncomplicated Condition: Good Instructions: Abuse of Alcohol (ED) Additional Instructions: Please refrain from using Alcohol excessively. Referrals: [facility],. [Clinic] - As per Instructions
[2018-01-20 19:19] LABS: PLATELET COUNT 436 10^3/uL (150-400)
[2018-01-21 00:28] VITALS: BP 138/91
== END 2018-01-21 00:28 | disposition home or self-care (01) ==
DX: R45.851 Suicidal ideations (principal); F10.920 Alcohol use, unspecified with intoxication, uncomplicated; G47.00 Insomnia, unspecified; F32.9 Major depressive disorder, single episode, unspecified; F41.9 Anxiety disorder, unspecified
CPT/HCPCS: 80305; G0480

== ENCOUNTER 2018-01-25 13:07 | Emergency (ER) | payer MEDICAID ==
[2018-01-25 13:12] VITALS: BP 125/89
--- NOTE | 2018-01-25 13:27 | EDPHY ---
H & P Stated Complaint: sent by P Time Seen by Provider: 01/25/18 13:22 - Personal History Current Tetanus/Diphtheria Vaccine: Yes Current Tetanus Diphtheria and Acellular Pertussis (TDAP): Yes Tetanus Vaccine Date: 2010 - Medical/Surgical History Hx Asthma: No Hx Chronic Respiratory Disease: No Hx Diabetes: No Hx Cardiac Disease: Yes Hx Renal Disease: No Hx Cirrhosis: No Hx Alcoholism: Yes Hx HIV/AIDS: No Hx Splenectomy or Spleen Trauma: No Other PMH: HTN, Insommia/depression, ETOH abuse, herpes, Hyperlipidemia, Anxiety , HYPOTHYROID, OSTEOPEROSIS - Social History Smoking Status: Never smoked Constitutional: Initial Vital Signs Temperature (C) 36.6 C 01/25/18 13:10 Heart Rate 94 01/25/18 13:10 Respiratory Rate 24 H 01/25/18 13:10 Blood Pressure 125/89 H 01/25/18 13:10 O2 Sat (%) 92 01/25/18 13:10 O2 Delivery Mode Room Air Allergies/Adverse Reactions: No Known Allergies Allergy (Verified 01/25/18 13:10) Home Medications: Medication Instructions Recorded Gabapentin [Neurontin] 1,200 mg PO TID 11/10/16 Aspirin EC [Aspirin EC 81 mg (*)] 162 mg PO DAILY 06/08/17 DULoxetine [Cymbalta 60 MG (*)] 60 mg PO DAILY #30 cap 12/16/17 Losartan Potassium [Cozaar 50 mg 50 mg PO DAILY #30 tab 12/16/17 (*)] Quetiapine Fumarate [Seroquel Xr] 200 mg PO HS #30 tab.er.24h 12/16/17 Medical Decision Making ED Course/Re-evaluation: CHIEF COMPLAINT: Alcohol intoxication. HISTORY OF PRESENT ILLNESS: The patient is a chronic alcoholic living on the [address]. Patient drinks on a daily basis and obtains whatever alcohol is available. Patient was found by bystanders who called EMS system. Patient has had multiple ER visits over the last several years for the same complaint. Patient denies any injuries denies loss of consciousness denies any recent trauma. Patient denies co-ingestion. Patient denies suicidal or homicidal behavior. REVIEW OF SYSTEMS: A comprehensive 10 system review of systems is otherwise negative aside from elements mentioned in the history of present illness and medical decision making. PHYSICAL EXAM: General Appearance: Alert, well hydrated, appropriate, and non-toxic appearing. Head: Atraumatic without scalp tenderness or obvious injury Eyes: Pupils equal, round, reactive to light and accommodation, EOMI, no trauma , no injection. Ears: Clear bilaterally, no perforation, normal landmarks Nose: Atraumatic, no rhinorrhea, clear. Throat: There is no erythema or exudates, no lesions, normal tonsils, mucus membranes moist. Neck: Supple, 2+ carotid upstroke, nontender, no lymphadenopathy. Respiratory: No retractions, no distress, no wheezes, and no accessory muscle use. Lungs are clear to auscultation bilaterally. Cardiovascular: Regular rate and rhythm, no murmurs, rubs, or gallops. Bilateral carotid, radial, dorsalis pedis, and posterior tibial pulses intact. Good capillary refill all extremities. Gastrointestinal: Abdomen is soft, nontender, non-distended, no masses, no rebound, no guarding, no peritoneal signs. Musculoskeletal: Normal active ROM of all extremities, atraumatic. Neurological: Alert, appropriate, and interactive. The patient has normal DTRs and non-focal cranial nerves, motor, sensory, and cerebellar exam. Skin: No rashes, good turgor, no nodules on palpation. PAST MEDICAL HISTORY: PAST SURGICAL HISTORY: SOCIAL HISTORY: DIAGNOSTICS/PROCEDURES/CRITICAL CARE TIME: DIFFERENTIAL DIAGNOSIS: MEDICAL DECISION MAKING: I serially examined this patient since the patient's arrival here in the emergency department. The patient continues to become more and more sober with each examination. I serially questioned the patient and the patient's story given initially has not changed. The patient still denies any trauma, any head injury, and any illicit drug use. At this point, the patient is walking the department freely and is clinically sober. We're discharging the patient to the [facility] in stable condition. Departure - Departure Referrals: NONE *PRIMARY CARE P,. [Primary Care Provider] - As per Instructions
== END 2018-01-25 14:11 | disposition left against medical advice (07) ==
DX: Z53.21 Procedure and treatment not carried out due to patient leaving prior to being seen by health care provider (principal)

== ENCOUNTER 2018-01-25 18:39 | Emergency (ER) | payer MEDICAID ==
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
[2018-01-26] MEDS ORDERED: ONDANSETRON DISINTEGRATING 4 MG TAB ONE (04:04)
[2018-01-26] MEDS ORDERED: ONDANSETRON DISINTEGRATING 4 MG TAB PO ONE (04:06)
[2018-01-26 10:20] VITALS: BP 124/78
--- NOTE | 2018-01-26 19:16 | ASMTCMCOM ---
CM Note CM Note Notes: Pt presented to the ED twice yesterday. Pt was still in the ED this morning when CM arrived. Pt apparently is not allowed to stay at the [facility] for the next two weeks due to recent behavior. Pt is also not allowed at [facility] until Thursday01/29/18 due to recent behavior. Pt would normally be allowed at the [facility] offered last night but pt was too intoxicated and was not being allowed there so pt remained in the ED until this morning. This pt is very well known to the ED and the ED Case Mgmt team See past CM Reports for additional information, efforts employed in the past to assist pt w/sobriety and mental health concerns, homelessness, etc. Pt is on the wait list for a bed at the [facility] in [place], [place]. This CM called [facility] Minister Assistant, Christina ([phone]), to inquire about pt's placement (it is about 4 - 5 month waitlist) but Christina is out of the office today and tomorrow. This CM called Jackelin Griffin ([phone]), pt's Minister Assistant at [facility]. Jackelin stated that pt may be able get a bed at [facility] by the end of February. Jackelin said she saw pt on Monday 01/22 and informed her that she would probably have to go to [facility] for the next two weeks until she is allowed at [facility] again; Jackelin said she gave pt a regional bus pass. Pt reports she doesn't recall this conversation. Jackelin said pt could come see her this afternoon at 2p.m. and could come to the [facility] beforehand to hang out, eat lunch, attend groups if she wanted, etc. Pt agreeable to this plan. Jackelin plans on working with the patient today on completing the application paperwork for [facility] in [place]. This CM called and requested Officer Ivan ([phone]) w/[employer] Homeless Outreach Team to transport patient to the [facility]; Officer Ivan arrived and transported pt with all of her belongings. CM available for further assistance if needed. Date Signed: 01/26/2018 07:16 PM Electronically Signed By:Cintia Hair RN
== END 2018-01-26 10:19 | disposition home or self-care (01) ==
DX: F10.129 Alcohol abuse with intoxication, unspecified (principal)

== ENCOUNTER 2018-01-27 23:46 | Emergency (ER) | payer MEDICAID ==
--- NOTE | 2018-01-28 01:21 | EDPHY ---
H & P Stated Complaint: ETOH - Fall Time Seen by Provider: 01/27/18 23:50 HPI/ROS: HPI The patient presents with alcohol intoxication and possible fall, brought in by paramedics. The patient was found inside of a grocery store sleeping and 911 was called. She admitted to drinking 2 pt of hard alcohol today. She had an unstable gait. She also was found to have a forehead hematoma. The patient says she does not remember if she fell or not. She denies any complaints though said she is feeling drunk. She has been in the ER numerous times, nearly daily throughout the month of January. She is a daily drinker and chronic alcoholic and is homeless. She is not [facility] at the [facility], [facility], and cannot go to the [facility] when she is intoxicated. She is followed at the [facility] and is waiting for placement in a recovery program, however this will probably not happen for months according to case management notes. REVIEW OF SYSTEMS 10 systems were reviewed and negative with the exception of the elements mentioned in the history of present illness. PMHx: Hypertension, anxiety Soc Hx: Homeless, daily alcohol use PHYSICAL General Appearance: Alert, seems intoxicated, speaking with slurred speech Head: Left-sided forehead hematoma, abrasions to mid forehead Eyes: Pupils equal and round no pallor or injection ENT, Mouth: Mucous membranes moist Respiratory: There are no retractions, lungs are clear to auscultation Cardiovascular: Regular rate and rhythm Gastrointestinal: Abdomen is soft and non-tender, no masses, bowel sounds normal Neurological: A&O, moves all extremities Skin: Warm and dry, no rashes Musculoskeletal: Neck is supple non tender Extremities: symmetrical, full range of motion Psychiatric: Patient is oriented X 3, there is no agitation Source: Patient, EMS, Old records Exam Limitations: Intoxication - Personal History Current Tetanus/Diphtheria Vaccine: Unsure Current Tetanus Diphtheria and Acellular Pertussis (TDAP): Unsure Tetanus Vaccine Date: 2010 - Medical/Surgical History Hx Asthma: No Hx Chronic Respiratory Disease: No Hx Diabetes: No Hx Cardiac Disease: Yes Hx Renal Disease: No Hx Cirrhosis: No Hx Alcoholism: Yes Hx HIV/AIDS: No Hx Splenectomy or Spleen Trauma: No Other PMH: HTN, Insommia/depression, ETOH abuse, herpes, Hyperlipidemia, Anxiety , HYPOTHYROID, OSTEOPEROSIS - Social History Smoking Status: Never smoked Constitutional: Initial Vital Signs Temperature (C) 36.8 C 01/27/18 23:53 Heart Rate 107 H 01/27/18 23:53 Respiratory Rate 18 01/27/18 23:53 Blood Pressure 114/65 01/27/18 23:53 O2 Sat (%) 88 L 01/27/18 23:53 O2 Delivery Mode Room Air O2 (L/minute) 2 Allergies/Adverse Reactions: No Known Allergies Allergy (Verified 01/28/18 00:04) Home Medications: Medication Instructions Recorded Gabapentin [Neurontin] 1,200 mg PO TID 11/10/16 Aspirin EC [Aspirin EC 81 mg (*)] 162 mg PO DAILY 06/08/17 DULoxetine [Cymbalta 60 MG (*)] 60 mg PO DAILY #30 cap 12/16/17 Losartan Potassium [Cozaar 50 mg 50 mg PO DAILY #30 tab 12/16/17 (*)] Quetiapine Fumarate [Seroquel Xr] 200 mg PO HS #30 tab.er.24h 12/16/17 Medical Decision Making - Diagnostics Imaging Results: Imaging Impressions Cervical Spine CT 01/27/18 23:52 Impression: 1. There is an acute left frontal scalp hematoma. There is no associated skull fracture. 2. There is no acute intracranial abnormality identified on this unenhanced CT evaluation, or changes in the appearance of the brain since a previous study of 01/15/18. UNENHANCED CT SCAN OF THE CERVICAL SPINE Technique: A multidetector unenhanced helical CT scan was obtained from the clivus caudally through the upper thoracic spine, with images reformatted at 1.50 mm increments, and are reviewed in soft tissue, bone, and lung windows. Parasagittal and paracoronal reconstructed images are reviewed on the workstation. The DFOV is 18.0 cm. A dose reduction protocol was used. Given the history of trauma, the radiologist reviewed the osseous images in a 3D format on the computer workstation using Vyatta software. Findings: The bones appear mildly demineralized, with some trabecular rarefaction and scattered osteolucencies. Correlation with a DEXA scan, a CBC, and an SPEP is suggested. The cervical vertebral body heights and posterior alignments remain stable, with 3 mm of C7 anterolisthesis above T1. There is no acute fracture, or facet malalignment. The interspinous distances are normal. The craniocervical junction is normal. There is no prevertebral or epidural hematoma identified. The prevertebral soft tissues are normal, as are the lung apices. At the C1-C2 level, the predental space is mildly narrowed, and there is osseous hypertrophy; the atlantoaxial lateral mass alignment is normal. The base and the tip of the dens are normal. The AP canal diameter is normal. At the C2-C3 level, there is asymmetric right-sided facet hypertrophy and uncovertebral degenerative spondylosis, resulting in mild right neural foraminal narrowing. The left neural foramen and the central canal remain patent. At the C3-C4 level, there is moderate bilateral facet hypertrophy with uncovertebral degenerative spondylosis, resulting in moderate bilateral neural foraminal stenosis. There is a mild degree of central canal stenosis. At the C4-C5 level, there is moderate bilateral facet hypertrophy with uncovertebral degenerative spondylosis, resulting in argqwaqp-wb-pfdshr bilateral neural foraminal stenosis. The central canal remains patent. At the C5-C6 level, there is vbnt-sylybjd-sjqh-right facet hypertrophy with uncovertebral degenerative spondylosis resulting in qsrddlzz-fd-ijkpkc bilateral neural foraminal stenosis. The central canal remains patent. At the C6-C7 level, there is moderate degenerative disk space narrowing. There is broad-based circumferential disk bulging resulting in mild central canal stenosis. Facet hypertrophy and uncovertebral degenerative spondylosis result in moderate left and wwhbwxzz-ag-vngrpq right neural foraminal stenosis. At the C7-T1 level, there is the aforementioned trace anterolisthesis. There is hwvh-vr-xvzyclfp bilateral facet hypertrophy, right greater than left. The neural foramina and central canal remain patent. Impression: 1. Multilevel degenerative changes, as-detailed, stable from a previous study 12 days ago. There is no acute cervical osseous abnormality. 2. There are some small osteolucencies involving the cervical vertebral bodies, which may be related to trabecular rarefaction and osteopenia, although these are nonspecific findings. Correlation with a DEXA scan, serum CBC, and a serum protein electrophoresis is recommended. If there is further clinical concern regarding the patient's symptoms, correlative MR imaging could be considered, if otherwise not contraindicated. Findings were discussed with Rose Matias MD at 0:50, on 01/28/2018. Head CT 01/27/18 23:52 Impression: 1. There is an acute left frontal scalp hematoma. There is no associated skull fracture. 2. There is no acute intracranial abnormality identified on this unenhanced CT evaluation, or changes in the appearance of the brain since a previous study of 01/15/18. UNENHANCED CT SCAN OF THE CERVICAL SPINE Technique: A multidetector unenhanced helical CT scan was obtained from the clivus caudally through the upper thoracic spine, with images reformatted at 1.50 mm increments, and are reviewed in soft tissue, bone, and lung windows. Parasagittal and paracoronal reconstructed images are reviewed on the workstation. The DFOV is 18.0 cm. A dose reduction protocol was used. Given the history of trauma, the radiologist reviewed the osseous images in a 3D format on the computer workstation using Vyatta software. Findings: The bones appear mildly demineralized, with some trabecular rarefaction and scattered osteolucencies. Correlation with a DEXA scan, a CBC, and an SPEP is suggested. The cervical vertebral body heights and posterior alignments remain stable, with 3 mm of C7 anterolisthesis above T1. There is no acute fracture, or facet malalignment. The interspinous distances are normal. The craniocervical junction is normal. There is no prevertebral or epidural hematoma identified. The prevertebral soft tissues are normal, as are the lung apices. At the C1-C2 level, the predental space is mildly narrowed, and there is osseous hypertrophy; the atlantoaxial lateral mass alignment is normal. The base and the tip of the dens are normal. The AP canal diameter is normal. At the C2-C3 level, there is asymmetric right-sided facet hypertrophy and uncovertebral degenerative spondylosis, resulting in mild right neural foraminal narrowing. The left neural foramen and the central canal remain patent. At the C3-C4 level, there is moderate bilateral facet hypertrophy with uncovertebral degenerative spondylosis, resulting in moderate bilateral neural foraminal stenosis. There is a mild degree of central canal stenosis. At the C4-C5 level, there is moderate bilateral facet hypertrophy with uncovertebral degenerative spondylosis, resulting in pyosxqdn-rd-hlbrif bilateral neural foraminal stenosis. The central canal remains patent. At the C5-C6 level, there is cpbt-dnihwsl-pyhe-right facet hypertrophy with uncovertebral degenerative spondylosis resulting in bmpckqmn-zg-wfemfm bilateral neural foraminal stenosis. The central canal remains patent. At the C6-C7 level, there is moderate degenerative disk space narrowing. There is broad-based circumferential disk bulging resulting in mild central canal stenosis. Facet hypertrophy and uncovertebral degenerative spondylosis result in moderate left and ejgmlvub-pv-waiqge right neural foraminal stenosis. At the C7-T1 level, there is the aforementioned trace anterolisthesis. There is wwxh-vq-xubixazw bilateral facet hypertrophy, right greater than left. The neural foramina and central canal remain patent. Impression: 1. Multilevel degenerative changes, as-detailed, stable from a previous study 12 days ago. There is no acute cervical osseous abnormality. 2. There are some small osteolucencies involving the cervical vertebral bodies, which may be related to trabecular rarefaction and osteopenia, although these are nonspecific findings. Correlation with a DEXA scan, serum CBC, and a serum protein electrophoresis is recommended. If there is further clinical concern regarding the patient's symptoms, correlative MR imaging could be considered, if otherwise not contraindicated. Findings were discussed with Rose Matias MD at 0:50, on 01/28/2018. Differential Diagnosis: 62-year-old female with history of homelessness, chronic alcohol abuse, very well known to our emergency department presents with alcohol intoxication, inability to walk, frontal hematoma of uncertain origin. I met the paramedics at the bedside to obtain their report. Patient was started on oxygen because she was found to be hypoxic which may be related to her alcohol intoxication. Because of her frontal hematoma, CT scan of head and neck were ordered and were unremarkable for acute injury. The patient was allowed to sober in the emergency department. She stayed here until about 6:30 a.m. When she was able to walk with a steady gait and then was discharged to the street. She does have some findings in her her CT cervical spine which will warrant further testing, though this does not need to be done in the emergency department. Departure - Departure Disposition: Home, Routine, Self-Care Clinical Impression: Alcohol intoxication Qualifiers: Complication of substance-induced condition: with delirium Qualified Code(s): F10.921 - Alcohol use, unspecified with intoxication delirium Hematoma of frontal scalp Qualifiers: Encounter type: initial encounter Qualified Code(s): S00.03XA - Contusion of scalp, initial encounter Condition: Good Instructions: At-Risk Alcohol Use (ED) Additional Instructions: Please return to the emergency department if your worse in any way. Referrals: [facility],. [Clinic] - As per Instructions
[2018-01-28 06:25] VITALS: BP 124/89
== END 2018-01-28 06:41 | disposition home or self-care (01) ==
LOC: EDUNIT#
DX: F10.921 Alcohol use, unspecified with intoxication delirium (principal); S00.83XA Contusion of other part of head, initial encounter; M50.30 Other cervical disc degeneration, unspecified cervical region; Z59.0 Homelessness

== ENCOUNTER 2018-01-28 16:38 | Emergency (ER) | payer MEDICAID ==
--- NOTE | 2018-01-28 16:44 | EDPHY ---
H & P Time Seen by Provider: 01/28/18 16:42 HPI/ROS: HPI CHIEF COMPLAINT: Alcohol Intoxication HISTORY OF PRESENT ILLNESS: 62-year-old female, well known to myself, history of alcoholism daily alcohol use, presents emergency room acutely intoxicated with alcohol. She was found behind a liquor store. Highly intoxicated. She was unable to ambulate. She was released earlier from the emergency room. Past Medical History: History of alcoholism daily alcohol use. Past Surgical History: No recent surgery Social History: homeless. Daily alcohol use typically drinks a large amount of liquor. Family History: Noncontributory ROS REVIEW OF SYSTEMS: 10 Systems were reviewed and negative with the exception of the elements mentioned in the history of present illness. Exam Constitutional Intoxicated, triage nursing summary reviewed, vital signs reviewed, Sleepy, smells of alcohol vital signs stable. Not hypothermic. Eyes normal conjunctivae and sclera, horizontal beating nystagmus consistent acute alcohol intoxication, otherwise pupils equal and react to light HENT normal inspection, atraumatic, moist mucus membranes, no epistaxis, neck supple/ no meningismus, no raccoon eyes. Respiratory clear to auscultation bilaterally, normal breath sounds, no respiratory distress, no wheezing. Cardiovascular rate normal, regular rhythm, no murmur, no edema, distal pulses normal. Gastrointestinal soft, non-tender, no rebound, no guarding, normal bowel sounds, no distension, no pulsatile mass. Genitourinary no CVA tenderness. Musculoskeletal no midline vertebral tenderness, full range of motion, no calf swelling, no tenderness of extremities, no meningismus, good pulses, neurovascularly intact. Skin pink, warm, & dry, no rash, skin atraumatic. Neurologic sleepy, intoxicated with alcohol,, alert and oriented x 3, AAOx3, moves all 4 extremities equally, motor intact, sensory intact, CN II-XII intact , , normal vision, normal speech. Psychiatric normal mood/affect. Heme/Lymph/Immune no lymphadenopathy. Differential Diagnosis: Includes but is not limited to in a particular order acute alcohol intoxication, alcohol abuse, dehydration, electrolyte abnormality , nausea vomiting from acute alcohol intoxication Medical Decision Making: Plan for this patient breath alcohol. Monitor for worsening condition. Monitor for sobriety. Re-evaluation: 2126: Patient resting comfortably. She did get up 1 time to use the bathroom with a stable gait. However still intoxicated. Needs more time for sobriety. Once patient is sober. Patient be safely discharged. 2215: Patient ambulated well throughout the Er. Steady Gait. No Ataxia, Answers questions appropriately. safe for D/c. Source: Patient, EMS - Personal History Tetanus Vaccine Date: 2010 - Medical/Surgical History Hx Asthma: No Hx Chronic Respiratory Disease: No Hx Diabetes: No Hx Cardiac Disease: Yes Hx Renal Disease: No Hx Cirrhosis: No Hx Alcoholism: Yes Hx HIV/AIDS: No Hx Splenectomy or Spleen Trauma: No Other PMH: HTN, Insommia/depression, ETOH abuse, herpes, Hyperlipidemia, Anxiety , HYPOTHYROID, OSTEOPEROSIS - Social History Smoking Status: Never smoked Constitutional: Initial Vital Signs Temperature (C) 36.9 C 01/28/18 16:46 Heart Rate 84 01/28/18 16:46 Respiratory Rate 16 01/28/18 16:46 Blood Pressure 95/65 L 01/28/18 16:46 O2 Sat (%) 90 L 01/28/18 16:46 O2 Delivery Mode Room Air Allergies/Adverse Reactions: No Known Allergies Allergy (Verified 01/28/18 00:04) Home Medications: Medication Instructions Recorded Gabapentin [Neurontin] 1,200 mg PO TID 11/10/16 Aspirin EC [Aspirin EC 81 mg (*)] 162 mg PO DAILY 06/08/17 DULoxetine [Cymbalta 60 MG (*)] 60 mg PO DAILY #30 cap 12/16/17 Losartan Potassium [Cozaar 50 mg 50 mg PO DAILY #30 tab 12/16/17 (*)] Quetiapine Fumarate [Seroquel Xr] 200 mg PO HS #30 tab.er.24h 12/16/17 Departure - Departure Disposition: Home, Routine, Self-Care Clinical Impression: Alcohol intoxication Qualifiers: Complication of substance-induced condition: uncomplicated Qualified Code(s): F10.920 - Alcohol use, unspecified with intoxication, uncomplicated Condition: Good Instructions: Alcohol Intoxication (ED), Abuse of Alcohol (ED) Referrals: NONE *PRIMARY CARE P,. [Primary Care Provider] - As per Instructions
[2018-01-28 21:59] VITALS: BP 118/75
== END 2018-01-28 21:58 | disposition home or self-care (01) ==
LOC: EDUNIT#
DX: F10.929 Alcohol use, unspecified with intoxication, unspecified (principal); I10 Essential (primary) hypertension; E78.5 Hyperlipidemia, unspecified; E03.9 Hypothyroidism, unspecified

== ENCOUNTER 2018-04-12 08:09 | Emergency (ER) | payer MEDICAID ==
--- NOTE | 2018-04-12 08:27 | EDPHY ---
H & P Time Seen by Provider: 04/12/18 08:25 HPI/ROS: Chief complaint. Nausea, vomiting, diarrhea HPI. 62-year-old female here by EMS with vomiting and diarrhea that started at midnight. [place] [facility] [place]. She is not aware of anyone sick at the detention with vomiting or diarrhea illness. Denies travel or bad food. Diffuse crampy abdominal pain. No chest pain or shortness of breath. No fever. No blood in emesis or stool. Patient has been off her regular medications for several months and has not seen her physician for further medication. ROS 10 systems were reviewed and negative with the exception of the elements mentioned in the history of present illness Past Medical/Surgical History: Hypertension, insomnia, depression, alcoholism, herpes, dyslipidemia, anxiety, hypothyroid, osteoporosis Social History: Single, nonsmoker, no alcohol today Smoking Status: Never smoked Physical Exam: General Appearance: Alert well developed female mild distress vital signs are stable Eyes: Pupils equal and round no pallor or injection. ENT, Mouth: Mucous membranes are moist. Respiratory: There are no retractions, lungs are clear to auscultation. Cardiovascular: Regular rate and rhythm. Gastrointestinal: Abdomen is soft with diffuse mild discomfort. Normal bowel sounds. No masses Neurological: Awake and alert, sensory and motor exams grossly normal. Skin: Warm and dry, no rashes. Musculoskeletal: Neck is supple nontender. Extremities symmetrical, full range of motion. Psychiatric: Patient is oriented X 3, there is no agitation. Constitutional: Initial Vital Signs Temperature (C) 36.4 C 04/12/18 08:11 Heart Rate 84 04/12/18 08:11 Respiratory Rate 16 04/12/18 08:11 Blood Pressure 155/101 H 04/12/18 08:11 O2 Sat (%) 99 04/12/18 08:11 O2 Delivery Mode Room Air Allergies/Adverse Reactions: No Known Allergies Allergy (Verified 04/12/18 08:12) Home Medications: Medication Instructions Recorded Gabapentin [Neurontin] 1,200 mg PO TID 11/10/16 Aspirin EC [Aspirin EC 81 mg (*)] 162 mg PO DAILY 06/08/17 DULoxetine [Cymbalta 60 MG (*)] 60 mg PO DAILY #30 cap 12/16/17 Losartan Potassium [Cozaar 50 mg 50 mg PO DAILY #30 tab 12/16/17 (*)] Quetiapine Fumarate [Seroquel Xr] 200 mg PO HS #30 tab.er.24h 12/16/17 Ondansetron Odt [Zofran Odt] 4 mg PO Q4PRN PRN #4 tab 04/12/18 Medical Decision Making Procedures: IV normal saline, Zofran IV ED Course/Re-evaluation: Re-evaluation 9:35 a.m.. Patient is stable and feeling better. No vomiting or diarrhea in the ED Re-evaluation again at 2:30 p.m.. Patient is stable. No vomiting or diarrhea in the emergency department. She and I discussed laboratory evaluation, treatment plan including criteria for return importance of follow-up and further evaluation. She expresses understanding Differential Diagnosis: Vomiting and diarrhea. I considered dehydration, electrolyte abnormality - Data Points Laboratory Results: Laboratory Results 04/12/18 08:55 04/12/18 08:55 Sodium 135 mEq/L mEq/L (135-145) Potassium 4.1 mEq/L mEq/L (3.5-5.2) Chloride 108 mEq/L mEq/L (97-110) Carbon Dioxide 18 mEq/l L mEq/l (22-31) Anion Gap 9 mEq/L mEq/L (6-14) BUN 10 mg/dL mg/dL (7-23) Creatinine 0.5 mg/dL L mg/dL (0.6-1.0) Estimated GFR > 60 Glucose 95 mg/dL mg/dL (70-100) Calcium 8.9 mg/dL mg/dL (8.5-10.4) Lipase 104 IU/L IU/L (23-300) Medications Given: Discontinued Medications Sodium Chloride (Ns) 1,000 mls @ 0 mls/hr IV EDNOW ONE; Wide Open PRN Reason: Protocol Stop: 04/12/18 08:31 Last Admin: 04/12/18 08:44 Dose: 1,000 mls Ondansetron HCl (Zofran) 4 mg IVP EDNOW ONE Stop: 04/12/18 08:31 Last Admin: 04/12/18 08:44 Dose: 4 mg Promethazine HCl (Phenergan) 12.5 mg IVP EDNOW ONE Stop: 04/12/18 10:24 Last Admin: 04/12/18 10:29 Dose: 12.5 mg Departure - Departure Disposition: Home, Routine, Self-Care Clinical Impression: Vomiting Qualifiers: Vomiting type: unspecified Vomiting Intractability: non-intractable Nausea presence: with nausea Qualified Code(s): R11.2 - Nausea with vomiting, unspecified Condition: Good Instructions: Acute Nausea and Vomiting (ED) Additional Instructions: Frequent, small sips fluids well nauseated. Gradual diet advancement Zofran as needed for nausea Return for worsening symptoms. Follow-up with Dr. Dorantes for refills of your medication. And further evaluation Referrals: NONE *PRIMARY CARE P,. [Primary Care Provider] - As per Instructions Sussy Dorantes MD [Doctor of Osteopathy] - 2-3 days without fail Prescriptions: Ondansetron Odt [Zofran Odt] 4 mg PO Q4PRN PRN #4 tab PRN Reason: Nausea/Vomiting, Use 1st
[2018-04-12] MEDS ORDERED: ONDANSETRON 4 MG/2 ML VIAL IVP ONE (08:30)
[2018-04-12] MEDS ORDERED: NS 1,000 ML IV ONE (08:30)
[2018-04-12] MEDS ORDERED: PROMETHAZINE HCL 25 MG/ML INJ IVP ONE (10:23)
[2018-04-12 14:57] VITALS: BP 133/79
--- NOTE | 2018-04-13 11:33 | ASMTCMCOM ---
CM Note CM Note Notes: Late Entry from 04/12/18: Pt presented to the ED via EMS for N/V/D and abdominal pain. Spoke w/pt and she seems to be doing well and states she has been living back at the [facility] "its a really nice nursing home and Kaylee w/case management helped me fill out the application for a housing voucher. I guess I should be getting one in the mail soon." Pt states she is working at [employer], and really enjoys working again, "Its my fun job. And it helps me not drink." Pt states she had been sober for about 30 days while taking Antabuse (pt goes to the [facility] and is followed by Dr Amelie Pearce at [facility] and Dr. Sussy Dorantes at [facility]. But when she stopped taking Antabuse she started drinking again "but then I'll be sober for a few days. It is going to be a struggle everyday for the rest of my life. I'm not in denial." Pt was very pleasant and appreciative of "everyone's help here." CM offered to call and schedule a followup w/[facility] but declined. Followed up today w/TERENCE Yang Employee Benefits Director at [facility] and she states pt had already stopped by this morning and scheduled an appt w/ on 04/27/18. CM available for further assistance if needed. Date Signed: 04/13/2018 11:32 AM Electronically Signed By:Cintia Hair RN
== END 2018-04-12 14:53 | disposition home or self-care (01) ==
LOC: EDUNIT#
DX: R11.2 Nausea with vomiting, unspecified (principal); R19.7 Diarrhea, unspecified; E86.9 Volume depletion, unspecified
CPT/HCPCS: 96374; J2405; J2550

== ENCOUNTER 2018-04-24 19:33 | Emergency (ER) | payer MEDICAID ==
--- NOTE | 2018-04-24 19:38 | EDPHY ---
H & P Time Seen by Provider: 04/24/18 19:37 HPI/ROS: CHIEF COMPLAINT: Intoxication HISTORY OF PRESENT ILLNESS: Patient is a 62-year-old homeless alcoholic female who was found outside of the [employer] surrounded by vodka bottles and vomit. She was unable to voice any complaints to police. They brought her here and placed on an arc hold. Here she is crying but denies having any illness or injury. She is not hypothermic. Severity: Moderate Modifying factors: None REVIEW OF SYSTEMS: Unable to obtain secondary to condition EXAM: GENERAL: Tearful, moderate distress. HEAD: Atraumatic, normocephalic. EYES: Pupils equal round and reactive to light, extraocular movements intact, sclera anicteric, conjunctiva are normal. ENT: TMs normal, nares patent, oropharynx clear without exudates. Moist mucous membranes. NECK: Normal range of motion, supple without lymphadenopathy or JVD. LUNGS: Breath sounds clear to auscultation bilaterally and equal. No wheezes rales or rhonchi. HEART: Regular rate and rhythm without murmurs, rubs or gallops. ABDOMEN: Soft, nontender, normoactive bowel sounds. No guarding, no rebound. No masses appreciated. BACK: No CVA tenderness, no spinal tenderness, step-offs or deformities EXTREMITIES: Normal range of motion, no pitting or edema. No clubbing or cyanosis. NEUROLOGICAL: Cranial nerves II through XII grossly intact. Normal speech, normal gait. 5/5 strength, normal movement in all extremities, normal sensation , normal reflexes PSYCH: Tearful, crying, not cooperative with questioning SKIN: Warm, dry, normal turgor, no visible rashes or lesions. Source: Patient Exam Limitations: Intoxication - Personal History Tetanus Vaccine Date: 2010 - Medical/Surgical History Hx Asthma: No Hx Chronic Respiratory Disease: No Hx Diabetes: No Hx Cardiac Disease: Yes Hx Renal Disease: No Hx Cirrhosis: No Hx Alcoholism: Yes Hx HIV/AIDS: No Hx Splenectomy or Spleen Trauma: No Other PMH: HTN, Insommia/depression, ETOH abuse, herpes, Hyperlipidemia, Anxiety , HYPOTHYROID, OSTEOPEROSIS - Social History Smoking Status: Never smoked Alcohol Use: Heavy Constitutional: Initial Vital Signs Temperature (C) 36.6 C 04/24/18 19:38 Heart Rate 105 H 04/24/18 19:38 Respiratory Rate 18 04/24/18 19:38 Blood Pressure 110/85 H 04/24/18 19:38 O2 Sat (%) 94 04/24/18 19:38 O2 Delivery Mode Room Air Allergies/Adverse Reactions: No Known Allergies Allergy (Verified 04/12/18 08:12) Home Medications: Medication Instructions Recorded Gabapentin [Neurontin] 1,200 mg PO TID 11/10/16 Aspirin EC [Aspirin EC 81 mg (*)] 162 mg PO DAILY 06/08/17 DULoxetine [Cymbalta 60 MG (*)] 60 mg PO DAILY #30 cap 12/16/17 Losartan Potassium [Cozaar 50 mg 50 mg PO DAILY #30 tab 12/16/17 (*)] Quetiapine Fumarate [Seroquel Xr] 200 mg PO HS #30 tab.er.24h 12/16/17 Ondansetron Odt [Zofran Odt] 4 mg PO Q4PRN PRN #4 tab 04/12/18 Medical Decision Making ED Course/Re-evaluation: The patient is awake. She is answering questions appropriately. She is cooperative. She thinks that she can walk. We will road test her. She would like to leave. Will likely disposition her to the [facility] recovery [facility] or warming alf. 11:00 p.m. the patient is able to ambulate without difficulty. Will discharge at this time. Differential Diagnosis: Partial list of the Differential diagnosis considered include but were not limited to; intoxication, polysubstance abuse and although unlikely based on the history and physical exam, I also considered head injury, infection. - Data Points Medications Given: Discontinued Medications Chlordiazepoxide (Librium 25 Mg Prepack#6) 1 btl [facility] EDNOW ONE Stop: 04/24/18 22:59 Last Admin: 04/24/18 23:13 Dose: 1 btl Departure - Departure Disposition: Home, Routine, Self-Care Clinical Impression: Alcoholic intoxication Qualifiers: Complication of substance-induced condition: uncomplicated Qualified Code(s): F10.920 - Alcohol use, unspecified with intoxication, uncomplicated Condition: Fair Instructions: Chlordiazepoxide (By mouth), Alcohol Intoxication (ED) Referrals: NONE *PRIMARY CARE P,. [Primary Care Provider] - As per Instructions [facility],. [Clinic] - 2-3 days without fail
[2018-04-24] MEDS ORDERED: CHLORDIAZEPOXIDE 25MG PREPK#6 BTL TAKEHOME ONE (22:58)
[2018-04-24 23:17] VITALS: BP 118/67
== END 2018-04-24 23:18 | disposition home or self-care (01) ==
LOC: EDUNIT#
DX: F10.920 Alcohol use, unspecified with intoxication, uncomplicated (principal); Z59.0 Homelessness

== ENCOUNTER 2018-04-26 13:49 | Emergency (ER) | payer MEDICAID ==
--- NOTE | 2018-04-26 14:23 | EDPHY ---
H & P Time Seen by Provider: 04/26/18 14:15 HPI/ROS: CHIEF COMPLAINT: Intoxication HISTORY OF PRESENT ILLNESS: Patient is a 62-year-old homeless alcoholic female who is brought in for intoxication and for screaming at the police that she wanted to . She has been placed on a hold. She is very well known to our department. [place] and security [place] called police. She denies any attempted self-harm. Severity: Moderate Modifying factors: None REVIEW OF SYSTEMS: Unable to obtain secondary to condition Physical Exam General Appearance: Overweight, no apparent distress, obtunded (But arousable with painful stimulation) EENT: PERRL/EOMI, normal ENT inspection, TMs normal, pharynx normal Neck: non-tender, full range of motion, supple, normal inspection Respiratory: chest non-tender, lungs clear, normal breath sounds Cardiac/Chest: normal peripheral pulses, regular rate, rhythm, P Peripheral Pulses: 2+: carotid (R), carotid (L), femoral (R), femoral (L), dorsalis-pedis (R), dorsalis-pedis (L) Abdomen: normal bowel sounds, non-tender, soft Extremities: normal range of motion, non-tender, normal inspection, normal capillary refill Neurological: calm, 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 No: alert (Somnolent) Appearance: appropriate appearance, appropriate insight, neat, denies illness Behavior/Eye Contact/Speech: cooperative, decreased rate of speech Thoughts/Hallucinations: normal thought pattern, no apparent hallucination Skin: normal color, warm/dry Source: Patient, Police Exam Limitations: Intoxication - Personal History Tetanus Vaccine Date: 2010 - Medical/Surgical History Hx Asthma: No Hx Chronic Respiratory Disease: No Hx Diabetes: No Hx Cardiac Disease: Yes Hx Renal Disease: No Hx Cirrhosis: No Hx Alcoholism: Yes Hx HIV/AIDS: No Hx Splenectomy or Spleen Trauma: No Other PMH: HTN, Insommia/depression, ETOH abuse, herpes, Hyperlipidemia, Anxiety , HYPOTHYROID, OSTEOPEROSIS - Family History Significant Family History: No pertinent family hx - Social History Smoking Status: Never smoked Alcohol Use: Heavy Constitutional: Initial Vital Signs Temperature (C) 36.9 C 04/26/18 14:16 Heart Rate 92 04/26/18 14:16 Respiratory Rate 14 04/26/18 14:16 Blood Pressure 114/92 H 04/26/18 14:16 O2 Sat (%) 96 04/26/18 14:16 O2 Delivery Mode Room Air Allergies/Adverse Reactions: No Known Allergies Allergy (Verified 04/26/18 20:04) Home Medications: Medication Instructions Recorded Gabapentin [Neurontin] 1,200 mg PO TID 11/10/16 Aspirin EC [Aspirin EC 81 mg (*)] 162 mg PO DAILY 06/08/17 DULoxetine [Cymbalta 60 MG (*)] 60 mg PO DAILY #30 cap 12/16/17 Losartan Potassium [Cozaar 50 mg 50 mg PO DAILY #30 tab 12/16/17 (*)] Quetiapine Fumarate [Seroquel Xr] 200 mg PO HS #30 tab.er.24h 12/16/17 Ondansetron Odt [Zofran Odt] 4 mg PO Q4PRN PRN #4 tab 04/12/18 Medical Decision Making ED Course/Re-evaluation: Patient is an alcoholic who chronically makes statements like she wants to when she is intoxicated angry and woken but when she is sober denies feeling suicidal. She has not attempted to harm herself. I feel that this hold is placed inappropriately because she is inebriated and this is a pattern of behavior we are familiar with for her in-particular. I will lift the hold at this time. We will allow her to sober up and then discharge her. 3:00 p.m. the patient is ambulatory. She denies suicidal thoughts or ideation. She is more calm. She is tolerating p.o.. She does not wish to be here any longer. Will discharge at this time. No complaints of pain or injury. No complaints of illness. Differential Diagnosis: Partial list of the Differential diagnosis considered include but were not limited to; intoxication, polysubstance abuse, depression, suicidal ideation and although unlikely based on the history and physical exam, I also considered head injury, infection. Departure - Departure Disposition: Home, Routine, Self-Care Clinical Impression: Alcoholic intoxication Qualifiers: Complication of substance-induced condition: uncomplicated Qualified Code(s): F10.920 - Alcohol use, unspecified with intoxication, uncomplicated Condition: Fair Instructions: Alcohol Intoxication (ED) Referrals: NONE *PRIMARY CARE P,. [Primary Care Provider] - As per Instructions [facility],. [Clinic] - As per Instructions
[2018-04-26 15:16] VITALS: BP 129/89
== END 2018-04-26 15:16 | disposition home or self-care (01) ==
LOC: EDUNIT#
DX: F10.920 Alcohol use, unspecified with intoxication, uncomplicated (principal); E03.9 Hypothyroidism, unspecified; Z59.0 Homelessness

== ENCOUNTER 2018-04-26 19:58 | Emergency (ER) | payer MEDICAID ==
--- NOTE | 2018-04-26 20:00 | EDPHY ---
H & P Time Seen by Provider: 04/26/18 20:00 HPI/ROS: CHIEF COMPLAINT: Suspected alcohol abuse HISTORY OF PRESENT ILLNESS: 62 year old female arrives via ambulance for suspected alcohol abuse. She was found sleeping outside. Patient unable to ambulate without assistance. No reports of trauma or assault. No fall from height. No structures of height near patient. Denies: Suicidal or homicidal ideation, trauma, fall, head injury, hallucination, seizure REVIEW OF SYSTEMS: 10 systems reviewed and negative with the exception of the elements mentioned in the history of present illness PAST MEDICAL/SURGICAL HISTORY: History of alcoholism. SOCIAL HISTORY: Positive for self disclosed alcohol use PHYSICAL EXAM 1) GENERAL: Well-developed, well-nourished, alert and oriented. Appears to be in no acute distress. Answering questions appropriately.Smells of alcohol. 2) HEAD: Normocephalic, atraumatic 3) HEENT: Pupils equal, round, reactive to light bilaterally. Negative Horners. Nasopharynx, oropharynx, clear. No deformity or angulation of nose. No septal hematoma. No rhinorrhea. No oral trauma. Ears bilaterally with normal tympanic membranes. No hemotympanum. No fluid or blood in the external auditory canal. No raccoon eyes. No Mccray sign. Teeth are normally aligned with no gross malocclusion, TMJ bilaterally nontender, facial bones nontender including the zygomatic arch, maxilla mandible. 4) NECK: No cervical collar is on. Posterior cervical spine is nontender, no stepoff, no effusion. Full range of motion which does not elicit any midline cervical spine pain, no posterior midline tenderness, no step-off. 5) LUNGS: Clear to auscultation bilaterally, no wheezes, no rhonchi, no retractions. No obvious signs of trauma. No chest wall pain. No flaring, no grunting. Moving symmetrically. No crepitus. 6) HEART: Regular rate and rhythm, 7) ABDOMEN: No guarding, no rebound, no focal tenderness, no peritoneal signs, no signs of trauma, no ecchymosis 8) MUSCULOSKELETAL: Moving all extremities, no focal areas of tenderness, no obvious trauma. 9) BACK: No midline vertebral tenderness, no fluctuance, no step-off, no obvious trauma, no visual or palpable abnormality. 10) SKIN: No laceration. No abrasion DIFFERENTIAL DIAGNOSIS: In no particular order space including but not limited to hypoglycemia, infectious process, electrolyte abnormality, head injury and intoxicants. - Personal History Tetanus Vaccine Date: 2010 - Medical/Surgical History Hx Asthma: No Hx Chronic Respiratory Disease: No Hx Diabetes: No Hx Cardiac Disease: Yes Hx Renal Disease: No Hx Cirrhosis: No Hx Alcoholism: Yes Hx HIV/AIDS: No Hx Splenectomy or Spleen Trauma: No Other PMH: HTN, Insommia/depression, ETOH abuse, herpes, Hyperlipidemia, Anxiety , HYPOTHYROID, OSTEOPEROSIS - Social History Smoking Status: Never smoked Constitutional: Initial Vital Signs Temperature (C) 36.6 C 04/26/18 20:04 Heart Rate 95 04/26/18 20:04 Respiratory Rate 16 04/26/18 20:04 Blood Pressure 94/65 L 04/26/18 20:04 O2 Sat (%) 92 04/26/18 20:04 O2 Delivery Mode Room Air Allergies/Adverse Reactions: No Known Allergies Allergy (Verified 04/26/18 20:04) Home Medications: Medication Instructions Recorded Gabapentin [Neurontin] 1,200 mg PO TID 11/10/16 Aspirin EC [Aspirin EC 81 mg (*)] 162 mg PO DAILY 06/08/17 DULoxetine [Cymbalta 60 MG (*)] 60 mg PO DAILY #30 cap 12/16/17 Losartan Potassium [Cozaar 50 mg 50 mg PO DAILY #30 tab 12/16/17 (*)] Quetiapine Fumarate [Seroquel Xr] 200 mg PO HS #30 tab.er.24h 12/16/17 Ondansetron Odt [Zofran Odt] 4 mg PO Q4PRN PRN #4 tab 04/12/18 Medical Decision Making ED Course/Re-evaluation: 835 p.m.: At this time patient is alert oriented person place time events, stable steady gait, clear speech pattern. She [facility] with Librium prepack. Doubt delirium tremens. Care of patient under supervision of secondary supervising physician Dr Morse with whom I discussed case. - Data Points Medications Given: Discontinued Medications Chlordiazepoxide (Librium 25 Mg Prepack#6) 1 btl [facility] ED[facility] ONE Stop: 04/26/18 20:40 Last Admin: 02/11/19 20:39 Dose: 1 btl Ibuprofen (Motrin) 600 mg PO EDNOW ONE Stop: 04/26/18 20:38 Last Admin: 04/26/18 20:38 Dose: 600 mg Departure - Departure Disposition: Home, Routine, Self-Care Clinical Impression: Alcohol abuse Instructions: Chlordiazepoxide/Clidinium (By mouth), Alcohol Intoxication (ED) Referrals: [facility] [Outside] - As per Instructions
[2018-04-26] MEDS ORDERED: IBUPROFEN 600 MG TAB PO ONE ×2 (20:37)
[2018-04-26] MEDS ORDERED: CHLORDIAZEPOXIDE 25MG PREPK#6 BTL TAKEHOME ONE ×2 (20:37→20:39)
[2018-04-26 20:43] VITALS: BP 101/66
== END 2018-04-26 20:43 | disposition home or self-care (01) ==
LOC: EDBD → EDUNIT#
DX: F10.129 Alcohol abuse with intoxication, unspecified (principal); I10 Essential (primary) hypertension; E78.5 Hyperlipidemia, unspecified; E03.9 Hypothyroidism, unspecified; F41.9 Anxiety disorder, unspecified

== ENCOUNTER 2018-05-02 21:14 | Emergency (ER) | payer MEDICAID ==
[2018-05-02 21:18] VITALS: BP 142/95
--- NOTE | 2018-05-02 21:21 | EDPHY ---
General Time Seen by Provider: 05/02/18 21:20 Narrative: CLINICAL IMPRESSION: Alcohol abuse, med clearance ASSESSMENT/PLAN: Patient is a 62-year-old female with a significant medical history of alcohol abuse who presents with acute alcohol intoxication. Patient is afebrile and not toxic appearing, she is in no acute distress on arrival. Her abdomen was soft and nontender, no evidence of a surgical abdomen. She is alert and oriented, she is able to ambulate without difficulty and with a steady gait independently. She had no physical complaints while in the emergency department. There were no findings to suggest alcohol withdrawal, trauma, CVA, encephalopathy or DTs. The patient is medically clear for arc, escorted by police. The patient was provided a Librium prepack for the arc. Return precautions were discussed. Differential diagnosis: Including but not limited to and in no specific order alcohol intoxication, alcohol abuse, alcohol withdrawal, other substance abuse or withdrawal, toxidrome or medication overdose, CVA, head trauma, hyponatremia, hypoglycemia or other electrolyte abnormality. ED COURSE: 2131: Discussed with Dr. Dang CHIEF COMPLAINT: Acute alcohol intoxication, med clearance HPI: Patient is a 62-year-old female who arrives with [employer] police for a medical clearance for the arc. Patient walked into [facility] secondary to being cold, police were subsequently called as patient did not know where she was at that time. Patient brought here for med clearance. Patient denies any physical complaints, reports chronic alcohol abuse and acute alcohol intoxication. Patient denies any recent trauma, falls or assault. She denies any suicidal ideation or intent of self-harm. PAST MEDICAL HISTORY: Chronic alcohol abuse, hypertension, hyperlipidemia, anxiety, depression, insomnia, hypothyroid, osteoporosis Family History: Noncontributory Social History: Chronic alcohol abuse ROS: A full 10 point review of systems was negative except for those mentioned in HPI. PHYSICAL EXAM: General Appearance: Elderly, no acute distress and not toxic-appearing. HEENT: External ears are normal, nares are clear. Oropharynx is clear with moist mucosa and dentition is normal. Eyes: PERRLA, EOMI intact. Conjunctiva pink, no pallor or injection. Neck: Supple, nontender, no lymphadenopathy, no midline pain, FROM, no meningismus. Respiratory: There are no retractions, lungs are clear to auscultation. Cardiac: Regular rate and rhythm, no murmurs or gallops. Gastrointestinal: Abdomen is soft, nontender, bowel sounds normal, no masses/ hernia, no rigidity, guarding or focal peritoneal findings. Skin: Warm, dry, no rashes, no nodules on palpation. Abrasion noted to right knee with scabbing, appears old. No surrounding erythema, no drainage or induration. MEDICAL DECISION MAKING: Patient was seen independently. Secondary supervising physician at time of evaluation was Dr. Dang, he did not personally evaluate this patient. Diagnosis: Acute alcohol intoxication, med clearance. New, requires workup Summary: See Assessment and Plan for summary of ED visit Clinical lab tests: Not applicable. Independent visualization of images, tracing, or specimens: Not applicable. Decision to obtain medical records or history from someone other than the patient: Yes, police Review / Summarize previous medical records: Yes Discussed patient with another provider: Yes, Dr. Dang Patient Progress: Stable, discharge. - History Smoking Status: Never smoked - Objective Vital Signs: Initial Vital Signs Temperature (C) 36.0 C 05/02/18 21:16 Heart Rate 67 05/02/18 21:16 Respiratory Rate 18 05/02/18 21:16 Blood Pressure 142/95 H 05/02/18 21:16 O2 Sat (%) 98 05/02/18 21:16 O2 Delivery Mode Room Air Allergies/Adverse Reactions: No Known Allergies Allergy (Verified 05/02/18 21:15) Home Medications: Medication Instructions Recorded Gabapentin [Neurontin] 1,200 mg PO TID 11/10/16 Aspirin EC [Aspirin EC 81 mg (*)] 162 mg PO DAILY 06/08/17 DULoxetine [Cymbalta 60 MG (*)] 60 mg PO DAILY #30 cap 12/16/17 Losartan Potassium [Cozaar 50 mg 50 mg PO DAILY #30 tab 12/16/17 (*)] Quetiapine Fumarate [Seroquel Xr] 200 mg PO HS #30 tab.er.24h 12/16/17 Ondansetron Odt [Zofran Odt] 4 mg PO Q4PRN PRN #4 tab 04/12/18 Medications Given: Discontinued Medications Chlordiazepoxide (Librium 25 Mg Prepack#6) 1 btl TAKEHOME EDNOW ONE Stop: 05/02/18 21:36 Last Admin: 05/02/18 21:39 Dose: 1 btl Departure - Departure Disposition: Home, Routine, Self-Care Clinical Impression: Alcohol intoxication Qualifiers: Complication of substance-induced condition: uncomplicated Qualified Code(s): F10.920 - Alcohol use, unspecified with intoxication, uncomplicated Condition: Good Instructions: Chlordiazepoxide/Clidinium (By mouth), Abuse of Alcohol (ED) Additional Instructions: DISCHARGE INSTRUCTIONS FROM YOUR DOCTOR Thank you for visiting our emergency department today. Please keep in mind that discharge from the emergency department does not mean that there is nothing wrong - it simply means that we have not identified an emergency condition that requires further evaluation or treatment in the hospital. You should always plan to follow up with primary care for re-evaluation of your condition in the next 2-3 days. Please try to avoid drinking alcohol. Please follow-up with your primary care provider. People present with illnesses and injuries in different ways, and it is always possible that we have missed something. You may always return for re-evaluation if symptoms worsen or if they are not improving or if you develop new/different symptoms. Again, thank you for choosing our emergency department. We hope that you feel better. Referrals: Patient,NotPresent [Unknown] - As per Instructions
[2018-05-02] MEDS ORDERED: CHLORDIAZEPOXIDE 25MG PREPK#6 BTL TAKEHOME ONE (21:35)
== END 2018-05-02 21:43 | disposition home or self-care (01) ==
DX: F10.920 Alcohol use, unspecified with intoxication, uncomplicated (principal); I10 Essential (primary) hypertension; E78.5 Hyperlipidemia, unspecified; F41.8 Other specified anxiety disorders; E03.9 Hypothyroidism, unspecified; G47.00 Insomnia, unspecified; M81.0 Age-related osteoporosis without current pathological fracture

== ENCOUNTER 2018-05-03 17:10 | Emergency (ER) | payer MEDICAID ==
--- NOTE | 2018-05-03 17:21 | EDPHY ---
HPI/HX/ROS/PE/MDM Narrative: CHIEF COMPLAINT:EtOH HPI: This patient is a 62-year-old female with significant history of alcohol abuse who is well known to this department with 30 prior visits in the past year. She arrives today via EMS for alcohol intoxication. She was seen yesterday for similar presentation and was discharged to the [facility] with a Librium prepack. It is unclear what happened between then and now, but the patient was found on the street and admits to consuming about 1/2 pint of alcohol today. Per EMS, she was reportedly unwelcome to return to the [facility] today, so she arrives here for observation. She has no physical complaints today. No suicidal or homicidal ideation. REVIEW OF SYSTEMS: A comprehensive 10 system review of systems is otherwise negative aside from elements mentioned in the history of present illness and medical decision making. PMH: Alcoholism, hypertension, hyperlipidemia, hypothyroid, osteoporosis, depression, anxiety. SOCIAL HISTORY: Single. History of alcohol abuse, well known to this department. PHYSICAL EXAM: General:Patient is alert, in no acute distress, seems intoxicated, answering questions appropriately. ENT:Eyes are normal to inspection. ENT inspection normal. Neck: Normal inspection. Full range of motion. Respiratory:No respiratory distress. Breath sounds normal bilaterally. Cardiovascular: Regular rate and rhythm. Strong peripheral pulses. Normal cap refill. Abdomen:The abdomen is nontender to palpation. There are no peritoneal signs. There are normal bowel sounds. Back: Normal to inspection. No tenderness to palpation. Skin: Normal color. No rash. Warm and dry. Extremities: Normal appearance. Full range of motion. Neuro: Oriented x3. Normal motor function. Normal sensory function. ED Course: 62 y/o female arrives for evaluation of acute alcohol intoxication. She was reportedly not welcome at the [facility] this evening, though it is unclear why. The patient appears intoxicated but is answering questions appropriately. Plan to observe her here in the emergency department until an appropriate disposition may be arranged. Patient is homeless and it is quite cold and snowy tonight, so we would like to find senior care for her this evening. 21:16 Staff have been able to arrange placement at a senior care for tonight for this patient. Plan to discharge her in good condition. Follow up and return precautions discussed. She is comfortable with this plan. General Time Seen by Provider: 05/03/18 17:20 Initial Vital Signs: Initial Vital Signs Temperature (C) 36.5 C 05/03/18 17:41 Heart Rate 72 05/03/18 17:41 Respiratory Rate 16 05/03/18 17:41 Blood Pressure 114/76 05/03/18 17:41 O2 Sat (%) 93 05/03/18 17:41 O2 Delivery Mode Room Air Allergies/Adverse Reactions: No Known Allergies Allergy (Verified 05/02/18 21:15) Home Medications: Medication Instructions Recorded Gabapentin [Neurontin] 1,200 mg PO TID 11/10/16 Aspirin EC [Aspirin EC 81 mg (*)] 162 mg PO DAILY 06/08/17 DULoxetine [Cymbalta 60 MG (*)] 60 mg PO DAILY #30 cap 12/16/17 Losartan Potassium [Cozaar 50 mg 50 mg PO DAILY #30 tab 12/16/17 (*)] Quetiapine Fumarate [Seroquel Xr] 200 mg PO HS #30 tab.er.24h 12/16/17 Ondansetron Odt [Zofran Odt] 4 mg PO Q4PRN PRN #4 tab 04/12/18 Departure - Departure Disposition: Home, Routine, Self-Care Clinical Impression: Alcoholic intoxication Qualifiers: Complication of substance-induced condition: uncomplicated Qualified Code(s): F10.920 - Alcohol use, unspecified with intoxication, uncomplicated Condition: Good Instructions: Alcohol Intoxication (ED), Abuse of Alcohol (ED) Additional Instructions: Please refrain from abusing alcohol. Return to the emergency department for fever, vomiting, confusion, headache, abdominal pain or other worsening of condition. Referrals: [facility],. [Clinic] - As per Instructions Report Scribed for: Patrick Dang Report Scribed by: Deysi Gonzalez Date of Report: 05/03/18 Time of Report: 20:29 Physician Review and Approval Statement: Portions of this note were transcribed by an ED scribe. I personally performed the history, physical exam, and medical decision making; and confirm the accuracy of the information in the transcribed note.
[2018-05-03 21:32] VITALS: BP 132/86
== END 2018-05-03 21:32 | disposition home or self-care (01) ==
LOC: EDUNIT#
DX: F10.220 Alcohol dependence with intoxication, uncomplicated (principal); I10 Essential (primary) hypertension; E78.5 Hyperlipidemia, unspecified

== ENCOUNTER 2018-05-05 19:40 | Emergency (ER) | payer MEDICAID ==
--- NOTE | 2018-05-05 19:50 | EDPHY ---
H & P Time Seen by Provider: 05/05/18 19:46 HPI/ROS: HPI: This is a 62-year-old female who presents with Chief Complaint: Alcohol intoxication Location: body Quality: Alcohol intoxication Duration: Unknown Signs and Symptoms: no fever, no nausea, no vomiting, no hematemesis, no blood in stool, no abdominal bloating, no diarrhea, no back pain, no urinary symptoms , no vaginal bleeding/discharge, no indigestion, no chest pain, no shortness of breath Timing: Acute on chronic Severity: Moderate Context: Patient is brought in by EMS when a bystander found her passed out the door of the local convenience store. Patient admits to drinking large amounts of vodka today. She cannot tell me how much she drank. She cannot tell me where she was last. She remembers me from prior emergency room visits. She has no complaints of chest pain, shortness of breath, abdominal pain, nausea, vomiting. She reports that she does not want to kill herself and does not want to harm other people. Modifying Factors: Comment: ROS: A comprehensive 10 system review of systems is otherwise negative aside from elements mentioned in the history of present illness. MEDICAL/SURGICAL/SOCIAL HISTORY: Medical history: HTN, Insomnia/depression, ETOH abuse, herpes, Hyperlipidemia, Anxiety, HYPOTHYROID, OSTEOPOROSIS Surgical history: Denies Social history: Homeless. Family history noncontributory. CONSTITUTIONAL: Tidy, labile, intoxicated, cooperative at times and when easily redirected, elderly white female, awake and alert, no obvious distress HEENT: Atraumatic and normocephalic, PERRL, EOMI. Nares patent; no rhinorrhea; no nasal mucosal edema. Tympanic membranes clear. Oropharynx clear, no exudate and moist pink mucosa. Airway patent. No lymphadenopathy. No meningismus. Cardiovascular: Normal S1/S2, regular rate, regular rhythm, without murmur rub or gallop. PULMONARY/CHEST: Symmetrical and nontender. Clear to auscultation bilaterally. Good air movement. No accessory muscle usage. ABDOMEN: Soft, nondistended, nontender, no rebound, no guarding, no peritoneal signs, no masses or organomegaly. No CVAT. EXTREMITIES: 2/2 pulses, strength 5/5, no deformities, no clubbing, no cyanosis or edema. NEUROLOGICAL: no focal neuro deficits. GCS 15. Slurred speech. SKIN: Warm and dry, no erythema. no rash. Good capillary refill. PSYCH: Good eye contact, no flight of ideas, disorganized thought process, fair insight and judgment, no auditory hallucinations, no visual hallucinations , no suicidal ideation with a plan, no homicidal ideation, no paranoia Source: RN/MD, EMS Exam Limitations: Intoxication - Personal History Tetanus Vaccine Date: 2010 - Medical/Surgical History Hx Asthma: No Hx Chronic Respiratory Disease: No Hx Diabetes: No Hx Cardiac Disease: Yes Hx Renal Disease: No Hx Cirrhosis: No Hx Alcoholism: Yes Hx HIV/AIDS: No Hx Splenectomy or Spleen Trauma: No Other PMH: HTN, Insommia/depression, ETOH abuse, herpes, Hyperlipidemia, Anxiety , HYPOTHYROID, OSTEOPEROSIS - Social History Smoking Status: Never smoked Constitutional: Initial Vital Signs Temperature (C) 36.9 C 05/05/18 19:51 Heart Rate 86 05/05/18 19:51 Respiratory Rate 16 05/05/18 19:51 Blood Pressure 94/69 L 05/05/18 19:51 O2 Sat (%) 94 05/05/18 19:51 O2 Delivery Mode Room Air Allergies/Adverse Reactions: No Known Allergies Allergy (Verified 05/05/18 20:19) Home Medications: Medication Instructions Recorded Gabapentin [Neurontin] 1,200 mg PO TID 11/10/16 Aspirin EC [Aspirin EC 81 mg (*)] 162 mg PO DAILY 06/08/17 DULoxetine [Cymbalta 60 MG (*)] 60 mg PO DAILY #30 cap 12/16/17 Losartan Potassium [Cozaar 50 mg 50 mg PO DAILY #30 tab 12/16/17 (*)] Quetiapine Fumarate [Seroquel Xr] 200 mg PO HS #30 tab.er.24h 12/16/17 Ondansetron Odt [Zofran Odt] 4 mg PO Q4PRN PRN #4 tab 04/12/18 Medical Decision Making ED Course/Re-evaluation: Vital signs reviewed and stable upon arrival. Placed on radiographer cardiac catheterization. Patient will be observed until more sober to ambulate without ataxia. Patient adamantly refuses to be discharged to the [facility]. Does not meet M1 hold criteria. 0000: End of shift. Signed over to Dr. Georges pending patient becoming more sober and able to ambulate without assistance. This patient was seen under the supervision of my secondary supervising physician. I evaluated care for this patient with attending. Discussed this patient with Dr. Wright. Differential Diagnosis: Differential diagnosis includes but is not limited to major depression, anxiety disorder, schizophrenia, bipolar disorder, intoxicant use, suicidal ideation, psychosis, gerson. Departure - Departure Disposition: Home, Routine, Self-Care Clinical Impression: Alcoholic intoxication without complication Condition: Good Instructions: Abuse of Alcohol (ED) Additional Instructions: Please refrain from drinking alcohol excessively. Referrals: [facility],. [Clinic] - As per Instructions
[2018-05-05 22:32] VITALS: BP 94/64
[2018-05-05] MEDS ORDERED: CHLORDIAZEPOXIDE 25MG PREPK#6 BTL TAKEHOME ONE (23:37)
== END 2018-05-06 00:24 | disposition home or self-care (01) ==
LOC: EDBD → EDUNIT#
DX: F10.920 Alcohol use, unspecified with intoxication, uncomplicated (principal); I10 Essential (primary) hypertension; E78.5 Hyperlipidemia, unspecified; E03.9 Hypothyroidism, unspecified; G47.00 Insomnia, unspecified; F41.9 Anxiety disorder, unspecified

== ENCOUNTER 2018-05-08 15:26 | Emergency (ER) | payer MEDICAID, OTHER ==
--- NOTE | 2018-05-08 15:31 | EDPHY ---
H & P Time Seen by Provider: 05/08/18 15:30 HPI/ROS: HPI CHIEF COMPLAINT: Alcohol Intoxication HISTORY OF PRESENT ILLNESS: Patient is 62-year-old female she arrives to the emergency room by EMS with acute alcohol intoxication. According to EMS and nursing staff she was at a grocery store mast somebody called 911. She has no medical complaints. Does state that she is intoxicated with alcohol. States she drank a large amount of alcohol today. Past Medical History: alcoholism daily alcohol use. Past Surgical History: No recent surgery Social History: The homeless with daily alcohol use. Family History: Noncontributory ROS REVIEW OF SYSTEMS: 10 Systems were reviewed and negative with the exception of the elements mentioned in the history of present illness. Exam Constitutional Intoxicated, triage nursing summary reviewed, vital signs reviewed, Sleepy, smells of alcohol Eyes normal conjunctivae and sclera, horizontal beating nystagmus consistent acute alcohol intoxication, otherwise pupils equal and react to light HENT normal inspection, atraumatic, moist mucus membranes, no epistaxis, neck supple/ no meningismus, no raccoon eyes. Respiratory clear to auscultation bilaterally, normal breath sounds, no respiratory distress, no wheezing. Cardiovascular rate normal, regular rhythm, no murmur, no edema, distal pulses normal. Gastrointestinal soft, non-tender, no rebound, no guarding, normal bowel sounds, no distension, no pulsatile mass. Genitourinary no CVA tenderness. Musculoskeletal no midline vertebral tenderness, full range of motion, no calf swelling, no tenderness of extremities, no meningismus, good pulses, neurovascularly intact. Skin pink, warm, & dry, no rash, skin atraumatic. Neurologic sleepy, intoxicated with alcohol,, alert and oriented x 3, AAOx3, moves all 4 extremities equally, motor intact, sensory intact, CN II-XII intact , , normal vision, normal speech. Psychiatric normal mood/affect. Heme/Lymph/Immune no lymphadenopathy. Differential Diagnosis: Includes but is not limited to in a particular order acute alcohol intoxication, alcohol abuse, dehydration, electrolyte abnormality , nausea vomiting from acute alcohol intoxication Medical Decision Making: Plan for this patient IV establishment IV fluid bolus , basic blood work, serum alcohol level and re-evaluate. Re-evaluation: Serum alcohol level 294. 1803: Patient's sober here nicely. She ambulated to the bathroom with a steady gait, she is clinically sober. She answers my questions appropriately. She has no complaints. She is interested in going to a senior care tonight. She does not want to go to detox. Will try to arrange transfer to senior care for her. Source: Patient - Personal History Tetanus Vaccine Date: 2010 - Medical/Surgical History Hx Asthma: No Hx Chronic Respiratory Disease: No Hx Diabetes: No Hx Cardiac Disease: Yes Hx Renal Disease: No Hx Cirrhosis: No Hx Alcoholism: Yes Hx HIV/AIDS: No Hx Splenectomy or Spleen Trauma: No Other PMH: HTN, Insommia/depression, ETOH abuse, herpes, Hyperlipidemia, Anxiety , HYPOTHYROID, OSTEOPEROSIS - Social History Smoking Status: Never smoked Constitutional: Initial Vital Signs Temperature (C) 36.7 C 05/08/18 15:38 Heart Rate 78 05/08/18 15:38 Respiratory Rate 16 05/08/18 15:38 Blood Pressure 90/60 L 05/08/18 15:38 O2 Sat (%) 94 05/08/18 15:38 O2 Delivery Mode Room Air Allergies/Adverse Reactions: No Known Allergies Allergy (Verified 05/08/18 15:44) Home Medications: Medication Instructions Recorded Gabapentin [Neurontin] 1,200 mg PO TID 11/10/16 Aspirin EC [Aspirin EC 81 mg (*)] 162 mg PO DAILY 06/08/17 DULoxetine [Cymbalta 60 MG (*)] 60 mg PO DAILY #30 cap 12/16/17 Losartan Potassium [Cozaar 50 mg 50 mg PO DAILY #30 tab 12/16/17 (*)] Quetiapine Fumarate [Seroquel Xr] 200 mg PO HS #30 tab.er.24h 12/16/17 Ondansetron Odt [Zofran Odt] 4 mg PO Q4PRN PRN #4 tab 04/12/18 Medical Decision Making - Data Points Laboratory Results: Laboratory Results 05/08/18 15:50 05/08/18 15:50 05/08/18 05/08/18 15:50 15:50 WBC 8.25 10^3/uL 10^3/uL (3.80-9.50) RBC 4.28 10^6/uL 10^6/uL (4.18-5.33) Hgb 13.2 g/dL g/dL (12.6-16.3) Hct 40.6 % % (38.0-47.0) MCV 94.9 fL fL (81.5-99.8) MCH 30.8 pg pg (27.9-34.1) MCHC 32.5 g/dL g/dL (32.4-36.7) RDW 17.0 % H % (11.5-15.2) Plt Count 403 10^3/uL H 10^3/uL (150-400) MPV 10.2 fL fL (8.7-11.7) Neut % (Auto) 62.8 % % (39.3-74.2) Lymph % (Auto) 21.0 % % (15.0-45.0) [place] % (Auto) 8.0 % % (4.5-13.0) Eos % (Auto) 6.8 % % (0.6-7.6) Baso % (Auto) 1.2 % % (0.3-1.7) Nucleat RBC Rel Count 0.0 % % (0.0-0.2) Absolute Neuts (auto) 5.18 10^3/uL 10^3/uL (1.70-6.50) Absolute Lymphs (auto) 1.73 10^3/uL 10^3/uL (1.00-3.00) Absolute Monos (auto) 0.66 10^3/uL 10^3/uL (0.30-0.80) Absolute Eos (auto) 0.56 10^3/uL H 10^3/uL (0.03-0.40) Absolute Basos (auto) 0.10 10^3/uL 10^3/uL (0.02-0.10) Absolute Nucleated RBC 0.00 10^3/uL 10^3/uL (0-0.01) Immature Gran % 0.2 % % (0.0-1.1) Immature Gran # 0.02 10^3/uL 10^3/uL (0.00-0.10) Sodium 138 mEq/L mEq/L (135-145) Potassium 4.4 mEq/L mEq/L (3.5-5.2) Chloride 108 mEq/L mEq/L (97-110) Carbon Dioxide 21 mEq/l L mEq/l (22-31) Anion Gap 9 mEq/L mEq/L (6-14) BUN 12 mg/dL mg/dL (7-23) Creatinine 0.7 mg/dL mg/dL (0.6-1.0) Estimated GFR > 60 Glucose 86 mg/dL mg/dL (70-100) Calcium 8.4 mg/dL L mg/dL (8.5-10.4) Ethyl Alcohol 294 mg/dL H mg/dL (0-10) Medications Given: Discontinued Medications Sodium Chloride (Ns) 1,000 mls @ 0 mls/hr IV EDNOW ONE; Wide Open PRN Reason: Protocol Stop: 05/08/18 15:40 Last Admin: 05/08/18 15:54 Dose: 1,000 mls Departure - Departure Disposition: Home, Routine, Self-Care Clinical Impression: Alcoholism Condition: Good Instructions: Alcohol Intoxication (ED), Abuse of Alcohol (ED) Referrals: Patient,NotPresent [Unknown] - As per Instructions [facility],. [Clinic] - As per Instructions
[2018-05-08] MEDS ORDERED: NS 1,000 ML IV ONE (15:39)
[2018-05-08 16:04] LABS: PLATELET COUNT 403 10^3/uL (150-400)
[2018-05-08 17:54] VITALS: BP 111/65
--- NOTE | 2018-05-08 18:42 | ASMTCMCOM ---
CM Note CM Note Notes: Pt presented to the ED via EMS for ETOH abuse. This is the pt's 7th ED visit this month and 36th ED visit in the past 12 months. Please see various past CM Reports Pt states she started drinking heavily again in the past month and quir her job at [employer]. Pt states she has an appt w/Dr Amelie Pearce at [facility] in the next week or so but pt lost her cell phone so she doesn't remember the exact date and time. Pt states she will follow-up with P and w/her PCP Dr Sussy Dorantes at [facility] on Thursday. Pt does not want to go to [facility] Withdrawal Mgmt Detox and states she is still staying at the [facility] but [facility] because she is still intoxicated and worried [facility] won't allow her to stay there tonight anyway. CM provided a cab voucher to the [facility]. Pt pleasant, calm, cooperative and appreciative of assistance. CM to follow-up w/ALLEN/Smooth at [facility] on Thursday. Date Signed: 05/08/2018 06:42 PM Electronically Signed By:Cintia Hair RN
== END 2018-05-08 16:05 | disposition home or self-care (01) ==
LOC: EDUNIT#
DX: F10.20 Alcohol dependence, uncomplicated (principal); E86.9 Volume depletion, unspecified
CPT/HCPCS: G0480

== ENCOUNTER 2018-05-19 22:26 | Emergency (ER) | payer MEDICAID ==
--- NOTE | 2018-05-19 22:56 | EDPHY ---
H & P Time Seen by Provider: 05/19/18 22:28 HPI/ROS: Chief Complaint: Alcohol intoxication HPI: 63-year-old woman, homeless, history of chronic alcoholism and well known to this emergency department was found intoxicated in side [employer]. Unclear if she fell but no obvious signs of trauma. She is slurred speech. Unable to ambulate on her own. No vomiting. ROS: 10 systems were reviewed and were negative except those elements noted in the HPI. PMH: Alcoholism Social History: No smoking, positive heavy daily alcohol, homeless Family History: non-contributory Physical Exam: Gen: Awake, Alert, smells strongly of alcohol, slurred speech HEENT: Nose: no rhinorrhea Eyes: PERRLA, EOMI Mouth: Moist mucosa Neck: Supple, no JVD Chest: nontender, lungs clear to auscultation Heart: S1, S2 normal, no murmur Abd: Soft, non-tender, no guarding Back: no CVA tenderness, no midline tenderness Ext: no edema, non-tender Skin: no rash Neuro: CN II-XII intact, Sensation grossly intact, Strength 5/5 in bilateral upper and lower extremities - Personal History Tetanus Vaccine Date: 2010 - Medical/Surgical History Hx Asthma: No Hx Chronic Respiratory Disease: No Hx Diabetes: No Hx Cardiac Disease: Yes Hx Renal Disease: No Hx Cirrhosis: No Hx Alcoholism: Yes Hx HIV/AIDS: No Hx Splenectomy or Spleen Trauma: No Other PMH: HTN, Insommia/depression, ETOH abuse, herpes, Hyperlipidemia, Anxiety , HYPOTHYROID, OSTEOPEROSIS - Social History Smoking Status: Never smoked Constitutional: Initial Vital Signs Temperature (C) 36 C 05/19/18 22:27 Heart Rate 84 05/19/18 22:27 Respiratory Rate 16 05/19/18 22:27 Blood Pressure 126/82 H 05/19/18 22:27 O2 Sat (%) 91 L 05/19/18 22:27 O2 Delivery Mode Room Air Allergies/Adverse Reactions: No Known Allergies Allergy (Verified 05/19/18 22:32) Home Medications: Medication Instructions Recorded Gabapentin [Neurontin] 1,200 mg PO TID 11/10/16 Aspirin EC [Aspirin EC 81 mg (*)] 162 mg PO DAILY 06/08/17 DULoxetine [Cymbalta 60 MG (*)] 60 mg PO DAILY #30 cap 12/16/17 Losartan Potassium [Cozaar 50 mg 50 mg PO DAILY #30 tab 12/16/17 (*)] Quetiapine Fumarate [Seroquel Xr] 200 mg PO HS #30 tab.er.24h 12/16/17 Ondansetron Odt [Zofran Odt] 4 mg PO Q4PRN PRN #4 tab 04/12/18 Medical Decision Making ED Course/Re-evaluation: Patient is now awake and appropriate. Ambulating unassisted to the bathroom. No current complaints. Patient is tolerating oral fluids. Patient is ready for discharge with sober ride. - Data Points Medications Given: Discontinued Medications Chlordiazepoxide (Librium 25 Mg Prepack#6) 1 btl TAKEHOME EDNOW ONE Stop: 05/20/18 01:58 Last Admin: 05/20/18 02:07 Dose: 1 btl Departure - Departure Disposition: Home, Routine, Self-Care Clinical Impression: Alcoholic intoxication Condition: Good Instructions: Chlordiazepoxide (By mouth), Alcohol Intoxication (ED), Alcohol Dependence (ED) Referrals: NONE *PRIMARY CARE P,. [Primary Care Provider] - As per Instructions
[2018-05-20] MEDS ORDERED: CHLORDIAZEPOXIDE 25MG PREPK#6 BTL TAKEHOME ONE (01:57)
[2018-05-20 02:09] VITALS: BP 131/76
== END 2018-05-20 02:14 | disposition home or self-care (01) ==
LOC: EDUNIT# → EDBD
DX: F10.920 Alcohol use, unspecified with intoxication, uncomplicated (principal); I10 Essential (primary) hypertension; E78.5 Hyperlipidemia, unspecified; F41.9 Anxiety disorder, unspecified; Z59.0 Homelessness

== ENCOUNTER 2018-05-20 16:53 | Emergency (ER) | payer MEDICAID, OTHER ==
--- NOTE | 2018-05-20 17:03 | EDPHY ---
H & P Smoking Status: Never smoked Time Seen by Provider: 05/20/18 16:55 HPI/ROS: CHIEF COMPLAINT: Altered mental status HISTORY OF PRESENT ILLNESS: The patient is a 63-year-old female who was found out in front of [employer] by security. They felt that she had slurred speech so EMS was notified. Once EMS arrived on the patient, she reported that she drank alcohol. They also noted that Librium prescription fell out of her pocket. She states she took all the pills. The patient has no specific complaints. She states she was discharged yesterday REVIEW OF SYSTEMS: Patient denies all (Aidee Nick) Past Medical/Surgical History: Includes alcohol abuse, depression, herpes, hyperlipidemia, anxiety, hypothyroidism, osteoporosis (Aidee Nick) Physical Exam: Vitals noted GENERAL: Somnolent, no acute distress, alert. HEENT: Eyes normal to inspection, normal pharynx, no signs of dehydration. NECK: Normal, supple. RESPIRATORY: Clear to auscultation bilaterally, no rales, rhonchi or wheezing. CVS: Regular rate and rhythm, no rubs, murmurs, or gallops. ABDOMEN: Soft, nontender, nondistended, no organomegaly. BACK: Normal to inspection, no CVA tenderness. SKIN: Normal color, no rash, warm, dry. No pallor. EXTREMITIES: No pedal edema, no calf tenderness, no Homans sign or cords, no joint swelling. NEURO/PSYCH: The patient is somnolent but opens eyes to voice. She times answer questions. She has slightly slurred speech. She is intoxicated appearing. Moves all extremities on command. No obvious cranial nerve deficit. (Aidee Nick S) Constitutional: Initial Vital Signs Temperature (C) 36.2 C 05/20/18 17:00 Heart Rate 90 05/20/18 17:00 Respiratory Rate 20 05/20/18 17:00 Blood Pressure 96/73 L 05/20/18 17:00 O2 Sat (%) 88 L 05/20/18 17:00 O2 Delivery Mode Nasal Cannula O2 (L/minute) 2 Allergies/Adverse Reactions: No Known Allergies Allergy (Verified 05/20/18 17:03) Home Medications: Medication Instructions Recorded Gabapentin [Neurontin] 1,200 mg PO TID 11/10/16 Aspirin EC [Aspirin EC 81 mg (*)] 162 mg PO DAILY 06/08/17 DULoxetine [Cymbalta 60 MG (*)] 60 mg PO DAILY #30 cap 12/16/17 Losartan Potassium [Cozaar 50 mg 50 mg PO DAILY #30 tab 12/16/17 (*)] Quetiapine Fumarate [Seroquel Xr] 200 mg PO HS #30 tab.er.24h 12/16/17 Ondansetron Odt [Zofran Odt] 4 mg PO Q4PRN PRN #4 tab 04/12/18 Medical Decision Making - Diagnostics Imaging Results: Imaging Impressions Head CT 05/20/18 17:04 Impression: Normal noncontrast CT of the brain. Results called to Dr. Aidee Nick at 5:30 PM at the time of the interpretation. ED Course/Re-evaluation: In the emergency department I met EMS on arrival. I took report from the rehabilitation director. I reviewed the patient's medical record from 05/19/2018. She was seen last evening in the emergency department for alcohol intoxication. She was discharged with Librium #6. The bottle is empty. Head CT: No acute disease noted The CBC and chemistry unremarkable. On recheck the patient is doing well. Still somnolent. No complaints. 1944: Patient is stable. Still somnolent. No complaints. 2099: The patient is stable. Still somnolent. Pt is signed out to Dr. Mishra at change of shift. The patient will be discharged once she metabolizes her alcohol. (Aidee Nick) Differential Diagnosis: My differential includes but is not limited to alcohol intoxication, drug abuse , overdose, CVA, subarachnoid hemorrhage, subdural hematoma, epidural hematoma, electrolyte abnormality, sugar abnormality (Aidee Nick) Other Provider: Patient was turned over to co at shift change pending sobriety. She is still quite intoxicated at 11:00 p.m.. She will be turned over to Dr. Matias at shift change. (Daryl Mishra) 5:00 a.m.- Patient is now awake, up, ambulatory without difficulty. She will [facility] the [facility]. (Rose Matias) - Data Points Laboratory Results: Laboratory Results 05/20/18 17:46 05/20/18 17:46 05/20/18 05/20/18 17:46 17:46 WBC 4.66 10^3/uL 10^3/uL (3.80-9.50) RBC 4.48 10^6/uL 10^6/uL (4.18-5.33) Hgb 13.9 g/dL g/dL (12.6-16.3) Hct 42.9 % % (38.0-47.0) MCV 95.8 fL fL (81.5-99.8) MCH 31.0 pg pg (27.9-34.1) MCHC 32.4 g/dL g/dL (32.4-36.7) RDW 16.4 % H % (11.5-15.2) Plt Count 346 10^3/uL 10^3/uL (150-400) MPV 9.9 fL fL (8.7-11.7) Neut % (Auto) 44.3 % % (39.3-74.2) Lymph % (Auto) 35.8 % % (15.0-45.0) Day % (Auto) 7.9 % % (4.5-13.0) Eos % (Auto) 10.3 % H % (0.6-7.6) Baso % (Auto) 1.1 % % (0.3-1.7) Nucleat RBC Rel Count 0.0 % % (0.0-0.2) Absolute Neuts (auto) 2.06 10^3/uL 10^3/uL (1.70-6.50) Absolute Lymphs (auto) 1.67 10^3/uL 10^3/uL (1.00-3.00) Absolute Monos (auto) 0.37 10^3/uL 10^3/uL (0.30-0.80) Absolute Eos (auto) 0.48 10^3/uL H 10^3/uL (0.03-0.40) Absolute Basos (auto) 0.05 10^3/uL 10^3/uL (0.02-0.10) Absolute Nucleated RBC 0.00 10^3/uL 10^3/uL (0-0.01) Immature Gran % 0.6 % % (0.0-1.1) Immature Gran # 0.03 10^3/uL 10^3/uL (0.00-0.10) Sodium 142 mEq/L mEq/L (135-145) Potassium 4.1 mEq/L mEq/L (3.5-5.2) Chloride 108 mEq/L mEq/L (97-110) Carbon Dioxide 22 mEq/l mEq/l (22-31) Anion Gap 12 mEq/L mEq/L (6-14) BUN 14 mg/dL mg/dL (7-23) Creatinine 0.7 mg/dL mg/dL (0.6-1.0) Estimated GFR > 60 Glucose 89 mg/dL mg/dL (70-100) Calcium 8.6 mg/dL mg/dL (8.5-10.4) Medications Given: Discontinued Medications Chlordiazepoxide HCl (Librium) 50 mg PO EDNOW ONE Stop: 05/21/18 00:24 Last Admin: 05/21/18 00:23 Dose: 50 mg Sodium Chloride (Ns) 1,000 mls @ 0 mls/hr IV ONCE ONE; Wide Open PRN Reason: Protocol Stop: 05/20/18 17:05 Last Admin: 05/20/18 17:56 Dose: 1,000 mls Departure - Departure Disposition: Home, Routine, Self-Care Clinical Impression: Altered mental status Alcohol intoxication Qualifiers: Complication of substance-induced condition: uncomplicated Qualified Code(s): F10.920 - Alcohol use, unspecified with intoxication, uncomplicated Condition: Fair Instructions: Abuse of Alcohol (ED), Altered Mental Status (ED) Additional Instructions: Return with worsening symptoms or any other concerns. Referrals: [facility],. [Clinic] - 5-7 days, call for appt.
[2018-05-20] MEDS ORDERED: NS 1,000 ML IV ONE (17:04)
[2018-05-20 17:55] LABS: PLATELET COUNT 346 10^3/uL (150-400)
[2018-05-21] MEDS ORDERED: chlordiazePOXIDE 25 MG CAP ONE (00:20)
[2018-05-21] MEDS ORDERED: chlordiazePOXIDE 25 MG CAP PO ONE (00:23)
[2018-05-21] MEDS ORDERED: CHLORDIAZEPOXIDE 25MG PREPK#6 BTL TAKEHOME ONE (05:04)
[2018-05-21 05:18] VITALS: BP 101/64
== END 2018-05-21 05:19 | disposition home or self-care (01) ==
LOC: EDUNIT#
DX: R41.82 Altered mental status, unspecified (principal); F10.920 Alcohol use, unspecified with intoxication, uncomplicated; F32.9 Major depressive disorder, single episode, unspecified; F41.9 Anxiety disorder, unspecified; E78.5 Hyperlipidemia, unspecified; E03.9 Hypothyroidism, unspecified

== ENCOUNTER 2018-05-23 18:56 | Emergency (ER) | payer MEDICAID ==
--- NOTE | 2018-05-23 19:12 | EDPHY ---
H & P Stated Complaint: intoxicated - Personal History Current Tetanus/Diphtheria Vaccine: Yes Current Tetanus Diphtheria and Acellular Pertussis (TDAP): Yes Tetanus Vaccine Date: 2010 - Medical/Surgical History Hx Asthma: No Hx Chronic Respiratory Disease: No Hx Diabetes: No Hx Cardiac Disease: Yes Hx Renal Disease: No Hx Cirrhosis: No Hx Alcoholism: Yes Hx HIV/AIDS: No Hx Splenectomy or Spleen Trauma: No Other PMH: HTN, Insommia/depression, ETOH abuse, herpes, Hyperlipidemia, Anxiety , HYPOTHYROID, OSTEOPEROSIS - Social History Smoking Status: Never smoked Time Seen by Provider: 05/23/18 18:58 HPI/ROS: CHIEF COMPLAINT: Suspected alcohol abuse HISTORY OF PRESENT ILLNESS: 63 year old female, familiar to emergency department staff, history of alcoholism, arrives via ambulance for suspected alcohol abuse. Patient unable to ambulate without assistance. No reports of trauma or assault. No fall from height. No structures of height near patient. REVIEW OF SYSTEMS: 10 systems reviewed and negative with the exception of the elements mentioned in the history of present illness PAST MEDICAL/SURGICAL HISTORY: Alcoholism. no anticoagulant use, no relevant medical/surgical history SOCIAL HISTORY: Positive for witnessed and self disclosed alcohol use PHYSICAL EXAM 1) GENERAL: Somnolent,, alert and oriented. Appears to be in no acute distress. Answering questions appropriately.Smells of alcohol. 2) HEAD: Normocephalic, atraumatic 3) HEENT: Pupils equal, round, reactive to light bilaterally. Negative Horners. Nasopharynx, oropharynx, clear. No deformity or angulation of nose. No septal hematoma. No rhinorrhea. No oral trauma. Ears bilaterally with normal tympanic membranes. No hemotympanum. No fluid or blood in the external auditory canal. No raccoon eyes. No Mccray sign. Teeth are normally aligned with no gross malocclusion, TMJ bilaterally nontender, facial bones nontender including the zygomatic arch, maxilla mandible. 4) NECK: No cervical collar is on. Posterior cervical spine is nontender, no stepoff, no effusion. Full range of motion which does not elicit any midline cervical spine pain, no posterior midline tenderness, no step-off. 5) LUNGS: Clear to auscultation bilaterally, no wheezes, no rhonchi, no retractions. No obvious signs of trauma. No chest wall pain. No flaring, no grunting. Moving symmetrically. No crepitus. 6) HEART: [Regular rate and rhythm, 7) ABDOMEN: No guarding, no rebound, no focal tenderness, no peritoneal signs, no signs of trauma, no ecchymosis 8) MUSCULOSKELETAL: Moving all extremities, no focal areas of tenderness, no obvious trauma. 9) BACK: No midline vertebral tenderness, no fluctuance, no step-off, no obvious trauma, no visual or palpable abnormality. 10) SKIN: No laceration. No abrasion DIFFERENTIAL DIAGNOSIS: In no particular orderincluding but not limited to hypoglycemia, infectious process, electrolyte abnormality, head injury and intoxicants. (Symone Chopra) Constitutional: Initial Vital Signs Temperature (C) 36.8 C 05/23/18 19:00 Heart Rate 87 05/23/18 19:00 Respiratory Rate 19 05/23/18 19:00 Blood Pressure 93/63 L 05/23/18 19:00 O2 Sat (%) 91 L 05/23/18 19:00 O2 Delivery Mode Room Air O2 (L/minute) 1 Allergies/Adverse Reactions: No Known Allergies Allergy (Verified 05/25/18 10:24) Home Medications: Medication Instructions Recorded Gabapentin [Neurontin] 1,200 mg PO TID 11/10/16 Aspirin EC [Aspirin EC 81 mg (*)] 162 mg PO DAILY 06/08/17 DULoxetine [Cymbalta 60 MG (*)] 60 mg PO DAILY #30 cap 12/16/17 Losartan Potassium [Cozaar 50 mg 50 mg PO DAILY #30 tab 12/16/17 (*)] Quetiapine Fumarate [Seroquel Xr] 200 mg PO HS #30 tab.er.24h 12/16/17 Ondansetron Odt [Zofran Odt] 4 mg PO Q4PRN PRN #4 tab 04/12/18 Medical Decision Making ED Course/Re-evaluation: 10:47 p.m.: Patient is ambulating without assistance clear speech pattern, awake alert oriented person place time events. She would like to be discharged. I have offered to [facility] which she declines. She is clinically sober answering questions appropriately. I recommend she exercise caution with alcohol use in the future. Patient feels comfortable being discharged. All questions and concerns addressed by myself. Patient given my usual and customary discharge precautions and instructions regarding their clinical impression. Care of patient under supervision of secondary supervising physician Dr Woods . (Symone Chopra) Other Provider: The patient was evaluated and managed by the Physician Artificial Flowers Dyer. My co- signature indicates that I have reviewed this chart and I agree with the findings and plan of care as documented. I am the secondary supervising physician. (Symone Woods) - Data Points Medications Given: Discontinued Medications Sodium Chloride (Ns) 1,000 mls @ 0 mls/hr IV ONCE ONE PRN Reason: Wide Open Stop: 05/23/18 22:26 Last Admin: 05/23/18 22:26 Dose: 1,000 mls Departure - Departure Disposition: Home, Routine, Self-Care Clinical Impression: Alcohol abuse Condition: Good Instructions: Abuse of Alcohol (ED) Additional Instructions: Please exercise moderation with alcohol use in the future Referrals: [facility],. [Clinic] - 2-3 days, call for appt.
[2018-05-23] MEDS ORDERED: NS 1,000 ML IV ONE (22:25)
[2018-05-23 23:07] VITALS: BP 95/65
== END 2018-05-23 23:08 | disposition home or self-care (01) ==
LOC: EDBD → EDUNIT#
DX: F10.220 Alcohol dependence with intoxication, uncomplicated (principal); Y90.8 Blood alcohol level of 240 mg/100 ml or more; I10 Essential (primary) hypertension; F32.9 Major depressive disorder, single episode, unspecified; E78.5 Hyperlipidemia, unspecified; F41.9 Anxiety disorder, unspecified; E03.9 Hypothyroidism, unspecified; M81.0 Age-related osteoporosis without current pathological fracture
CPT/HCPCS: G0480

== ENCOUNTER 2018-05-25 10:15 | Emergency (ER) | payer MEDICAID ==
[2018-05-25 10:23] VITALS: BP 94/58
--- NOTE | 2018-05-25 10:31 | EDPHY ---
General - History Smoking Status: Never smoked Time Seen by Provider: 05/25/18 10:25 Narrative: CLINICAL IMPRESSION: Intoxication, chronic knee pain ASSESSMENT/PLAN: 63-year-old alcoholic, well known to our emergency department presents to the emergency department by EMS after she apparently fell on her knees while walking through the [facility]. Patient is ambulatory, has a steady gait, is moving lower extremities without obvious discomfort, has no open wounds or obvious deformity. She admits to chronic knee pain and states she needs knee replacements. She is a daily drinker, admits to drinking today, and states she fell because she has weak kidneys. She did not hit her head. She has no focal neurological deficits. Patient is well-known to the case management department and is unfortunately noncompliant with our attempts at setting up outpatient rehab services for her. Case management again met with the patient today. Initially she agreed to go to the [facility] but then declined this and wished to go to her dental appointment. She will be offered a cab to the dentist. I encouraged outpatient follow-up as previously recommended. Warning signs return to ED outlined discharge. DIFFERENTIAL DX: Chronic alcoholism, acute intoxication, acute on chronic knee pain ED COURSE: 10:30 a.m.. Patient well known to our emergency department. Discussed with catalytic case operator. Patient has proven noncompliant with past recommendations from case management regarding rehab services. This is the patient's 37 visit to the ED. She is intoxicated today. She agrees to go to the [facility] today. Breath alcohol ordered. Case Management meeting with the patient. Plan to discharge to the [facility] pending road test 11:15 a.m.: Case Management met with the patient. Patient apparently does not want to go to the [facility] now. She would like to go to her dental appointment. O2 saturation off oxygen is 90%. Patient's breath test is 0.082. She road tested with a steady gait and without obvious distress. She was given a bus pass to her dental appointment. CHIEF COMPLAINT: Intoxicated, bilateral knee pain HPI: 63-year-old alcoholic female presents to the emergency department by EMS after she apparently fell while walking on the [facility]. Patient was found sitting on the ground. She states she has weak knees and needs knee replacements. She has no complaints of pain on my assessment. She did not hit her head. She is intoxicated. She has no complaints of injury. She states that she fell while walking to try to meet some goals today but that alcohol always gets in the way. PAST MEDICAL HISTORY: Chronic alcoholism See triage summary and nurse notes for addition applicable history Pertinent Past Surgical History: None reported Family History: Noncontributory Social History: Chronic alcoholic REVIEW OF SYSTEMS: A full 10 point review of systems was negative except for those mentioned in HPI. PHYSICAL EXAM: General Appearance: Alert, oriented, appropriate, cooperative, NAD, well hydrated, non-toxic appearing, initially hypoxic on 79% but readjustment of pulse ox shows oxygen at 92%. HEENT: TMs are clear bilaterally no perforation or FB, no injection, no evidence of serous or mucopurulent otitis. Oropharynx clear is no erythema or exudates, no tonsillar hypertrophy or asymmetry. Dentition without abnormality. No signs of closed head injury or trauma Eyes: PERRLA, no acute vision change, nystagmus, swelling, discharge, pain or photosensitivity. Conjunctiva pink, no pallor or injection Neck: Supple, nontender, no lymphadenopathy, no midline pain, FROM, no meningismus. Respiratory: There are no retractions, lungs are clear to auscultation. Cardiac: Regular rate and rhythm, no murmurs or gallops. Gastrointestinal: Abdomen is soft, nontender, bowel sounds normal, no masses/ hernia, no rigidity, guarding or focal peritoneal findings. Skin: Warm, dry, no rashes, no nodules on palpation. MEDICAL DECISION MAKING: Patient was seen independently. Secondary supervising physician at time of evaluation was: Dr. Richards. Diagnosis: Alcohol intoxication, chronic knee pain . New, requires workup Summary: See Assessment and Plan for summary of ED visit Clinical lab tests: ordered / reviewed. Patient Progress: Stable for discharge. (Supa Cotton) Medical Decision Making: I did not see this patient while she was in the emergency department. However her care was discussed with the PA while the patient was in the department. I agree with treatment plan and management (Ryan Richards) - Objective Vital Signs: Initial Vital Signs Temperature (C) 36.8 C 05/25/18 10:20 Heart Rate 103 H 05/25/18 10:20 Respiratory Rate 18 05/25/18 10:20 Blood Pressure 94/58 L 05/25/18 10:20 O2 Sat (%) 81 L 05/25/18 10:20 O2 Delivery Mode Room Air Allergies/Adverse Reactions: No Known Allergies Allergy (Verified 05/25/18 10:24) Home Medications: Medication Instructions Recorded Gabapentin [Neurontin] 1,200 mg PO TID 11/10/16 Aspirin EC [Aspirin EC 81 mg (*)] 162 mg PO DAILY 06/08/17 DULoxetine [Cymbalta 60 MG (*)] 60 mg PO DAILY #30 cap 12/16/17 Losartan Potassium [Cozaar 50 mg 50 mg PO DAILY #30 tab 12/16/17 (*)] Quetiapine Fumarate [Seroquel Xr] 200 mg PO HS #30 tab.er.24h 12/16/17 Ondansetron Odt [Zofran Odt] 4 mg PO Q4PRN PRN #4 tab 04/12/18 Departure - Departure Disposition: Home, Routine, Self-Care Clinical Impression: Alcohol intoxication Qualifiers: Complication of substance-induced condition: uncomplicated Qualified Code(s): F10.920 - Alcohol use, unspecified with intoxication, uncomplicated Condition: Good Instructions: Alcohol Intoxication (ED), Abuse of Alcohol (ED) Additional Instructions: DISCHARGE INSTRUCTIONS FROM YOUR DOCTOR Thank you for visiting our emergency department today. You were treated by a physician production assistant today and your case was reviewed with our ED Attending physician. Please keep in mind that discharge from the emergency department does not mean that there is nothing wrong - it simply means that we have not identified an emergency condition that requires further evaluation or treatment in the hospital. You should always plan to follow up with primary care for re- evaluation of your condition in the next 2-3 days. If you have been referred to a specialist, please call as soon as possible (today or tomorrow) to schedule your follow up appointment at the appropriate time. CASE MANAGEMENT MET WITH YOU TODAY. YOU HAVE DECLINED TRANSPORTATION TO [facility]. A BUS PASS WAS PROVIDED TO GET YOU TO YOUR DENTAL APPOINTMENT. PLEASE FOLLOW-UP WITH PREVIOUSLY SUPPLIED RESOURCES FOR ALCOHOL ADDICTION, AA MEETINGS, AND RECOVERY SUPPORT. YOU CAN ALWAYS GO TO THE [facility]. PLEASE RETURN TO THE EMERGENCY DEPARTMENT FOR ANY OTHER CONCERN. FOLLOW UP WITH A PRIMARY CARE DOCTOR. People present with illnesses and injuries in different ways, and it is always possible that we have missed something. You may always return for re-evaluation if symptoms worsen or if they are not improving or if you develop new/different symptoms. Again, thank you for choosing our emergency department. We hope that you feel better. Referrals: Patient,NotPresent [Unknown] - As per Instructions [facility],. [Clinic] - 1-2 days without fail
--- NOTE | 2018-05-25 13:10 | ASMTCMCOM ---
CM Note CM Note Notes: Pt seen at the request of IVELISSE Cotton. Pt was intoxicated and fell. Pt told Supa that she has knee pain and that she was willing to go to the [facility]. Pt was incoherent and asked if it was 11 "at night". Pt. cognition was at baseline from prior interaction with ED RN Patrick. She determined that she did not want to go to the [facility] because she has a dental appointment. "Road test" was performed and pt. was discharged. Pt is familiar to ED and CM available as needed. Date Signed: 05/25/2018 01:09 PM Electronically Signed By:Chantel Hernandez LCSW
== END 2018-05-25 11:47 | disposition home or self-care (01) ==
LOC: EDUNIT#
DX: F10.920 Alcohol use, unspecified with intoxication, uncomplicated (principal); M25.561 Pain in right knee; M25.562 Pain in left knee; G89.29 Other chronic pain

== ENCOUNTER 2018-05-26 13:52 | Emergency (ER) | payer MEDICAID ==
[2018-05-26] MEDS ORDERED: CHLORDIAZEPOXIDE 25MG PREPK#6 BTL TAKEHOME ONE (17:40)
[2018-05-26 17:52] VITALS: BP 94/52
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
== END 2018-05-26 18:07 | disposition home or self-care (01) ==
DX: F10.920 Alcohol use, unspecified with intoxication, uncomplicated (principal); Z59.0 Homelessness

== ENCOUNTER 2018-05-27 11:42 | Emergency (ER) | payer MEDICAID ==
--- NOTE | 2018-05-27 12:15 | EDPHY ---
H & P Stated Complaint: Fall/slipped on ice Time Seen by Provider: 05/27/18 12:07 HPI/ROS: CHIEF COMPLAINT: Intoxicated, slipped and fell on ice, chronic knee pain HISTORY OF PRESENT ILLNESS: The patient presents to the ED after she slipped and fell on the ice. She was brought in by paramedics. The patient is a chronic homeless alcoholic. She has been seen in our Emergency Department on a near daily basis over the past week. The patient typically is discharged to the [facility] and leaves. Today she was walking and slipped on the ice. She does endorse drinking alcohol today. She did not strike her head or lose consciousness. She has no complaints of headache or neck pain at this point time. REVIEW OF SYSTEMS: Constitutional: normal mentation Eyes: No visual changes ENT: no oral trauma Respiratory: no rib pain, no difficulty breathing Cardiac: No chest pain Gastrointestinal: No nausea, no vomiting, no abdominal pain Genitourinary: No hematuria, no dysuria Musculoskeletal: As above Skin: no abrasions, no lacerations Neurological: No headache, no numbness, no weakness Back: No midline pain Source: Patient Exam Limitations: No limitations - Personal History Current Tetanus/Diphtheria Vaccine: Yes Tetanus Vaccine Date: 2010 - Medical/Surgical History Hx Asthma: No Hx Chronic Respiratory Disease: No Hx Diabetes: No Hx Cardiac Disease: Yes Hx Renal Disease: No Hx Cirrhosis: No Hx Alcoholism: Yes Hx HIV/AIDS: No Hx Splenectomy or Spleen Trauma: No Other PMH: HTN, Insommia/depression, ETOH abuse, herpes, Hyperlipidemia, Anxiety , HYPOTHYROID, OSTEOPEROSIS - Social History Smoking Status: Never smoked - Physical Exam Exam: General Appearance: Disheveled, elderly female, slightly tremulous Head: Atraumatic Eyes: Pupils equal, round, reactive ENT, Mouth: No hemotympanum, no oral trauma Neck: Nontender, trachea midline Respiratory: No chest wall tender, no subcutaneous air, lungs clear bilaterally Cardiovascular: Regular rate and rhythm Abdomen: Abdomen is soft and nontender, pelvis stable Skin: No lacerations, No abrasion Back: No midline T/L/S pain Extremities: Tenderness to palpation right lateral knee Neurological: A&Ox3, normal motor function, normal sensory exam Constitutional: Initial Vital Signs Temperature (C) 36.8 C 05/27/18 11:46 Heart Rate 95 05/27/18 11:46 Respiratory Rate 20 05/27/18 11:46 Blood Pressure 120/85 H 05/27/18 11:46 O2 Sat (%) 93 05/27/18 11:46 O2 Delivery Mode Room Air Allergies/Adverse Reactions: No Known Allergies Allergy (Verified 05/27/18 11:48) Home Medications: Medication Instructions Recorded Gabapentin [Neurontin] 1,200 mg PO TID 11/10/16 Aspirin EC [Aspirin EC 81 mg (*)] 162 mg PO DAILY 06/08/17 DULoxetine [Cymbalta 60 MG (*)] 60 mg PO DAILY #30 cap 12/16/17 Losartan Potassium [Cozaar 50 mg 50 mg PO DAILY #30 tab 12/16/17 (*)] Quetiapine Fumarate [Seroquel Xr] 200 mg PO HS #30 tab.er.24h 12/16/17 Ondansetron Odt [Zofran Odt] 4 mg PO Q4PRN PRN #4 tab 04/12/18 Medical Decision Making ED Course/Re-evaluation: Patient presents the emergency department after she slipped and fell on the ice. She complains of right knee pain but has no evidence of an obvious fracture. The patient was kept in the emergency department and has clinical sobriety. She is not eligible to go to [facility]. [facility]. She will be discharged from the emergency department at this point time. Differential Diagnosis: Differential diagnosis considered includes knee fracture, knee contusion, alcohol intoxication, alcohol withdrawal Departure - Departure Disposition: Home, Routine, Self-Care Clinical Impression: Alcoholism, Knee sprain Condition: Good Instructions: Knee Sprain (ED) Additional Instructions: Tylenol as needed for pain. I strongly recommend you stay at the [facility] for your alcohol dependence. Referrals: [facility],. [Clinic] - As per Instructions
--- NOTE | 2018-05-27 13:24 | ASMTCAGE ---
CAGE Additional Comments See CM note. Date Signed: 05/27/2018 01:23 PM Electronically Signed By:Iza Delgado RN
--- NOTE | 2018-05-27 13:36 | ASMTCMCOM ---
CM Note CM Note Notes: Patient is well known to this CM and the ED> She was here yesterday on an [facility] hold and discharged to the [facility] after she was "cleared" to do so. Today patient presents to the ED with c/o R shoulder and knee pain from a "fall". Patient appears to be intoxicated and smells of alcohol. This CM has contacted Malick at [facility] ([facility]) and confirmed that patient did spend the night at the [facility] and was discharged to the street at 1030 AM this morning (about an hour and a half before presented to the ED)> Malick reminds this CM that patient cannot return to the [facility] for at least 24 hours after her last discharge form the [facility]. Patient may return to the [facility] tomorrow morning, after 1030 AM. I discussed with Malick patient's long history of ETOH and prior attempts by this ED staff and the [facility] to get patient into a long-term treatment program. [facility] confirms that patient did stay at the [facility] for an extended period while waiting for a bed at [facility] but patient made the decision to leave before receiving a bed. [facility] confirms that they are happy to take patient back for an extended visit-and consider plaing patient on a 5 day hold to allow her to "sober up" and decide what she is willing to do regarding rehab options. I have informed of above. Patient is able to stay at the [facility] this evening and return to the [facility] tomorrow morning if she would like to detox and be evaluated for further treatment options CM available prn Date Signed: 05/27/2018 01:36 PM Electronically Signed By:Iza Delgado RN
[2018-05-27 14:13] VITALS: BP 124/90
== END 2018-05-27 14:13 | disposition home or self-care (01) ==
LOC: EDUNIT#
DX: F10.229 Alcohol dependence with intoxication, unspecified (principal); S83.91XA Sprain of unspecified site of right knee, initial encounter; M25.511 Pain in right shoulder; R07.9 Chest pain, unspecified; Z59.0 Homelessness; W00.9XXA Unspecified fall due to ice and snow, initial encounter; Y92.9 Unspecified place or not applicable; Y93.9 Activity, unspecified; Y99.9 Unspecified external cause status

== ENCOUNTER 2018-05-27 18:53 | Emergency (ER) | payer MEDICAID ==
--- NOTE | 2018-05-27 20:22 | EDPHY ---
H & P Stated Complaint: pt recently DC'd returns for being cold, ETOH. Alert, NAD Time Seen by Provider: 05/27/18 19:15 HPI/ROS: Chief complaint: Alcohol intoxication, cold History of present illness: This is a 63-year-old female brought to the emergency department by EMS after being found intoxicated complaining of being cold. Patient is a chronic alcoholic homeless woman. She was seen in this emergency department earlier today and multiple times this week. Apparently she was found passed out in the parking lot by bystanders who called EMS. On my evaluation she states she feels cold. She has no other specific complaints. Review of systems: A 10 point review of systems was obtained and other than described above was negative - Personal History Current Tetanus/Diphtheria Vaccine: Yes Current Tetanus Diphtheria and Acellular Pertussis (TDAP): Yes Tetanus Vaccine Date: 2010 - Medical/Surgical History Hx Asthma: No Hx Chronic Respiratory Disease: No Hx Diabetes: No Hx Cardiac Disease: Yes Hx Renal Disease: No Hx Cirrhosis: No Hx Alcoholism: Yes Hx HIV/AIDS: No Hx Splenectomy or Spleen Trauma: No Other PMH: HTN, Insommia/depression, ETOH abuse, herpes, Hyperlipidemia, Anxiety , HYPOTHYROID, OSTEOPEROSIS - Social History Smoking Status: Never smoked - Physical Exam Exam: General Appearance: Alert. Eyes: Pupils equal and round no pallor or injection. ENT, Mouth: Mucous membranes moist. Respiratory: There are no retractions, lungs are clear to auscultation. Cardiovascular: Regular rate and rhythm. Gastrointestinal: Abdomen is soft and non tender, no masses, bowel sounds normal. Neurological: Alert. Skin: Warm and dry, no rashes. Musculoskeletal: Neck is supple non tender. Extremities are symmetrical, full range of motion. Psychiatric: There is no agitation. Constitutional: Initial Vital Signs Temperature (C) 36.5 C 05/27/18 19:13 Heart Rate 83 05/27/18 19:13 Respiratory Rate 20 05/27/18 19:13 Blood Pressure 139/101 H 05/27/18 19:13 O2 Sat (%) 96 05/27/18 19:13 O2 Delivery Mode Room Air Allergies/Adverse Reactions: No Known Allergies Allergy (Verified 05/27/18 19:12) Home Medications: Medication Instructions Recorded Gabapentin [Neurontin] 1,200 mg PO TID 11/10/16 Aspirin EC [Aspirin EC 81 mg (*)] 162 mg PO DAILY 06/08/17 DULoxetine [Cymbalta 60 MG (*)] 60 mg PO DAILY #30 cap 12/16/17 Losartan Potassium [Cozaar 50 mg 50 mg PO DAILY #30 tab 12/16/17 (*)] Quetiapine Fumarate [Seroquel Xr] 200 mg PO HS #30 tab.er.24h 12/16/17 Ondansetron Odt [Zofran Odt] 4 mg PO Q4PRN PRN #4 tab 04/12/18 Medical Decision Making ED Course/Re-evaluation: Patient seen under the supervision of my secondary supervising physician Dr. Soy Ferreira. Patient brought to the emergency department after being found in a parking lot intoxicated. She is only complaining of being cold to me. She is allowed to rest here. She woke up on her own and was requesting to be discharged. She is discharged. She is supposed to go to the homeless residential or the [facility]. Differential Diagnosis: Included but not limited to alcohol intoxication, alcohol withdrawal, hypothermia Departure - Departure Disposition: Home, Routine, Self-Care Clinical Impression: Alcoholic intoxication Qualifiers: Complication of substance-induced condition: uncomplicated Qualified Code(s): F10.920 - Alcohol use, unspecified with intoxication, uncomplicated Condition: Good Instructions: Abuse of Alcohol (ED) Additional Instructions: Follow-up with a primary care doctor for recheck If symptoms worsen or new symptoms develop return to the emergency room for recheck Referrals: NONE *PRIMARY CARE P,. [Primary Care Provider] - As per Instructions [facility],. [Clinic] - As per Instructions
[2018-05-27 22:14] VITALS: BP 137/84
== END 2018-05-27 22:14 | disposition home or self-care (01) ==
LOC: EDUNIT#
DX: F10.920 Alcohol use, unspecified with intoxication, uncomplicated (principal); Z59.0 Homelessness

== ENCOUNTER 2018-06-01 14:10 | Emergency (ER) | payer MEDICAID ==
--- NOTE | 2018-06-01 14:33 | EDPHY ---
General Time Seen by Provider: 06/01/18 14:11 Narrative: CLINICAL IMPRESSION: Alcohol intoxication ASSESSMENT/PLAN: 63-year-old female, with a history of chronic alcohol abuse, presents to the emergency department by EMS intoxicated. Patient is very familiar to the ED and case management staff. She was placed on an [facility] hold by police. She has no physical complaints on arrival. We discussed her follow up with the [facility] and confirmed that she has not been there in the last 24 hr. There was discussion between Iza from case management and the [facility] that patient may be a candidate for a 5 day hold and this will be considered by their staff. Will allow patient to sober for road test and plan to discharge to the [facility]. DIFFERENTIAL DX: Differential diagnosis for this patient includes but not limited to alcohol intoxication, alcohol abuse, alcohol withdrawal, other substance abuse or withdrawal, toxidrome or medication overdose, CVA, head trauma, hyponatremia, hypoglycemia or other electrolyte abnormality. ED PROCEDURES: See lab and/or imaging results below ED COURSE: 2:30 p.m.: Patient seen assessed by myself. Awake, alert, answering questions appropriately. No complaints of pain. States she wants to move out of [place] because it is too cold. Well known to our emergency department and case management service. States she was last at the [facility] 2 days ago. Discussed with Iza from case management. We will call the [facility] where she is currently on a hold, and advocate for a 5 day hold. CHIEF COMPLAINT: Alcohol intoxication HPI: 63-year-old female, well known to our emergency department presents to the emergency department today by ambulance after she was found intoxicated. On my evaluation, patient is alert, awake, answering all questions, oriented, and has no physical complaints. She was placed on a [facility] hold by police. Case management very familiar with this patient who is chronically noncompliant with outpatient follow-up care. We will call the [facility] to see if she was there in last 24 hr and possibly advocate for a 5 day hold. PAST MEDICAL HISTORY: Alcohol abuse See nurse/triage notes for additional history if applicable Pertinent Past Surgical History: None reported Family History: None reported Social History: Daily alcohol abuse REVIEW OF SYSTEMS: All other systems negative Constitutional: No fever, no chills, appetite change. Eyes: No discharge, vision change ENT: No sore throat, congestion, ear pain. Cardiovascular: No chest pain, no palpitations. Respiratory: No cough, no shortness of breath. Gastrointestinal: No abdominal pain, no vomiting, diarrhea. Musculoskeletal: No back pain, joint swelling, joint pain, myalgias. Skin: No rashes, color change. Neurological: No headache, dizziness, weakness. PHYSICAL EXAM: General Appearance: Alert, oriented, appropriate, intoxicated, NAD, homeless, disheveled, VSS HEENT: Oropharynx clear is no erythema or exudates, no tonsillar hypertrophy or asymmetry. Dentition without abnormality. Eyes: PERRLA, no acute vision change, nystagmus, swelling, discharge, pain or photosensitivity. Conjunctiva pink, no pallor or injection Neck: Supple, nontender, no lymphadenopathy, no midline pain, FROM, no meningismus. Respiratory: There are no retractions, lungs are clear to auscultation. Cardiac: Regular rate and rhythm, no murmurs or gallops. Gastrointestinal: [Abdomen is soft, nontender, bowel sounds normal Neurological: [ Alert and oriented x 3, CN 2-12 grossly intact, non tremulous Skin: Warm, dry, no rashes, no nodules on palpation. Musculoskeletal: Extremities are symmetrical, full range of motion, no tenderness, deformity, swelling, or erythema. Psychiatric: Patient is oriented X 3, there is no agitation. Intoxicated MEDICAL DECISION MAKING: Patient was seen independently. Secondary supervising physician at time of evaluation was Dr. Mishra . Diagnosis: Alcohol intoxication. New, requires workup Summary: See Assessment and Plan for summary of ED visit Patient Progress: Stable for discharge to the [facility]. - History Smoking Status: Never smoked - Objective Vital Signs: Initial Vital Signs Temperature (C) 36.6 C 06/01/18 14:15 Heart Rate 95 06/01/18 14:15 Respiratory Rate 14 06/01/18 14:15 Blood Pressure 90/59 L 06/01/18 14:15 O2 Sat (%) 84 L 06/01/18 14:15 O2 Delivery Mode Room Air O2 (L/minute) 2 Allergies/Adverse Reactions: No Known Allergies Allergy (Verified 06/01/18 14:15) Home Medications: Medication Instructions Recorded Gabapentin [Neurontin] 1,200 mg PO TID 11/10/16 Aspirin EC [Aspirin EC 81 mg (*)] 162 mg PO DAILY 06/08/17 DULoxetine [Cymbalta 60 MG (*)] 60 mg PO DAILY #30 cap 12/16/17 Losartan Potassium [Cozaar 50 mg 50 mg PO DAILY #30 tab 12/16/17 (*)] Quetiapine Fumarate [Seroquel Xr] 200 mg PO HS #30 tab.er.24h 12/16/17 Ondansetron Odt [Zofran Odt] 4 mg PO Q4PRN PRN #4 tab 04/12/18 Departure - Departure Disposition: Home, Routine, Self-Care Clinical Impression: Alcohol intoxication Qualifiers: Complication of substance-induced condition: uncomplicated Qualified Code(s): F10.920 - Alcohol use, unspecified with intoxication, uncomplicated Condition: Fair Instructions: Alcohol Intoxication (ED) Additional Instructions: DISCHARGE INSTRUCTIONS FROM YOUR DOCTOR Thank you for visiting our emergency department today. You were treated by a physician diagnostic assistant today and your case was reviewed with our ED Attending physician. Please keep in mind that discharge from the emergency department does not mean that there is nothing wrong - it simply means that we have not identified an emergency condition that requires further evaluation or treatment in the hospital. You should always plan to follow up with primary care for re- evaluation of your condition in the next 2-3 days. If you have been referred to a specialist, please call as soon as possible (today or tomorrow) to schedule your follow up appointment at the appropriate time. YOU ARE BEING [facility]GED TO [facility]. PLEASE STOP DRINKING ALCOHOL. PLEASE FOLLOW UP WITH OUTPATIENT REHAB RESOURCES THAT HAVE BEEN SUPPLIED TO YOU. People present with illnesses and injuries in different ways, and it is always possible that we have missed something. You may always return for re-evaluation if symptoms worsen or if they are not improving or if you develop new/different symptoms. Again, thank you for choosing our emergency department. We hope that you feel better. Referrals: NONE *PRIMARY CARE P,. [Primary Care Provider] - As per Instructions [facility],. [Clinic] - As per Instructions
[2018-06-01 15:59] VITALS: BP 94/63
--- NOTE | 2018-06-01 16:12 | ASMTCMCOM ---
CM Note CM Note Notes: Patient is brought to the ED per [facility] on an [facility] hold. Patient is well known to this ED and Hed[employer] Analyst. I have spoken with Gary and Twila at Withdrawal Management ([facility]) [phone] regarding the possibility of placing patient on a 5 day hold in an effort to allow patient to make a decision regarding moth exterminator treatment options. This CM is aware that many efforts have been made per this ED and [facility] () to assist patient to seek moth exterminator treatment at [facility] and other recovery programs in [place]. Unfortunately, patient has not yet been able to follow through with making the calls to get into a facility. Gary confirms that patient has been advised that she can stay at as long as it takes to get a treatment "bed", provided patient take the initiative to get herself on a list. Patient escorted back to the [facility] after "sobering" up in the ED. This CM met with patient briefly to encourage her to follow through with seeking treatment. Date Signed: 06/01/2018 04:12 PM Electronically Signed By:Iza Delgado RN
== END 2018-06-01 16:18 | disposition home or self-care (01) ==
LOC: EDUNIT#
DX: F10.920 Alcohol use, unspecified with intoxication, uncomplicated (principal)

== ENCOUNTER 2018-06-09 13:47 | Emergency (ER) | payer OTHER ==
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
[2018-06-09 16:18] VITALS: BP 112/72
== END 2018-06-09 17:24 | disposition home or self-care (01) ==
LOC: EDUNIT#
DX: F10.920 Alcohol use, unspecified with intoxication, uncomplicated (principal); I10 Essential (primary) hypertension; E78.5 Hyperlipidemia, unspecified; F41.9 Anxiety disorder, unspecified

== ENCOUNTER 2018-06-10 18:40 | Emergency (ER) | payer MEDICAID, OTHER ==
[2018-06-10 18:50] VITALS: BP 94/64
--- NOTE | 2018-06-10 18:51 | EDPHY ---
H & P Stated Complaint: ETOH Time Seen by Provider: 06/10/18 18:43 - Personal History Tetanus Vaccine Date: 2010 - Medical/Surgical History Hx Asthma: No Hx Chronic Respiratory Disease: No Hx Diabetes: No Hx Cardiac Disease: Yes Hx Renal Disease: No Hx Cirrhosis: No Hx Alcoholism: Yes Hx HIV/AIDS: No Hx Splenectomy or Spleen Trauma: No Other PMH: HTN, Insommia/depression, ETOH abuse, herpes, Hyperlipidemia, Anxiety , HYPOTHYROID, OSTEOPEROSIS - Social History Smoking Status: Never smoked Constitutional: Initial Vital Signs Temperature (C) 36.9 C 06/10/18 18:47 Heart Rate 90 06/10/18 18:47 Respiratory Rate 16 06/10/18 18:47 Blood Pressure 94/64 L 06/10/18 18:47 O2 Sat (%) 98 06/10/18 18:47 O2 Delivery Mode Room Air Allergies/Adverse Reactions: No Known Allergies Allergy (Verified 06/09/18 13:55) Home Medications: Medication Instructions Recorded Gabapentin [Neurontin] 1,200 mg PO TID 11/10/16 Aspirin EC [Aspirin EC 81 mg (*)] 162 mg PO DAILY 06/08/17 DULoxetine [Cymbalta 60 MG (*)] 60 mg PO DAILY #30 cap 12/16/17 Losartan Potassium [Cozaar 50 mg 50 mg PO DAILY #30 tab 12/16/17 (*)] Quetiapine Fumarate [Seroquel Xr] 200 mg PO HS #30 tab.er.24h 12/16/17 Ondansetron Odt [Zofran Odt] 4 mg PO Q4PRN PRN #4 tab 04/12/18 Medical Decision Making ED Course/Re-evaluation: CHIEF COMPLAINT: Alcohol intoxication. HISTORY OF PRESENT ILLNESS: The patient is a 63 y/o female arriving via EMS for alcohol intoxication. The patient is a chronic alcoholic living on [address] Patient drinks on a daily basis and obtains whatever alcohol is available. Patient was found by bystanders who called EMS system. Patient cannot remember what she was drinking today. Patient has had multiple ER visits over the last several years for the same complaint. Patient denies any injuries denies loss of consciousness denies any recent trauma. Patient denies co-ingestion. Patient denies suicidal or homicidal behavior. REVIEW OF SYSTEMS: A comprehensive 10 system review of systems is otherwise negative aside from elements mentioned in the history of present illness and medical decision making. PHYSICAL EXAM: General Appearance: Appears intoxicated, alert, well hydrated, appropriate, and non-toxic appearing. Head: Atraumatic without scalp tenderness or obvious injury Eyes: Pupils equal, round, reactive to light and accommodation, EOMI, no trauma , no injection. Ears: Clear bilaterally, no perforation, normal landmarks Nose: Atraumatic, no rhinorrhea, clear. Throat: There is no erythema or exudates, no lesions, normal tonsils, mucus membranes moist. Neck: Supple, 2+ carotid upstroke, nontender, no lymphadenopathy. Respiratory: No retractions, no distress, no wheezes, and no accessory muscle use. Lungs are clear to auscultation bilaterally. Cardiovascular: Regular rate and rhythm, no murmurs, rubs, or gallops. Bilateral carotid, radial, dorsalis pedis, and posterior tibial pulses intact. Good capillary refill all extremities. Gastrointestinal: Abdomen is soft, nontender, non-distended, no masses, no rebound, no guarding, no peritoneal signs. Musculoskeletal: Normal active ROM of all extremities, atraumatic. Neurological: Alert, appropriate, and interactive. The patient has normal DTRs and non-focal cranial nerves, motor, sensory, and cerebellar exam. Skin: No rashes, good turgor, no nodules on palpation. PAST MEDICAL HISTORY: PE, hypertension SOCIAL HISTORY: Transient, , unemployed DIAGNOSTICS/PROCEDURES/CRITICAL CARE TIME: Not indicated. DIFFERENTIAL DIAGNOSIS: The differential diagnosis for the patient's altered mental status included but was not limited to hypoglycemia, infectious process, electrolyte abnormality, head injury, neurologic process, anemia, cardiac process, and intoxicants. MEDICAL DECISION MAKING: I serially examined this patient since the patient's arrival here in the emergency department. The patient continues to become more and more sober with each examination. 1913:I serially questioned the patient and the patient's story given initially has not changed. The patient still denies any trauma, any head injury, and any illicit drug use. At this point, the patient is walking the department freely and is clinically sober. We're discharging the patient to the [facility] in stable condition. Departure - Departure Disposition: Home, Routine, Self-Care Clinical Impression: Alcoholic intoxication Qualifiers: Complication of substance-induced condition: uncomplicated Qualified Code(s): F10.920 - Alcohol use, unspecified with intoxication, uncomplicated Condition: Good Instructions: Alcohol Intoxication (ED), Abuse of Alcohol (ED) Additional Instructions: Please refrain from abusing alcohol. Return to the emergency department immediately for fever, vomiting, confusion, headache, abdominal pain or other worsening of condition. Followup with your primary care physician within 72 hours for reevaluation. Referrals: [facility] 24 Hours [Outside] - As per Instructions Report Scribed for: Dimitri Morse Report Scribed by: Reanna Benites Date of Report: 06/10/18 Time of Report: 18:52
== END 2018-06-10 19:15 | disposition home or self-care (01) ==
DX: F10.129 Alcohol abuse with intoxication, unspecified (principal); I10 Essential (primary) hypertension; E03.9 Hypothyroidism, unspecified; E78.5 Hyperlipidemia, unspecified; Z59.0 Homelessness

== ENCOUNTER 2018-06-10 20:55 | Emergency (ER) | payer MEDICAID ==
[2018-06-10 21:01] VITALS: BP 116/71
--- NOTE | 2018-06-10 21:16 | EDPHY ---
H & P Stated Complaint: etoh Time Seen by Provider: 06/10/18 20:58 - Personal History Current Tetanus Diphtheria and Acellular Pertussis (TDAP): Yes Tetanus Vaccine Date: 2010 - Medical/Surgical History Hx Asthma: No Hx Chronic Respiratory Disease: No Hx Diabetes: No Hx Cardiac Disease: Yes Hx Renal Disease: No Hx Cirrhosis: No Hx Alcoholism: Yes Hx HIV/AIDS: No Hx Splenectomy or Spleen Trauma: No Other PMH: HTN, Insommia/depression, ETOH abuse, herpes, Hyperlipidemia, Anxiety , HYPOTHYROID, OSTEOPEROSIS - Social History Smoking Status: Never smoked Constitutional: Initial Vital Signs Temperature (C) 36.9 C 06/10/18 20:59 Heart Rate 71 06/10/18 20:59 Respiratory Rate 94 H 06/10/18 20:59 Blood Pressure 116/71 06/10/18 20:59 O2 Delivery Mode Room Air Allergies/Adverse Reactions: No Known Allergies Allergy (Verified 06/09/18 13:55) Home Medications: Medication Instructions Recorded Gabapentin [Neurontin] 1,200 mg PO TID 11/10/16 Aspirin EC [Aspirin EC 81 mg (*)] 162 mg PO DAILY 06/08/17 DULoxetine [Cymbalta 60 MG (*)] 60 mg PO DAILY #30 cap 12/16/17 Losartan Potassium [Cozaar 50 mg 50 mg PO DAILY #30 tab 12/16/17 (*)] Quetiapine Fumarate [Seroquel Xr] 200 mg PO HS #30 tab.er.24h 12/16/17 Ondansetron Odt [Zofran Odt] 4 mg PO Q4PRN PRN #4 tab 04/12/18 Medical Decision Making ED Course/Re-evaluation: CHIEF COMPLAINT: Alcohol intoxication. HISTORY OF PRESENT ILLNESS: The patient is a 63 y/o female arriving via EMS for alcohol intoxication. The patient is a chronic alcoholic living on the [address]. Patient drinks on a daily basis and obtains whatever alcohol is available. Patient was found by bystanders who called EMS system. Patient cannot remember what she was drinking today. Patient has had multiple ER visits over the last several years for the same complaint. Patient denies any injuries denies loss of consciousness denies any recent trauma. Patient denies co-ingestion. Patient denies suicidal or homicidal behavior. REVIEW OF SYSTEMS: A comprehensive 10 system review of systems is otherwise negative aside from elements mentioned in the history of present illness and medical decision making. PHYSICAL EXAM: General Appearance: Appears intoxicated, alert, well hydrated, appropriate, and non-toxic appearing. Head: Atraumatic without scalp tenderness or obvious injury Eyes: Pupils equal, round, reactive to light and accommodation, EOMI, no trauma , no injection. Ears: Clear bilaterally, no perforation, normal landmarks Nose: Atraumatic, no rhinorrhea, clear. Throat: There is no erythema or exudates, no lesions, normal tonsils, mucus membranes moist. Neck: Supple, 2+ carotid upstroke, nontender, no lymphadenopathy. Respiratory: No retractions, no distress, no wheezes, and no accessory muscle use. Lungs are clear to auscultation bilaterally. Cardiovascular: Regular rate and rhythm, no murmurs, rubs, or gallops. Bilateral carotid, radial, dorsalis pedis, and posterior tibial pulses intact. Good capillary refill all extremities. Gastrointestinal: Abdomen is soft, nontender, non-distended, no masses, no rebound, no guarding, no peritoneal signs. Musculoskeletal: Normal active ROM of all extremities, atraumatic. Neurological: Alert, appropriate, and interactive. The patient has normal DTRs and non-focal cranial nerves, motor, sensory, and cerebellar exam. Skin: No rashes, good turgor, no nodules on palpation. PAST MEDICAL HISTORY: PE, hypertension SOCIAL HISTORY: Transient, , unemployed DIAGNOSTICS/PROCEDURES/CRITICAL CARE TIME: Not indicated. DIFFERENTIAL DIAGNOSIS: The differential diagnosis for the patient's altered mental status included but was not limited to hypoglycemia, infectious process, electrolyte abnormality, head injury, neurologic process, anemia, cardiac process, and intoxicants. MEDICAL DECISION MAKING: I serially examined this patient since the patient's arrival here in the emergency department. The patient continues to become more and more sober with each examination. 2144: I serially questioned the patient and the patient's story given initially has not changed. The patient has an old record of a PE and is supposed to be anticoagulated. We will not anticoagulate her at this time as she will need to follow up with her PCP for this. The patient still denies any trauma, any head injury, and any illicit drug use. At this point, the patient is walking the department freely and is clinically sober. We're discharging the [facility] to the [facility] in stable condition. Departure - Departure Disposition: Home, Routine, Self-Care Clinical Impression: Alcoholism Alcoholic intoxication Qualifiers: Complication of substance-induced condition: uncomplicated Qualified Code(s): F10.920 - Alcohol use, unspecified with intoxication, uncomplicated Condition: Good Instructions: Alcohol Intoxication (ED), Abuse of Alcohol (ED) Additional Instructions: Please refrain from abusing alcohol. Return to the emergency department immediately for fever, vomiting, confusion, headache, abdominal pain or other worsening of condition. Followup with your primary care physician within 72 hours for reevaluation. Referrals: [facility],. [Clinic] - As per Instructions [facility] Detox 24 Hours [Outside] - As per Instructions Report Scribed for: Dimitri Morse Report Scribed by: Reanna Benites Date of Report: 06/10/18 Time of Report: 21:16
== END 2018-06-10 22:49 | disposition home or self-care (01) ==
DX: F10.129 Alcohol abuse with intoxication, unspecified (principal); I10 Essential (primary) hypertension; E78.5 Hyperlipidemia, unspecified; E03.9 Hypothyroidism, unspecified; Z59.0 Homelessness; Z86.711 Personal history of pulmonary embolism

== ENCOUNTER 2018-06-13 21:14 | Emergency (ER) | payer MEDICAID, OTHER ==
--- NOTE | 2018-06-13 21:23 | EDPHY ---
HPI/HX/ROS/PE/MDM Narrative: CHIEF COMPLAINT: Fall, EtOH HPI: This patient is an anticoagulated (Xarelto) 63 y/o female with history of alcohol abuse who is well known to this emergency department. She arrives today via EMS after falling in front of [employer] this evening. A bystander called 911 for assistance. The patient admits to consuming about 1 pint of vodka today. Notably the patient was recently treated at [facility] for pulmonary emboli and has been anticoagulated since that time. She has history of frequent falls while intoxicated. She endorses some rib pain secondary to recent rib fractures. She denies any co-ingestion. No suicidal or homicidal ideation. REVIEW OF SYSTEMS: A comprehensive 10 system review of systems is otherwise negative aside from elements mentioned in the history of present illness and medical decision making. PMH: Alcohol abuse. Hypertension. Insomnia. Depression. Hyperlipidemia. Anxiety. Hypothyroid. Osteoporosis. SOCIAL HISTORY: Transient. Lives in [place]. History of alcohol abuse. PHYSICAL EXAM: General:Patient is alert, in no acute distress, appears intoxicated. ENT: Abrasion over bridge of nose. Eyes are normal to inspection. ENT inspection otherwise normal. Neck: Normal inspection. Full range of motion. Respiratory:No respiratory distress. Breath sounds normal bilaterally. Cardiovascular: Regular rate and rhythm. Strong peripheral pulses. Normal cap refill. Abdomen:The abdomen is nontender to palpation. There are no peritoneal signs. There are normal bowel sounds. Back: Normal to inspection. No tenderness to palpation. Skin: Normal color. No rash. Warm and dry. Extremities: Normal appearance. Full range of motion. Neuro: Oriented x3. Normal motor function. Normal sensory function. (Patrick Dang) ED Course: Anticoagulated 63 y/o female presents following a fall while intoxicated this evening. It is unclear whether she has been taking her Xarelto, which was recently prescribed. She has an abrasion across her nasal bridge, but this has makeup over the top of it and does not appear acute. She does not complain of any headache or facial pain at this time. Plan to observe patient here in the emergency department. (Patrick Dang) [address] Dang pending improvement in her mental status secondary to her alcohol intoxication. 0130 patient is up and ambulating in the emergency department. She is at her baseline. [facility] They have medications for her there. (Cayden Georges) General Time Seen by Provider: 06/13/18 21:16 Initial Vital Signs: Initial Vital Signs Temperature (C) 36.4 C 06/13/18 21:24 Heart Rate 79 06/13/18 21:24 Respiratory Rate 17 06/13/18 21:24 Blood Pressure 133/91 H 06/13/18 21:24 O2 Sat (%) 99 06/13/18 21:24 O2 Delivery Mode Room Air Allergies/Adverse Reactions: No Known Allergies Allergy (Verified 06/13/18 21:24) Home Medications: Medication Instructions Recorded Gabapentin [Neurontin] 1,200 mg PO TID 11/10/16 Aspirin EC [Aspirin EC 81 mg (*)] 162 mg PO DAILY 06/08/17 DULoxetine [Cymbalta 60 MG (*)] 60 mg PO DAILY #30 cap 12/16/17 Losartan Potassium [Cozaar 50 mg 50 mg PO DAILY #30 tab 12/16/17 (*)] Quetiapine Fumarate [Seroquel Xr] 200 mg PO HS #30 tab.er.24h 12/16/17 Ondansetron Odt [Zofran Odt] 4 mg PO Q4PRN PRN #4 tab 04/12/18 Xarelto 06/13/18 Departure - Departure Disposition: Home, Routine, Self-Care Clinical Impression: Alcoholic intoxication Qualifiers: Complication of substance-induced condition: uncomplicated Qualified Code(s): F10.920 - Alcohol use, unspecified with intoxication, uncomplicated Condition: Good Instructions: Alcohol Intoxication (ED) Additional Instructions: Return to the emergency department immediately for fever, vomiting, confusion, headache, abdominal pain or other worsening of condition. Referrals: [facility],. [Clinic] - As per Instructions Report Scribed for: Patrick Dang Report Scribed by: Deysi Gonzalez Date of Report: 06/13/18 Time of Report: 21:26 Physician Review and Approval Statement: Portions of this note were transcribed by an ED scribe. I personally performed the history, physical exam, and medical decision making; and confirm the accuracy of the information in the transcribed note.
[2018-06-14 05:49] VITALS: BP 119/77
== END 2018-06-14 05:49 | disposition home or self-care (01) ==
LOC: EDUNIT#
DX: F10.129 Alcohol abuse with intoxication, unspecified (principal); Z86.711 Personal history of pulmonary embolism; Z79.01 Long term (current) use of anticoagulants; I10 Essential (primary) hypertension

== ENCOUNTER 2018-06-14 21:20 | Emergency (ER) | payer MEDICAID ==
--- NOTE | 2018-06-14 21:44 | EDPHY ---
H & P Stated Complaint: ETOH Time Seen by Provider: 06/14/18 21:37 HPI/ROS: CHIEF COMPLAINT: Intoxication HISTORY OF PRESENT ILLNESS: The patient is a 63-year-old alcoholic homeless female who is here almost most daily for intoxication. She was acting bizarre outside of [place] and bystanders called EMS. They brought her here. No reports of injury or trauma this evening. She does have old bruising and abrasions to her face suffered a few days ago with makeup over the top of the now. She was seen here in the ER yesterday for the same. To me she denies any complaints other than "I hate Dr. Coolye". She is moving all extremities . Severity: Moderate Modifying factors: None REVIEW OF SYSTEMS: Unable to obtain secondary to condition EXAM: GENERAL: Disheveled, no acute distress, no obvious injuries or complaints HEAD: Atraumatic, normocephalic. EYES: Old bruising to right eye, Pupils equal round and reactive to light, extraocular movements intact, sclera anicteric, conjunctiva are normal. ENT: TMs normal, nares patent healing abrasion but no bleeding, oropharynx clear without exudates. Moist mucous membranes. NECK: Normal range of motion, supple without lymphadenopathy or JVD. LUNGS: Breath sounds clear to auscultation bilaterally and equal. No wheezes rales or rhonchi. HEART: Regular rate and rhythm without murmurs, rubs or gallops. ABDOMEN: Soft, nontender, normoactive bowel sounds. No guarding, no rebound. No masses appreciated. BACK: No CVA tenderness, no spinal tenderness, step-offs or deformities EXTREMITIES: Normal range of motion, no pitting or edema. No clubbing or cyanosis. NEUROLOGICAL: Cranial nerves II through XII grossly intact. Slurred speech, unsteady gait. 5/5 strength, normal movement in all extremities, normal sensation, normal reflexes PSYCH: Uncooperative SKIN: Warm, dry, normal turgor, no visible rashes or lesions. Source: Patient Exam Limitations: No limitations - Personal History Tetanus Vaccine Date: 2010 - Medical/Surgical History Hx Asthma: No Hx Chronic Respiratory Disease: No Hx Diabetes: No Hx Cardiac Disease: Yes Hx Renal Disease: No Hx Cirrhosis: No Hx Alcoholism: Yes Hx HIV/AIDS: No Hx Splenectomy or Spleen Trauma: No Other PMH: HTN, Insommia/depression, ETOH abuse, herpes, Hyperlipidemia, Anxiety , HYPOTHYROID, PE, OSTEOPEROSIS, - Family History Significant Family History: No pertinent family hx - Social History Smoking Status: Never smoked Alcohol Use: Heavy Constitutional: Initial Vital Signs Temperature (C) 36.7 C 06/14/18 21:27 Heart Rate 90 06/14/18 21:27 Respiratory Rate 18 06/14/18 21:27 Blood Pressure 119/73 06/14/18 21:27 O2 Sat (%) 94 06/14/18 21:27 O2 Delivery Mode Room Air O2 (L/minute) 2 Allergies/Adverse Reactions: No Known Allergies Allergy (Verified 06/13/18 21:24) Home Medications: Medication Instructions Recorded Gabapentin [Neurontin] 1,200 mg PO TID 11/10/16 Aspirin EC [Aspirin EC 81 mg (*)] 162 mg PO DAILY 06/08/17 DULoxetine [Cymbalta 60 MG (*)] 60 mg PO DAILY #30 cap 12/16/17 Losartan Potassium [Cozaar 50 mg 50 mg PO DAILY #30 tab 12/16/17 (*)] Quetiapine Fumarate [Seroquel Xr] 200 mg PO HS #30 tab.er.24h 12/16/17 Ondansetron Odt [Zofran Odt] 4 mg PO Q4PRN PRN #4 tab 04/12/18 Xarelto 06/13/18 Medical Decision Making ED Course/Re-evaluation: 10:55 p.m. the patient is easily arousable. She tells me she thinks she can ambulate. Will road test. 11:00 p.m. the patient is able to ambulate. [facility]. She has not recently been taking her Xarelto. She had been on it previously for a remote pulmonary embolism. I do not think it is safe for her to take at this point. I would not suggest that she began taking it now. She has no complaints of chest pain or shortness of breath. Differential Diagnosis: Partial list of the Differential diagnosis considered include but were not limited to; intoxication, contusion, depression and although unlikely based on the history and physical exam, I also considered infection, intracranial injury , assault. Departure - Departure Disposition: Home, Routine, Self-Care Clinical Impression: Alcoholism Alcoholic intoxication Qualifiers: Complication of substance-induced condition: uncomplicated Qualified Code(s): F10.920 - Alcohol use, unspecified with intoxication, uncomplicated Condition: Fair Instructions: Alcohol Intoxication (ED) Referrals: NONE *PRIMARY CARE P,. [Primary Care Provider] - As per Instructions [facility],. [Clinic] - As per Instructions
[2018-06-14 23:13] VITALS: BP 125/87
== END 2018-06-14 23:13 | disposition home or self-care (01) ==
LOC: EDUNIT#
DX: F10.920 Alcohol use, unspecified with intoxication, uncomplicated (principal); F41.9 Anxiety disorder, unspecified; I10 Essential (primary) hypertension; E78.5 Hyperlipidemia, unspecified; E03.9 Hypothyroidism, unspecified; Z59.0 Homelessness

== ENCOUNTER 2018-06-16 20:25 | Emergency (ER) | payer MEDICAID ==
--- NOTE | 2018-06-16 20:30 | EDPHY ---
H & P Stated Complaint: HEAVY ETOH Time Seen by Provider: 06/16/18 20:29 - Personal History Current Tetanus/Diphtheria Vaccine: Yes Current Tetanus Diphtheria and Acellular Pertussis (TDAP): Yes Tetanus Vaccine Date: 2010 - Medical/Surgical History Hx Asthma: No Hx Chronic Respiratory Disease: No Hx Diabetes: No Hx Cardiac Disease: Yes Hx Renal Disease: No Hx Cirrhosis: No Hx Alcoholism: Yes Hx HIV/AIDS: No Hx Splenectomy or Spleen Trauma: No Other PMH: HTN, Insommia/depression, ETOH abuse, herpes, Hyperlipidemia, Anxiety , HYPOTHYROID, PE, OSTEOPEROSIS, - Social History Smoking Status: Never smoked Constitutional: Initial Vital Signs Temperature (C) 36.4 C 06/16/18 20:28 Heart Rate 91 06/16/18 20:28 Respiratory Rate 18 06/16/18 20:28 Blood Pressure 88/59 L 06/16/18 20:28 O2 Sat (%) 93 06/16/18 20:28 O2 Delivery Mode Room Air Allergies/Adverse Reactions: No Known Allergies Allergy (Verified 06/16/18 20:29) Home Medications: Medication Instructions Recorded Gabapentin [Neurontin] 1,200 mg PO TID 11/10/16 Aspirin EC [Aspirin EC 81 mg (*)] 162 mg PO DAILY 06/08/17 DULoxetine [Cymbalta 60 MG (*)] 60 mg PO DAILY #30 cap 12/16/17 Losartan Potassium [Cozaar 50 mg 50 mg PO DAILY #30 tab 12/16/17 (*)] Quetiapine Fumarate [Seroquel Xr] 200 mg PO HS #30 tab.er.24h 12/16/17 Ondansetron Odt [Zofran Odt] 4 mg PO Q4PRN PRN #4 tab 04/12/18 Xarelto 06/13/18 Medical Decision Making ED Course/Re-evaluation: CHIEF COMPLAINT: Alcohol intoxication. HISTORY OF PRESENT ILLNESS: The patient is a 63 y/o female arriving via EMS for alcohol intoxication. The patient is a chronic alcoholic living [place] [address] [place] Patient drinks on a daily basis and obtains whatever alcohol is available. Patient was found by bystanders who called EMS system. Patient cannot remember what she was drinking today. Patient has had multiple ER visits over the last several years for the same complaint. Patient denies any injuries denies loss of consciousness denies any recent trauma. Patient denies co-ingestion. Patient denies suicidal or homicidal behavior. REVIEW OF SYSTEMS: A comprehensive 10 system review of systems is otherwise negative aside from elements mentioned in the history of present illness and medical decision making. PHYSICAL EXAM: General Appearance: Appears intoxicated, alert, well hydrated, appropriate, and non-toxic appearing. Head: Atraumatic without scalp tenderness or obvious injury Eyes: Pupils equal, round, reactive to light and accommodation, EOMI, no trauma , no injection. Ears: Clear bilaterally, no perforation, normal landmarks Nose: Atraumatic, no rhinorrhea, clear. Throat: There is no erythema or exudates, no lesions, normal tonsils, mucus membranes moist. Neck: Supple, 2+ carotid upstroke, nontender, no lymphadenopathy. Respiratory: No retractions, no distress, no wheezes, and no accessory muscle use. Lungs are clear to auscultation bilaterally. Cardiovascular: Regular rate and rhythm, no murmurs, rubs, or gallops. Bilateral carotid, radial, dorsalis pedis, and posterior tibial pulses intact. Good capillary refill all extremities. Gastrointestinal: Abdomen is soft, nontender, non-distended, no masses, no rebound, no guarding, no peritoneal signs. Musculoskeletal: Normal active ROM of all extremities, atraumatic. Neurological: Alert, appropriate, and interactive. The patient has normal DTRs and non-focal cranial nerves, motor, sensory, and cerebellar exam. Skin: No rashes, good turgor, no nodules on palpation. PAST MEDICAL HISTORY: PE, hypertension SOCIAL HISTORY: Transient, , unemployed DIAGNOSTICS/PROCEDURES/CRITICAL CARE TIME: Not indicated. DIFFERENTIAL DIAGNOSIS: The differential diagnosis for the patient's altered mental status included but was not limited to hypoglycemia, infectious process, electrolyte abnormality, head injury, neurologic process, anemia, cardiac process, and intoxicants. MEDICAL DECISION MAKING: I serially examined this patient since the patient's arrival here in the emergency department. The patient continues to become more and more sober with each examination. I serially questioned the patient and the patient's story given initially has not changed. The patient still denies any trauma, any head injury, and any illicit drug use. At this point, the patient is walking the department freely and is clinically sober. We're [facility] the [facility] to the [facility] in stable condition. Departure - Departure Disposition: Home, Routine, Self-Care Clinical Impression: Alcoholism Alcoholic intoxication Qualifiers: Complication of substance-induced condition: uncomplicated Qualified Code(s): F10.920 - Alcohol use, unspecified with intoxication, uncomplicated Condition: Good Instructions: Abuse of Alcohol (ED), Alcohol Intoxication (ED) Additional Instructions: Please refrain from abusing alcohol. Return to the emergency department immediately for fever, vomiting, confusion, headache, abdominal pain or other worsening of condition. Followup with your primary care physician within 72 hours for reevaluation. Referrals: [facility],. [Clinic] - As per Instructions [facility] Detox 24 Hours [Outside] - As per Instructions Report Scribed for: Dimitri Morse Report Scribed by: Reanna Benites Date of Report: 06/16/18 Time of Report: 20:58
[2018-06-16] MEDS ORDERED: CHLORDIAZEPOXIDE 25MG PREPK#6 BTL TAKEHOME ONE (23:34)
[2018-06-16 23:39] VITALS: BP 108/70
== END 2018-06-16 23:38 | disposition home or self-care (01) ==
LOC: EDUNIT#
DX: F10.920 Alcohol use, unspecified with intoxication, uncomplicated (principal); F41.9 Anxiety disorder, unspecified; I10 Essential (primary) hypertension; Z59.0 Homelessness

== ENCOUNTER 2018-06-17 16:08 | Emergency (ER) | payer MEDICAID ==
--- NOTE | 2018-06-17 16:36 | EDPHY ---
General Time Seen by Provider: 06/17/18 16:34 Narrative: CLINICAL IMPRESSION: Acute Alcohol Intoxication ASSESSMENT/PLAN: Patient is a 63 year old female well know to our department, history of alcohol abuse presents recurrent acute intoxication and for clearance to the [facility]. Patient is afebrile and not toxic appearing, she is in no acute distress on arrival. Her abdomen was soft and nontender, no evidence of a surgical abdomen. Patient with evidence if remote facial trauma- resolving right periorbital ecchymosis and scabbing noted to nose. Injuries consistent with injuries documented in previous ED visits. No evidence of acute trauma. She is unsure how much she drank. Denied any specific complaint. The differential diagnosis for this patient includes alcohol intoxication, alcohol abuse, alcohol withdrawal, other substance abuse or withdrawal, toxidrome or medication overdose, CVA, head trauma, hyponatremia, hypoglycemia or other electrolyte abnormality. I discussed options for ongoing management of symptoms , and patient was offered resources vs detox. She will be transferred to the [facility]. CM also visited with patient. Discussed indications for return to the emergency department as well as the importance of alcohol cessation. DIFFERENTIAL DX: Trauma, ICH, hypoglycemia, electrolyte abnormality, toxidrome ED COURSE: 1638: Case discussed with Dr. Dang, he also evaluated this patient. 1645: Radu kellogg, patient seen and evaluated 15 times since May 14. Just seen at [facility] 06/15/2018 for complaints of head injury, right rib pain and acute ETOH. CT head and CTA chest with no evidence of facial fracture, ICH, PE or traumatic chest injury. CTA chest with moderately large hiatal hernia, sub pleural reticular opacities in the right middle lobe, mild dilatation in the main pancreatic duct which is stable. 1708. On repeat exam she is resting comfortably in bed, no acute distress. CHIEF COMPLAINT: Acute alcohol intoxication HPI: Patient is a 63 year old well known to us, heavy alcohol abuse present with recurrent acute alcohol intoxication and clearance for [facility]. She is unsure how much she has had to drink today, denies any drug use or other substance use. She denies any injury or trauma acutely. Denies WILLSON, fever, CP, or SOB. She also denies any abdominal pain. PMH: Alcohol abuse, HTN, HLP, depression, osteoporosis, hypothyroid, PE Social History: Chronic heavy ETOH REVIEW OF SYSTEMS: All other systems negative Constitutional: No fever, no chills, appetite change. Eyes: No discharge, vision change. ENT: No sore throat, congestion, ear pain. Cardiovascular: No chest pain, no palpitations. Respiratory: No cough, no shortness of breath. Gastrointestinal: No abdominal pain, no vomiting, diarrhea. Genitourinary: No hematuria, dysuria, flank pain, pelvic pain. Musculoskeletal: No back pain, joint swelling, joint pain, myalgias. Skin: No rashes, color change. Neurological: No headache, dizziness, weakness. PHYSICAL EXAM: General Appearance: Alert, intoxicated, not toxic appearing. HENT: Normocephalic. Bilateral external ears are normal. Bilateral tympanic membranes are normal with pearly wu reflex. Nares are clear, mucosa is pink. Scabbing noted along nose, healing well. Oropharynx is clear, uvula is midline. There is no tonsillar enlargement or exudate. The dentition is normal. Eyes: PERRLA, EOMI with no evidence of entrapment. Conjunctiva pink, no pallor or injection. Right periorbital ecchymosis with various stages of healing. Nontender. Neck: Supple, nontender, no lymphadenopathy, no midline pain, FROM. Respiratory: There are no retractions, lungs are clear to auscultation. No evidence of chest trauma, nontender with no ecchymosis or abrasions. Cardiac: Regular rate and rhythm, no murmurs or gallops. Gastrointestinal: Abdomen is soft, nontender, bowel sounds normal, no masses/ hernia, no rigidity, guarding or focal peritoneal findings. Neurological: Alert and oriented x 3, CN 2-12 grossly intact, normal sensation and strength. Skin: Warm, dry, no rashes. Musculoskeletal: Extremities are symmetrical, full range of motion, no tenderness, deformity, swelling, or erythema. Psychiatric: Patient is oriented X 3, there is no agitation. MEDICAL DECISION MAKING: Patient was seen independently. Secondary supervising physician at time of evaluation was Dr. Dang, he also evaluated this patient. Diagnosis: Acute alcohol intoxication. New, requires workup Summary: See Assessment and Plan for summary of ED visit Clinical lab tests: Not applicable. Independent visualization of images, tracing, or specimens: Not applicable. Decision to obtain medical records or history from someone other than the patient: Yes. Review / Summarize previous medical records:Yes Discussed patient with another provider: Yes. Dr. Dang Patient Progress: Stable, discharge. - History Smoking Status: Never smoked - Objective Vital Signs: Initial Vital Signs Temperature (C) 36.7 C 06/17/18 16:17 Heart Rate 91 06/17/18 16:17 Respiratory Rate 16 06/17/18 16:17 Blood Pressure 102/76 06/17/18 16:17 O2 Sat (%) 95 06/17/18 16:17 O2 Delivery Mode Room Air Allergies/Adverse Reactions: No Known Allergies Allergy (Verified 06/17/18 22:10) Home Medications: Medication Instructions Recorded Gabapentin [Neurontin] 1,200 mg PO TID 11/10/16 Aspirin EC [Aspirin EC 81 mg (*)] 162 mg PO DAILY 06/08/17 DULoxetine [Cymbalta 60 MG (*)] 60 mg PO DAILY #30 cap 12/16/17 Losartan Potassium [Cozaar 50 mg 50 mg PO DAILY #30 tab 12/16/17 (*)] Quetiapine Fumarate [Seroquel Xr] 200 mg PO HS #30 tab.er.24h 12/16/17 Ondansetron Odt [Zofran Odt] 4 mg PO Q4PRN PRN #4 tab 04/12/18 Xarelto 06/13/18 Departure - Departure Disposition: Home, Routine, Self-Care Clinical Impression: Acute alcoholic intoxication Condition: Good Instructions: Abuse of Alcohol (ED) Additional Instructions: DISCHARGE INSTRUCTIONS FROM YOUR DOCTOR Thank you for visiting our emergency department today. Please keep in mind that discharge from the emergency department does not mean that there is nothing wrong - it simply means that we have not identified an emergency condition that requires further evaluation or treatment in the hospital. You should always plan to follow up with primary care for re-evaluation of your condition in the next 2-3 days. Return for headache, fever, altered mentation, significantly worsening or ongoing pain, withdrawal or for any other concerning symptom. People present with illnesses and injuries in different ways, and it is always possible that we have missed something. You may always return for re-evaluation if symptoms worsen or if they are not improving or if you develop new/different symptoms. Again, thank you for choosing our emergency department. We hope that you feel better. Referrals: [facility],. [Clinic] - As per Instructions
[2018-06-17 19:13] VITALS: BP 97/68
== END 2018-06-17 20:08 | disposition home or self-care (01) ==
LOC: EDUNIT#
DX: F10.920 Alcohol use, unspecified with intoxication, uncomplicated (principal)

== ENCOUNTER 2018-06-17 22:05 | Emergency (ER) | payer MEDICAID ==
[2018-06-17 22:11] VITALS: BP 97/62
--- NOTE | 2018-06-17 22:11 | EDPHY ---
H & P Time Seen by Provider: 06/17/18 22:11 HPI/ROS: HPI CHIEF COMPLAINT: Alcohol Intoxication HISTORY OF PRESENT ILLNESS: Patient is a 63-year-old female, very well known to myself as well as the emergency room, this is in fact her 48 ER visit, she presents emergency room highly intoxicated with alcohol once again. She is here regularly with acute alcohol intoxication. Patient reports to me she admits to alcohol this evening. She brought in by EMS with police for acute alcohol intoxication she is unable to stand. Past Medical History: Alcoholism daily alcohol use Past Surgical History: No recent surgical history Social History: Daily alcohol use. Family History: Noncontributory ROS REVIEW OF SYSTEMS: 10 Systems were reviewed and negative with the exception of the elements mentioned in the history of present illness. Exam Constitutional Intoxicated, triage nursing summary reviewed, vital signs reviewed, Sleepy, smells of alcohol Eyes normal conjunctivae and sclera, horizontal beating nystagmus consistent acute alcohol intoxication, otherwise pupils equal and react to light HENT normal inspection, atraumatic, moist mucus membranes, no epistaxis, neck supple/ no meningismus, no raccoon eyes. Respiratory clear to auscultation bilaterally, normal breath sounds, no respiratory distress, no wheezing. Cardiovascular rate normal, regular rhythm, no murmur, no edema, distal pulses normal. Gastrointestinal soft, non-tender, no rebound, no guarding, normal bowel sounds, no distension, no pulsatile mass. Genitourinary no CVA tenderness. Musculoskeletal no midline vertebral tenderness, full range of motion, no calf swelling, no tenderness of extremities, no meningismus, good pulses, neurovascularly intact. Skin pink, warm, & dry, no rash, skin atraumatic. Neurologic sleepy, intoxicated with alcohol,, alert and oriented x 3, AAOx3, moves all 4 extremities equally, motor intact, sensory intact, CN II-XII intact , , normal vision, normal speech. Psychiatric normal mood/affect. Heme/Lymph/Immune no lymphadenopathy. Differential Diagnosis: Includes but is not limited to in a particular order acute alcohol intoxication, alcohol abuse, dehydration, electrolyte abnormality , nausea vomiting from acute alcohol intoxication Medical Decision Making: Plan for this patient breath alcohol. Monitor for worsening of condition. Monitor for sobriety. Once patient is sober she can be appropriately discharged Re-evaluation: Breath alcohol 338. Time 10:17 p.m. 0240: Patient re-evaluated at this time, up ambulatory with a stable gait. Clinically sober. Answers questions appropriately and denies any complaints. She Can go to detox tonight. Source: Patient, Police, EMS - Personal History Tetanus Vaccine Date: 2010 - Medical/Surgical History Hx Asthma: No Hx Chronic Respiratory Disease: No Hx Diabetes: No Hx Cardiac Disease: Yes Hx Renal Disease: No Hx Cirrhosis: No Hx Alcoholism: Yes Hx HIV/AIDS: No Hx Splenectomy or Spleen Trauma: No Other PMH: HTN, Insommia/depression, ETOH abuse, herpes, Hyperlipidemia, Anxiety , HYPOTHYROID, PE, OSTEOPEROSIS, - Social History Smoking Status: Never smoked Constitutional: Initial Vital Signs Temperature (C) 36.6 C 06/17/18 22:10 Heart Rate 93 06/17/18 22:10 Respiratory Rate 18 06/17/18 22:10 Blood Pressure 97/62 L 06/17/18 22:10 O2 Sat (%) 94 06/17/18 22:10 O2 Delivery Mode Room Air Allergies/Adverse Reactions: No Known Allergies Allergy (Verified 06/17/18 22:10) Home Medications: Medication Instructions Recorded Gabapentin [Neurontin] 1,200 mg PO TID 11/10/16 Aspirin EC [Aspirin EC 81 mg (*)] 162 mg PO DAILY 06/08/17 DULoxetine [Cymbalta 60 MG (*)] 60 mg PO DAILY #30 cap 12/16/17 Losartan Potassium [Cozaar 50 mg 50 mg PO DAILY #30 tab 12/16/17 (*)] Quetiapine Fumarate [Seroquel Xr] 200 mg PO HS #30 tab.er.24h 12/16/17 Ondansetron Odt [Zofran Odt] 4 mg PO Q4PRN PRN #4 tab 04/12/18 Xarelto 06/13/18 Departure - Departure Disposition: Home, Routine, Self-Care Clinical Impression: Alcoholic intoxication Condition: Good Instructions: Alcohol Intoxication (ED), Abuse of Alcohol (ED) Additional Instructions: Please stop drinking alcohol. Referrals: NONE *PRIMARY CARE P,. [Primary Care Provider] - As per Instructions
== END 2018-06-18 02:47 | disposition home or self-care (01) ==
LOC: EDUNIT#
DX: F10.920 Alcohol use, unspecified with intoxication, uncomplicated (principal)

== ENCOUNTER 2018-06-29 20:50 | Emergency (ER) | payer MEDICAID ==
--- NOTE | 2018-06-29 20:54 | EDPHY ---
H & P Source: Patient, EMS - Personal History Tetanus Vaccine Date: 2010 - Medical/Surgical History Hx Asthma: No Hx Chronic Respiratory Disease: No Hx Diabetes: No Hx Cardiac Disease: Yes Hx Renal Disease: No Hx Cirrhosis: No Hx Alcoholism: Yes Hx HIV/AIDS: No Hx Splenectomy or Spleen Trauma: No Other PMH: HTN, Insommia/depression, ETOH abuse, herpes, Hyperlipidemia, Anxiety , HYPOTHYROID, PE, OSTEOPEROSIS, - Social History Smoking Status: Never smoked Time Seen by Provider: 06/29/18 20:54 HPI/ROS: HPI CHIEF COMPLAINT: Alcohol Intoxication, forehead laceration HISTORY OF PRESENT ILLNESS: This patient is a 63-year-old female well known to myself, presents emergency room with alcohol intoxication. At some point she fell and hit her head. She has a forehead laceration 2 cm. Not gaping. She is highly intoxicated with alcohol upon arrival. Her fingerstick blood glucose by EMS was 109. Patient denies any complaints. Past Medical History: Alcoholism daily alcohol use. Past Surgical History: Denies significant surgical history Social History: Daily alcohol use. Homeless. Family History: Noncontributory ROS REVIEW OF SYSTEMS: 10 Systems were reviewed and negative with the exception of the elements mentioned in the history of present illness. Exam Constitutional Intoxicated, triage nursing summary reviewed, vital signs reviewed, Sleepy, smells of alcohol Eyes normal conjunctivae and sclera, horizontal beating nystagmus consistent acute alcohol intoxication, otherwise pupils equal and react to light HENT head/neck atraumatic however there is a mid forehead laceration, otherwise atraumatic head and neck exam. moist mucus membranes, no epistaxis, neck supple/ no meningismus, no raccoon eyes. Respiratory clear to auscultation bilaterally, normal breath sounds, no respiratory distress, no wheezing. Cardiovascular rate normal, regular rhythm, no murmur, no edema, distal pulses normal. Gastrointestinal soft, non-tender, no rebound, no guarding, normal bowel sounds, no distension, no pulsatile mass. Genitourinary no CVA tenderness. Musculoskeletal no midline vertebral tenderness, full range of motion, no calf swelling, no tenderness of extremities, no meningismus, good pulses, neurovascularly intact. Skin pink, warm, & dry, no rash, skin atraumatic. Neurologic sleepy, intoxicated with alcohol,, alert and oriented x 3, AAOx3, moves all 4 extremities equally, motor intact, sensory intact, CN II-XII intact , , normal vision, normal speech. Psychiatric normal mood/affect. Heme/Lymph/Immune no lymphadenopathy. Differential Diagnosis: Includes but is not limited to in a particular order acute alcohol intoxication, alcohol abuse, dehydration, electrolyte abnormality , nausea vomiting from acute alcohol intoxication Medical Decision Making: Plan for this patient CT scan head without contrast for trauma, will clean her laceration, breath alcohol. Monitor for worsening condition. Monitor for sobriety. Re-evaluation: Breath alcohol 0.318 CT scan head without contrast negative for acute traumatic injury no bleed. Called to me by Dr. Castaneda. 2141: Patient pending sobriety. Signed over to Dr. Georges. Plan for further sobiety. (Marcelino Courtney) Constitutional: Initial Vital Signs Temperature (C) 36.7 C 06/29/18 20:59 Heart Rate 97 06/29/18 20:59 Respiratory Rate 18 06/29/18 20:59 Blood Pressure 91/67 L 06/29/18 20:59 O2 Sat (%) 86 L 06/29/18 20:59 O2 Delivery Mode Room Air O2 (L/minute) 2 Allergies/Adverse Reactions: No Known Allergies Allergy (Verified 06/29/18 20:59) Home Medications: Medication Instructions Recorded Gabapentin [Neurontin] 1,200 mg PO TID 11/10/16 Aspirin EC [Aspirin EC 81 mg (*)] 162 mg PO DAILY 06/08/17 DULoxetine [Cymbalta 60 MG (*)] 60 mg PO DAILY #30 cap 12/16/17 Losartan Potassium [Cozaar 50 mg 50 mg PO DAILY #30 tab 12/16/17 (*)] Quetiapine Fumarate [Seroquel Xr] 200 mg PO HS #30 tab.er.24h 12/16/17 Ondansetron Odt [Zofran Odt] 4 mg PO Q4PRN PRN #4 tab 04/12/18 Xarelto 06/13/18 Medical Decision Making - Diagnostics Imaging Results: Imaging Impressions Head CT 06/29/18 20:57 Impression: Atrophy and microvascular ischemic disease. Findings and recommendations discussed with Marcelino Courtney MD at 9:30 PM hour , 06/29/2018. Final report concurs with initial preliminary interpretation. Procedures: Procedure: Laceration repair with tissue adhesive Requested by Dr. Marcelino Courtney for wound closure. The patient has 2 discrete , 1.5 cm laceration to her frontal region. Verbal consent was obtained from the patient. The wounds were scrubbed and explored to its base with a gloved finger. No foreign body seen, no foreign bodies palpated. There were no deep structures involved. The wounds were repaired with tissue adhesive. The procedure was performed by myself. Patient has been informed that scarring will occur, although efforts have been made to minimize this. (Keysha,Symone Carolina) Other Provider: [address] Courtney pending improvement in the patient's sobriety. She has had a negative CT scan of the head. Lacerations been repaired. 0115 patient is ambulating unassisted in the emergency department. [facility] Will send her with Librium. (Cayden Georges) Departure - Departure Disposition: Home, Routine, Self-Care Clinical Impression: Alcohol intoxication, Laceration of head Condition: Good Instructions: Laceration (ED), Alcohol Intoxication (ED), Chlordiazepoxide (By mouth), Skin Adhesive Care (ED) Referrals: Patient,NotPresent [Unknown] - As per Instructions
[2018-06-29] MEDS ORDERED: SKIN ADHESIVE (DERMABOND) 1 EACH TP ONE (21:43)
[2018-06-30] MEDS ORDERED: CHLORDIAZEPOXIDE 25MG PREPK#6 BTL TAKEHOME ONE ×2 (01:15→01:19)
[2018-06-30 02:25] VITALS: BP 134/70
== END 2018-06-30 02:25 | disposition home or self-care (01) ==
LOC: EDUNIT#
PROC: 0HQ1XZZ Repair Face Skin, External Approach (ICD-10-PCS; principal; 2018-06-29)
DX: S01.81XA Laceration without foreign body of other part of head, initial encounter (principal); F10.929 Alcohol use, unspecified with intoxication, unspecified; Z59.0 Homelessness; W19.XXXA Unspecified fall, initial encounter

== ENCOUNTER 2018-07-02 16:19 | Emergency (ER) | payer MEDICAID ==
--- NOTE | 2018-07-02 16:21 | EDPHY ---
H & P Time Seen by Provider: 07/02/18 16:20 - Personal History Tetanus Vaccine Date: 2010 - Medical/Surgical History Hx Asthma: No Hx Chronic Respiratory Disease: No Hx Diabetes: No Hx Cardiac Disease: Yes Hx Renal Disease: No Hx Cirrhosis: No Hx Alcoholism: Yes Hx HIV/AIDS: No Hx Splenectomy or Spleen Trauma: No Other PMH: HTN, Insommia/depression, ETOH abuse, herpes, Hyperlipidemia, Anxiety , HYPOTHYROID, PE, OSTEOPEROSIS, - Social History Smoking Status: Never smoked Constitutional: Initial Vital Signs Temperature (C) 36.4 C 07/02/18 16:19 Heart Rate 89 07/02/18 16:19 Respiratory Rate 16 07/02/18 16:19 Blood Pressure 132/85 H 07/02/18 16:19 O2 Sat (%) 94 07/02/18 16:19 O2 Delivery Mode Nasal Cannula O2 (L/minute) 3 Allergies/Adverse Reactions: No Known Allergies Allergy (Verified 06/29/18 20:59) Home Medications: Medication Instructions Recorded Gabapentin [Neurontin] 1,200 mg PO TID 11/10/16 Aspirin EC [Aspirin EC 81 mg (*)] 162 mg PO DAILY 06/08/17 DULoxetine [Cymbalta 60 MG (*)] 60 mg PO DAILY #30 cap 12/16/17 Losartan Potassium [Cozaar 50 mg 50 mg PO DAILY #30 tab 12/16/17 (*)] Quetiapine Fumarate [Seroquel Xr] 200 mg PO HS #30 tab.er.24h 12/16/17 Ondansetron Odt [Zofran Odt] 4 mg PO Q4PRN PRN #4 tab 04/12/18 Xarelto 06/13/18 Medical Decision Making ED Course/Re-evaluation: CHIEF COMPLAINT: Alcohol intoxication. HISTORY OF PRESENT ILLNESS: The patient is a chronic alcoholic living on [address]. Patient drinks on a daily basis and obtains whatever alcohol is available. Patient was found by bystanders who called EMS system. Patient has had multiple ER visits over the last several years for the same complaint. Patient denies any injuries denies loss of consciousness denies any recent trauma. Patient denies co-ingestion. Patient denies suicidal or homicidal behavior. REVIEW OF SYSTEMS: A comprehensive 10 system review of systems is otherwise negative aside from elements mentioned in the history of present illness and medical decision making. PHYSICAL EXAM: General Appearance: Alert, well hydrated, appropriate, and non-toxic appearing. Head: Atraumatic without scalp tenderness or obvious injury Eyes: Pupils equal, round, reactive to light and accommodation, EOMI, no trauma , no injection. Ears: Clear bilaterally, no perforation, normal landmarks Nose: Atraumatic, no rhinorrhea, clear. Throat: There is no erythema or exudates, no lesions, normal tonsils, mucus membranes moist. Neck: Supple, 2+ carotid upstroke, nontender, no lymphadenopathy. Respiratory: No retractions, no distress, no wheezes, and no accessory muscle use. Lungs are clear to auscultation bilaterally. Cardiovascular: Regular rate and rhythm, no murmurs, rubs, or gallops. Bilateral carotid, radial, dorsalis pedis, and posterior tibial pulses intact. Good capillary refill all extremities. Gastrointestinal: Abdomen is soft, nontender, non-distended, no masses, no rebound, no guarding, no peritoneal signs. Musculoskeletal: Normal active ROM of all extremities, atraumatic. Neurological: Alert, appropriate, and interactive. The patient has normal DTRs and non-focal cranial nerves, motor, sensory, and cerebellar exam. Skin: No rashes, good turgor, no nodules on palpation. PAST MEDICAL HISTORY: Chronic alcoholism PAST SURGICAL HISTORY: Noncontributory SOCIAL HISTORY: Homeless, chronic alcoholic, single, not employed DIAGNOSTICS/PROCEDURES/CRITICAL CARE TIME: Not indicated DIFFERENTIAL DIAGNOSIS: The differential diagnosis for the patient's altered mental status included but was not limited to [hypoglycemia, infectious process , electrolyte abnormality, head injury, neurologic process, anemia, cardiac process, and intoxicants.] MEDICAL DECISION MAKING: I serially examined this patient since the patient's arrival here in the emergency department. The patient continues to become more and more sober with each examination. I serially questioned the patient and the patient's story given initially has not changed. The patient still denies any trauma, any head injury, and any illicit drug use. At this point, the patient is walking the department freely and is clinically sober. [facility] is [facility] the [facility]. She is clinically sober and were discharging her at this time Departure - Departure Disposition: Home, Routine, Self-Care Clinical Impression: Alcohol dependence Qualifiers: Substance use status: with intoxication Complication of substance-induced condition: uncomplicated Qualified Code(s): F10.220 - Alcohol dependence with intoxication, uncomplicated Condition: Good Instructions: Abuse of Alcohol (ED) Referrals: NONE *PRIMARY CARE P,. [Primary Care Provider] - As per Instructions [facility],. [Clinic] - As per Instructions
[2018-07-02 16:31] VITALS: BP 132/85
== END 2018-07-02 17:52 | disposition home or self-care (01) ==
LOC: EDUNIT#
DX: F10.220 Alcohol dependence with intoxication, uncomplicated (principal)

== ENCOUNTER 2018-07-02 21:31 | Emergency (ER) | payer MEDICAID ==
--- NOTE | 2018-07-02 21:48 | EDPHY ---
H & P Stated Complaint: ETOH, found slummed over, no apparent trauma, recently DC'd - Personal History Current Tetanus/Diphtheria Vaccine: Yes Current Tetanus Diphtheria and Acellular Pertussis (TDAP): Yes Tetanus Vaccine Date: 2010 - Medical/Surgical History Hx Asthma: No Hx Chronic Respiratory Disease: No Hx Diabetes: No Hx Cardiac Disease: Yes Hx Renal Disease: No Hx Cirrhosis: No Hx Alcoholism: Yes Hx HIV/AIDS: No Hx Splenectomy or Spleen Trauma: No Other PMH: HTN, Insommia/depression, ETOH abuse, herpes, Hyperlipidemia, Anxiety , HYPOTHYROID, PE, OSTEOPEROSIS, - Social History Smoking Status: Never smoked Time Seen by Provider: 07/02/18 21:35 Constitutional: Initial Vital Signs Temperature (C) 37.0 C 07/02/18 21:33 Heart Rate 85 07/02/18 21:33 Respiratory Rate 18 07/02/18 21:33 Blood Pressure 117/73 07/02/18 21:33 O2 Sat (%) 85 L 07/02/18 21:33 O2 Delivery Mode Nasal Cannula O2 (L/minute) 2 Allergies/Adverse Reactions: No Known Allergies Allergy (Verified 07/02/18 21:33) Home Medications: Medication Instructions Recorded Gabapentin [Neurontin] 1,200 mg PO TID 11/10/16 Aspirin EC [Aspirin EC 81 mg (*)] 162 mg PO DAILY 06/08/17 DULoxetine [Cymbalta 60 MG (*)] 60 mg PO DAILY #30 cap 12/16/17 Losartan Potassium [Cozaar 50 mg 50 mg PO DAILY #30 tab 12/16/17 (*)] Quetiapine Fumarate [Seroquel Xr] 200 mg PO HS #30 tab.er.24h 12/16/17 Ondansetron Odt [Zofran Odt] 4 mg PO Q4PRN PRN #4 tab 04/12/18 Xarelto 06/13/18 Medical Decision Making ED Course/Re-evaluation: CHIEF COMPLAINT: Alcohol intoxication. HISTORY OF PRESENT ILLNESS: The patient is a chronic alcoholic living on the [address]. Patient drinks on a daily basis and obtains whatever alcohol is available. Patient was found by bystanders who called EMS system. Patient has had multiple ER visits over the last several years for the same complaint including one today. Patient denies any injuries denies loss of consciousness denies any recent trauma. Patient denies co-ingestion. Patient denies suicidal or homicidal behavior. REVIEW OF SYSTEMS: A comprehensive 10 system review of systems is otherwise negative aside from elements mentioned in the history of present illness and medical decision making. PHYSICAL EXAM: General Appearance: Alert, well hydrated, appropriate, and non-toxic appearing. Head: Atraumatic without scalp tenderness or obvious injury Eyes: Pupils equal, round, reactive to light and accommodation, EOMI, no trauma , no injection. Ears: Clear bilaterally, no perforation, normal landmarks Nose: Atraumatic, no rhinorrhea, clear. Throat: There is no erythema or exudates, no lesions, normal tonsils, mucus membranes moist. Neck: Supple, 2+ carotid upstroke, nontender, no lymphadenopathy. Respiratory: No retractions, no distress, no wheezes, and no accessory muscle use. Lungs are clear to auscultation bilaterally. Cardiovascular: Regular rate and rhythm, no murmurs, rubs, or gallops. Bilateral carotid, radial, dorsalis pedis, and posterior tibial pulses intact. Good capillary refill all extremities. Gastrointestinal: Abdomen is soft, nontender, non-distended, no masses, no rebound, no guarding, no peritoneal signs. Musculoskeletal: Normal active ROM of all extremities, atraumatic. Neurological: Alert, appropriate, and interactive. The patient has normal DTRs and non-focal cranial nerves, motor, sensory, and cerebellar exam. Skin: No rashes, good turgor, no nodules on palpation. PAST MEDICAL HISTORY: Chronic alcoholism PAST SURGICAL HISTORY: Noncontributory SOCIAL HISTORY: Homeless, chronic alcoholic, single, not employed DIAGNOSTICS/PROCEDURES/CRITICAL CARE TIME: Not indicated DIFFERENTIAL DIAGNOSIS: The differential diagnosis for the patient's altered mental status included but was not limited to hypoglycemia, infectious process, electrolyte abnormality, head injury, neurologic process, anemia, cardiac process, and intoxicants. MEDICAL DECISION MAKING: I serially examined this patient since the patient's arrival here in the emergency department. The patient continues to become more and more sober with each examination. 2229: Patient care turned over to Dr. Courtney at shift change. Patient is still too intoxicated to be discharged. (Dimitri Morse) [id number]: Patient re-evaluated this time resting comfortably. Ambulatory to the bathroom. In no acute distress. Sober now. Safe for discharge. (Marcelino Courtney) Departure - Departure Disposition: Home, Routine, Self-Care Clinical Impression: Alcoholic intoxication Qualifiers: Complication of substance-induced condition: uncomplicated Qualified Code(s): F10.920 - Alcohol use, unspecified with intoxication, uncomplicated Alcohol dependence Qualifiers: Substance use status: uncomplicated Qualified Code(s): F10.20 - Alcohol dependence, uncomplicated Condition: Good Instructions: Alcohol Intoxication (ED), Abuse of Alcohol (ED) Referrals: [facility],. [Clinic] - As per Instructions
[2018-07-03 02:36] VITALS: BP 97/77
== END 2018-07-03 02:39 | disposition home or self-care (01) ==
LOC: EDUNIT#
DX: F10.920 Alcohol use, unspecified with intoxication, uncomplicated (principal); Z59.0 Homelessness

== ENCOUNTER 2018-07-12 18:39 | Emergency (ER) | payer MEDICAID ==
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
[2018-07-12] MEDS ORDERED: CHLORDIAZEPOXIDE 25MG PREPK#6 BTL TAKEHOME ONE (19:20)
[2018-07-12 20:37] VITALS: BP 122/76
== END 2018-07-12 20:35 | disposition home or self-care (01) ==
LOC: EDUNIT#
DX: F10.129 Alcohol abuse with intoxication, unspecified (principal); I10 Essential (primary) hypertension; Z79.899 Other long term (current) drug therapy; Z59.0 Homelessness

== ENCOUNTER 2018-07-13 18:34 | Emergency (ER) | payer MEDICAID ==
--- NOTE | 2018-07-13 18:51 | EDPHY ---
H & P Stated Complaint: EtOH Time Seen by Provider: 07/13/18 18:43 HPI/ROS: CHIEF COMPLAINT: Suspected alcohol abuse HISTORY OF PRESENT ILLNESS: 63 year old female in familiar to emergency department staff arrives via ambulance for suspected alcohol abuse [place]. Patient unable to ambulate without assistance. No reports of trauma or assault. No fall from height. No structures of height near patient. REVIEW OF SYSTEMS: 10 systems reviewed and negative with the exception of the elements mentioned in the history of present illness PAST MEDICAL/SURGICAL HISTORY: no anticoagulant use, no relevant medical/ surgical history SOCIAL HISTORY: Positive for witnessed and self disclosed alcohol use PHYSICAL EXAM 1) GENERAL: poorly kept, foul smelling, dirty alert and oriented. Appears to be in no acute distress. Answering questions appropriately.Smells of alcohol. 2) HEAD: Normocephalic, atraumatic 3) HEENT: Pupils equal, round, reactive to light bilaterally. Negative Horners. Nasopharynx, oropharynx, clear. No deformity or angulation of nose. No septal hematoma. No rhinorrhea. No oral trauma. Ears bilaterally with normal tympanic membranes. No hemotympanum. No fluid or blood in the external auditory canal. No raccoon eyes. No Mccray sign. Teeth are normally aligned with no gross malocclusion, TMJ bilaterally nontender, facial bones nontender including the zygomatic arch, maxilla mandible. 4) NECK: No cervical collar is on. Posterior cervical spine is nontender, no stepoff, no effusion. Full range of motion which does not elicit any midline cervical spine pain, no posterior midline tenderness, no step-off. 5) LUNGS: Clear to auscultation bilaterally, no wheezes, no rhonchi, no retractions. No obvious signs of trauma. No chest wall pain. No flaring, no grunting. Moving symmetrically. No crepitus. 6) HEART: [Regular rate and rhythm, 7) ABDOMEN: No guarding, no rebound, no focal tenderness, no peritoneal signs, no signs of trauma, no ecchymosis 8) MUSCULOSKELETAL: Moving all extremities, no focal areas of tenderness, no obvious trauma. 9) BACK: No midline vertebral tenderness, no fluctuance, no step-off, no obvious trauma, no visual or palpable abnormality. 10) SKIN: No laceration. No abrasion DIFFERENTIAL DIAGNOSIS: In no particular orderincluding but not limited to hypoglycemia, infectious process, electrolyte abnormality, head injury and intoxicants. - Personal History Current Tetanus/Diphtheria Vaccine: Unsure Current Tetanus Diphtheria and Acellular Pertussis (TDAP): Unsure Tetanus Vaccine Date: 2010 - Medical/Surgical History Hx Asthma: No Hx Chronic Respiratory Disease: No Hx Diabetes: No Hx Cardiac Disease: Yes Hx Renal Disease: No Hx Cirrhosis: No Hx Alcoholism: Yes Hx HIV/AIDS: No Hx Splenectomy or Spleen Trauma: No Other PMH: HTN, Insommia/depression, ETOH abuse, herpes, Hyperlipidemia, Anxiety , HYPOTHYROID, PE, OSTEOPEROSIS, - Social History Smoking Status: Never smoked Constitutional: Initial Vital Signs Temperature (C) 36.7 C 07/13/18 18:41 Heart Rate 68 07/13/18 18:41 Respiratory Rate 16 07/13/18 18:41 Blood Pressure 98/64 L 07/13/18 18:41 O2 Sat (%) 90 L 07/13/18 18:41 O2 Delivery Mode Room Air Allergies/Adverse Reactions: No Known Allergies Allergy (Verified 07/02/18 21:33) Home Medications: Medication Instructions Recorded Gabapentin [Neurontin] 1,200 mg PO TID 11/10/16 Aspirin EC [Aspirin EC 81 mg (*)] 162 mg PO DAILY 06/08/17 DULoxetine [Cymbalta 60 MG (*)] 60 mg PO DAILY #30 cap 12/16/17 Losartan Potassium [Cozaar 50 mg 50 mg PO DAILY #30 tab 12/16/17 (*)] Quetiapine Fumarate [Seroquel Xr] 200 mg PO HS #30 tab.er.24h 12/16/17 Ondansetron Odt [Zofran Odt] 4 mg PO Q4PRN PRN #4 tab 04/12/18 Xarelto 06/13/18 Medical Decision Making ED Course/Re-evaluation: 6:51 p.m.: Old medical records reviewed. Patient smells of alcohol. She will be allowed to sober and will be observed in the emergency department. Care of patient under supervision of secondary supervising physician Dr Georges. 9:15 p.m.: Patient awake alert oriented person place time events, clear speech pattern, stable steady gait without assistance. Plan will be [facility] to the [facility] with Librium prepack. Departure - Departure Disposition: Home, Routine, Self-Care Clinical Impression: Alcohol abuse Condition: Good Instructions: Abuse of Alcohol (ED), Chlordiazepoxide (By mouth) Additional Instructions: Please consider long-term sobriety from alcohol. Referrals: [facility] [Outside] - 1 day without fail
[2018-07-13] MEDS ORDERED: CHLORDIAZEPOXIDE 25MG PREPK#6 BTL TAKEHOME ONE (21:17)
[2018-07-13 21:27] VITALS: BP 135/89
== END 2018-07-13 22:16 | disposition home or self-care (01) ==
LOC: EDUNIT#
DX: F10.129 Alcohol abuse with intoxication, unspecified (principal); I10 Essential (primary) hypertension; E78.5 Hyperlipidemia, unspecified; E03.9 Hypothyroidism, unspecified; Z86.711 Personal history of pulmonary embolism

== ENCOUNTER 2018-07-23 11:06 | Emergency (ER) | payer MEDICAID ==
--- NOTE | 2018-07-23 11:09 | EDPHY ---
H & P Time Seen by Provider: 07/23/18 11:08 - Personal History Tetanus Vaccine Date: 2010 - Medical/Surgical History Hx Asthma: No Hx Chronic Respiratory Disease: No Hx Diabetes: No Hx Cardiac Disease: Yes Hx Renal Disease: No Hx Cirrhosis: No Hx Alcoholism: Yes Hx HIV/AIDS: No Hx Splenectomy or Spleen Trauma: No Other PMH: HTN, Insommia/depression, ETOH abuse, herpes, Hyperlipidemia, Anxiety , HYPOTHYROID, PE, OSTEOPEROSIS, - Social History Smoking Status: Never smoked Allergies/Adverse Reactions: No Known Allergies Allergy (Verified 07/02/18 21:33) Home Medications: Medication Instructions Recorded Gabapentin [Neurontin] 1,200 mg PO TID 11/10/16 Aspirin EC [Aspirin EC 81 mg (*)] 162 mg PO DAILY 06/08/17 DULoxetine [Cymbalta 60 MG (*)] 60 mg PO DAILY #30 cap 12/16/17 Losartan Potassium [Cozaar 50 mg 50 mg PO DAILY #30 tab 12/16/17 (*)] Quetiapine Fumarate [Seroquel Xr] 200 mg PO HS #30 tab.er.24h 12/16/17 Ondansetron Odt [Zofran Odt] 4 mg PO Q4PRN PRN #4 tab 04/12/18 Xarelto 06/13/18 Medical Decision Making ED Course/Re-evaluation: CHIEF COMPLAINT: Alcohol intoxication. HISTORY OF PRESENT ILLNESS: The patient is a chronic alcoholic living on the [place]. Patient drinks on a daily basis and obtains whatever alcohol is available. Patient was found by bystanders who called EMS system. Patient has had multiple ER visits over the last several years for the same complaint. Patient denies any injuries denies loss of consciousness denies any recent trauma. Patient denies co-ingestion. Patient denies suicidal or homicidal behavior. REVIEW OF SYSTEMS: A comprehensive 10 system review of systems is otherwise negative aside from elements mentioned in the history of present illness and medical decision making. PHYSICAL EXAM: General Appearance: Alert, well hydrated, appropriate, and non-toxic appearing. Head: Atraumatic without scalp tenderness or obvious injury Eyes: Pupils equal, round, reactive to light and accommodation, EOMI, no trauma , no injection. Ears: Clear bilaterally, no perforation, normal landmarks Nose: Atraumatic, no rhinorrhea, clear. Throat: There is no erythema or exudates, no lesions, normal tonsils, mucus membranes moist. Neck: Supple, 2+ carotid upstroke, nontender, no lymphadenopathy. Respiratory: No retractions, no distress, no wheezes, and no accessory muscle use. Lungs are clear to auscultation bilaterally. Cardiovascular: Regular rate and rhythm, no murmurs, rubs, or gallops. Bilateral carotid, radial, dorsalis pedis, and posterior tibial pulses intact. Good capillary refill all extremities. Gastrointestinal: Abdomen is soft, nontender, non-distended, no masses, no rebound, no guarding, no peritoneal signs. Musculoskeletal: Normal active ROM of all extremities, atraumatic. Neurological: Alert, appropriate, and interactive. The patient has normal DTRs and non-focal cranial nerves, motor, sensory, and cerebellar exam. Skin: No rashes, good turgor, no nodules on palpation. PAST MEDICAL HISTORY: Chronic alcoholism PAST SURGICAL HISTORY: Noncontributory SOCIAL HISTORY: Homeless, chronic alcoholic, single, not employed DIAGNOSTICS/PROCEDURES/CRITICAL CARE TIME: Not indicated DIFFERENTIAL DIAGNOSIS: The differential diagnosis for the patient's altered mental status included but was not limited to hypoglycemia, infectious process, electrolyte abnormality, head injury, neurologic process, anemia, cardiac process, and intoxicants. MEDICAL DECISION MAKING: I serially examined this patient since the patient's arrival here in the emergency department. The patient continues to become more and more sober with each examination. I serially questioned the patient and the patient's story given initially has not changed. The patient still denies any trauma, any head injury, and any illicit drug use. At this point, the patient is walking the department freely and is clinically sober. Patient is [facility] from the [facility]. She is clinically sober and were discharging her at this time Departure - Departure Disposition: Home, Routine, Self-Care Clinical Impression: Alcoholism Alcoholic intoxication Qualifiers: Complication of substance-induced condition: uncomplicated Qualified Code(s): F10.920 - Alcohol use, unspecified with intoxication, uncomplicated Condition: Good Instructions: Alcohol Intoxication (ED), Abuse of Alcohol (ED) Additional Instructions: 1. Please refrain from abusing alcohol. 2. Return to the emergency department immediately for fever, vomiting, confusion , headache, abdominal pain or other worsening of condition. 3. Followup with your primary care physician within 72 hours for reevaluation. Referrals: NONE *PRIMARY CARE P,. [Primary Care Provider] - As per Instructions [facility],. [Clinic] - As per Instructions [facility] [Outside] - As per Instructions
[2018-07-23 11:11] VITALS: BP 126/87
== END 2018-07-23 11:30 | disposition home or self-care (01) ==
LOC: EDUNIT#
DX: F10.920 Alcohol use, unspecified with intoxication, uncomplicated (principal); I10 Essential (primary) hypertension; F32.9 Major depressive disorder, single episode, unspecified; E78.5 Hyperlipidemia, unspecified; F41.9 Anxiety disorder, unspecified; E03.9 Hypothyroidism, unspecified; Z86.711 Personal history of pulmonary embolism

== ENCOUNTER 2018-08-05 21:42 | Emergency (ER) | payer MEDICAID ==
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
[2018-08-05] MEDS ORDERED: CHLORDIAZEPOXIDE 25MG PREPK#6 BTL TAKEHOME ONE (23:55)
[2018-08-06 01:04] VITALS: BP 105/70
== END 2018-08-06 00:20 | disposition home or self-care (01) ==
LOC: EDUNIT#
DX: F10.920 Alcohol use, unspecified with intoxication, uncomplicated (principal)

== ENCOUNTER 2018-08-08 10:51 | Emergency (ER) | payer MEDICAID ==
--- NOTE | 2018-08-08 11:33 | EDPHY ---
General Time Seen by Provider: 08/08/18 11:32 Narrative: CLINICAL IMPRESSION: Acute alcohol intoxication ASSESSMENT/PLAN: Patient is a 63-year-old female with a significant medical history of chronic alcohol abuse who presents with acute alcohol intoxication. Patient is afebrile and not toxic appearing, she is in no acute distress on arrival. Her abdomen was soft and nontender, no evidence of a surgical abdomen. Patient is well known to our department with frequent ED visits for acute alcohol intoxication. I did not feel that any laboratory studies or imaging were warranted. No findings to suggest encephalopathy, head injury, hypoglycemia or severe dehydration. The patient was observed for a period of time and sobered appropriately, was able to tolerate orals. She was able to ambulate independently and without difficulty, transferred to the [facility]. Librium pack provided, return precautions discussed. DIFFERENTIAL DX: Differential diagnosis including but not limited to alcohol intoxication, drug abuse, head injury, electrolyte abnormality, hypoglycemia, dehydration ED COURSE: 1322: Patient is able to ambulate independently and without difficulty. She is much more alert and oriented with clear speech. 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 Per report, patient was found to be intoxicated was brought here by ambulance secondary to drinking heavily. Patient is sleeping on my examination however easily arousable. She reports drinking vodka, unsure how much. She denies any physical complaints. She denies any head injury or trauma. Denies any illicit drug use. Somewhat of a poor historian. PMH: Chronic alcohol abuse. Family History: Not contributory Social History: Chronic alcohol abuse REVIEW OF SYSTEMS: All other systems negative Constitutional: No fever, no chills, appetite change. Eyes: No discharge, vision change ENT: No sore throat, congestion, ear pain. Cardiovascular: No chest pain, no palpitations. Respiratory: No cough, no shortness of breath. Gastrointestinal: No abdominal pain, no vomiting, diarrhea. Genitourinary: No hematuria, dysuria, flank pain. Musculoskeletal: No back pain, joint swelling, joint pain, myalgias. Skin: No rashes, color change. Neurological: Intoxicated. No headache, dizziness, weakness. PHYSICAL EXAM: General Appearance: Unkempt, no acute distress and not toxic-appearing.. HENT: Normocephalic, atraumatic. Bilateral external ears are normal. Bilateral tympanic membranes are normal with pearly wu reflex. Nares are clear, mucosa is pink. Oropharynx is clear, mucosa is mildly dry, uvula is midline. There is no tonsillar enlargement or exudate. The dentition is normal. Eyes: PERRLA, EOMI. Conjunctiva pink, no pallor or injection. Neck: Supple, nontender, no lymphadenopathy, no midline pain, FROM, no meningismus. Respiratory: There are no retractions, lungs are clear to auscultation. Cardiac: Regular rate and rhythm, no murmurs or gallops. Gastrointestinal: Abdomen is soft, nontender, bowel sounds normal, no masses/ hernia, no rigidity, guarding or focal peritoneal findings. Neurological: Intoxicated however Alert and oriented x 3, CN 2-12 grossly intact, normal sensation and strength. Skin: Warm, dry, no rashes, no nodules on palpation. Musculoskeletal: Extremities are symmetrical, full range of motion, no tenderness, deformity, swelling, or erythema. Psychiatric: Mood and affect are normal, there is no agitation. MEDICAL DECISION MAKING: Patient was seen independently. Secondary supervising physician at time of evaluation was Dr. Roberson, she did not evaluate this patient. Diagnosis: Acute alcohol intoxication. Summary: See Assessment and Plan for summary of ED visit Decision to obtain medical records or history from someone other than the patient: No Review / Summarize previous medical records: Yes Discussed patient with another provider: Yes, Dr. Roberson Patient Progress: Stable, discharge to the arc. - History Smoking Status: Never smoked - Objective Vital Signs: Initial Vital Signs Temperature (C) 36.4 C 08/08/18 11:03 Heart Rate 73 08/08/18 11:03 Respiratory Rate 18 08/08/18 11:03 Blood Pressure 109/73 08/08/18 11:03 O2 Sat (%) 94 08/08/18 11:03 O2 Delivery Mode Room Air Allergies/Adverse Reactions: No Known Allergies Allergy (Verified 07/23/18 11:11) Home Medications: Medication Instructions Recorded Gabapentin [Neurontin] 1,200 mg PO TID 11/10/16 Aspirin EC [Aspirin EC 81 mg (*)] 162 mg PO DAILY 06/08/17 DULoxetine [Cymbalta 60 MG (*)] 60 mg PO DAILY #30 cap 12/16/17 Losartan Potassium [Cozaar 50 mg 50 mg PO DAILY #30 tab 12/16/17 (*)] Quetiapine Fumarate [Seroquel Xr] 200 mg PO HS #30 tab.er.24h 12/16/17 Ondansetron Odt [Zofran Odt] 4 mg PO Q4PRN PRN #4 tab 04/12/18 Xarelto 06/13/18 Departure - Departure Disposition: Law Enforcement/Court/Retirement Clinical Impression: Acute alcohol intoxication Condition: Good Instructions: Alcohol Intoxication (ED) Additional Instructions: DISCHARGE INSTRUCTIONS FROM YOUR PROVIDER Thank you for visiting our emergency department today. Please avoid heavy alcohol use, it is very dangerous to your health and safety. Please followup with alcohol cessation resources provided. Seek immediate medical attention for seizures, confusion, uncontrolled vomiting , vomiting blood or other serious concerns People present with illnesses and injuries in different ways, and it is always possible that we have missed something. Again, thank you for choosing our emergency department. We hope that you feel better. Referrals: NONE *PRIMARY CARE P,. [Primary Care Provider] - As per Instructions
[2018-08-08] MEDS ORDERED: CHLORDIAZEPOXIDE 25MG PREPK#6 BTL TAKEHOME ONE (11:56)
[2018-08-08 14:43] VITALS: BP 122/66
--- NOTE | 2018-08-08 17:22 | ASMTCMCOM ---
CM Note CM Note Notes: Pt presented to the ED via EMS on an "ARC" (Emergency Commitment) Hold for ETOH intoxication. This is the pt's 32nd ED visit in 2019. Pt was seen 26 times in 2018. Pt is very familiar to the ED staff and ED Copy Coordinator; staff and CM have made great efforts to help pt w/her ETOH abuse, homelessness, mental health, primary care, other outpatient care coordination, transportation, etc since 2010. Please see various past ED and Inpatient CM Reports, ED CM Notes, ED RN Notes, Behavioral Health RN "Care Coordination" Note 11/11/16, Spiritual Services Notes, etc. for additional background info and detailed various attempts to help pt CM spoke w/pt and tried to discuss whether she has been following up w/Dr Amelie Pearce at [facility] or Dr Sussy Dorantes at [facility]; following up w/Christina Hartmann w/[facility] or Mayra ([phone]) w/[facility] re: possible bed placement at [facility] in [place], [place]; what pt's current goals and treatment plan is w/Withdrawal Mgmt Detox; and if pt has been staying at the [facility], etc. Unfortunately pt was still rather intoxicated and incoherent. Pt kept saying "I'm just a drunk. It is what it is. But thank you. Can I go now?" Pt was discharged w/[facility]PD to Detox on an E.C. Hold. CM will followup w/[facility] and [facility] on the next business day (08/10/18) and if pt has not followed up w/P in the past 45 days, CM will consider sending a referral to [place] [facility] and [facility]'s new Metal Control Worker Program (TSP) but CM needs to confirm whether a referral can be sent without verbal consent and/or an ADRIANA completed (which has been unable to obtain at this time). Date Signed: 08/08/2018 05:21 PM Electronically Signed By:Cintia Hair RN
--- NOTE | 2018-08-10 17:51 | ASMTCMCOM ---
CM Note CM Note Notes: Followed up with [facility] and spoke w/TERENCE Yang Song Writer; pt has not been seen at there since May and she is unable to confirm whether pt has been seen [facility] or not but thinks pt may have an appt w/Dr Pearce in early August. This CM also reached out to Leigha Marmolejo ([phone]), Whiskey Filterer for the 'L[facility] Out And Detail Drafter Program' at [facility], which is contracted by [place] [facility] [employer] [facility]'s Office of Behavioral Health to provide assistance w/transitioning high-risk individuals to community-based behavioral health services after receiving treatment in an acute care hospital or withdrawal mgmt facitily.Spoke with Leigha re: referral process when a pt is no longer in the ED to provide verbal consent or written [facility]ANA for [facility] to send a referral to the TSP program and Leigha said that the pt needs to provide verbal consent or sign an ADRIANA so a referral was TSP was not sent at this time. Next time pt presents to the ED and if she still has not followed up w/[facility] and if pt is agreeable to being contacted by TSP, then please try to get verbal consent and/or an ADRIANA signed by the pt (and document accordingly) so ED CM can refer pt to TSP If pt is not agreeable to being contacted or referred to TSP and then try to assist pt with getting to [facility] or [facility] for same-day appt or other outpatient assistance; or coordinate an appt day and time w/[facility] Withdrawal Mgmt Detox if pt discharges there. Please continue to reach out to CM for further assistance if needed. Date Signed: 08/10/2018 05:50 PM Electronically Signed By:Cintia Hair RN
== END 2018-08-08 14:43 ==
LOC: EDUNIT#
DX: F10.920 Alcohol use, unspecified with intoxication, uncomplicated (principal)

== ENCOUNTER 2018-08-15 11:27 | Emergency (ER) | payer MEDICAID | END 2018-08-15 11:35 | disposition home or self-care (01) ==

== ENCOUNTER 2018-08-20 14:16 | Emergency (ER) | payer MEDICAID | END 2018-08-20 18:08 | disposition home or self-care (01) ==

== ENCOUNTER 2018-08-23 17:39 | Emergency (ER) | payer MEDICAID | END 2018-08-23 18:37 | disposition home or self-care (01) ==

== ENCOUNTER 2018-08-27 21:03 | Inpatient (IN) | payer MEDICAID | END 2018-09-07 10:30 | disposition home or self-care (01) | LOC: F2N 08-28 14:48 → F1N 08-29 11:56 → F2N 23:45 ==